=== PATIENT | male | born 1950 | race Caucasian/White ===

== ENCOUNTER 2016-08-11 08:50 | Inpatient (IN) | payer MEDICARE, MEDICAID ==
[~2016-08-11] VITALS: Ht 182.9 cm; Wt 109.1 kg
--- NOTE | ~2016-08-11 | HEMODYNAMI ---
PATIENT:VAHE NARVAEZ MEDICAL RECORD: [id number] : 54 [address] [id number] ADMISSION DATE: 08/11/16 Generatedon:08/13/20169:09 Patient name: VAHE NARVAEZ Patient #: [id number] SSN: : 1950 Date of study: 08/13/2016 Page: Of Hemodynamic Procedure Report Patient Data Patient Demographics Procedure consent was obtained First Name: VAHE Gender: Male Last Name: SOLANGE : 1950 Patient #: [id number] Age: 65 year(s) Race: Additional ID: [id number] Contact details Address: [address] [place] [address] State: [place] City: [facility] [place] [place] Zip code: [address] Admission Admission Data Admission Date: 08/11/2016 Admission Time: 11:35 Room #: 2122 Height (in.): 72 BSA: 2.3 (m2) Height (cm.): 182.88 BMI: 32.59 (kg/m2) Weight (lbs.): 240.31 Weight (kg.): 109 Lab Results Lab Result Date: 08/13/2016 Lab Result Time: 0:00 Biochemistry Name Units Result Min Max CK-MB ng/ml 0.4 --(*---)-- 0 3.6 Creatinine mg/dl 1 --(--*-)-- 0.6 1.3 Creatinine l 45 --(*---)-- 21 215 Kinase Troponin l ng/ml 0.017 --(-*--)-- 0 0.06 CBC Name Units Result Min Max Hemoglobin g/dl 10.4 *-(----)-- 13.5 17.5 Procedure Procedure Types Cath Procedure Diagnostic Procedure [facility] w/Coronaries FFR/IVUS Intra-Coronary IVUS Initial Intra-Coronary IVUS Additional PCI Procedure Coronary Stent Initial x2 Procedure Description Procedure Date Procedure Date: 08/13/2016 Procedure Start Time: 8:11 Procedure End Time: 9:09 Procedure Staff Name Function Casimiro Neal MD Performing Physician Jojo Echevarria RT Scrub Chaim Singleton RN Nurse Jarrell Barajas RT Monitor Procedure Data Cath Procedure Fluoroscopy Diagnostic fluoroscopy Total fluoroscopy Time: time: 11.2 min 11.2 min Diagnostic fluoroscopy Total fluoroscopy dose: dose: 1565 mGy 1565 mGy Contrast Material Contrast Material Type Amount (ml) Isovue 300 186 Entry Location Entry Primary Successful Side Size Upsize Upsize Entry Closure Eubanks ccessful Closure Location (Fr) 1 (Fr) 2 (Fr) Remarks Device Remarks Radial Right 6 Fr Mechanical artery Short Compression Estimated blood loss: 10 ml Diagnostic catheters Device Type Used For End Catheter Placement Diagnostic Terumo 5Fr Procedure [place] 110cm catheter Diagnostic Infinity 5Fr Procedure AR 2 MOD catheter Procedure Complications No complications Procedure Medications Medication Administration Route Dosage Oxygen NC 2 l/min Heparin Flush Bag added to field 2 bags (1000units/500ml NS) 0.9% NaCl 100 ml/hr Refer to Anesthesia Notes for Sedation Medications Heparin Bolus I.V. 4000 units Plavix P.O. 75 mg Hemodynamics Rest BSA: 2.3 (m2) HGB: 10.4 (g/dl) O2 Consumption: Estimated: 261.07 (ml/min) O2 Con sumption indexed: Estimated:113.51 (ml/min/m) Heart Rate: 61 (bpm) Snapshots Pre Cath Intra NCS Post Cath Vital Signs Time Heart Resp SPO2 etCO2 [id number] NIBP (mmHg) Rhythm Pain Sedation Rate (ipm) (%) (mmHg) (mmHg) Status Level (bpm) 7:54:17 59 16 99 0 0 207/102(137) NSR 0 (11) 10(A) , No pain 7:58:53 59 17 99 0 0 198/106(144) NSR 0 (11) 10(A) , No pain 8:03:24 60 17 98 0 0 200/100(146) NSR 0 (11) 10(A) , No pain 8:09:01 59 20 93 0 0 166/90(131) NSR 0 (11) 5(A) , No pain 8:13:26 60 18 89 0 0 142/76(97) NSR 0 (11) 5(A) , No pain 8:17:46 59 18 94 0 0 154/73(109) NSR 0 (11) 5(A) , No pain 8:22:10 60 17 92 0 0 142/64(86) NSR 0 (11) 5(A) , No pain 8:26:28 59 18 93 0 0 131/66(85) NSR 0 (11) 5(A) , No pain 8:31:37 61 17 93 0 0 129/58(85) NSR 0 (11) 5(A) , No pain 8:35:58 62 18 90 0 0 126/63(87) NSR 0 (11) 5(A) , No pain 8:40:08 63 18 90 0 0 126/65(95) NSR 0 (11) 5(A) , No pain 8:44:25 65 16 93 0 0 144/67(84) NSR 0 (11) 5(A) , No pain 8:48:50 66 17 95 0 0 130/67(88) NSR 0 (11) 5(A) , No pain 8:53:08 67 17 96 0 0 136/63(86) NSR 0 (11) 5(A) , No pain 8:57:30 68 17 99 0 0 154/68(91) NSR 0 (11) 8(A) , No pain 9:01:56 70 16 100 0 0 156/74(98) NSR 0 (11) 8(A) , No pain 9:06:18 69 18 91 0 0 164/83(108) NSR 0 (11) 8(A) , No pain Medications Time Medication Route Dose Verified Delivered Reason Notes Effectiveness by by 8:03:28 Oxygen NC 2 Chaim Rucker Per physician l/min Mani Singleton RN RN 8:03:38 Heparin Flush added 2 Chaim Rucker used for Bag to bags Mani Singleton RN procedure (1000units/500ml field RN NS) 8:03:49 0.9% NaCl 100 Chaim Rucker Per physician ml/hr Mani Singleton RN RN 8:04:04 Refer to Chaim Rucker Per physician Anesthesia Notes Mani Singleton RN for Sedation RN Medications 8:25:00 Heparin Bolus I.V. 4000 Chaim Rucker for units Mani Singleton RN anticoagulation RN 8:40:59 Plavix P.O. 75 mg Chaim Rucker for Singleton Singleton RN antiplatelet RN therapy Procedure Log Time Note 7:31:20 Lab Result : Creatinine 1 mg/dl 7:31:20 Lab Result : Troponin l 0.017 ng/ml 7:31:20 Lab Result : Hemoglobin 10.4 g/dl 7:31:20 Lab Result : CK-MB 0.4 ng/ml 7:31:20 Lab Result : Creatinine Kinase 45 l 7:31:45 Jarrell Barajas RT(R) sent for patient. Start room use. 7::45 Time tracking: Regular hours 7:31:49 Plan of Care:Hemodynamics will remain stable., Cardiac rhythm will remain stable., Comfort level will be maintained., Respiratory function will remain adequate., Patient/ family verbilizes understanding of procedure., Procedure tolerated without complication., Recovers from procedure without complications.. 7:45:27 Patient received from PCU to CCL 1 Alert and oriented. Tansferred to table in Supine position. 7:45:28 Warm blankets applied, and mustapha hugger turned on for patient comfort. 7:45:29 Correct patient and procedure confirmed by team. 7:45:30 Signed procedure consent form obtained from patient. 7:45:31 ECG and BP/O2 sat monitors applied to patient. 7:45:32 Full Disclosure recording started 7:52:06 Vital chart was started 8:00:51 Baseline sample Acquired. 8:00:58 Rhythm: paced 8:01:11 H&P Date Dictated: 08/09/2016 Within 30 days and on chart., ER History on chart.. 8:01:12 Pre-procedure instructions explained to patient. 8:01:13 Pre-op teaching completed and patient verbalized understanding. 8:01:14 Family unavailable. 8:01:31 Reji Rubio present and monitoring patient for TIVA. 8:01:37 Patient NPO since Midnight. 8:01:44 Is the patient allergic to Iodine/contrast media? No. 8:01:47 Is patient on blood thinner?Yes 8:03:20 Last dose of Plavix was 08/11/16. 8:03:23 Last dose of Coumadin was 08/09/16. 8:03:27 Patient diabetic? No. 8:03:28 Oxygen 2 l/min NC was administered by Chaim Singleton RN; Per physician; 8:03:30 Previous problem with sedation/anesthesia? No ? 8:03:32 Snore? No 8:03:33 Sleep apnea? No 8:03:34 Deviated septum? No 8:03:34 Opens mouth fully? Yes 8:03:35 Sticks out tongue? Yes 8:03:37 Airway obstruction? No ? 8:03:38 Heparin Flush Bag (1000units/500ml NS) 2 bags added to field was administered by Chaim Singleton RN; used for procedure; 8:03:41 Dentures? Yes OUT 8:03:44 Pre procedure: right dorsailis pedis pulse 1+ Palpable, but thready & weak; easily obliterated 8:03:46 Modified Micky's test Ulnar < 7 seconds 8:03:48 Patient pain scale 0/10 ?. 8:03:49 0.9% NaCl 100 ml/hr was administered by Chaim Singleton RN; Per physician; 8:03:58 IV patent on arrival in left antecubital with 0.9% NaCl at O. 8:04:04 Refer to Anesthesia Notes for Sedation Medications was administered by Chaim Singleton RN; Per physician; 8:04:21 Due to IV placement, BP cuff was placed on left leg. 8:04:26 Lab results completed and on chart. 8:04:29 Right Radial & Right Groin area was prepped with chlora-prep and draped in sterile fashion 8:04:30 Alarms reviewed by R. N. 8:04:31 Sharps counted by scrub and verified by R.N. 8:05:36 --------ALL STOP TIME OUT------ 8:05:37 Final Timeout: patient, procedure, and site verified with staff and physician. All members of the team are in agreement. 8:05:41 Right Radial & Right Groin site verified by team. 8:05:44 Physical assessment completed. ASA score P 2 - A patient with mild systemic disease as per Casimiro Nela MD. 8:05:46 Sedation plan: TIVA Propofol 8:06:05 Use device set Radial Dx 8:06:08 Tegaderm 4 x 4 opened to sterile field. 8:06:09 Acist Manifold opened to sterile field. 8:06:10 Acist Hand Control opened to sterile field. 8:06:12 Acist Syringe opened to sterile field. 8:06:12 Medline Cath Pack opened to sterile field. 8:06:13 Bag Decanter opened to sterile field. 8:06:13 Terumo 6Fr Slender Glidesheath opened to sterile field. 8:06:13 St Oscar 260cm J .035 wire opened to sterile field. 8:06:14 MBrace Wrist Support opened to sterile field. 8:06:25 IV Extension Set opened to sterile field. 8:09:11 Zero performed for pressure channel P1 8:11:45 Procedure started. 8:11:49 Local anesthetic to right radial artery with Lidocaine 2% by Casimiro Neal MD.INITIAL ACCESS ONLY 8:12:01 Patient Height : 72 cm 8:12:06 Patient Weight : 240.31 kg 8:12:52 A 6 Fr Short sheath was inserted into the Right Radial artery 8:13:49 A Diagnostic Terumo 5Fr [place] 110cm catheter was advanced over the wire and used for Procedure. 8:13:53 LV angiography performed. 8:13:54 LV gram done using STARKEY 8:14:00 EF : 55 % 8:14:04 Injector settings: Ml/sec: 7, Volume: 15, 8:15:36 LCA angiography performed. 8:17:10 Leveler BasixCompak Inflation Kit opened to sterile field. 8:17:10 Virk Whisper J 300cm 0.014 guide wire opened to sterile field. 8:17:15 Catheter exchanged over wire. 8:17:20 A Diagnostic Infinity 5Fr AR 2 MOD catheter was advanced over the wire and used for Procedure. 8:18:19 Catheter removed. unable to cannulate vessel. 8:18:28 Medtronic Launcher 6Fr HS II guide catheter opened to sterile field. 8:19:32 6 Fr HS 2 guide catheter was inserted over the wire 8:19:54 RCA angiography performed. 8:20:50 Catheter exchanged over wire. 8:21:16 [place] Eagleye IVUS Catheter opened to sterile field. 8:21:28 Cordis 6FR XBLAD 4.0 guide catheter opened to sterile field. 8:21:46 6 Fr XBLAD 4 guide catheter was inserted over the wire 8:22:31 Guide Catheter removed. unable to cannulate vessel. 8:22:40 Cordis 6FR XBLAD 3.5 guide catheter opened to sterile field. 8:22:52 6 Fr XBLAD 3.5 guide catheter was inserted over the wire 8:23:51 Whisper wire advanced. 8:24:38 Wire advanced down the LAD. 8:24:55 IVUS catheter advanced over wire. 8:25:00 Heparin Bolus 4000 units I.V. was administered by Chaim Singleton RN; for anticoagulation; 8:26:19 IVUS pass to LAD lesion performed. 8:26:28 IVUS catheter removed over wire. 8:28:59 Wire removed. 8:29:09 ACC PCI Site: pLAD has 72% stenosis. 8:29:11 ACC Pre-intervention DINA Flow is 3. 8:30:09 Whisper wire readvanced. 8:30:20 Wire advanced across lesion. 8:30:27 Inflation Number: 1 A Biofreedom 3.5 x 14 stent (No Cost Implant) was prepped and advanced across the Prox LAD. The stent was deployed at 15 SANCHEZ for 0:10 (min:sec). 8:32:04 ACC Post-intervention DINA Flow is 3. 8:32:45 Stent catheter was removed intact over wire. 8:33:35 Wire redirected to CIRC. 8:33:41 IVUS catheter advanced over wire. 8:34:27 IVUS pass to Circ lesion performed. 8:35:06 IVUS catheter removed over wire. 8:35:11 Wire removed. 8:36:42 Whisper wire readvanced. 8:36:47 Wire advanced across lesion. 8:36:53 ACC PCI Site: pCirc has 70% stenosis. 8:36:56 ACC Pre-intervention DINA Flow is 3. 8:37:54 Inflation Number: 1 A Biofreedom 3.0 x 8 stent (No Cost Implant) was prepped and advanced across the Prox CX. The stent was deployed at 15 SANCHEZ for 0:10 (min:sec). 8:38:02 ACC Post-intervention DINA Flow is 3. 8:38:07 Stent catheter was removed intact over wire. 8:38:07 Wire removed. 8:38:08 Guide catheter removed. 8:38:12 Procedure ended.(Physican Out) 8:38:30 Terumo TR Band Large opened to sterile field. 8:38:39 Sheath removed intact; hemostasis achieved with Mechanical Compression to the Right Radial artery. 8:40:31 Fluoroscopy time 11.20 minutes. 8:40:37 Fluoroscopy dose: 1565 mGy 8:40:37 Flurop Dose total: 1565 8:40:41 Contrast amount:Isovue 300 186ml. 8:40:43 Sharps counted by scrub and verified by R.N. 8:40:45 TR band inflated with 11cc of air. 8:40:46 Insertion/operative site no bleeding no hematoma. 8:40:48 Post Procedure Pulses reassessed and unchanged 8:40:53 Post-procedure physical assessment completed. ASA score P 2 - A patient with mild systemic disease as per Casimiro Neal MD. 8:40:56 Post procedure rhythm: unchanged. 8:40:58 Estimated blood loss: 10 ml 8:40:59 Plavix 75 mg P.O. was administered by Chaim Singleton RN; for antiplatelet therapy; 8:41:00 Post procedure instruction explained to patient.Patient verbalizes understanding. 8:41:00 Patient needs reinforcement of post procedure teaching. 8:41:29 Procedure type changed to Cath procedure, Diagnostic procedure, LHC, LHC w/Coronaries, FFR/IVUS, Intra-Coronary IVUS Initial, Intra-Coronary IVUS Additional, PCI procedure, Coronary Stent Initial x2 8:41:38 Procedure Complication : No complications 8:44:27 Procedure and supply charges have been captured, reviewed, submitted and are correct. 9:09:02 Vital chart was stopped 9:09:03 See physician's report for complete and final results. 9:09:07 Report given to PCU. 9:09:11 Patient transfered to PCU with Bed. 9:09:13 Procedure ended. 9:09:13 Full Disclosure recording stopped 9:09:20 End room use (Document Last) Intervention Summary Intervention Notes Time ActionType Lesion and Equipment Action# Pressure Duration Attributes Used 8:30:27 Place stent Prox LAD Biofreedom 1 15 00:10 3.5 x 14 stent (No Cost Implant) 8:37:54 Place stent Prox CX Biofreedom 1 15 00:10 3.0 x 8 stent (No Cost Implant) Device Usage Item Name Manufacture Quantity Catalog Hospital Part Current Minimal Lot# / Number Charge Number Stock Stock Serial# Code Tegaderm 4 3M 1 1626W 298388 266528 686895 5 x 4 Acist Acist 1 69833 966678 065827 178632 5 Manifold Medical Systems Inc Acist Hand Acist 1 57495 865266 426248 751464 5 Control Medical Systems Inc Acist Acist 1 79310 282813 639935 101864 20 Syringe Medical Systems Inc Medline Cardinal 1 [id number] 345804 31704 295224 5 Cath Pack Health Bag Microtek 1 2002S 383133 39480 930362 5 Decanter Medical Inc. Terumo 6Fr Terumo 1 [id number] 342548 256274 614210 [address] St Oscar 1 231278 564056 253690 340508 30 260cm J .035 wire MBrace Advanced 1 140-0250-00 191063 68190 552931 5 Wrist Vascular Support Dynamics IV Hospira 1 32990-80 153833 84449 929011 5 Extension Set Diagnostic Terumo 1 40-6844 529153 523850 042017 5 Terumo 5Fr [place] 110cm catheter Diagnostic Cardinal 1 [id number] 560827 523473 861024 20 DestinationRX 5Fr AR 2 MOD catheter Merit Merit 1 OK3215 600784 236632 685036 15 BasixCompak Medical Inflation Kit Virk Virk 1 [id number] 038424 666453 720274 5 Whisper J Vascular 300cm 0.014 guide wire Medtronic Medtronic 1 [id number] 552895 29194 952507 1 Launcher 6Fr HS II guide catheter [place] 1 [id number] 020609 741315 275351 8 [place] Eagleye IVUS Catheter Cordis 6FR Cardinal 1 [id number] 487282 759515 283155 3 XBLAD 4.0 Health guide catheter Cordis 6FR Cardinal 1 [id number] 884733 516970 244385 10 XBLAD 3.5 Health guide catheter Biofreedom Biosensors 1 [facility]2-9813 019024 439627 5 [id number] 3.5 x 14 [place] SA stent (No Cost Implant) Biofreedom Biosensors 1 [facility]23006 559623 385149 5 [id number] 3.0 x 8 [place] SA stent (No Cost Implant) Terumo TR Terumo 1 [id number] 683546 324819 905421 40 Band Large Signature Audit [place] Stage Time Signature Unsigned Intra-Procedure 08/13/2016 Jarrell Barajas 9:09:32 AM RT(R) Signatures Monitor : Jarrell Barajas RT Signature : Date : Time : [place] [id number] [facility]901
--- NOTE | ~2016-08-11 | DS ---
PATIENT:VAHE NARVAEZ :54 MEDICAL RECORD: [id number] DISCHARGE SUMMARY ADMISSION DATE: 08/13/16 DISCHARGE DATE: 08/14/16 DISCHARGE DIAGNOSES: 1. PTCA stent left anterior descending and left circumflex this admission. 2. Unstable angina. 3. Coronary artery disease. 4. Hypertension. 5. Hyperlipidemia. HOSPITAL COURSE: This is a gentleman who presents with unstable anginal symptomatology, found to have 2-vessel coronary artery disease, underwent successful PTCA stent of the LAD and left circumflex. He had an uneventful postop course with no further anginal symptomatology, no complications. Was discharged home with the addition of Plavix to his medical regimen. His INR was high to begin with. He was on 4 mg a day of Coumadin. We decreased this to 2 mg a day. We will follow up with a PT/INR in 2 weeks at our office. TRANSINT:[id number] Voice Confirmation ID: [id number] DOCUMENT ID: [id number] MÓNICA GRAYSON MD CC: [id number] DICTATION DATE: 08/14/16930 CENTER LINE CUTTER OPERATOR: 08/15/16 0122 DIS IN 08/14/16 [facility] [address] [place] [address]
[~2016-08-11 08:50] MED LIST: ACETAMINOPHEN500 M1 PO; BAYER CHEWABLE81 MG PO; BETAPACE 120 M120 MG PO; CELEXA10 MG PO; COREG25 MG PO; COUMADIN5 MG PO; DURAGESIC1 PATCH .3 TD; HYDROCHLOROTHIA25 MG PO; KEPPRA500 MG PO; KLONOPIN1 MG PO; LANOXIN250 MCG PO; LIORESAL 10 MG10 MG PO; LISINOPRIL5 MG PO; LITE COAT ASPI325 MG PO; NORCO 10/325 TA1 TA1 PO; PHENERGAN25 M1 PO; RESTORIL15 MG PO; ROXICODONE5 MG PO; XANAX1 MG PO
[2016-08-11 09:32] LABS: BASOPHILS 0.1 % (0-2); EOSINOPHILS 0.8 % (0-7); HEMATOCRIT 34.6 % (42.0-54.0); HEMOGLOBIN 10.4 g/dL (13.5-17.5); IMMATURE GRANULOCYTES 0.2 % (0-5); LYMPHOCYTES 10.3 % (15-50); MCH 24.8 pg (26.0-34.0); MCHC 30.1 g/dL (31.0-37.0); MCV 82.6 fL (80.0-100.0); MEAN PLATELET VOLUME 8.8 fL (7.4-10.4); MONOCYTES 11.2 % (2-11); NEUTROPHILS 77.4 % (40-80); PLATELET COUNT 204 10x3/uL (130-400); RBC 4.19 10x6/uL (4.20-6.10); RDW 18.1 % (11.5-14.5); WBC 8.4 10x3/uL (4.8-10.8)
[2016-08-11 10:00] LABS: ALBUMIN 3.5 g/dL (3.4-5.0); ALKALINE PHOSPHATASE 120 U/L (46-116); ALT (SGPT) 24 U/L (10-68); BILIRUBIN - TOTAL 0.66 mg/dL (0.2-1.3); CALC OSMOLALITY 272 mosm/kg (275-300); CALCIUM 8.9 mg/dL (8.5-10.1); CARBON DIOXIDE 31.2 mmol/L (21.0-32.0); CHLORIDE - SERUM 98 mmol/L (98-107); GLUCOSE 128 mg/dL (74-106); POTASSIUM - SERUM 3.4 mmol/L (3.5-5.1); PROTEIN - SERUM 7.1 g/dL (6.4-8.2); SODIUM 136 mmol/L (136-145); UREA NITROGEN 10 mg/dL (7-18); eGFR NON AFRICAN AMERICAN 80 mL/min (90-120)
[2016-08-11 10:11] LABS: CHOL - HDL RATIO 4.4 ratio (2.3-4.9); CHOLESTEROL, TOTAL 157 mg/dL (0-200); CKMB 0.4 U/L (0.0-3.6); CREATINE KINASE 45 UL (21-232); HDL CHOLESTEROL 36 mg/dL (32-96); LDL CHOLESTEROL 108 mg/dL (0-100); TRIGLYCERIDE 68 mg/dL (30-200); TROPONIN-I < 0.017 ng/mL (0.000-0.060)
[2016-08-11 11:53] LABS: INR 9.52 (0.85-1.17); PROTIME 79.1 SECONDS (11.6-15.0)
--- NOTE | 2016-08-11 13:15 | NUR ---
RECEIVED PT TO ROOM 2121 VIA W/C RESP UNLABORED C/O CHEST PAIN 08/[address] CALL [address] TO DR RENUKA FIGUEROA RN
[2016-08-11] MEDS ORDERED: COUMADIN4 MG PO (13:22)
[2016-08-11] MEDS ORDERED: PROPAFENONE HC150 MG PO (13:23)
[2016-08-11] MEDS ORDERED: ENDOCET 10-3251 TAB PO (13:25)
[2016-08-11] MEDS ORDERED: TEMAZEPAM30 MG PO (13:26)
[2016-08-11] MEDS ORDERED: XANAX0.5 MG PO (13:30)
--- NOTE | 2016-08-11 13:30 | NUR ---
#1 UNIT FFP STARTED AT THIS TIME VSS NAD NOTED
--- NOTE | 2016-08-11 13:52 | NUR ---
IV SITE CHANGED PER IV NURSE FFP RESTARTED AT THIS TIME PT TOLERATING WELL
--- NOTE | 2016-08-11 13:52 | NUR ---
IV ACCESS-22 GAUGE INSERTED IN LEFT THUMB AREA FOR ACCESS. KARINA BARTLETT RN
--- NOTE | 2016-08-11 15:40 | NUR ---
#1 UNIT FFP COMPLETE #2 UNIT FFP STARTED AT THIS TIME VSS
--- NOTE | 2016-08-11 15:49 | HP ---
PATIENT: VAHE NARVAEZ MEDICAL RECORD: [id number] ACCOUNT: [id number] LOCATION:[address] : 54 ADMISSION DATE: 08/11/16 HISTORY AND PHYSICAL EXAMINATION DIAGNOSES: 1. Unstable angina. 2. Coronary artery disease. 3. Previous percutaneous transluminal coronary angioplasty stents in 2007 and 2008. 4. Sick sinus syndrome. 5. Status post pacemaker. 6. Atrial fibrillation, chronic. 7. Coumadin anticoagulation for atrial fibrillation. 8. Cerebrovascular accident, nonhemorrhagic, 2012 and 2013. 9. Hypertension. HOME MEDICATIONS: Coreg 25 mg b.i.d., digoxin 0.25 daily, warfarin 4 mg daily, hydrochlorothiazide 25 mg daily, Celexa 20 mg daily. ALLERGIES: No known drug allergies. INTOLERANCE TO FENTANYL AND TORADOL. HISTORY OF PRESENT ILLNESS: This gentleman presents with anginal symptomatology since Wednesday. He has had multiple episodes of chest pain for the past 3 days. His chest pain worsened and began having chest pain at rest today with nausea. This is just like that of his previous angina. Last cardiac stent was in 2008. He does not have a history of myocardial infarction or congestive heart failure. He does have history of stents. He has a history of atrial fibrillation, status post ablation, but remains in chronic atrial fibrillation. He does have a pacemaker. He has a history of nonhemorrhagic CVAs, but none since 2013. He does not have a history of peripheral vascular disease. He does not have a bleeding history. PHYSICAL EXAMINATION: GENERAL APPEARANCE: Well-nourished, well-developed, appears stated age. Level of distress, comfortable. PSYCHIATRIC: Mental status, alert, normal affect. Orientation, oriented to time, place and person. EYES: Lids and conjunctiva, noninjected. No discharge, no pallor. ENT: Lips, teeth, gums, normal dentition. Oropharynx, no cyanosis, no pallor. NECK: Carotid arteries, bilateral normal upstroke, no bruits, no thrills. JUGULAR VEINS: No jugular venous pressure or distention. CERVICAL LYMPH NODES: Nontender, nonenlarged. THYROID: Not enlarged. Nontender. No nodules. LUNGS: Respiratory effort, unlabored. CHEST: Normal curvature. No thoracic deformity. No chest wall tenderness. Percussion, resonant. Auscultation, clear. No wheezes, no rales, no rhonchi. CARDIOVASCULAR: Precordial exam, nondisplaced. No heaves or pericardial thrills. Rate and rhythm, regular. Heart sounds, normal S1, normal S2. No S3, no gallop, no rub. Systolic murmur, not heard. Diastolic murmur, not heard. EXTREMITIES: No cyanosis, no edema. Peripheral pulses, full and equal in all extremities, except as noted. No bruits appreciated. ABDOMEN: Soft, nondistended. Normal aorta. No bruit. Nontender. No masses. Liver, nontender, no hepatomegaly. Spleen, nontender, no splenomegaly. MUSCULOSKELETAL: No joint tenderness. No joint swelling. No erythema. HISTORY AND PHYSICAL [id number] VAHE NARVAEZ NEUROLOGICAL: Normal gait, normal strength, normal tone. SKIN: Warm and dry. REVIEW OF SYSTEMS: The patient reports easy bruising but reports no swollen glands. The patient reports no fever, no night sweats, no significant weight gain, no significant weight loss. No significant exercise tolerance. The patient reports no dry eyes, no irritation, no vision change. Patient reports no difficulty hearing and no ear pain. Patient reports no frequent nose bleeds or nose and sinus problems. Patient reports on arm pain on exertion. No shortness of breath while lying down. No history of heart murmur. Patient reports no cough, no wheezing or coughing up blood. Patient reports no abdominal pain, no vomiting. Normal appetite. No diarrhea and not vomiting blood. No nausea and no constipation. Patient reports no incontinence. No difficulty urinating. No hematuria. No increased frequency. Patient reports no muscle aches. No weakness, no arthralgias, no back pain. No swelling of the extremities. Patient reports no abnormal mole, no jaundice, no rashes. Reports no loss of consciousness. No weakness and no numbness. No seizures, dizziness, or headaches. The patient reports no depression, no sleep disturbance, feeling safe in a relationship and no alcohol abuse. Patient reports on fatigue. Reports no runny nose or sinus pressure. No itching, no hives, and no frequent sneezing. OVERALL IMPRESSION: Unstable angina. Most likely, he has recurrent hemodynamically significant coronary artery disease. We will get PT/INR. Give him FFP, replace that and then we will plan for cardiac catheterization when the INR is less than 1.5. TRANSINT:[id number] Voice Confirmation ID: [id number] DOCUMENT ID: [id number] MÓNICA GRAYSON MD at 1549 CC: [id number] DICTATION DATE: 08/11/16 112 BUILDER OPERATOR: 08/11/16 1141 ADM IN [facility] [address] [place] [address]
[2016-08-11 16:05] VITALS: BP 129/73
--- NOTE | 2016-08-11 16:50 | NUR ---
#2 UNIT FFP COMPLETE PT TOLERATED WELL
--- NOTE | 2016-08-11 17:30 | NUR ---
#3 UNIT FFP STARTED AT THIS TIME VSS WILL CONTINUE TO MONITOR
[2016-08-11 17:43] VITALS: BP 168/100; Ht 182.9 cm; Wt 109.1 kg
--- NOTE | 2016-08-11 18:45 | NUR ---
#3 UNIT FFP COMPLETE 34 UNIT FFP STARTED AT THIS TIME VSS PT TOLERATIG WELL
--- NOTE | 2016-08-11 19:00 | NUR ---
INITIAL ROUNDS MADE. PT SITTING UP IN BED WATCHING TV. LAST UNIT FFP FINISHING UP, FLUSHING IV. PT TOLERATING TRANSFUSION WELL WITH NO S/S REACTION. WILL CONT TO MONITOR.
[2016-08-11 20:12] VITALS: BP 113/67
[2016-08-11 21:38] LABS: INR 1.61 (0.85-1.17)
[2016-08-11 23:40] VITALS: BP 106/61
[2016-08-12 03:31] VITALS: BP 110/62
--- NOTE | 2016-08-12 03:59 | NUR ---
MOUNTED POLICE OFFICER AT BEDSIDE FOR VS. NEEDS ADDRESSED AT THIS TIME. CALL LIGHT IN REACH. WILL CONT TO MONITOR.
[2016-08-12 05:16] LABS: INR 1.52 (0.85-1.17); PROTIME 18.2 SECONDS (11.6-15.0)
[2016-08-12 08:00] VITALS: BP 127/82
--- NOTE | 2016-08-12 09:58 | NUR ---
ONE UNIT FFP STARTED. VS WNL. LINE IS PATENT.
--- NOTE | 2016-08-12 10:15 | NUR ---
FFP COMPLETED WITHOUT ADVERSE REATION.
[2016-08-12 12:03] VITALS: BP 125/80
[2016-08-12 16:00] VITALS: BP 113/65
--- NOTE | 2016-08-12 16:27 | NUR ---
HC CANCELED TILL AM. RESTS WITH EYES CLOSED. NO S/S DISCOMFORTS NOTED.
--- NOTE | 2016-08-12 19:17 | NUR ---
RESUMED CARE OF PT, LYING IN BED RESPIRATIONS EVEN AND UNLABORED ON 2LPM VIA NC. 69 PACED ON TELEMETRY. LEFT WRIST SALINE LOCKED. CALL LIGHT IN REACH. WILL CONTINUE TO MONITOR. SEE NURSE ASSESSMENT.
[2016-08-13] VITALS: BP 154/84
--- NOTE | 2016-08-13 01:02 | NUR ---
LYING IN BED WITH EYES CLOSED, CALL LIGHT IN REACH. WILL CONTINUE TO MONITOR.
--- NOTE | 2016-08-13 03:37 | NUR ---
PULP PLANT SUPERVISOR AT BEDSIDE TO OBTAIN VITALS, WILL CONTINUE WITH PLAN OF CARE.
[2016-08-13 04:00] VITALS: BP 131/90
--- NOTE | 2016-08-13 06:32 | NUR ---
NO CHANGES FROM PREVIOUS ASSESSMENT, CALL LIGHT IN REACH.
--- NOTE | 2016-08-13 07:39 | NUR ---
PRE-OPS GIVEN. LEAVING FOR HOG SCALDER BY BED.
[2016-08-13 08:00] VITALS: BP 160/93
--- NOTE | 2016-08-13 09:31 | NUR ---
BACK FROM ABSTRACTER. VS WNL. RIGHT WRIST STABLE WITH TR BAND INTACT. WILL MONITOR.
--- NOTE | 2016-08-13 13:04 | NUR ---
TR BAND DCD WITHOUT BLEEDING OR HEMATOMA NOTED.
[2016-08-13 16:22] VITALS: BP 140/86
--- NOTE | 2016-08-13 19:30 | NUR ---
PT RESTING IN BED, ASKING FOR PAIN MEDS. DRESSING TO RIGHT WRIST C/D/I. NO SWELLING/BRUISING. SEE SHIFT ASSESSMENT. CPOC.
--- NOTE | 2016-08-13 19:45 | NUR ---
WENT TO ROOM TO LET PATIENT KNOW IT IS TOO EARLY FOR PAIN MEDS AND HE IS ASLEEP. EYES CLOSED. RESPS EVEN/NONLABORED. WILL MONITOR.
[2016-08-13 20:00] VITALS: BP 148/91
--- NOTE | 2016-08-13 22:17 | NUR ---
PT WANTING PAIN PILL. INSTRUCTED HIS NEXT DOSE CAN BE GIVEN AT 2330. PT STATES HE DOESN'T EVEN RECALL RECIEVING ANY EARLIER. REVIEWED WITH PATIENT THAT DAY NURSE MEDICATED HIM AT 1730 AND HE CAN HAVE IT EVER 6 HOURS. MONITOR AND CPOC.
[2016-08-14] VITALS: BP 140/66
--- NOTE | 2016-08-14 02:21 | NUR ---
PT RESTING WITH EYES CLOSED. RESPS EVEN/NONLABORED. NO DISTRESS. CALL LIGHT IN REACH. CPOC.
--- NOTE | 2016-08-14 06:10 | NUR ---
PT AWAKE AND C/O LEFT LEG PAIN AND ANXIETY. SAYS HE HAS GOTTEN TO WHERE HE NEEDS XANAX ALL THE TIME. ASSESSED LEFT LEG. GOOD PEDAL PULSE, NOTED SMALL SCABS X 2 ON INNER ANKLE AREA. PT UNAWARE OF HOW HE GOT THESE SCABS. NO PROBLEMS NOTED TO LEFT LEG TO ACCOUNT FOR HIS DESCRIPTION OF PAIN FROM "THE TOP OF MY KNEE ALL THE WAY TO MY FOOT". MEDICATED WITH HIS REQUESTED XANAX AND NORCO. WILL MONITOR AND CPOC.
--- NOTE | 2016-08-14 07:25 | NUR ---
PT SITTING UP IN BED SLEEPING RR EVEN AND UNLABORED. NO S/S DISTRESS NOTED. WILL CONT TO MONITOR
--- NOTE | 2016-08-14 07:36 | OP ---
PATIENT NAME: VAHE NARVAEZ MEDICAL RECORD: [id number] :54 LOCATION:D.M2 D.2122 ADMISSION DATE:08/13/16 SURGEON: MÓNICA GRAYSON MD DATE OF OPERATION: 08/13/2016 PROCEDURES: 1. PTCA stent LAD. 2. PTCA stent left circumflex. 3. Intravascular ultrasound of the LAD. 4. Intravascular ultrasound of left circumflex. 5. Left heart catheterization. 6. Selective coronary angiography. 7. Left ventriculogram. INDICATION: Angina and coronary artery disease. PROCEDURE IN DETAIL: After informed consent was obtained and after detailed explanation of risks, benefits as well as alternative therapies, the patient elected to proceed with angiogram and angioplasty. The right radial area was prepped and draped in normal sterile fashion. Right radial artery was cannulated via modified Seldinger technique with placement of 6-Ugandan sheath. All catheters exchanged through this sheath. FINDINGS: The left ventriculogram was performed in the standard 30-degree STARKEY view reveals preserved cardiac wall motion, ejection fraction 55%. SELECTIVE CORONARY ANGIOGRAPHY: 1. Left main showed no significant angiographic disease. 2. Left anterior descending has a 72% stenosis proximally confirmed by intravascular ultrasound. 3. Left circumflex has greater than 70% at the ostium confirmed by intravascular ultrasound. 4. The right coronary has previously placed stents, these are widely patent with no significant restenosis. No disease elsewise throughout the RCA or its branches. PTCA STENT OF THE LAD AND CIRCUMFLEX. The LAD lesion was an 11-mm lesion in the 3.5 vessel with DINA 3 flow. This was addressed with a 3.5 x 14 mm BioFreedom stent. Result was 0% residual stenosis, DINA-3 flow. The left circumflex lesion was an 8 mm lesion with DINA 3 flow in a 3.0 vessel. This was addressed with a 3.0 x 8 mm BioFreedom stent. Result was 0% residual stenosis, DINA-3 flow. IMPRESSION: Successful percutaneous transluminal coronary angioplasty stent of the LAD and circumflex, both going from greater than 70% initial stenosis confirmed by intravascular ultrasound to 0% residual stenosis. TRANSINT:[id number] Voice Confirmation ID: [id number] DOCUMENT ID: [id number] OPERATIVE REPORT [id number] NARVAEZVAHE JEFFREY MD at 0736 CC: [id number] DICTATION DATE: 08/13/16 0842 POWER PLANT OPERATOR: 08/13/16 1635 ADM IN [facility] [address] [id number]
[2016-08-14 08:04] VITALS: BP 173/86
--- NOTE | 2016-08-14 09:04 | NUR ---
PT TROPONIN ELEVATED 0.581. SPOKE WITH CATERINA MCGEE APN, SAID ITS OK FROM HIS HEART CATH YESTERDAY.
--- NOTE | 2016-08-14 09:17 | NUR ---
ELISSA DERMATOLOGY SALES REPRESENTATIVE BROUGHT ME A PILL THAT HE FOUND IN PT ROOM. I IDENTIFIED MEDICATION HALF OF A XANAX. WENT TO THE THE [facility] TO [facility]ASTE WITH [facility] AND IT WILL NOT ALLOW ME TO WASTE THE 0.5 MG TABLET. CALLED PHARM AND SPOKE WITH CATHI, HE IS NOT SURE WHY IT WONT ALLOW ME TO DO SO, SAID TO JUST PUT A NOTE IN COMPUTER STATING THAT MEDICATION WAS WASTED AND PLACED IN SHARPS CONTAINER. DONE.
[2016-08-14] MEDS ORDERED: PLAVIX75 MG PO (09:45)
[2016-08-14] MEDS ORDERED: HYDROCODONE-APA1 TAB PO (09:49)
--- NOTE | 2016-08-14 10:20 | NUR ---
WENT OVER DC PAPERWORK WITH PT PT VERBALIZES UNDERSTANDING. GIVEN PT SCRIPTS FOR XANAX, NORCO, AND PLAVIX. DC PIV WITH CATH TIP INTACT. DC TELE AND RETURNED TO RIVER GUIDE. PT GETTING DRESSED AND VOLUNTEER WILL WHEEL HIM OUT VIA WHEELCHAIR.
--- NOTE | 2016-08-14 10:27 | NUR ---
PT VOLUNTEER WHEELED PT OUT
== END 2016-08-14 10:27 | disposition home or self-care (01) | DRG 247 ==
LOC: OBSVTIME → D.ER 08:50 → D.OPS 08:50 → D.ER 11:27 → D.M2 11:35 → D.ER 11:35 → D.M2 11:35 → EDSTATUS 08-12 09:30 → OBSVTIME 08-13 08:00 → D.M2 08-13 11:22
PROVIDERS: Emergency Medicine; ADMIT Internal Medicine Interventional Cardiology
PROC: 027135Z Dilation of Coronary Artery, Two Arteries with Two Drug-eluting Intraluminal Devices, Percutaneous Approach (ICD-10-PCS; principal; 2016-08-13 08:00)
PROC: B2151ZZ Fluoroscopy of Left Heart using Low Osmolar Contrast (ICD-10-PCS; 2016-08-13 08:00)
DX: I25.110 Atherosclerotic heart disease of native coronary artery with unstable angina pectoris (principal); I49.5 Sick sinus syndrome; I48.2 Chronic atrial fibrillation; Z79.01 Long term (current) use of anticoagulants; I10 Essential (primary) hypertension; Z00.6 Encounter for examination for normal comparison and control in clinical research program

== ENCOUNTER 2016-08-17 11:53 | Emergency (ER) | payer MEDICARE, MEDICAID ==
[2016-08-11 17:43] VITALS: BMI 33.3
[~2016-08-17 11:53] MED LIST changes: +COUMADIN4 MG PO; +ENDOCET 10-3251 TAB PO; +HYDROCODONE-APA1 TAB PO; +PLAVIX75 MG PO; +PROPAFENONE HC150 MG PO; +TEMAZEPAM30 MG PO; +XANAX0.5 MG PO
[2016-08-17 12:48] LABS: BASOPHILS 0.2 % (0-2); EOSINOPHILS 4.2 % (0-7); HEMATOCRIT 34.7 % (42.0-54.0); HEMOGLOBIN 10.3 g/dL (13.5-17.5); IMMATURE GRANULOCYTES 0.2 % (0-5); LYMPHOCYTES 15.2 % (15-50); MCH 24.3 pg (26.0-34.0); MCHC 29.7 g/dL (31.0-37.0); MEAN PLATELET VOLUME 9.3 fL (7.4-10.4); MONOCYTES 10.5 % (2-11); NEUTROPHILS 69.7 % (40-80); PLATELET COUNT 188 10x3/uL (130-400); RBC 4.23 10x6/uL (4.20-6.10); RDW 17.6 % (11.5-14.5); WBC 5.5 10x3/uL (4.8-10.8)
[2016-08-17 13:05] LABS: ALBUMIN 3.6 g/dL (3.4-5.0); ALKALINE PHOSPHATASE 106 U/L (46-116); ALT (SGPT) 22 U/L (10-68); BILIRUBIN - TOTAL 0.71 mg/dL (0.2-1.3); CALC OSMOLALITY 273 mosm/kg (275-300); CALCIUM 8.7 mg/dL (8.5-10.1); CARBON DIOXIDE 29.9 mmol/L (21.0-32.0); CHLORIDE - SERUM 101 mmol/L (98-107); CREATININE - SERUM 0.8 mg/dL (0.6-1.3); GLUCOSE 88 mg/dL (74-106); POTASSIUM - SERUM 3.5 mmol/L (3.5-5.1); PROTEIN - SERUM 7.1 g/dL (6.4-8.2); SODIUM 138 mmol/L (136-145); UREA NITROGEN 9 mg/dL (7-18); eGFR NON AFRICAN AMERICAN > 90 mL/min (90-120)
[2016-08-17 13:20] LABS: CHOL - HDL RATIO 3.9 ratio (2.3-4.9); CHOLESTEROL, TOTAL 137 mg/dL (0-200); CKMB 0.6 U/L (0.0-3.6); CREATINE KINASE 32 UL (21-232); HDL CHOLESTEROL 35 mg/dL (32-96); LDL CHOLESTEROL 89 mg/dL (0-100); LDL-HDL RATIO 2.5 ratio (1.5-3.5); MAGNESIUM - SERUM 1.7 mg/dL (1.8-2.4); TRIGLYCERIDE 68 mg/dL (30-200)
[2016-08-17 13:31] LABS: TROPONIN-I 0.189 ng/mL (0.000-0.060)
[2016-08-17 16:57] LABS: APTT 39.5 SECONDS (22.8-39.4); INR 1.21 (0.85-1.17); PROTIME 15.2 SECONDS (11.6-15.0)
== END 2016-08-17 17:20 | disposition home or self-care (01) ==
LOC: D.ER 11:53
PROVIDERS: Emergency Medicine
DX: R07.9 Chest pain, unspecified (principal); I25.10 Atherosclerotic heart disease of native coronary artery without angina pectoris; E83.42 Hypomagnesemia; D64.9 Anemia, unspecified; I50.9 Heart failure, unspecified

== ENCOUNTER 2016-08-21 20:13 | Observation (INO) | payer MEDICARE, MEDICAID ==
[~2016-08-21] VITALS: Ht 182.9 cm; Wt 107.0 kg
--- NOTE | ~2016-08-21 | HEMODYNAMI ---
PATIENT:VAHE NARVAEZ MEDICAL RECORD: [id number] : 54 LOCATION:[facility] D.2118 ADMISSION DATE: 08/21/16 Generatedon:08/22/201612:08 Patient name: VAHE NARVAEZ Patient #: [id number] : 1950 Date of study: 08/22/2016 Page: Of Hemodynamic Procedure Report Patient Data Patient Demographics Procedure consent was obtained First Name: VAHE Gender: Male Last Name: SOLANGE : 1950 Patient #: [id number] Age: 65 year(s) Race: SSN: [id number] Additional ID: [id number] Contact details Address: [address] [place] [address] State: [place] City: [facility] [place] [place] Zip code: [address] Admission Admission Data Admission Date: 08/21/2016 Admission Time: 22:11 Arrival Date: 08/21/2016 Arrival Time: 22:11 Admit Source: Other Insurance Payor: Medicare Room #: D.2118 Height (in.): 72 BSA: 2.28 (m2) Height (cm.): 182.88 BMI: 31.87 (kg/m2) Weight (lbs.): 235 Weight (kg.): 106.59 Lab Results Lab Result Date: 08/22/2016 Lab Result Time: 0:00 Biochemistry Name Units Result Min Max BUN mg/dl 16 --(---*)-- 7 18 Creatinine mg/dl 1.1 --(--*-)-- 0.6 1.3 CBC Name Units Result Min Max Hemoglobin g/dl 10.9 *-(----)-- 13.5 17.5 Procedure Procedure Types Cath Procedure Diagnostic Procedure [facility] w/Coronaries Miscellaneous Procedures Moderate Sedation up to 15 minutes Procedure Description Procedure Date Procedure Date: 08/22/2016 Procedure Start Time: 11:54 Procedure End Time: 12:03 Procedure Staff Name Function Charanjit Muir MD Performing Physician Savannah Goldberg RT Scrub Kinsey England RN Nurse Barbara Garcia RT Monitor Indication Angina Procedure Data Cath Procedure Fluoroscopy Diagnostic fluoroscopy Total fluoroscopy Time: 1.2 time: 1.2 min min Diagnostic fluoroscopy Total fluoroscopy dose: 411 dose: 411 mGy mGy Contrast Material Contrast Material Type Amount (ml) Isovue 300 41 Entry Location Entry Primary Successful Side Size Upsize Upsize Entry Closure Succes sful Closure Location (Fr) 1 (Fr) 2 (Fr) Remarks Device Remarks Femoral Right 5 Fr Exoseal artery Estimated blood loss: 5 ml Diagnostic catheters Device Type Used For End Catheter Placement Cordis 5Fr JL 4.0 Left Coronary Catheter (MP) Angiography Cordis 5Fr 3DRC Catheter Right Coronary (MP) Angiography Cordis 5Fr Pigtail LV Angiography Catheter (MP) Procedure Complications No complications Procedure Medications Medication Administration Route Dosage Plavix P.O. 75 mg Oxygen NC 2 l/min Heparin Flush Bag added to field 2 bags (1000units/500ml NS) Lidocaine 2% added to field 20 Refer to Anesthesia Notes for Sedation Medications Hemodynamics Rest BSA: 2.28 (m2) HGB: 10.9 (g/dl) O2 Consumption: Estimated: 266.7 (ml/min) O2 Con sumption indexed: Estimated:116.97 (ml/min/m) Heart Rate: 71 (bpm) Pressure Samples Time Site Value (mmHg) Purpose Heart Use Rate(bpm) 12:00 LV 121/13,19 Snapshot 70 Gradients Valve Time Site Site Mean SEP/DFP Peak To Heart Use 1 2 (mmHg) (sec/min) Peak Rate (mmHg) (bpm) Aortic 12:01 LV AO 70 Snapshots Pre Cath Intra NCS Post Cath Vital Signs Time Heart Resp SPO2 etCO2 [id number] Respiration NIBP (mmHg) Rhythm Pain Sedation Rate (ipm) (%) (mmHg) (mmHg) (CO2) (ipm) Status Level (bpm) 11:42:12 69 14 93 0 0 144/82(103) Paced 0 (1 1) 10(A) , No pain 11:46:30 70 16 97 62.2 5.2 125/82(97) Paced 0 (1 1) 10(A) , No pain 11:50:42 69 14 96 35.2 1.5 106/68(87) Paced 0 (1 1) 5(A) , No pain 11:54:50 69 16 95 69.7 69.7 120/79(88) Paced 0 (1 1) 5(A) , No pain 11:59:04 69 15 96 68.9 8.2 5 123/80(97) Paced 0 (1 1) 5(A) , No pain 12:03:16 69 16 98 32.2 3.7 6 137/86(103) Paced 0 (1 1) 9(A) , No pain 12:07:22 69 15 97 21 0 146/93(120) Paced 0 (1 1) 9(A) , No pain Medications Time Medication Route Dose Verified Delivered Reason Notes Effectiveness by by 11:34:40 Plavix P.O. 75 mg Charanjit Kinsey for [facility] Sang England RN antiplatelet therapy 11:42:14 Oxygen NC 2 Charanjit Kinsey Per l/min [facility] [place] RN physician 11:42:23 Heparin Flush added 2 Charanjit Booneory used for Bag to bags [facility] procedure (1000units/500ml field MD [place] NS) 11:42:31 Lidocaine 2% added 20ml Charanjit Donohue used for to vial [facility] procedure field MD [place] 11:47:14 Refer to Charanjit Charanjit Per vahe Anesthesia Notes [facility] physician leodan for Sedation MD C[place] at Medications bedside for TIVA sedation Procedure Log Time Note 11:26:28 Informed consent obtained and on chart 11:27:22 Admit Source: Other 11:27:25 Arrival Date: 08/21/2016 10:11:00 PM 11:28:06 Insurance Payor : Medicare 11:28:58 Lab Result : Creatinine 1.1 mg/dl 11::58 Lab Result : BUN 16 mg/dl 11:28:58 Lab Result : Hemoglobin 10.9 g/dl 11:29:14 Diagnostic Cath Status : Elective 11:30:11 Indication : Angina 11:30:16 Kinsey England RN sent for patient. Start room use. 11:30:17 Time tracking: Regular hours 11:30:22 Plan of Care:Hemodynamics will remain stable., Cardiac rhythm will remain stable., Comfort level will be maintained., Respiratory function will remain adequate., Patient/ family verbilizes understanding of procedure., Procedure tolerated without complication., Recovers from procedure without complications.. 11:34:34 Patient received from Med II to CCL 1 Alert and oriented. Tansferred to table in Supine position. 11:34:37 Warm blankets applied, and mustapha hugger turned on for patient comfort. 11:34:37 Correct patient and procedure confirmed by team. 11:34:38 ECG and BP/O2 sat monitors applied to patient. 11:34:40 Plavix 75 mg P.O. was administered by Kinsey England RN; for antiplatelet therapy; 11:41:05 Vital chart was started 11:41:07 Baseline sample Acquired. 11:41:16 Rhythm: paced 11:41:18 Full Disclosure recording started 11:42:14 Oxygen 2 l/min NC was administered by Kinsey England RN; Per physician; 11:42:23 Heparin Flush Bag (1000units/500ml NS) 2 bags added to field was administered by Charanjit Muir MD; used for procedure; 11:42:31 Lidocaine 2% 20ml vial added to field was administered by Charanjit Muir MD; used for procedure; 11:42:32 Snore? No 11:42:39 Previous problem with sedation/anesthesia? No TIVA 11:46:47 Sleep apnea? No 11:46:48 Deviated septum? No 11:46:48 Opens mouth fully? Yes 11:46:50 Sticks out tongue? Yes 11:46:55 Airway obstruction? No ? 11:46:58 Dentures? Yes out 11:47:02 Pre procedure: right dorsailis pedis pulse 1+ Palpable, but thready & weak; easily obliterated 11:47:04 Patient pain scale 0/10 ?. 11:47:13 IV patent on arrival in left forearm with 0.9% NaCl at [facility]. 11:47:14 Refer to Anesthesia Notes for Sedation Medications was administered by Charanjit Muir MD; Per physician; vahe alcocer at bedside for TIVA sedation 11:47:16 Lab results completed and on chart. 11:47:20 Right groin area was prepped with chlora-prep and draped in sterile fashion 11:47:21 Alarms reviewed by R. N. 11:47:21 Sharps counted by scrub and verified by R.N. 11:47:23 Physician arrived 11:47:24 --------ALL STOP TIME OUT------ 11:47:24 Final Timeout: patient, procedure, and site verified with staff and physician. All members of the team are in agreement. 11:47:26 Right groin site verified by team. 11:47:29 Physical assessment completed. ASA score P 2 - A patient with mild systemic disease as per Charanjit Muir MD. 11:47:33 Sedation plan: TIVA Propofol 11:47:37 Use device set Femoral Dx 11:47:38 Acist Syringe opened to sterile field. 11:47:39 Bag Decanter opened to sterile field. 11:47:39 Medline Cath Pack opened to sterile field. 11:47:39 Terumo 5Fr [place] Sheath opened to sterile field. 11:47:40 St Oscar 260cm J .035 wire opened to sterile field. 11:47:41 Acist Hand Control opened to sterile field. 11:47:41 Acist Manifold opened to sterile field. 11:47:41 Diagnostic Infinity 5Fr Multipack catheter opened to sterile field. 11:47:42 Tegaderm 4 x 4 opened to sterile field. 11:48:17 Patient Height : 72 cm 11:48:21 Patient Weight : 235 kg 11:54:15 Procedure started. 11:54:19 Local anesthetic to right femoral artery with Lidocaine 2% by Charanjit Muir MD.INITIAL ACCESS ONLY 11:54:31 A 5 Fr sheath was inserted into the Right Femoral artery 11:54:59 A Cordis 5Fr JL 4.0 Catheter (MP) was advanced over the wire and used for Left Coronary Angiography. 11:57:55 LCA angiography performed. 11:57:58 Injector settings: Ml/sec: 3, Volume: 6, 11:58:06 Catheter removed. 11:58:11 A Cordis 5Fr 3DRC Catheter (MP) was advanced over the wire and used for Right Coronary Angiography. 11:59:18 RCA angiography performed. 11:59:20 Injector settings: Ml/sec: 3, Volume: 6, 11:59:54 Catheter removed. 12:00:01 A Cordis 5Fr Pigtail Catheter (MP) was advanced over the wire and used for LV Angiography. 12:00:48 LV hemodynamics recorded. 12:00:49 LV gram done using STARKEY 12:00:52 Injector settings: Ml/sec: 5, Volume: 15, 12:01:05 EF : 55 % 12:01:14 Catheter removed. 12:01:55 Cordis 5Fr Exoseal opened to sterile field. 12:02:05 Sheath removed intact; hemostasis achieved with Exoseal to the Right Femoral artery. 12:02:07 Procedure ended.(Physican Out) 12:02:19 Fluoroscopy time 01.20 minutes. 12:02:24 Flurop Dose total: 411 12:02:24 Fluoroscopy dose: 411 mGy 12:02:28 Contrast amount:Isovue 300 41ml. 12:02:30 Sharps counted by scrub and verified by R.N. 12:02:31 Insertion/operative site no bleeding no hematoma. 12:02:33 Post-op/insertion site Right Femoral artery dressed using a 4 x 4 and Tegaderm. 12:02:36 Post right femoral artery:stable 12:02:38 Post Procedure Pulses reassessed and unchanged 12:02:41 Post procedure rhythm: unchanged. 12:02:44 Estimated blood loss: 5 ml 12:02:46 Post procedure instruction explained to patient.Patient verbalizes understanding. 12:02:46 Patient needs reinforcement of post procedure teaching. 12:02:55 Procedure type changed to Cath procedure, Diagnostic procedure, LHC, LHC w/Coronaries, Miscellaneous Procedures, Moderate Sedation up to 15 minutes 12:02:56 Procedure and supply charges have been captured, reviewed, submitted and are correct. 12:03:01 Procedure Complication : No complications 12:03:24 Vital chart was stopped 12:03:24 See physician's report for complete and final results. 12:03:27 Report given to [facility] II. 12:03:30 Patient transfered to Med II with Stretcher. 12:03:31 Procedure ended. 12:03:31 Full Disclosure recording stopped 12:03:38 ACC-PCI Only Patient was given prescriptions, or instructed by Charanjit Muir MD to start/continue the following medications upon discharge: Plavix 12:03:40 End room use (Document Last) Device Usage Item Name Manufacture Quantity Catalog Hospital Part Current Minimal Lo t# / Number Charge Number Stock Stock Serial# Code Acist Acist 1 16774 [id number] 623989 433908 20 Neozone Inc Bag Microtek 1 272756 58135 281506 5 [employer]. Medline Cardinal 1 [id number] 061081 59820 234665 5 Cath Pack Health Terumo 5Fr Terumo 1 [id number] 785867 104035 038018 [address] [place] [address] Oscar St Oscar 1 728406 634545 865702 121183 30 260cm J .035 wire Acist Hand Acist 1 67289 844440 130787 947477 5 Control Medical Systems Inc Acist Acist 1 52336 009575 897345 845700 5 Manifold Medical Systems Inc Diagnostic Cardinal 1 [id number] 898505 61506 822692 30 Infinity Health 5Fr Multipack catheter Tegaderm 4 3M 1 1626W 858978 624604 674674 5 x 4 Cordis 5Fr Cardinal 1 342453 5 JL 4.0 Health Catheter (MP) Cordis 5Fr Cardinal 1 895334 5 3DRC Health Catheter (MP) Cordis 5Fr Cardinal 1 984255 5 Pigtail Health Catheter (MP) Cordis 5Fr Cardinal 1 EX500 830186 961900 754894 10 [employer] Signature Audit [place] Stage Time Signature Unsigned Intra-Procedure 08/22/2016 Barbara Garcia 12:08:16 PM RT(R) Signatures Monitor : Barbara Garcia RT Signature : Date : Time : [address] [place] [address]
--- NOTE | ~2016-08-21 | DS ---
PATIENT:VAHE NARVAEZ :54 MEDICAL RECORD: [id number] DISCHARGE SUMMARY ADMISSION DATE: 08/21/16 DISCHARGE DATE: 08/23/16 PROBLEM LIST: 1. Chest pain, noncardiac. 2. Known history coronary artery disease. 4. History of hypertension. 3. Chronic pain syndrome. Admitted with recurrent chest pain post-stenting, underwent angiography, found to have widely patent stent. Discharged home in good condition. MEDICATIONS: Same preadmit. DIET: AHA diet. ACTIVITY: As tolerated. TRANSINT:[id number] Voice Confirmation ID: [id number] DOCUMENT ID: [id number] MARCEL NEFF MD CC: [id number] DICTATION DATE: 08/23/16839 TRAFFIC MONITOR SPECIALIST: 08/23/16939 DIS IN 08/23/[id number] [place] [address]
--- NOTE | ~2016-08-21 | HP ---
PATIENT: VAHE NARVAEZ MEDICAL RECORD: [id number] ACCOUNT: [id number] LOCATION:[facility].2118 : 54 ADMISSION DATE: 08/21/16 HISTORY AND PHYSICAL EXAMINATION HISTORY OF PRESENT ILLNESS: A 65-year-old gentleman with known history of coronary artery disease, status post intervention. He has been having pain off and on since then. He had intervention of the circumflex and LAD. Actually, he has been in the ER since then as well, continued pain. Cameron like diagnostic angiography to ensure adequate patency of the stents. PAST MEDICAL HISTORY: 1. History of coronary artery disease. 2. Sick sinus syndrome, status post pacemaker placement. 3. Atrial fibrillation. ALLERGIES: None known. MEDICATIONS: Include Temazepam 30 mg p.o. q.h.s., hydrocodone 10/325 q. day, Celexa 10 q. day, aspirin 81 q. day, propafenone 150 t.i.d., carvedilol 25 b.i.d., Plavix 75 q. day. SOCIAL HISTORY: He is a nonsmoker, lives by himself. I am somewhat concerned about his ADLs and will consult services. REVIEW OF SYSTEMS: The patient reports easy bruising but reports no swollen glands. The patient reports no fever, no night sweats, no significant weight gain, no significant weight loss. No significant exercise tolerance. The patient reports no dry eyes, no irritation, no vision change. Patient reports no difficulty hearing and no ear pain. Patient reports no frequent nose bleeds or nose and sinus problems. Patient reports on arm pain on exertion. No shortness of breath while lying down. No history of heart murmur. Patient reports no cough, no wheezing or coughing up blood. Patient reports no abdominal pain, no vomiting. Normal appetite. No diarrhea and not vomiting blood. No nausea and no constipation. Patient reports no incontinence. No difficulty urinating. No hematuria. No increased frequency. Patient reports no muscle aches. No weakness, no arthralgias, no back pain. No swelling of the extremities. Patient reports no abnormal mole, no jaundice, no rashes. Reports no loss of consciousness. No weakness and no numbness. No seizures, dizziness, or headaches. The patient reports no depression, no sleep disturbance, feeling safe in a relationship and no alcohol abuse. Patient reports on fatigue. Reports no runny nose or sinus pressure. No itching, no hives, and no frequent sneezing. PHYSICAL EXAMINATION: GENERAL: This is a middle-aged gentleman in no acute distress. Obviously mentally slow. VITAL SIGNS: 131/72, pulse 60 and regular. HEENT: Normocephalic, atraumatic. NECK: No JVD or bruit. HEART: Regular. LUNGS: Garces clear. ABDOMEN: Soft, nontender. EXTREMITIES: Pulses 2+. There is no edema. HISTORY AND PHYSICAL [id number] VAHE NARVAEZ DIAGNOSTIC DATA: ECG shows ventricular paced rhythm. PLAN: At this point in time we will plan for diagnostic angiography with intervention based on above. TRANSINT:[id number] Voice Confirmation ID: [id number] DOCUMENT ID: [id number] MARCEL NEFF MD CC: [id number] DICTATION DATE: 08/22/16904 TELEVISION NEWS PHOTOGRAPHER: 08/22/16 1106 ADM IN [facility] [address] [id number]
[2016-08-21 20:50] LABS: BASOPHILS 0.1 % (0-2); EOSINOPHILS 1.9 % (0-7); HEMATOCRIT 38.6 % (42.0-54.0); HEMOGLOBIN 11.5 g/dL (13.5-17.5); IMMATURE GRANULOCYTES 0.3 % (0-5); LYMPHOCYTES 21.1 % (15-50); MCH 24.2 pg (26.0-34.0); MCHC 29.8 g/dL (31.0-37.0); MCV 81.3 fL (80.0-100.0); MEAN PLATELET VOLUME 9.9 fL (7.4-10.4); MONOCYTES 9.4 % (2-11); NEUTROPHILS 67.2 % (40-80); PLATELET COUNT 288 10x3/uL (130-400); RBC 4.75 10x6/uL (4.20-6.10); RDW 17.2 % (11.5-14.5); WBC 7.4 10x3/uL (4.8-10.8)
[2016-08-21 21:07] LABS: ALBUMIN 3.6 g/dL (3.4-5.0); ALKALINE PHOSPHATASE 118 U/L (46-116); ALT (SGPT) 24 U/L (10-68); BILIRUBIN - TOTAL 0.44 mg/dL (0.2-1.3); CALC OSMOLALITY 273 mosm/kg (275-300); CALCIUM 8.7 mg/dL (8.5-10.1); CARBON DIOXIDE 29.5 mmol/L (21.0-32.0); CHLORIDE - SERUM 99 mmol/L (98-107); CREATININE - SERUM 1.1 mg/dL (0.6-1.3); GLUCOSE 87 mg/dL (74-106); POTASSIUM - SERUM 3.2 mmol/L (3.5-5.1); PROTEIN - SERUM 7.3 g/dL (6.4-8.2); SODIUM 137 mmol/L (136-145); UREA NITROGEN 16 mg/dL (7-18); eGFR NON AFRICAN AMERICAN 72 mL/min (90-120)
[2016-08-21 21:10] LABS: APTT 40.1 SECONDS (22.8-39.4); INR 1.81 (0.85-1.17)
[2016-08-21 21:19] LABS: CHOL - HDL RATIO 4.1 ratio (2.3-4.9); CHOLESTEROL, TOTAL 155 mg/dL (0-200); CREATINE KINASE 41 UL (21-232); HDL CHOLESTEROL 38 mg/dL (32-96); LDL CHOLESTEROL 101 mg/dL (0-100); LDL-HDL RATIO 2.7 ratio (1.5-3.5); MAGNESIUM - SERUM 1.9 mg/dL (1.8-2.4); PRO BNP 187 pg/mL (0-125); TRIGLYCERIDE 83 mg/dL (30-200); TROPONIN-I 0.036 ng/mL (0.000-0.060)
--- NOTE | 2016-08-21 22:52 | NUR ---
PT ARRIVED VIA STRETCHER FROM ER WITH DX CP. NO DISTRESS NOTED. WILL CONTINUE TO MONITOR.
[2016-08-21 23:19] VITALS: BP 130/76; Ht 182.9 cm; Wt 107.0 kg
[2016-08-22] VITALS: BP 130/76
--- NOTE | 2016-08-22 | NUR ---
PT ARRIVED VIA STRETHER FROM ER AT 2252 HRS. PT REQUESTING PAIN MEDS. INFORMED PT HE RECEIVED 4MG MORPHINE IV AT 2245 HRS AND WILL NOT BE ABLE TO HAVE MORE UNTIL 0245 HRS. PT STATED OK AND THAT HE DID NOT WANT THAT PAIN BACK AGAIN. VSS. PACED RHTYMN PER CM HR 61. IV TO LAC SL. NUMEROUS BRUISES NOTED TO BILAT ARMS. BRUISE NOTED TO L ABD. ADMISSION ASSESSMENT, HISTORY AND HOME MED LIST COMPLETED BY 2330 HRS. EKG DONE. PT CURRENTLY RESTING WITH EYES CLOSED. RESP EVENA ND REGULAR. O2 2LNC. SR UP X2, CALL LIGHT WITHIN REACH.
--- NOTE | 2016-08-22 01:49 | NUR ---
MORPHNE 5MG SIVP GIVEN FOR C/O CP 10/22. WILL CONTINUE TO MONITOR.
--- NOTE | 2016-08-22 02:20 | NUR ---
PT STATES CP NOW 7.5/10 AFTER MORPHINE ADMINISTRATION. AWAITING LAB RESULTS. WILL CONTINUE TO MONITOR.
[2016-08-22 02:41] LABS: CKMB 0.3 U/L (0.0-3.6); CREATINE KINASE 34 UL (21-232); TROPONIN-I 0.043 ng/mL (0.000-0.060)
--- NOTE | 2016-08-22 03:02 | NUR ---
CE NEG SO FAR . WILL CONTINUE TO MONITOR.
[2016-08-22 04:00] VITALS: BP 124/64
--- NOTE | 2016-08-22 04:23 | NUR ---
PT AWAKE REQUESTING PAIN MEDS. INFORMED MEDS NOT DUE YET. WILL CONTINUE TO MONITOR.
[2016-08-22 06:17] LABS: CREATINE KINASE 34 UL (21-232)
--- NOTE | 2016-08-22 06:39 | NUR ---
VSS THORUGHOUT NIGHT. PACED RHTTHYM PER CM. CONTINUES TO HAVE C/O CP. NEEDS MET; WILL CONTINUE TO MONITOR.
[2016-08-22 07:04] LABS: BASOPHILS 0.3 % (0-2); EOSINOPHILS 2.5 % (0-7); HEMATOCRIT 37.1 % (42.0-54.0); HEMOGLOBIN 10.9 g/dL (13.5-17.5); IMMATURE GRANULOCYTES 0.1 % (0-5); MCH 24.2 pg (26.0-34.0); MCHC 29.4 g/dL (31.0-37.0); MCV 82.3 fL (80.0-100.0); MEAN PLATELET VOLUME 9.9 fL (7.4-10.4); MONOCYTES 12.1 % (2-11); PLATELET COUNT 293 10x3/uL (130-400); RBC 4.51 10x6/uL (4.20-6.10); RDW 17.2 % (11.5-14.5); WBC 6.7 10x3/uL (4.8-10.8)
[2016-08-22 07:06] LABS: CALC OSMOLALITY 278 mosm/kg (275-300); CALCIUM 8.5 mg/dL (8.5-10.1); CARBON DIOXIDE 32.9 mmol/L (21.0-32.0); CHLORIDE - SERUM 101 mmol/L (98-107); GLUCOSE 84 mg/dL (74-106); SODIUM 140 mmol/L (136-145); UREA NITROGEN 14 mg/dL (7-18); eGFR NON AFRICAN AMERICAN 80 mL/min (90-120)
[2016-08-22 07:08] LABS: POTASSIUM - SERUM 3.7 mmol/L (3.5-5.1)
--- NOTE | 2016-08-22 07:57 | NUR ---
ASSESSMENT DONE. DENIES NEEDS.
[2016-08-22 08:37] VITALS: BP 131/72
--- NOTE | 2016-08-22 09:18 | NUR ---
RESTS IN BED WITHOUT NEEDS VOICED. CALL LIGHT IN REACH. WILL CONT. PLAN OF CARE.
--- NOTE | 2016-08-22 11:40 | NUR ---
TO SUBSTATION OPERATOR APPRENTICE PER BED
--- NOTE | 2016-08-22 12:10 | NUR ---
RETURN FROM TORCH CUTTER PER BED. RT DEJAH DRSG C/D, PULSE PALP
--- NOTE | 2016-08-22 14:15 | NUR ---
RT GROIN DRSG REMAINS C/D, PULSE PALP.
[2016-08-22 16:03] VITALS: BP 128/64
--- NOTE | 2016-08-22 16:36 | NUR ---
1600 -CM met with the patient post cath. He returned from his cardiac cath at 1215. Patient lives at [facility] [address], an independent living facility. He has no family in [place]. Sang Adkins, his emergency contact, is an adopted brother. MR Adkins lives in [place]. He has another brother, I believe he said by name of Simon Farr. MR Adkins's contact phone number is [phone]. PCP- [facility] [place] [facility] [facility] in [place] [facility]- [place] and commode No h/h services at the present. States he has had home health previously w/ " [employer]". TC to [facility]. It was [facility]. Left voice mail message to verify if patient was a recent client. No CB at this time. Consultants- DR Neal- cardiology and a MD for his prostate. He is not certain of name. Patient is arousable and oriented but falls back to sleep quickly. Patient is driving himself home at discharge. Discussed with primary nurse, he should not drive himself home tonight. Needs to be more alert. Patient is willing to accept home health at this time.
--- NOTE | 2016-08-22 16:55 | NUR ---
is concerned about his understanding of meds and compliance.
--- NOTE | 2016-08-22 17:52 | NUR ---
WITHOUT CHANGES OR DISTRESS NOTED AT THIS TIME.
--- NOTE | 2016-08-22 19:46 | NUR ---
INITIAL ROUNDS COMPLETED. PT RESTING WITH EYES CLOSED. RESP EVEN AND REGULAR. SR UP X2, CALL LIGHT WITHIN REACH.
[2016-08-22 20:00] VITALS: BP 106/49
--- NOTE | 2016-08-22 22:49 | NUR ---
NO CHANGES TO R MONEIN NOTED. IV TO LAC SL. PT REQUESTING SOMETHING TO HELP HIM SLEEP. INFORMED PT THAT XANAX IS ORDERED BUT AWAITING NAIL MAKER TO PULL IT. WILL CONTINUE TO MONITOR.
--- NOTE | 2016-08-22 23:49 | NUR ---
XANAX 0.5MG PO GIVEN FOR C/O PTSD. PT MOANING LOUDLY IN ROOM. WILL CONITNUE TO MONITOR.
[2016-08-23] VITALS: BP 124/74
--- NOTE | 2016-08-23 00:24 | NUR ---
PT INSISITING 0.5MG OF XANAX WILL NOT HELP HIS PTSD. STATES HE NEEDS A TOTAL OF 1MG XANAX AND 30MG OF RESTORIL DR. NEFF NOTIFIED AND SITUAION EXPLAINED. NEW ORDERS RECEIVED AND NOTED.
--- NOTE | 2016-08-23 00:43 | NUR ---
ADDITIONAL 0.5MG XANAX, 30 MG RESTORIL PO GIVEN. WILL CONTINUE TO MONITOR.
--- NOTE | 2016-08-23 01:13 | NUR ---
PT RESTING WITH EYES CLOSED. RESP EVEN AND REGULAR. SR UP X2,CALL LIGHT WITHIN REACH.
--- NOTE | 2016-08-23 02:27 | NUR ---
PT RESTING WITH EYES CLOSED. RESP DEEP, EVEN AND REGULAR. SR UP X2, CALL LIGHT WITHIN REACH.
--- NOTE | 2016-08-23 03:41 | NUR ---
PT AWAKE; STATES FEELS BETTER. NO CHANGE TO R GROIN NOTED. PALPABLE PEDAL PULSES. WILL CONTINUE TO MONITOR. SR UP X2,CALL LIGHT WITHIN REACH.
[2016-08-23 04:00] VITALS: BP 119/74
--- NOTE | 2016-08-23 06:23 | NUR ---
VSS THROUGHOUT NIGHT. PT STATED XANAX AND RESTORIL CONTROLLED HIS PTSD. NEEDS MET; WILL CONTINUE TO MONITOR.
[2016-08-23 08:00] VITALS: BP 113/56
--- NOTE | 2016-08-23 08:02 | NUR ---
ASSESSMENT DONE. DENIES NEEDS
--- NOTE | 2016-08-23 08:35 | OP ---
PATIENT NAME: VAHE NARVAEZ MEDICAL RECORD: [id number] :54 LOCATION:D.M2 D.2118 ADMISSION DATE:08/21/16 SURGEON: MARCEL NEFF MD DATE OF OPERATION: 08/22/2016 PROCEDURE: Left heart catheterization, selective coronary angiography, right femoral artery approach. CATHETERS: A 5-Hebrew sheath, 5/4 left and right Kelsey, 5/4 pig. The procedure was well tolerated and the patient returned to the braswell, sheath removed. ExoSeal device placed. FINDINGS: Left ventriculography in the 30-degree STARKEY view: Normal wall motion and normal systolic function. CORONARY ANATOMY: Left main: Left main is free of disease. LAD: Entirely patent. The stent is widely patent. CIRCUMFLEX: Circumflex is free of disease, stent widely patent. No evidence of stent thrombosis, no other disease. RIGHT CORONARY ARTERY: Widely patent stent. No evidence of other disease. No evidence of stent thrombosis, noncardiac chest pain that has been present since intervention. LV function remains normal. TRANSINT:[id number] Voice Confirmation ID: [id number] DOCUMENT ID: [id number] MARCEL NEFF MD at 0835 CC: [id number] DICTATION DATE: 08/22/16 1211 GRAIN BUYER: 08/22/162033 ADM IN [place] [place] [address]
--- NOTE | 2016-08-23 09:26 | NUR ---
AP ADLIB IN ROOM. GAIT STEADY. WILL MONITOR NEEDS.
--- NOTE | 2016-08-23 11:37 | NUR ---
DC GIVEN TO PT
--- NOTE | 2016-08-23 11:39 | NUR ---
DC HOME PER PERSONAL CAR
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
== END 2016-08-23 11:40 | disposition home or self-care (01) ==
LOC: D.ER 20:13 → D.M2 22:11 → OBSVTIME 22:11 → D.M2 08-23 11:40
PROVIDERS: Emergency Medicine; ADMIT Internal Medicine Interventional Cardiology
DX: R07.89 Other chest pain (principal); I25.10 Atherosclerotic heart disease of native coronary artery without angina pectoris; Z95.0 Presence of cardiac pacemaker; I48.91 Unspecified atrial fibrillation; G89.4 Chronic pain syndrome

== ENCOUNTER 2016-09-07 05:35 | Emergency (ER) | payer MEDICARE, MEDICAID ==
[2016-08-21 23:19] VITALS: BMI 32.0
[2016-09-07 05:53] LABS: BASOPHILS 0.3 % (0-2); EOSINOPHILS 1.9 % (0-7); HEMATOCRIT 43.9 % (42.0-54.0); HEMOGLOBIN 13.2 g/dL (13.5-17.5); IMMATURE GRANULOCYTES 0.3 % (0-5); LYMPHOCYTES 22.4 % (15-50); MCH 24.3 pg (26.0-34.0); MCHC 30.1 g/dL (31.0-37.0); MCV 80.7 fL (80.0-100.0); MEAN PLATELET VOLUME 9.5 fL (7.4-10.4); MONOCYTES 9.9 % (2-11); NEUTROPHILS 65.2 % (40-80); PLATELET COUNT 268 10x3/uL (130-400); RBC 5.44 10x6/uL (4.20-6.10); RDW 17.2 % (11.5-14.5); WBC 11.8 10x3/uL (4.8-10.8)
[2016-09-07 06:14] LABS: INR 2.41 (0.85-1.17); PROTIME 26.4 SECONDS (11.6-15.0)
[2016-09-07 06:24] LABS: ALBUMIN 4.1 g/dL (3.4-5.0); ALKALINE PHOSPHATASE 101 U/L (46-116); ALT (SGPT) 20 U/L (10-68); CALC OSMOLALITY 276 mosm/kg (275-300); CALCIUM 8.9 mg/dL (8.5-10.1); CARBON DIOXIDE 23.3 mmol/L (21.0-32.0); CHLORIDE - SERUM 99 mmol/L (98-107); CHOL - HDL RATIO 4.2 ratio (2.3-4.9); CHOLESTEROL, TOTAL 202 mg/dL (0-200); CKMB 0.8 U/L (0.0-3.6); CREATINE KINASE 87 UL (21-232); CREATININE - SERUM 1.2 mg/dL (0.6-1.3); DIGOXIN 0.06 ng/mL (0.90-2.00); GLUCOSE 121 mg/dL (74-106); HDL CHOLESTEROL 48 mg/dL (32-96); LDL CHOLESTEROL 138 mg/dL (0-100); LDL-HDL RATIO 2.9 ratio (1.5-3.5); SODIUM 139 mmol/L (136-145); TRIGLYCERIDE 82 mg/dL (30-200); TROPONIN-I < 0.017 ng/mL (0.000-0.060); UREA NITROGEN 7 mg/dL (7-18); eGFR NON AFRICAN AMERICAN 65 mL/min (90-120)
[2016-09-07 06:33] LABS: POTASSIUM - SERUM 2.6 mmol/L (3.5-5.1)
[2016-09-08] MEDS ORDERED: CARDIZEM SR60 MG PO (23:05)
== END 2016-09-07 09:46 | disposition home or self-care (01) ==
LOC: D.ER 05:35
PROVIDERS: Emergency Medicine
DX: R07.9 Chest pain, unspecified (principal); E87.6 Hypokalemia; I25.10 Atherosclerotic heart disease of native coronary artery without angina pectoris; I48.2 Chronic atrial fibrillation; I10 Essential (primary) hypertension; I50.9 Heart failure, unspecified; Z86.73 Personal history of transient ischemic attack (TIA), and cerebral infarction without residual deficits; F43.10 Post-traumatic stress disorder, unspecified; Z95.0 Presence of cardiac pacemaker

== ENCOUNTER 2016-09-08 16:46 | Inpatient (IN) | payer MEDICARE, MEDICAID ==
[~2016-09-08] VITALS: Ht 182.9 cm; Wt 114.3 kg
--- NOTE | ~2016-09-08 | HEMODYNAMI ---
PATIENT:VAHE NARVAEZ MEDICAL RECORD: [id number] : 54 LOCATION:[facility] D.2109 ADMISSION DATE: 09/08/16 Generatedon:09/10/201612:31 Patient name: VAHE NARVAEZ Patient #: [id number] SSN: [id number] : 1950 Date of study: 09/10/2016 Page: Of Hemodynamic Procedure Report Patient Data Patient Demographics Procedure consent was obtained First Name: VAHE Gender: Male Last Name: SOLANGE : 1950 Patient #: [id number] Age: 66 year(s) Race: SSN: [id number] Additional ID: [id number] Contact details [address]: [address] [place] [address] State: [place]: [facility] [place] Zip code: [address] Past Medical History Allergies Allergen Reaction Date Comments Reported Other allergy 09/10/2016 fentanyl Admission Admission Data Admission Date: 09/08/2016 Admission Time: 21:22 Room #: D.2109 Lab Results Lab Result Date: 09/10/2016 Lab Result Time: 0:00 Biochemistry Name Units Result Min Max BUN mg/dl 16 --(---*)-- 7 18 Creatinine mg/dl 0.9 --(-*--)-- 0.6 1.3 CBC Name Units Result Min Max Hemoglobin g/dl 10.8 *-(----)-- 13.5 17.5 Coagulation Name Units Result Min Max INR units 2.21 --(----)-* 0.85 1.17 PT sec 24.6 --(----)-* 11.6 15 Procedure Procedure Types Cath Procedure Diagnostic Procedure Cardioversion Procedure Description Procedure Date Procedure Date: 09/10/2016 Procedure Start Time: 12:17 Procedure End Time: 12:22 Procedure Staff Name Function Casimiro Neal MD Performing Physician Kinsey England RN Nurse Andrew Thakkar RT Monitor Jarrell Barajas RT Medicare Nurse Procedure Data Cath Procedure Fluoroscopy Diagnostic fluoroscopy Total fluoroscopy Time: 0 time: 0 min min Diagnostic fluoroscopy Total fluoroscopy dose: 0 dose: 0 mGy mGy Procedure Complications No complications Procedure Medications Medication Administration Route Dosage Refer to Anesthesia Notes for Sedation Medications Oxygen NC 6 l/min Zofran I.V. 4 mg Hemodynamics Rest HGB: 10.8 (g/dl) Heart Rate: 75 (bpm) Snapshots Pre Cath Intra NCS Post Cath Vital Signs Time Heart Resp SPO2 NIBP (mmHg) Rhythm Pain Sedation Rate (ipm) (%) Status Level (bpm) 12:15:31 73 16 94 151/94(125) NSR 0 (11) 10(A) , No pain 12:19:51 72 11 95 123/79(103) NSR 0 (11) 9(A) , No pain Medications Time Medication Route Dose Verified Delivered Reason Notes Effectiven ess by by 12:12:25 Oxygen NC 6 used for l/min procedure 12:17:45 Refer to for Anesthesia sedation Notes for Sedation Medications 12:27:44 Zofran I.V. 4 mg Casimiro Euceda Per pt Ángel England RN physician states nausea Procedure Log Time Note 11:44:08 Diagnostic Cath status Elective 11:44:32 Jarrell Barajas RT(R) sent for patient. Start room use. 11:44:33 Time tracking: Regular hours 11:44:38 Plan of Care:Hemodynamics will remain stable., Cardiac rhythm will remain stable., Comfort level will be maintained., Respiratory function will remain adequate., Patient/ family verbilizes understanding of procedure., Procedure tolerated without complication., Recovers from procedure without complications.. 11:45:45 Lab Result : BUN 16 mg/dl 11:45:45 Lab Result : Creatinine 0.9 mg/dl 11:45:45 Lab Result : PT 24.6 sec 11:45:45 Lab Result : Hemoglobin 10.8 g/dl 11:45:45 Lab Result : INR 2.21 units 11:46:13 Lab results completed and on chart. 12:12:25 Oxygen 6 l/min NC was administered by ; used for procedure; 12:14:14 Vital chart was started 12:15:00 Patient received from PCU to CCL 3 Alert and oriented. Tansferred to table in Supine position. 12:15:08 Warm blankets applied, and mustapha hugger turned on for patient comfort. 12:15:08 Correct patient and procedure confirmed by team. 12:15:09 Signed procedure consent form obtained from patient. 12:15:10 ECG and BP/O2 sat monitors applied to patient. 12:15:11 Baseline sample Acquired. 12:15:19 Rhythm: atrial fibrillation 12:15:35 Full Disclosure recording started 12:15:46 H&P Date Dictated: 09/08/2016 Within 30 days and on chart.. 12:15:47 Pre-procedure instructions explained to patient. 12:15:47 Pre-op teaching completed and patient verbalized understanding. 12:15:49 Family unavailable. 12:15:50 Patient NPO since Midnight. 12:16:04 Patient allergic to Other allergyfentanyl 12:16:05 Is the patient allergic to Iodine/contrast media? No. 12:16:09 Is patient on blood thinner?Yes 12:16:14 ACC The patient was administered the following blood thiners within the last 24 hours: ACCPlavix, Coumadin 12:16:16 Patient diabetic? No. 12:16:16 ----Pre-sedation anethsthesia assessment.---- 12:16:18 Previous problem with sedation/anesthesia? No ? 12:16:20 Snore? Yes 12:16:21 Sleep apnea? No 12:16:22 Deviated septum? No 12:16:23 Opens mouth fully? Yes 12:16:24 Sticks out tongue? Yes 12:16:29 Airway obstruction? Yes pnumonia 12:16:33 Dentures? Yes in tight 12:16:38 Patient pain scale 0/10 ]. 12:16:44 IV patent on arrival in left antecubital with 0.9% NaCl at 10ml/hr. 12:16:50 Alarms reviewed by R. N. 12:16:50 Sharps counted by scrub and verified by R.N. 12:16:51 --------ALL STOP TIME OUT------ 12:16:52 Final Timeout: patient, procedure, and site verified with staff and physician. All members of the team are in agreement. 12:16:56 Mid Chest site verified by team. 12:17:01 Physical assessment completed. ASA score P 2 - A patient with mild systemic disease as per Casimiro Neal MD. 12:17:05 Sedation plan: IV Moderate Sedation Versed, Fentanyl 12:17: Quick Combo opened to sterile field. 12:17:29 Procedure started. 12:: DR SALEEM present and monitoring patient for TIVA. 12:: ------Cardioversion------ 12::45 Refer to Anesthesia Notes for Sedation Medications was administered by ; for sedation; 12:: Quick combo pads placed on patients chest and back. 12:20:13 Defibrillator synced and charged to 200 Joules. 12:20:31 Shock delivered. 12:21:02 Unsuccessful cardioversion. 12:21:04 Defibrillator synced and charged to 300 Joules. 12:21:10 Shock delivered. 12:21:35 Patient cardioverted to sinus rhythm . 12:21:38 Procedure ended.(Physican Out) 12::53 Fluoroscopy time 00.00 minutes. 12::53 Fluoroscopy dose: 0 mGy 12::53 Flurop Dose total: 0 12::55 Sharps counted by scrub and verified by R.N. 12:21:57 Insertion/operative site no bleeding no hematoma. 12:22:04 Post Thoracic area:stable 12:22:05 Post Procedure Pulses reassessed and unchanged 12:22:07 Post procedure rhythm: sinus rhythm 12:22:08 Post procedure instruction explained to patient.Patient verbalizes understanding. 12:22:19 Procedure and supply charges have been captured, reviewed, submitted and are correct. 12:22:31 Procedure Complication : No complications 12:22:33 Vital chart was stopped 12:22:34 See physician's report for complete and final results. 12:22:37 Report given to PCU. 12:22:49 Patient transfered to PCU with Bed. 12:22:51 Procedure ended. 12:22:51 Full Disclosure recording stopped 12:27:44 Zofran 4 mg I.V. was administered by Kinsey England RN; Per physician; pt states nausea 12:30:36 End room use (Document Last) Device Usage Item Manufacture Quantity Catalog Hospital Part Current Minimal Lot# / Name Number Charge Number Stock Stock Seri al# Code Logicworks 1 [id number] Combo Signature Audit Stuart Stage Time Signature Unsigned Intra-Procedure 09/10/2016 Andrew Thakkar 12:31:47 PM RT(R) Signatures Monitor : Andrew Thakkar RT Signature : Date : Time : [place] [id number] [place] [address]
--- NOTE | ~2016-09-08 | DS ---
PATIENT:VAHE NARVAEZ :54 MEDICAL RECORD: [id number] DISCHARGE SUMMARY ADMISSION DATE: 09/08/16 DISCHARGE DATE: 09/11/16 DISCHARGE SUMMARY PROBLEM LIST: 1. Atrial fibrillation. 2. Direct current cardioversion this admission. 3. Sick sinus syndrome. 4. Status post pacemaker. 5. Coronary artery disease. 6. Pneumonia. 7. Hypertension. HOSPITAL COURSE: This is a gentleman who presents with chest pain. He recently underwent cardiac catheterization. At this time his chest pain was secondary to pneumonia as well as new atrial fibrillation. He has a past history of atrial fibrillation, past history of direct current cardioversion, and a pacemaker. He was on propafenone. We continued the propafenone as well as Cardizem and Coreg and performed direct current cardioversion. This restored sinus rhythm. He was treated with intravenous antibiotics changing to oral antibiotics for the pneumonia. PLAN: Discharged to home. Follow up with [facility] in one month. MÓNICA GRAYSON MD CC: [id number] DICTATION DATE: 09/11/16 1233 HOT AIR FURNACE INSTALLER REPAIRER: REESE 09/12/16 1232 DIS IN 09/11/16 [facility] [address] [place] [address]
--- NOTE | ~2016-09-08 | PRO ---
PATIENT:VAHE NARVAEZ MEDICAL RECORD: [id number] : 54 LOCATION:D.M2 D.2109 ADMISSION DATE: 09/08/16 PROCEDURE PERFORMED BY: MÓNICA GRAYSON MD DATE OF PROCEDURE: 09/10/2016 PROCEDURE: Direct Current Cardioversion INDICATION: Atrial fibrillation. DESCRIPTION: Intravenous conscious sedation was performed for anesthesia. Continuous heart rate, oxygen saturation, and blood pressure monitoring were all undertaken all of which remained stable. He received two shocks at 200 and 300 joules restoring sinus rhythm. OVERALL IMPRESSION: Successful direct current cardioversion from atrial fibrillation to sinus rhythm. MÓNICA GRAYSON MD CC: [id number] DICTATION DATE: 09/10/16 1304 COOPER HELPER: TC 09/11/16 1303 DIS IN 09/11/16 [facility] [address] [place] [address]
[2016-09-08 17:21] LABS: BASOPHILS 0 % (0-2); EOSINOPHILS 0.6 % (0-7); HEMOGLOBIN 11.2 g/dL (13.5-17.5); IMMATURE GRANULOCYTES 0.2 % (0-5); LYMPHOCYTES 14.9 % (15-50); MCH 24.4 pg (26.0-34.0); MCHC 30.3 g/dL (31.0-37.0); MCV 80.6 fL (80.0-100.0); MEAN PLATELET VOLUME 9.7 fL (7.4-10.4); MONOCYTES 9.6 % (2-11); NEUTROPHILS 74.7 % (40-80); PLATELET COUNT 244 10x3/uL (130-400); RBC 4.59 10x6/uL (4.20-6.10); RDW 17.5 % (11.5-14.5); WBC 10.6 10x3/uL (4.8-10.8)
[2016-09-08 18:10] LABS: INR 2.21 (0.85-1.17); PROTIME 24.6 SECONDS (11.6-15.0)
[2016-09-08 18:50] LABS: CALC OSMOLALITY 277 mosm/kg (275-300); CHLORIDE - SERUM 99 mmol/L (98-107); GLUCOSE 101 mg/dL (74-106); SODIUM 137 mmol/L (136-145); UREA NITROGEN 24 mg/dL (7-18); eGFR NON AFRICAN AMERICAN 80 mL/min (90-120)
[2016-09-08 18:51] LABS: ALBUMIN 3.8 g/dL (3.4-5.0); ALKALINE PHOSPHATASE 83 U/L (46-116); ALT (SGPT) 14 U/L (10-68); BILIRUBIN - TOTAL 0.61 mg/dL (0.2-1.3); CALCIUM 8.8 mg/dL (8.5-10.1); PROTEIN - SERUM 7.2 g/dL (6.4-8.2)
[2016-09-08 18:52] LABS: CKMB 0.2 U/L (0.0-3.6); CREATINE KINASE 77 UL (21-232)
[2016-09-08 18:53] LABS: POTASSIUM - SERUM 2.6 mmol/L (3.5-5.1)
[2016-09-08 18:54] LABS: CHOL - HDL RATIO 3.8 ratio (2.3-4.9); CHOLESTEROL, TOTAL 175 mg/dL (0-200); HDL CHOLESTEROL 46 mg/dL (32-96); LDL CHOLESTEROL 110 mg/dL (0-100); LDL-HDL RATIO 2.4 ratio (1.5-3.5); TRIGLYCERIDE 97 mg/dL (30-200)
[2016-09-08] MEDS ORDERED: CARDIZEM SR60 MG PO (23:05)
--- NOTE | 2016-09-08 23:08 | NUR ---
PT TRANSFERED FROM ER. C/O NAUSEA. ZITHROMAX INFUSING TO LEFT FOREARM IV. DRESSING AND IV PATENT CLEAN AND DRY. MEDICATIONS AND HISTORY REVIEWED. PT WANTS TO KEEP WALLET WITH ID WITH HIM. HE ALSO HAS GLASSES, TOP DENTURES, CLOTHES AND SHOES. PT SHOWS NO S/S OF DISTRESS. DENIES ANY NEEDS WILL CONTINUE TO MONITOR
[2016-09-09] VITALS (7 sets, daily range): BP systolic 110–150; BP diastolic 66–87; Ht 182.9 cm; Wt 114.3 kg
--- NOTE | 2016-09-09 00:35 | NUR ---
PT AWAKE, ALERT, ORIENTED, STATES HIS HEADACHE IS IMPROVED BUT STILL PRESENT. PT HAD A BOUT IF DIARRHEA WITH INCONTINENCE. DISPOSPABLE BRIEF GIVEN, GOWN CHANGED. PT DENIES ANY OTHER NEEDS. CONTINUE TO MONITOR CLOSELY.
--- NOTE | 2016-09-09 00:45 | NUR ---
PT AWAKE IN ROOM. C/O NAUSEA. NO S/S OF DISTRESS WILL CONTIUE TO MONITOR
--- NOTE | 2016-09-09 02:09 | NUR ---
PT CALLED REQUESTING HIS SLEEP MEDS. PT STATES THE DR IN THE ER PROMISED THAT HE WOULD WRITE HIM AN ORDER FOR IT. PT STATES HE TAKES XANAX 1 MG AND TEMAZEPAM 30MG Q HS, AND STATES HE CANNOT SLEEP WITHOUT IT. PT STATES HE IS HAVING CHEST PAIN RATED AT 7/10 ON NUMERICAL SCALE, PRN MORPHINE GIVEN. PT STATES THE MORPHINE DOES NOT HELP HIM RELAX, AND IF ANYTHING, IT CAUSES HIM TO BE MORE "HYPED" UP. I CALLED RECRUITMENT ASSISTANT, OMAIRA CHOPRA, WHO STATED I COULD CALL DR. ADAMS IN 30 MINUTES IF PT IS STILL UNABLE TO SLEEP. WILL MONITOR CLOSELY. PT DEMONSTRATES SEVERE ANXIETY, UNABLE TO LAY STILL, LEGS AND ARMS CONSTANTLY MOVING.
--- NOTE | 2016-09-09 02:54 | NUR ---
PT STILL HAVING DIFFICULTY SLEEPING, INSISTING HE NEEDS TEMAZEPAM. DR. MODI IN THE ER WAS NOTIFIED AND DID VERBALLY VIA TELEPHONE AUTHORIZE A ONE TIME DOSE FOR PT THIS SHIFT PER JUAN CHOPRA.
--- NOTE | 2016-09-09 05:02 | NUR ---
PT IN BED RESTING. PT CONSTANT MOVING. PT RESTLESS O2 ON 2.5L VIA NC PULSE OX 98. NO S/S ON DISTRESS. DENIES ANY NEEDS. WILL CONTINUE TO MONITOR
[2016-09-09 05:11] LABS: BASOPHILS 0.1 % (0-2); HEMATOCRIT 36.5 % (42.0-54.0); HEMOGLOBIN 10.8 g/dL (13.5-17.5); IMMATURE GRANULOCYTES 0.1 % (0-5); LYMPHOCYTES 18.1 % (15-50); MCH 24.5 pg (26.0-34.0); MCHC 29.6 g/dL (31.0-37.0); MCV 82.8 fL (80.0-100.0); MEAN PLATELET VOLUME 9.7 fL (7.4-10.4); NEUTROPHILS 70.7 % (40-80); PLATELET COUNT 234 10x3/uL (130-400); RBC 4.41 10x6/uL (4.20-6.10); RDW 17.5 % (11.5-14.5); WBC 8.8 10x3/uL (4.8-10.8)
[2016-09-09 05:26] LABS: CARBON DIOXIDE 28.6 mmol/L (21.0-32.0); CHLORIDE - SERUM 100 mmol/L (98-107); CREATININE - SERUM 0.9 mg/dL (0.6-1.3); GLUCOSE 112 mg/dL (74-106); SODIUM 140 mmol/L (136-145); eGFR NON AFRICAN AMERICAN 90 mL/min (90-120)
[2016-09-09 05:45] LABS: CALC OSMOLALITY 280 mosm/kg (275-300); UREA NITROGEN 16 mg/dL (7-18)
[2016-09-09 06:09] LABS: CALCIUM 8.3 mg/dL (8.5-10.1)
--- NOTE | 2016-09-09 08:16 | NUR ---
AM ROUNDS - PT IS AWAKE IN BED. YELLOW BAND ON. DRESSING TO LEFT ELBOW. NON SKID SOCKS ON. IV TO LEFT FA, NS AT 75CC/HR. O2 AT 2.5L VIA NC. MONITOR SHOWING PACE, HR 93. BED AT LOWEST POSITION, SENIOR NET WEB DEVELOPER AILS UP X2, CALL RAZO IN USE/REACH. WILL CONTINUE TO MONITOR
--- NOTE | 2016-09-09 17:01 | NUR ---
Patient Name: VAHE NARVAEZ Admission Status: ER Accout number: [id number] Admission Date: 09-08-2016 : 1950 Admission Diagnosis: Attending: ESTEPHANIA Current LOS: 1 Anticipated DC Date: 09-12-2016 Planned Disposition: Home Primary Insurance: [employer] CHOICE PPO MCR ADVANT Discharge Planning Comments: * Is the patient Alert and Oriented? Yes 0 * How many steps to enter\exit or inside your home? NONE 0 * PCP DR. BUSTILLOS IN [place] 0 * Pharmacy [facility] [address] 0 * Preadmission Environment Home Alone 0 * ADLs Independent 0 * Equipment Bedside Commode Cane 0 * Other Equipment [facility] MEDICAL EQUIPMENT PROVIDER PREFERENCE 0 * List name and contact numbers for known caregivers / representatives who currently or will assist patient after discharge: BROTHER EUBANKS, 0 * Community resources currently utilized None 0 * Please name any agencies selected above. NONE 0 * Additional services required to return to the preadmission environment? No 0 * Can the patient safely return to the preadmission environment? Yes 0 * Has this patient been hospitalized within the prior 30 days at any hospital? Yes 0 CM MET WITH PT IN ROOM TO DISCUSS DISCHARGE PLANNING AND NEEDS. PT REPORTS LIVING AT HOME INDEPENDENTLY AND ALONE. PT HAS CANE AND BEDSIDE COMMODE FROM [facility]. PT HAS NO OUTSIDE SERVICES ASSISTING IN THE HOME. CM DISCUSSED AVAILABILITY OF HOME HEALTH, REHAB SERVICES AND MEDICAL EQUIPMENT. PT DENIES DISCHARGE NEEDS, REPORTS HE DROVE HIMSELF HERE AND WILL BE DRIVING HIMSELF HOME AT DISCHARGE. PT PLANS TO APPLY FOR PERSONAL CARE WITH MEDICAID TO ASSIST WITH HOUSEKEEPING IN HIS APARTMENT AT [facility]. PT PLANS TO DISCHARGE HOME INDEPENDENTLY AND ALONE, WILL BE DRIVING SELF HOME AT DISCHARGE, DENIES DISCHARGE NEEDS AT THIS TIME. CM TO FOLLOW AND ASSIST NEEDED. Casing Tester: Francisco Hardy
--- NOTE | 2016-09-09 18:18 | NUR ---
PT IN BED. DINNER COMPLETE. NO NEEDS AT THIS TIME. WILL CONTINUE TO MONITOR
--- NOTE | 2016-09-09 19:15 | NUR ---
REC REPORT, ASSUMED CARE OF PATIENT. ALERT/AWAKE WATCHING TV. RATES PAIN LEVEL AT 7 ON NUMBER SCALE. C/O CHEST PAIN "MY LUNGS" DESCRIBED BURNING. IV IN L FA WITH NS INFUSING AT 75 ML/HR. SHOWS 99 PACED ON TELEMETRY. 02 AT 2L/NC, 02 SAT AT 94%. ORIENTED TO CALL LIGHT FOR ANY NEEDS.
--- NOTE | 2016-09-09 22:50 | NUR ---
ADMIN MORPHINE 10 MG IV PER REQUEST FOR C/O BURNING CHEST PAIN LEVEL 8 ON NUMBER SCALE. REQUESTED LIGHTS OFF AND DOOR CLOSED TO SLEEP.
[2016-09-10] VITALS: BP 114/73
[2016-09-10 04:00] VITALS: BP 129/74
--- NOTE | 2016-09-10 07:43 | NUR ---
AM ROUNDS - PT AWAKE IN BED. MONITOR SHOWING PACE, HR 65. PT C/O 10/22 PAIN. O2 AT 2.5L VIA NC. IV TO LEFT FA, NS AT 50CC/HR. SCDS. BED AT LOWEST POSITION, SIDE RAILS UP X2, CALL RAZO IN USE/REACH. PT RECIEVING A BREATHING TREATMENT AT THIS TIME. NO FURTHER NEEDS. WILL CONTINUE TO MONITOR
[2016-09-10 07:54] VITALS: BP 144/85
--- NOTE | 2016-09-10 08:32 | NUR ---
PT IS NPO. SPOKE WITH DR. GRAYSON ABOUT GIVING MORNING MEDS. DR. GRAYSON SAID PT CAN HAVE MORNING MEDS WITH SIP OF WATER. MORNING MEDS GIVEN. WILL CONTINUE TO MONITOR
--- NOTE | 2016-09-10 13:39 | NUR ---
PT WENT FOR A CARDIO CONVERSION. PT IS NOT BACK IN ROOM. C/O PAIN TO CHEST. V/S ARE WNL. PAIN EDICATION GIVEN. WILL CONTINUE TO MONITOR
[2016-09-10 15:50] VITALS: BP 143/67
--- NOTE | 2016-09-10 19:30 | NUR ---
ALERT/AWAKE ORIENTED X 4. C/O CHEST PAIN LEVEL 8 ON NUMBER SCALE, DESCRIBED BURNING SENSATION "IN MY LUNGS". ADMIN MORPHINE 4MG IV TO LEFT FA IV. SKIN TEAR ON UPPER LEFT ARM NOTED WITH DRSG C/D/I. 0N 02 AT 2.5L/NC. RR 20 EVEN U/L. REFUSED SCD'S ON.
[2016-09-10 20:40] VITALS: BP 111/75
--- NOTE | 2016-09-10 21:40 | NUR ---
ADMIN RESTORIL PER REQUEST FOR SLEEP. NO OTHER NEEDS VOICED.
--- NOTE | 2016-09-10 23:27 | NUR ---
C/O "BACK ITCHING" HAD BEED SCRATCHING. RUBBED COMBINATION OF LOTION AND CARL'S PASTE TO ALLEVIATE HIS ITCHING. STATED HE FELT MUCH BETTER.
[2016-09-11 00:03] VITALS: BP 127/77
--- NOTE | 2016-09-11 04:07 | NUR ---
L FA IV LEAKING. REMOVED AND RESITED IN R FA WITH 22G. REQUESTED A SODA/ICE.
[2016-09-11 04:17] VITALS: BP 126/82
[2016-09-11 05:46] LABS: INR 2.07 (0.85-1.17); PROTIME 23.3 SECONDS (11.6-15.0)
--- NOTE | 2016-09-11 07:48 | NUR ---
AM ROUNDS - PT IN BED AWAKE. C/O "LUNG PAIN", OFF GOING NURSE GIVEING PAIN MEDS. YELLOW BAND ON. IV TO RIGHT FA, NS AT 75CC/HR. BED IN LOWEST POSITION. CALL RAZO IN USE/REACH. SIDE RAILS UP X2. O2 AT 2.5L VIA NC. PT REFUSES SCD. WILL CONTINUE TO MONITOR.
[2016-09-11 08:20] VITALS: BP 155/94
--- NOTE | 2016-09-11 09:53 | NUR ---
MONRING MEDICATION GIVEN. PT TOLERATED WELL. NO FUTHER NEEDS AT THIS TIME. WILL CONTINUE TO MONITOR
[2016-09-11 12:31] VITALS: BP 131/82
--- NOTE | 2016-09-11 12:51 | NUR ---
Patient Name: VAHE NARVAEZ Encounter No: [id number] : 1950 Primary Insurance: [employer] CHOICE PPO MCR ADVANT Anticipated DC Date: 09-11-2016 Planned Disposition: Home DCP follow-up note: CM MET WITH PT IN ROOM TO DISCUSS DISCHARGE NEEDS AND PLANNING. CM DISCUSSED AVAILABILITY OF HOME HEALTH, REHAB SERVICES AND MEDICAL EQUIPMENT. PT DENIES DISCHARGE NEEDS. PT DRIVING HIMSELF HOME AT DISCHARGE TODAY. IMPORTANT MESSAGE FROM MEDICARE PROVIDED AND EXPLAINED. Francisco Hardy, CASE MANAGEMENT
[2016-09-11] MEDS ORDERED: HYDROCODONE-APA1 TAB PO (12:53)
[2016-09-11] MEDS ORDERED: LEVAQUIN500 MG PO (12:53)
== END 2016-09-11 14:42 | disposition home or self-care (01) | DRG 308 ==
LOC: D.ER 16:46 → D.M2 21:22
PROVIDERS: Emergency Medicine; Emergency Medicine Emergency Medical Services; ADMIT Internal Medicine Interventional Cardiology
DX: I48.0 Paroxysmal atrial fibrillation (principal); J18.9 Pneumonia, unspecified organism; J98.11 Atelectasis; I25.119 Atherosclerotic heart disease of native coronary artery with unspecified angina pectoris; I11.0 Hypertensive heart disease with heart failure; I50.9 Heart failure, unspecified; F32.9 Major depressive disorder, single episode, unspecified; F41.9 Anxiety disorder, unspecified; Z95.0 Presence of cardiac pacemaker; Z95.5 Presence of coronary angioplasty implant and graft; Z86.73 Personal history of transient ischemic attack (TIA), and cerebral infarction without residual deficits

== ENCOUNTER 2016-09-16 00:54 | Emergency (ER) | payer MEDICARE, MEDICAID ==
[2016-09-09 12:22] VITALS: BMI 32.0
[~2016-09-16 00:54] MED LIST changes: +CARDIZEM SR60 MG PO; +LEVAQUIN500 MG PO
[2016-09-16 01:31] LABS: BASOPHILS 0.1 % (0-2); EOSINOPHILS 1.7 % (0-7); HEMATOCRIT 40.9 % (42.0-54.0); HEMOGLOBIN 12.6 g/dL (13.5-17.5); IMMATURE GRANULOCYTES 0.2 % (0-5); MCH 24.7 pg (26.0-34.0); MCHC 30.8 g/dL (31.0-37.0); MCV 80.2 fL (80.0-100.0); MEAN PLATELET VOLUME 10.3 fL (7.4-10.4); MONOCYTES 13.7 % (2-11); NEUTROPHILS 62.3 % (40-80); PLATELET COUNT 288 10x3/uL (130-400); RDW 17.9 % (11.5-14.5); WBC 10.5 10x3/uL (4.8-10.8)
[2016-09-16 01:53] LABS: ALBUMIN 3.4 g/dL (3.4-5.0); ALKALINE PHOSPHATASE 92 U/L (46-116); ALT (SGPT) 12 U/L (10-68); BILIRUBIN - TOTAL 0.34 mg/dL (0.2-1.3); CALC OSMOLALITY 283 mosm/kg (275-300); CALCIUM 8.9 mg/dL (8.5-10.1); CARBON DIOXIDE 25.9 mmol/L (21.0-32.0); CHLORIDE - SERUM 102 mmol/L (98-107); CREATININE - SERUM 1.3 mg/dL (0.6-1.3); GLUCOSE 143 mg/dL (74-106); PROTEIN - SERUM 7.2 g/dL (6.4-8.2); SODIUM 141 mmol/L (136-145); UREA NITROGEN 16 mg/dL (7-18); eGFR NON AFRICAN AMERICAN 59 mL/min (90-120)
[2016-09-16 01:58] LABS: CHOL - HDL RATIO 4.4 ratio (2.3-4.9); CHOLESTEROL, TOTAL 168 mg/dL (0-200); CKMB 0.3 U/L (0.0-3.6); CREATINE KINASE 35 UL (21-232); HDL CHOLESTEROL 38 mg/dL (32-96); LDL CHOLESTEROL 111 mg/dL (0-100); LDL-HDL RATIO 2.9 ratio (1.5-3.5); TRIGLYCERIDE 98 mg/dL (30-200)
== END 2016-09-16 02:45 | disposition home or self-care (01) ==
LOC: D.ER 00:54
PROVIDERS: Emergency Medicine
DX: R06.1 Stridor (principal); I25.10 Atherosclerotic heart disease of native coronary artery without angina pectoris; E87.6 Hypokalemia; I10 Essential (primary) hypertension; E83.42 Hypomagnesemia; Z86.73 Personal history of transient ischemic attack (TIA), and cerebral infarction without residual deficits; F43.10 Post-traumatic stress disorder, unspecified; Z95.0 Presence of cardiac pacemaker

== ENCOUNTER 2016-10-06 01:35 | Emergency (ER) | payer MEDICARE, MEDICAID ==
[2016-09-09 12:22] VITALS: BMI 32.0
[2016-10-06 03:05] LABS: BASOPHILS 0.2 % (0-2); EOSINOPHILS 2.3 % (0-7); HEMATOCRIT 34.4 % (42.0-54.0); HEMOGLOBIN 10.6 g/dL (13.5-17.5); IMMATURE GRANULOCYTES 0.2 % (0-5); LYMPHOCYTES 22.2 % (15-50); MCH 25.9 pg (26.0-34.0); MCHC 30.8 g/dL (31.0-37.0); MCV 84.1 fL (80.0-100.0); MEAN PLATELET VOLUME 11.2 fL (7.4-10.4); MONOCYTES 10.8 % (2-11); NEUTROPHILS 64.3 % (40-80); RBC 4.09 10x6/uL (4.20-6.10); RDW 18.3 % (11.5-14.5); WBC 5.5 10x3/uL (4.8-10.8)
[2016-10-06 03:06] LABS: PLATELET COUNT 170 10x3/uL (130-400)
[2016-10-06 03:13] LABS: APTT 24.8 SECONDS (22.8-39.4); INR 1.69 (0.85-1.17); PROTIME 19.8 SECONDS (11.6-15.0)
[2016-10-06 03:17] LABS: ALBUMIN 2.9 g/dL (3.4-5.0); ALKALINE PHOSPHATASE 79 U/L (46-116); ALT (SGPT) 19 U/L (10-68); BILIRUBIN - TOTAL 0.18 mg/dL (0.2-1.3); CALC OSMOLALITY 283 mosm/kg (275-300); CALCIUM 8.2 mg/dL (8.5-10.1); CARBON DIOXIDE 30.5 mmol/L (21.0-32.0); CHLORIDE - SERUM 107 mmol/L (98-107); CREATININE - SERUM 0.6 mg/dL (0.6-1.3); POTASSIUM - SERUM 4.4 mmol/L (3.5-5.1); PROTEIN - SERUM 5.9 g/dL (6.4-8.2); SODIUM 142 mmol/L (136-145); UREA NITROGEN 16 mg/dL (7-18); eGFR NON AFRICAN AMERICAN > 90 mL/min (90-120)
[2016-10-06 03:22] LABS: GLUCOSE 91 mg/dL (74-106)
== END 2016-10-06 04:20 | disposition home or self-care (01) ==
LOC: D.ER 01:35
PROVIDERS: Emergency Medicine
DX: R51 Headache (principal); Z91.81 History of falling

== ENCOUNTER 2016-10-08 04:51 | Inpatient (IN) | payer MEDICARE, MEDICAID ==
[~2016-10-08] VITALS: Ht 190.5 cm; Wt 114.3 kg
[2016-10-08 05:25] LABS: BASOPHILS 0.2 % (0-2); EOSINOPHILS 1.4 % (0-7); HEMATOCRIT 36.4 % (42.0-54.0); HEMOGLOBIN 11.2 g/dL (13.5-17.5); IMMATURE GRANULOCYTES 0.2 % (0-5); LYMPHOCYTES 15.9 % (15-50); MCH 25.5 pg (26.0-34.0); MCHC 30.8 g/dL (31.0-37.0); MCV 82.7 fL (80.0-100.0); MEAN PLATELET VOLUME 10.6 fL (7.4-10.4); MONOCYTES 12.3 % (2-11); PLATELET COUNT 191 10x3/uL (130-400); RDW 18.2 % (11.5-14.5); WBC 5.6 10x3/uL (4.8-10.8)
[2016-10-08 06:43] LABS: CALC OSMOLALITY 276 mosm/kg (275-300); CALCIUM 8.2 mg/dL (8.5-10.1); CARBON DIOXIDE 29.2 mmol/L (21.0-32.0); CHLORIDE - SERUM 102 mmol/L (98-107); CREATININE - SERUM 0.6 mg/dL (0.6-1.3); GLUCOSE 94 mg/dL (74-106); SODIUM 139 mmol/L (136-145); UREA NITROGEN 10 mg/dL (7-18); eGFR NON AFRICAN AMERICAN > 90 mL/min (90-120)
--- NOTE | 2016-10-08 08:30 | NUR ---
PT REC'D TO ROOM FROM ER VIA STRETCHER. ABLE TO TRANSFER TO BED WITH MINIMAL ASSISTANCE. AAOX4. RATING CURRENT PAIN IN HEAD, BACK, AND HIPS 5/10. WILL ADMINISTER PAIN MEDS AND REASSESS. 3MM PUPILS BILAT THAT ARE ROUND, REACTIVE (SLUGGISH), AND ACCOMIDATING TO LIGHT. C-COLAR ON. REGULAR HEART RATE AND RHYTHM. L CHEST PM NOTED. LUNG SOUNDS CLEAR AND EQUAL BILAT. ABD ROUND, BOWEL SOUNDS ACTIVE X4 QUADS, NO PAIN UPON PALPATION AND SOFT. BUMP/BRUISE NOTED ABOVE L EYE, ABRASIONS TO FINGERS AND HANDS BILAT. PIV TO L FA FREE OF REDNESS AND SWELLING. FLUSHES EASILY. VSS. BED LOW, CALL LIGHT IN REACH, DENIES NEEDS. CPOC.
[2016-10-08 10:22] VITALS: BP 141/92; BMI 35.6
[2016-10-08 12:17] VITALS: BP 112/64
[2016-10-08 12:49] VITALS: Ht 190.5 cm; Wt 114.3 kg
[2016-10-08 15:49] VITALS: BP 98/68
--- NOTE | 2016-10-08 16:24 | NUR ---
Rehab Prescreening Consult recieved and the chart has been reviewed. This patient is [employer] MCR and will require a preauthorization for IRF. The [facility] has been made aware. Gabriella Bunch RN Clinical Liaison, Rehab
[2016-10-08 20:00] VITALS: BP 112/58
[2016-10-08 23:52] VITALS: BP 114/64
--- NOTE | 2016-10-09 02:14 | NUR ---
PT RESTING QUIETLY IN BED. RIGHT HIP SWELLING AND BRUISED. CONTUSIONS ABOVE LEFT EYE. C-COLLAR ON. PT MUMBLES AT TIMES. GAVE DILAUDID 1 MG IVP TWICE FOR PAIN. BED ALARM ON. WILL CONTINUE TO MONITOR.
[2016-10-09 03:51] VITALS: BP 116/69
[2016-10-09 06:11] LABS: INR 2.33 (0.85-1.17); PROTIME 25.7 SECONDS (11.6-15.0)
[2016-10-09 06:17] LABS: BASOPHILS 0.5 % (0-2); EOSINOPHILS 3.1 % (0-7); HEMATOCRIT 33.6 % (42.0-54.0); HEMOGLOBIN 10.1 g/dL (13.5-17.5); IMMATURE GRANULOCYTES 0.2 % (0-5); LYMPHOCYTES 26.4 % (15-50); MCH 25.3 pg (26.0-34.0); MCHC 30.1 g/dL (31.0-37.0); MEAN PLATELET VOLUME 10.2 fL (7.4-10.4); MONOCYTES 10.8 % (2-11); PLATELET COUNT 173 10x3/uL (130-400); RDW 18.5 % (11.5-14.5); WBC 4.2 10x3/uL (4.8-10.8)
[2016-10-09 06:31] LABS: ALBUMIN 2.8 g/dL (3.4-5.0); ALKALINE PHOSPHATASE 66 U/L (46-116); ALT (SGPT) 16 U/L (10-68); CALC OSMOLALITY 279 mosm/kg (275-300); CALCIUM 7.9 mg/dL (8.5-10.1); CARBON DIOXIDE 27.6 mmol/L (21.0-32.0); CHLORIDE - SERUM 105 mmol/L (98-107); CREATININE - SERUM 0.7 mg/dL (0.6-1.3); GLUCOSE 82 mg/dL (74-106); POTASSIUM - SERUM 3.8 mmol/L (3.5-5.1); PROTEIN - SERUM 5.9 g/dL (6.4-8.2); SODIUM 141 mmol/L (136-145); UREA NITROGEN 12 mg/dL (7-18); eGFR NON AFRICAN AMERICAN > 90 mL/min (90-120)
--- NOTE | 2016-10-09 07:00 | NUR ---
PT REC'D FROM [employer]. RESTING IN BED WITH BREAKFAST TRAY AT BEDSIDE. AAOX4. C-COLLAR ON. RATING CURRENT PAIN ALL OVER BODY 8/10. WILL ADMINISTER PAIN MEDS AND REASSESS. REGULAR HEART RATE AND RHYTHM. TELEMETRY LEADS IN PLACE. LUNG SOUNDS CLEAR AND EQUAL BILAT. BOWEL SOUNDS ACTIVE X4 QUADS, ABD FLAT AND SOFT TO PALPATION. +2 PEDAL PULSES BILAT. BRUISE/BUMP ABOVE L EYE, ABRASIONS TO R FINGERS AND HAND. R HIP SWOLLEN AND BRUISED. BED LOW, CALL LIGHT IN REACH, DENIES NEEDS. CPOC.
[2016-10-09 08:25] VITALS: BP 121/69
--- NOTE | 2016-10-09 09:10 | NUR ---
IN BED AT THIS TIME. RESPIRATIONS WITH EASE. PAULINA MAT ALARM ON AND IN WORKING ORDER. DENIES NEEDS AT THIS TIME. JOYGLORIAA IN ROOM. CALL LIGHT IN REACH, DOOR OPEN. WILL CONTINUE WITH PLAN OF CARE.
--- NOTE | 2016-10-09 10:13 | NUR ---
PT CONT TO REPORT SEVERE PAIN "ALL OVER". HOWEVER, HE IS VERY MOTIVATED AND PARTICIPATES MUCH HE CAN. HE PRESENTS WITH DECREASED FUNCTIONAL ENDURANCE AND DECREASED STANDING BALANCE. PT FEELS THE DECREASED BALANCE IS RELATED TO PAST CVA's. PERFORMED BED MOB INCLUDING SUPINE TO SIT WITH MIN/MOD ASSIST; SIT TO STAND WITH MIN ASSIST; AMB WITH TECHNOLOGY INTERNSHIP X2 X APPROX 10-12 FT. ABLE TO JOSE AND ADJUST GOWN WITH MIN ASSIST; MOD/MAX WITH SOCKS. REQUIRES MOD ASSIST WITH POSITIONING IN BED
--- NOTE | 2016-10-09 10:47 | NUR ---
All information has been submitted to [facility] for authorization for IRF Ref# [id number] Gabriella Bunch RN CL
--- NOTE | 2016-10-09 11:26 | NUR ---
C-COLLAR REMOVED. PT STATES HE IS NOT WANTING TO GO TO REHAB HERE AND WANTS TO GO HOME WITH HOME HEALTH. WILL DISCUSS WITH CM.
[2016-10-09 12:21] VITALS: BP 103/69
[2016-10-09 16:08] VITALS: BP 101/60
--- NOTE | 2016-10-09 17:48 | NUR ---
OT NOTE: PT COMPLETED GROOMING AND HYGIENE WITH MIN A. PT COMPLETED BUE AROM EXERCISES FOR INCREASED STRENGTH. PT COMPLETED BED MOB WITH SBA. PT EXHIBITS DECREASED SAFETY AWARENESS AND REQUIRES VERBAL CUES. THANK YOU, SHARRI MORALES/Joshua
[2016-10-09 20:00] VITALS: BP 103/64
[2016-10-10] VITALS: BP 114/59
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
[2016-10-10 04:00] VITALS: BP 120/62
--- NOTE | 2016-10-10 04:46 | NUR ---
ANGRY HAD IV PAIN MED AT 0330.REQUESTING PAIN MED NOW STATES I KNOW ITS TIME
[2016-10-10 05:27] LABS: INR 2.19 (0.85-1.17); PROTIME 24.4 SECONDS (11.6-15.0)
[2016-10-10 05:28] LABS: BASOPHILS 0.2 % (0-2); EOSINOPHILS 2.5 % (0-7); HEMATOCRIT 32.2 % (42.0-54.0); HEMOGLOBIN 9.6 g/dL (13.5-17.5); IMMATURE GRANULOCYTES 0.2 % (0-5); LYMPHOCYTES 20.1 % (15-50); MCH 25.4 pg (26.0-34.0); MCHC 29.8 g/dL (31.0-37.0); MCV 85.2 fL (80.0-100.0); MEAN PLATELET VOLUME 10.8 fL (7.4-10.4); MONOCYTES 12.1 % (2-11); NEUTROPHILS 64.9 % (40-80); PLATELET COUNT 168 10x3/uL (130-400); RBC 3.78 10x6/uL (4.20-6.10); RDW 18.5 % (11.5-14.5); WBC 5.2 10x3/uL (4.8-10.8)
[2016-10-10 05:43] LABS: ALBUMIN 2.6 g/dL (3.4-5.0); ALKALINE PHOSPHATASE 71 U/L (46-116); ALT (SGPT) 16 U/L (10-68); BILIRUBIN - TOTAL 0.29 mg/dL (0.2-1.3); CALC OSMOLALITY 273 mosm/kg (275-300); CALCIUM 7.7 mg/dL (8.5-10.1); CARBON DIOXIDE 31.3 mmol/L (21.0-32.0); CHLORIDE - SERUM 102 mmol/L (98-107); CREATININE - SERUM 0.6 mg/dL (0.6-1.3); GLUCOSE 99 mg/dL (74-106); POTASSIUM - SERUM 4.1 mmol/L (3.5-5.1); PROTEIN - SERUM 5.5 g/dL (6.4-8.2); SODIUM 137 mmol/L (136-145); UREA NITROGEN 13 mg/dL (7-18); eGFR NON AFRICAN AMERICAN > 90 mL/min (90-120)
--- NOTE | 2016-10-10 07:55 | NUR ---
PT AOX4 RESP EVEN AND NONLABORED PT DENIES NEEDS AT THIS TIME IV TO RIGHT FOREARM PATENT AND INTACT AT THIS TIME SRX2 BED AT LOWEST SETTING CALL LIGHT WITHIN REACH WILL CONTINUE TO MONITOR
[2016-10-10 08:02] VITALS: BP 125/67
[2016-10-10 12:00] VITALS: BP 115/65
[2016-10-10 16:22] VITALS: BP 125/80
[2016-10-10 20:00] VITALS: BP 135/83
[2016-10-11] VITALS: BP 133/77
[2016-10-11 04:00] VITALS: BP 134/80
--- NOTE | 2016-10-11 04:26 | NUR ---
ASSESSED, PT IS AWAKE AND IS WAITING FOR HIS NURSE TO BRING HIM SOMETHING FOR A SEVERE HEADACHE. HE RECEIVED PAIN MEDS ORDERED. HE IS ANXIOUS. THE LAB ALSO CAME TO THE ROOM TO DRAW BLOOD.
[2016-10-11 05:01] LABS: BASOPHILS 0.4 % (0-2); HEMATOCRIT 33.9 % (42.0-54.0); HEMOGLOBIN 10.1 g/dL (13.5-17.5); IMMATURE GRANULOCYTES 0.2 % (0-5); LYMPHOCYTES 21.1 % (15-50); MCH 25.6 pg (26.0-34.0); MCHC 29.8 g/dL (31.0-37.0); MCV 85.8 fL (80.0-100.0); MEAN PLATELET VOLUME 10.7 fL (7.4-10.4); MONOCYTES 9.9 % (2-11); NEUTROPHILS 64.4 % (40-80); PLATELET COUNT 168 10x3/uL (130-400); RBC 3.95 10x6/uL (4.20-6.10); RDW 18.3 % (11.5-14.5); WBC 4.7 10x3/uL (4.8-10.8)
[2016-10-11 05:21] LABS: INR 1.7 (0.85-1.17)
[2016-10-11 05:22] LABS: ALBUMIN 2.9 g/dL (3.4-5.0); ALKALINE PHOSPHATASE 79 U/L (46-116); ALT (SGPT) 16 U/L (10-68); BILIRUBIN - TOTAL 0.42 mg/dL (0.2-1.3); CALC OSMOLALITY 272 mosm/kg (275-300); CALCIUM 7.7 mg/dL (8.5-10.1); CARBON DIOXIDE 28.9 mmol/L (21.0-32.0); CHLORIDE - SERUM 102 mmol/L (98-107); CREATININE - SERUM 0.6 mg/dL (0.6-1.3); GLUCOSE 102 mg/dL (74-106); POTASSIUM - SERUM 3.9 mmol/L (3.5-5.1); PROTEIN - SERUM 5.9 g/dL (6.4-8.2); SODIUM 137 mmol/L (136-145); UREA NITROGEN 11 mg/dL (7-18); eGFR NON AFRICAN AMERICAN > 90 mL/min (90-120)
[2016-10-11 07:50] VITALS: BP 132/71
--- NOTE | 2016-10-11 13:58 | NUR ---
PT AOX3 CONFUSED AT TIMES RESP EVEN AND NONLABORED PT DENIES NEEDS AT THIS TIME IV TO RIGHT FOREARM PATENT AND INTACT AT THIS TIME. SRX2 BED AT LOWEST SETTING CALL LIGHT WITHIN REACH WILL CONTINUE TO MONITOR
[2016-10-11 14:08] VITALS: BP 115/82
[2016-10-11 15:55] VITALS: BP 127/79
[2016-10-11 20:00] VITALS: BP 129/71
--- NOTE | 2016-10-12 03:46 | NUR ---
EYES CLOSED RESPIRATIONS WITH EASE AND UNLABORED.
[2016-10-12 04:00] VITALS: BP 130/77
[2016-10-12 06:13] LABS: BASOPHILS 0.2 % (0-2); EOSINOPHILS 4.8 % (0-7); HEMATOCRIT 32.4 % (42.0-54.0); HEMOGLOBIN 9.7 g/dL (13.5-17.5); IMMATURE GRANULOCYTES 0.2 % (0-5); LYMPHOCYTES 18.3 % (15-50); MCH 25.9 pg (26.0-34.0); MCHC 29.9 g/dL (31.0-37.0); MCV 86.4 fL (80.0-100.0); MEAN PLATELET VOLUME 10.4 fL (7.4-10.4); MONOCYTES 10.5 % (2-11); PLATELET COUNT 172 10x3/uL (130-400); RBC 3.75 10x6/uL (4.20-6.10); RDW 18.3 % (11.5-14.5)
[2016-10-12 06:15] LABS: INR 1.57 (0.85-1.17); PROTIME 18.7 SECONDS (11.6-15.0)
[2016-10-12 06:51] LABS: ALBUMIN 2.8 g/dL (3.4-5.0); ALKALINE PHOSPHATASE 76 U/L (46-116); ALT (SGPT) 15 U/L (10-68); BILIRUBIN - TOTAL 0.38 mg/dL (0.2-1.3); CALC OSMOLALITY 273 mosm/kg (275-300); CALCIUM 7.8 mg/dL (8.5-10.1); CARBON DIOXIDE 28.9 mmol/L (21.0-32.0); CHLORIDE - SERUM 101 mmol/L (98-107); CREATININE - SERUM 0.7 mg/dL (0.6-1.3); GLUCOSE 89 mg/dL (74-106); PROTEIN - SERUM 5.7 g/dL (6.4-8.2); SODIUM 138 mmol/L (136-145); UREA NITROGEN 10 mg/dL (7-18); eGFR NON AFRICAN AMERICAN > 90 mL/min (90-120)
--- NOTE | 2016-10-12 07:45 | NUR ---
ASSESSMENT COMPLETE. IV TO R WRIST PATENT. NS INFUSING AT 75 CC/HR VIA PUMP. BRUISING NOTED TO L FOREHEAD. PAULINA MAT IN USE. COMPLAINING OF GENERALIZED ITCHING.
[2016-10-12 08:12] VITALS: BP 132/73
--- NOTE | 2016-10-12 10:24 | NUR ---
COMPLAINING OF ITCHING TO BACK, LEGS, AND BUTTOCKS. REDNESS NOTED TO AREAS WHERE PATIENT HAS BEEN SCRATCHING. BENADRYL GIVEN.
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
[2016-10-12 12:06] VITALS: BP 111/69
--- NOTE | 2016-10-12 12:23 | NUR ---
COMPLAINING OF HEADACHE. PERCOCET GIVEN.
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
--- NOTE | 2016-10-12 12:37 | NUR ---
NUTRITION MONITORING & EVAL CHART REVIEWED. PT TOLERATING AHA DIET WITH 75% INTAKE RECENT MEALS. WILL CONTINUE TO PROVIDE DIET, MONITOR PO INTAKE. RD FOLLOWING
--- NOTE | 2016-10-12 13:06 | NUR ---
OT NOTE: PT PERFORMED BED MOB WITH MIN ASSIST; REPORTED CONT PAIN IN R HIP AND HEAD; REPORTED THAT HE HAD BEEN UP WALKING AND DID NOT WANT TO GET UP AGAIN JUST YET; INFORMED PT THAT I WOULD CHECK BACK ON HIM THIS AFTERNOON
--- NOTE | 2016-10-12 15:00 | NUR ---
BRUISING NOTED TO R HIP. COMPLAINING OF HIP PAIN AFTER BONE SCAN COMPLETED FROM LAYING ON TABLE.
--- NOTE | 2016-10-12 15:30 | NUR ---
IV PULLED OUT. CATHETER TIP INTACT.
--- NOTE | 2016-10-12 15:45 | NUR ---
22 GAUGE IV SITE TO RIGHT FOREARM X1 ATTEMPT. FLUSHES EASY WITH BRISK BLOOD RETURN PRESENT. SECURED WITH TAPE AND TEGADERM. WELL TOLERATED.
--- NOTE | 2016-10-12 16:05 | NUR ---
Recieved a call from Jyoti Verdugo at [facility]. This patient is authorized for acute inpatient rehab 7 days with U/D due to Jyoti on 10/19/16 . Auth # [id number]. Called and informed the CM Emma Centeno RN. Emma states the patient was not discharging to rehab today and he has a neurosurgery consult with Dr Scales pending. Call Jyoti at [facility] and left a V/M with this information. Gabriella Bunch RN Clinical Liaison, Rehab
[2016-10-12 16:43] VITALS: BP 135/70
--- NOTE | 2016-10-12 17:00 | NUR ---
COMPLAINING OF HEAD AND BACK PAIN. DILAUDID GIVEN SLOW IVP. DENIES ANY FURTHER NEEDS AT THIS TIME.
--- NOTE | 2016-10-12 17:53 | NUR ---
OT NOTE: PT COMPLETED BED MOB WITH SIDE RAILS WITH MIN A, PT COMPLETED BUE AROM EXS FOR INCREASED I WITH ADLS. PT COMPLETED ADL GROOMING WITH SET UP. ANUJA SZYMANSKI COTA/Joshua
--- NOTE | 2016-10-12 19:36 | NUR ---
PT IS LYING IN BED ON BACK, VERBALIZED THAT IV SITE WAS BURNING, IV IS INTACT, CLEAN CLEAR AND DRY NO SIGN OF INFILTRATION, NOT RED OR SWOLLEN, ADVISED WILL CONTINUE TO MONITOR. BED IS IN LOW POSITION, CALL LIGHT WITHIN REACH
[2016-10-12 20:00] VITALS: BP 107/74
--- NOTE | 2016-10-13 00:35 | NUR ---
PATIENT IS RESTING QUIETLY WITH EYES CLOSED. NO SIGNS OF DISTRESS NOTED. BED IN LOWEST POSITION, CALL LIGHT IN REACH. BED RAILS UP X'S 2. HOB 30 DEGREES.
[2016-10-13 03:38] VITALS: BP 107/63
[2016-10-13 04:38] LABS: ALBUMIN 2.7 g/dL (3.4-5.0); ALKALINE PHOSPHATASE 73 U/L (46-116); ALT (SGPT) 15 U/L (10-68); BILIRUBIN - TOTAL 0.65 mg/dL (0.2-1.3); CALC OSMOLALITY 275 mosm/kg (275-300); CARBON DIOXIDE 31.3 mmol/L (21.0-32.0); CHLORIDE - SERUM 103 mmol/L (98-107); CREATININE - SERUM 0.6 mg/dL (0.6-1.3); GLUCOSE 95 mg/dL (74-106); POTASSIUM - SERUM 4.1 mmol/L (3.5-5.1); PROTEIN - SERUM 6.1 g/dL (6.4-8.2); SODIUM 139 mmol/L (136-145); UREA NITROGEN 8 mg/dL (7-18); eGFR NON AFRICAN AMERICAN > 90 mL/min (90-120)
[2016-10-13 05:01] LABS: BASOPHILS 0.4 % (0-2); EOSINOPHILS 3.6 % (0-7); HEMATOCRIT 31.5 % (42.0-54.0); HEMOGLOBIN 9.8 g/dL (13.5-17.5); IMMATURE GRANULOCYTES 0.2 % (0-5); LYMPHOCYTES 16.9 % (15-50); MCH 26.7 pg (26.0-34.0); MCHC 31.1 g/dL (31.0-37.0); MCV 85.8 fL (80.0-100.0); MEAN PLATELET VOLUME 10.4 fL (7.4-10.4); MONOCYTES 11.6 % (2-11); NEUTROPHILS 67.3 % (40-80); PLATELET COUNT 169 10x3/uL (130-400); RBC 3.67 10x6/uL (4.20-6.10); RDW 18.3 % (11.5-14.5); WBC 4.7 10x3/uL (4.8-10.8)
[2016-10-13 05:13] LABS: INR 1.42 (0.85-1.17); PROTIME 17.2 SECONDS (11.6-15.0)
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
[2016-10-13 08:22] VITALS: BP 134/88
[2016-10-13 12:02] VITALS: BP 134/77
[2016-10-13] MEDS ORDERED: NYSTATIN15 GM TOPICAL (13:26)
[2016-10-13] MEDS ORDERED: PROTONIX40 MG PO (13:27)
[2016-10-13] MEDS ORDERED: DIFLUCAN100 MG PO (13:27)
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
--- NOTE | 2016-10-13 13:47 | NUR ---
CALL TO REBECCA FOR SHELDONINS FROM [employer].
--- NOTE | 2016-10-13 13:48 | NUR ---
CALL TO LOUIE FOR READING GLASSES
[2016-10-13 16:26] VITALS: BP 123/78
--- NOTE | 2016-10-13 16:37 | NUR ---
REPORT TO REHAB,SPOKE WITH SHAYNA
--- NOTE | 2016-10-13 17:19 | NUR ---
OT NOTE: PT COMPLETED BED MOB WITH MIN A. PT COMPLETED EOB SITTING WITH SPV. PT COMPLETED FEEDING TASK AT EOB WITH SPV. THANK YOU, SHARRI MORALES/Joshua
--- NOTE | 2016-10-13 18:14 | NUR ---
PT TO REHAB AFTER EATING DINNER.WENT TO ROOM 118 VIA WHEELCHAIR
== END 2016-10-13 18:15 | DRG 552 ==
LOC: D.ER 04:51 → D.MS 06:46 → OBSVTIME 06:46 → D.MS 06:46
PROVIDERS: Emergency Medicine; ADMIT Family Medicine
DX: S22.089A Unspecified fracture of T11-T12 vertebra, initial encounter for closed fracture (principal); I25.110 Atherosclerotic heart disease of native coronary artery with unstable angina pectoris; S00.83XA Contusion of other part of head, initial encounter; S70.01XA Contusion of right hip, initial encounter; V89.2XXA Person injured in unspecified motor-vehicle accident, traffic, initial encounter; R00.1 Bradycardia, unspecified; R55 Syncope and collapse; S39.012A Strain of muscle, fascia and tendon of lower back, initial encounter; Z95.810 Presence of automatic (implantable) cardiac defibrillator; I50.9 Heart failure, unspecified; F43.10 Post-traumatic stress disorder, unspecified; I25.10 Atherosclerotic heart disease of native coronary artery without angina pectoris; K21.9 Gastro-esophageal reflux disease without esophagitis; R51 Headache

== ENCOUNTER 2016-10-13 17:14 | Inpatient (IN) | payer MEDICARE, MEDICAID ==
[~2016-10-13] VITALS: Ht 182.9 cm; Wt 111.1 kg
--- NOTE | ~2016-10-13 | RHP ---
PATIENT: VAHE NARVAEZ MEDICAL RECORD: [id number] ACCOUNT: [id number] LOCATION:[facility]1118 : [birth year] ADMISSION DATE: 10/13/16 REHABILITATION HISTORY AND PHYSICAL EXAMINATION POST ADMISSION PHYSICIAN EXAMINATION Addendum DATE OF ADMISSION: 10/13/2016 POST-ADMISSION PHYSICIAN EVALUATION: This patient's history and physical was performed. The patient examined at 1:00 on 10/14/2016. TRANSINT:[id number] Voice Confirmation ID: [id number] DOCUMENT ID: [id number] BARRETT notes whether there has been none or any medical/functional change since admission: - No change since prescreen. BARRETT attests patient continues to be appropriate for IRF: - Continues to be appropriate. PEPE WELLINGTON M.D. CC: [id number] DICTATION DATE: 10/15/16 1428 BOAT CANVAS MAKER INSTALLER: 10/15/16 1504 ADM IN [facility] [address] [place] [address]
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
[~2016-10-13 17:14] MED LIST changes: +DIFLUCAN100 MG PO; +NYSTATIN15 GM TOPICAL; +PROTONIX40 MG PO
--- NOTE | 2016-10-13 18:48 | NUR ---
RESTING QUIETLY IN BED. DENIES NEEDS OR C/O. CALL LIGHT IN REACH
--- NOTE | 2016-10-13 19:30 | NUR ---
PT C/O PAIN AND IS CONCERNED ABOUT PAIN MANAGEMENT. PT VERY TALKATIVE, RESPIRATIONS REGULAR. RIGHT HIP/THIGH LARGE SWOLLEN REGION WITH BRUISE. ORIENTED AND ALERT. PLACED CALL TO PHYSICIAN REGARDING PAIN MEDICATION.
--- NOTE | 2016-10-13 20:00 | NUR ---
PT EXPRESSED CONCERN WITH PAIN MEDICATION ORDERED. ENCOURAGED PT TO TRY THE PO VERSUS IV IF NO RELIEF WILL CONTACT PHYSICIAN.
--- NOTE | 2016-10-13 21:00 | NUR ---
PT STATES NO RELIEF FROM PO PAIN MEDICATION, PHYSICIAN CONTACTED WITH CHANGE IN ORDER. COMMUNICATED WITH PATIENT.
--- NOTE | 2016-10-13 22:00 | NUR ---
ADMISSION DOCUMENTS REVIEWED WITH PT AND SIGNED BY PT. ASSESSMENT AND HISTORY OBTAINED. WILL PASS ON TO DAY SHIFT TO OBTAIN CELL PHONE FROM HOSPITAL [facility]LES PER PT REQUEST.
[2016-10-13 22:30] VITALS: BP 127/80; BMI 33.3
--- NOTE | 2016-10-14 03:00 | NUR ---
PT STATES HE DOESN'T KNOW ANYTHING ABOUT A BRACE FOR HIS BACK, PT EXPRESSES CONCERN R/T WAKING UP AND NOT KNOWING WHERE HE IS. PT DENIES THAT IT COULD HAVE ANYTHING TO DO WITH THE MEDICATIONS
[2016-10-14 05:36] LABS: BASOPHILS 0.2 % (0-2); EOSINOPHILS 4.8 % (0-7); HEMATOCRIT 31.3 % (42.0-54.0); HEMOGLOBIN 9.5 g/dL (13.5-17.5); IMMATURE GRANULOCYTES 0.2 % (0-5); LYMPHOCYTES 19.7 % (15-50); MCHC 30.4 g/dL (31.0-37.0); MCV 85.5 fL (80.0-100.0); MEAN PLATELET VOLUME 10.1 fL (7.4-10.4); MONOCYTES 11.5 % (2-11); NEUTROPHILS 63.6 % (40-80); PLATELET COUNT 193 10x3/uL (130-400); RBC 3.66 10x6/uL (4.20-6.10); RDW 18.6 % (11.5-14.5); WBC 4.6 10x3/uL (4.8-10.8)
[2016-10-14 05:46] LABS: CALC OSMOLALITY 276 mosm/kg (275-300); CARBON DIOXIDE 32.4 mmol/L (21.0-32.0); CHLORIDE - SERUM 104 mmol/L (98-107); CREATININE - SERUM 0.7 mg/dL (0.6-1.3); GLUCOSE 87 mg/dL (74-106); POTASSIUM - SERUM 3.6 mmol/L (3.5-5.1); SODIUM 140 mmol/L (136-145); eGFR NON AFRICAN AMERICAN > 90 mL/min (90-120)
[2016-10-14 05:49] LABS: INR 1.48 (0.85-1.17); PROTIME 17.9 SECONDS (11.6-15.0); UREA NITROGEN 11 mg/dL (7-18)
--- NOTE | 2016-10-14 07:20 | NUR ---
REPORT RECEIVED FROM BEATER BOSS NURSE. CALL LIGHT IN REACH.
--- NOTE | 2016-10-14 08:15 | NUR ---
ASSESSMENT COMPLETED. C/O PAIN OF 10 TO RIGHT HIP AND BACK. REQUESTING IV DILAUDID SO 1 MG ADMINISTERED SIVP TO RIGHT FA IV. AM MEDS ADMINISTERED. CALL LIGHT IN REACH. WILL CONTINUE WITH PLAN OF CARE.
[2016-10-14 08:36] VITALS: BP 134/69
[2016-10-14 10:32] VITALS: Ht 182.9 cm; Wt 111.1 kg
--- NOTE | 2016-10-14 10:59 | NUR ---
NORCO PO PER C/O PAIN OF 10 AFTER THERAPY.
--- NOTE | 2016-10-14 11:04 | NUR ---
NORCO PO PER C/O PAIN OF 10 AFTER THERAPY.
--- NOTE | 2016-10-14 11:27 | NUR ---
PT RESTING IN BED, WATCHING TV, DENIES NEEDS. WCTM.
--- NOTE | 2016-10-14 12:14 | NUR ---
STILL IN PAIN. STATES IT IS A 10. DILAUDID 1 MG SIVP. CALL LIGHT IN REACH.
--- NOTE | 2016-10-14 14:16 | NUR ---
IN THERAPY AT THIS TIME. CALL LIGHT IN REACH.
--- NOTE | 2016-10-14 16:00 | NUR ---
COREG PO AND DILAUDID SIVP. CALL LIGHT IN REACH.
--- NOTE | 2016-10-14 16:41 | NUR ---
PATIENT NEW TO UNIT AND WILL BE RA AT NEXT MEETING. PATIENT LIVES AT [facility] AND DR. BUSTILLOS IS HIS PCP.DME AT HOME IS A ROLLING WALKER. [facility] FOR HIS MEDICATION NEEDS. WILL CONTINUE TO FOLLOW WITH PATIENT.
--- NOTE | 2016-10-14 18:06 | NUR ---
REQUESTING NORCO AGAIN SO ADMINISTERED PER ORDER. NO CHANGES IN INITIAL ASSESSMENT. CALL LIGHT IN REACH. WILL CONTINUE WITH PLAN OF CARE.
--- NOTE | 2016-10-14 19:45 | NUR ---
PT. IN BED WITH HOB UP FOR COMFORT AND IS WATCHING TV. PT. WANTS HIS PAIN MEDS EVERY 2 HOURS ALTERNATING IV. DILAUDID AND 2 NORCO TABS. ASSESSMENT COMPLETED. CALL LIGHT WITHIN REACH.
[2016-10-14 20:15] VITALS: BP 119/74
--- NOTE | 2016-10-14 23:18 | NUR ---
PT. IN BED WITH HOB UP FOR COMFORT WITH EYES CLOSED AND RESP. EVEN. CALL LIGHT WITHIN REACH.
--- NOTE | 2016-10-15 03:10 | NUR ---
PT. IN BED WITH HOB UP FOR COMFORT WITH EYES CLOSED AND RESP. DEEP AND EVEN. CALL LIGHT WITHIN REACH.
[2016-10-15 05:33] LABS: INR 1.48 (0.85-1.17); PROTIME 17.8 SECONDS (11.6-15.0)
--- NOTE | 2016-10-15 08:00 | NUR ---
SITTING UP ON SIDE OF BED.BRACE TO BACK ON.BREAKFAST GIVEN.CL IN REACH.
[2016-10-15 09:45] VITALS: BP 127/77
--- NOTE | 2016-10-15 12:00 | NUR ---
EATING LUNCH.CL IN REACH.
--- NOTE | 2016-10-15 16:00 | NUR ---
HAD SHOWER.RESTING QUIETLY.STATED HAD A FEELING OF NAUSEA AND WEAKNESS WHILE TAKING A SHOWER BUT ALL HAS SUBSIDED.
--- NOTE | 2016-10-15 19:46 | NUR ---
UP IN BED WITH TV ON. NO S/S OF DISTRESS OBSERVED. CALL LIGHT AND OVERBED TABLE IN REACH.
--- NOTE | 2016-10-15 22:39 | NUR ---
C/O PAIN EARLIER THIS SHIFT AND REQUESTED PAIN PILL. JERRYRONNI TAKEN TO PT. AND HE STATED " I WANT TWO OF THEM". RETURNED WITH ANOTHER PAIN PILL AND TAKEN WITH OUT DIFFICULTY. RESTING IN BED WITH EYES CLOSED AT THIS TIME. NO S/S OF DISTRESS OBSERVED. CALL LIGHT AND OVERBED TABLE IN REACH.
[2016-10-16 01:58] VITALS: BP 116/48
--- NOTE | 2016-10-16 02:58 | NUR ---
RESTING IN BED WITH EYES CLOSED. NO S/S OF DISTRESS OBSERVED AT THIS TIME. CONTINENT OF B/B. CALL LIGHT AND OVERBED TABLE IN REACH.
--- NOTE | 2016-10-16 04:35 | NUR ---
RESTING IN BED WITH EYES CLOSED. NO S/S OF DISTRESS OBSERVED. LYING ON BACK. CALL LIGHT AND OVERBED TABLE IN REACH.
[2016-10-16 06:43] LABS: INR 1.4 (0.85-1.17); PROTIME 17.1 SECONDS (11.6-15.0)
--- NOTE | 2016-10-16 07:39 | NUR ---
RESTING QUIETLY IN BED. NO S/S DISTRESS. CALL LIGHT IN REACH
[2016-10-16 09:24] LABS: BASOPHILS 0.4 % (0-2); EOSINOPHILS 3.1 % (0-7); HEMATOCRIT 31.3 % (42.0-54.0); HEMOGLOBIN 9.3 g/dL (13.5-17.5); IMMATURE GRANULOCYTES 0.2 % (0-5); LYMPHOCYTES 16.7 % (15-50); MCH 25.7 pg (26.0-34.0); MCHC 29.7 g/dL (31.0-37.0); MCV 86.5 fL (80.0-100.0); MEAN PLATELET VOLUME 10.5 fL (7.4-10.4); NEUTROPHILS 69.6 % (40-80); PLATELET COUNT 209 10x3/uL (130-400); RBC 3.62 10x6/uL (4.20-6.10); RDW 18.4 % (11.5-14.5); WBC 4.8 10x3/uL (4.8-10.8)
--- NOTE | 2016-10-16 10:31 | NUR ---
STILL SICK TO STOMACH AND THROWING UP. AM MEDS HELD. ZOFRAN GIVEN THIS MORNING AT PT REQUEST. THREW THAT UP. PT REPORTED SEVERE PAIN. DILAUDID IV GIVEN PER ORDER, PT STARTED THROWING UP WORSE. DR. PINEDA NOTIFIED.
--- NOTE | 2016-10-16 16:25 | NUR ---
MEDS STILL HELD FROM THIS MORNING DUE TO PT STILL HAVING NAUSEA. THE SMELL OF FOOD OR OTHER ODORS MAKES HIM GAG. HE IS STILL NOT ABLE TO HOLD ANYTHING DOWN AND DENIES FEELING LIKE HE CAN HOLD DOWN HIS MEDS JUST YET.
[2016-10-16 18:33] VITALS: BP 141/81
--- NOTE | 2016-10-16 19:12 | NUR ---
LYING IN BED WATCHING TV AT THIS TIME. STATES HE HAS HAD A BAD DAY. C/O HIP HURTING MORE THAN NORMAL TODAY AND THROWING UP ALL DAY. STATES PAIN MUCH BETTER AND STOMACH FEELS BETTER NOW.
--- NOTE | 2016-10-16 21:06 | NUR ---
C/O P[AIN TO RIGHT HIP AND REQUEST A PAIN PILL. MED GIVEN PER ORDER. LYING IN BED WATCHING TV. SIDERAILS UP X2 . CALL LIGHT AND OVERBED TABLE IN REACH.
[2016-10-16 22:29] VITALS: BP 124/76
--- NOTE | 2016-10-16 23:54 | NUR ---
LYING IN BED WITH EYES OPEN AND TV ON. DENIES ANY PAIN AT THIS TIME. HEAD OF BED ELEVATED. SALINE LOCK TO RIGHT WRIST PATENT. NO REDNESS OR SWELLING TO SITE. NO C/O N/V THI SHIFT.
[2016-10-17 08:10] LABS: INR 1.29 (0.85-1.17)
--- NOTE | 2016-10-17 08:11 | NUR ---
DECLINED BREAKFAST. C/O NAUSEA.
[2016-10-17 17:39] VITALS: BP 148/82
--- NOTE | 2016-10-17 17:44 | NUR ---
RESTING QUIETLY IN BED. HAS HAD POOR APPETITE ALL DAY C/O NAUSEA. HAS NOT HAD EMESIS TODAY BUT ZOFRAN TODAY AND PAIN MEDS ORDERD AND REQUESTED.
--- NOTE | 2016-10-17 19:43 | NUR ---
LYING IN BED WITH EYES OPEN AND TV ON. STATES HE HAS HAD NAUSEA TODAY. BUT ITS MUCH BETTER NOW. RATES PAIN AT 5 ON SCALE OF 1-10. STATES PAIN IS BETTER AND TOLERABLE. ALSO, STATES HE HAD THE BEST NIGHT SLEEP LAST NIGHT. NO OTHER C/O VOICED. CALL LIGHT AND OVERBED TABLE IN REACH.
--- NOTE | 2016-10-17 22:33 | NUR ---
C/O HIP AND BACK PAIN. ALSO,REQUEST RESTORIL FOR INSOMNIA. MEDS GIVEN PER ORDERS. LYING IN BED WATCHING TV AT THIS TIME.CALL LIGHT AND OVERBED TABLE IN REACH.
--- NOTE | 2016-10-17 23:51 | NUR ---
RESTING IN BED WITH EYES CLOSED. NO S/S OF DISTRESS OBSERVED. CALL LIGHT AND OVERBED TABLE IN REACH.
[2016-10-18 00:47] VITALS: BP 129/85
--- NOTE | 2016-10-18 06:58 | NUR ---
RESTING QUIETLY IN BED. NO S/S DISTRESS. CALL LIGHT IN REACH
--- NOTE | 2016-10-18 08:15 | NUR ---
C/O OF NAUSEA AND REQUEST MEDS TO SETTLE THE NAUSEA. ADMINISTER ZOFRAN 4MG PER PT REQUEST.
[2016-10-18 09:01] LABS: INR 1.27 (0.85-1.17); PROTIME 15.8 SECONDS (11.6-15.0)
--- NOTE | 2016-10-18 15:31 | NUR ---
RESTING QUIETLY IN BED. PAIN AND NAUSEA MEDS GIVEN REQUESTED AND ORDERED.
[2016-10-18 15:47] VITALS: BP 130/79
--- NOTE | 2016-10-18 18:21 | NUR ---
DENIES NEEDS. WATCHING TV WHILE LAYING IN BED. CALL LIGHT IN REACH
--- NOTE | 2016-10-18 20:20 | NUR ---
DENIES PAIN AT THIS TIME. DELIVERED HIS MENU TO COMPLETE.
--- NOTE | 2016-10-18 22:23 | NUR ---
LYING IN BED WITH EYES OPEN AND TV ON. SMALL BRUISES TO HIP AREA. APPERAR TO BE FADDING. SALINE LOCK TO RIGHT WRIST PATENT. CALL LIGHT AND OVERBED TABLE IN REACH. REQUESTED 2 DIET LEMON LINE SODAS. RETRIEVE SODAS AND PLACE ON BED SIDE TABLE.
--- NOTE | 2016-10-18 23:26 | NUR ---
C/O OF HIP PAIN AND REQUESTING MEDICATION. MEDS GIVEN PER ORDERS. WILL REASSESS PAIN.
[2016-10-19 00:42] VITALS: BP 141/96
--- NOTE | 2016-10-19 01:05 | NUR ---
RESTING IN BED WITH EYES CLOSED. LAYING ON HIS BACK. NO S/S OF DISTRESS OBSERVED. CALL LIGHT AND OVERBED TABLE IN REACH.
--- NOTE | 2016-10-19 02:22 | NUR ---
RESTING IN BED WITH EYES CLOSED. NO S/S OF DISTRESS OBSERVED. LAYING ON LEFT SIDE. CALL LIGHT AND OVERBED TABLE IN REACH.
--- NOTE | 2016-10-19 04:21 | NUR ---
LAYING IN BED WITH EYES CLOSED. EASILY AROUSES WITH DOOR OPENING. STATES PAIN TOLERABLE AT THIS TRIME. CALL LIGHT AND OVERBED TABLE IN REACH.
--- NOTE | 2016-10-19 05:06 | NUR ---
C/O RIGHT LEG PAIN AT 9 AND REQUESTED PAIN MEDICATION. MEDICATION GIVEN PER ORDERS. WILL REASSESS.
[2016-10-19 05:50] LABS: BASOPHILS 0.7 % (0-2); EOSINOPHILS 4.3 % (0-7); HEMATOCRIT 34.7 % (42.0-54.0); HEMOGLOBIN 10.4 g/dL (13.5-17.5); IMMATURE GRANULOCYTES 0.2 % (0-5); LYMPHOCYTES 27.7 % (15-50); MCH 25.7 pg (26.0-34.0); MCV 85.9 fL (80.0-100.0); MEAN PLATELET VOLUME 9.9 fL (7.4-10.4); NEUTROPHILS 56.1 % (40-80); PLATELET COUNT 228 10x3/uL (130-400); RBC 4.04 10x6/uL (4.20-6.10); WBC 4.4 10x3/uL (4.8-10.8)
[2016-10-19 06:02] LABS: CALC OSMOLALITY 277 mosm/kg (275-300); CALCIUM 8.2 mg/dL (8.5-10.1); CARBON DIOXIDE 33.1 mmol/L (21.0-32.0); CHLORIDE - SERUM 102 mmol/L (98-107); CREATININE - SERUM 0.8 mg/dL (0.6-1.3); GLUCOSE 95 mg/dL (74-106); POTASSIUM - SERUM 3.3 mmol/L (3.5-5.1); SODIUM 140 mmol/L (136-145); UREA NITROGEN 11 mg/dL (7-18); eGFR NON AFRICAN AMERICAN > 90 mL/min (90-120)
[2016-10-19 06:03] LABS: INR 1.22 (0.85-1.17); PROTIME 15.3 SECONDS (11.6-15.0)
--- NOTE | 2016-10-19 07:17 | NUR ---
RESTING QUIETLY IN BED. NO S/S DISTRESS. CALL LIGHT IN REACH
[2016-10-19 10:19] VITALS: BP 146/84
[2016-10-19 19:24] VITALS: BP 142/89
--- NOTE | 2016-10-19 19:46 | NUR ---
PT IS RESTING IN BED WATCHING TV. ALERT AND ORIENTED X 4. NO NEEDS VOICED AT THIS TIME. PT STATES: "I WILL BE ASKING FOR MY PAIN MEDICATIONS AGAIN ABOUT 9:30, AND ILL WANT ALL MY OTHER MEDS AT THE SAME TIME. PT STATES HIS RIGHT HIP HEMATOMA BOTHERS HIM THE MOST. TELEMETRY UNIT IS ON AND INTACT. SR'S ARE UP X 2 IN BED. CALL LIGHT AND BEDSIDE TABLE ARE WITHIN EASY REACH.
--- NOTE | 2016-10-19 21:19 | NUR ---
PT IS RESTING IN BED WITH EYES OPEN. DENIES NEEDS. PT DECLINED TO TAKE A SHOWER. HE STATED IT WAS TO LATE, AND HE DIDNT LIKE TO TAKE ONE AT NIGHT.
--- NOTE | 2016-10-19 23:43 | NUR ---
PT RESTING QUIETLY IN BED WITH EYES CLOSED. NO ACUTE DISTRESS NOTED.
--- NOTE | 2016-10-20 00:40 | NUR ---
DUE TO A STICKING DOOR, PATIENT AWAKENED WHEN I ENTERED ROOM ON ROUNDS. DENIES CURRENT DISCOMFORT OR OTHER NEEDS.
--- NOTE | 2016-10-20 04:22 | NUR ---
RESTING IN BED WITH EYES CLOSED.
--- NOTE | 2016-10-20 06:27 | NUR ---
PT SHOWERED INDEPENDENTLY.
[2016-10-20 06:37] LABS: INR 1.15 (0.85-1.17); PROTIME 14.5 SECONDS (11.6-15.0)
[2016-10-20 08:00] VITALS: BP 161/87
--- NOTE | 2016-10-20 08:00 | NUR ---
SHIFT ASSMT COMPLETED.CL IN REACH.
--- NOTE | 2016-10-20 11:10 | NUR ---
CLINICALS FAXED TO TERRENCE ARTIS AT , AUTH # [id number], 1950, ID # [id number] WITH CONFORMATION RECIEVED
--- NOTE | 2016-10-20 15:52 | NUR ---
NUTRITION MONITORING & EVAL CHART REVIEWED, PT VISIT. TOLERATING DIET BUT REPORTS NO APPETITE. CONTINUES ~ 50 % INTAKE MEALS. STATES HE MAY BE "STARTING TO BECOME CONSTIPATED". ENCOURAGED PT TO SPEAK TO HIS NURSE IF NO BM. RD FOLLOWING
[2016-10-20 19:30] VITALS: BP 145/93
--- NOTE | 2016-10-20 19:35 | NUR ---
PT IS RESTING IN BED WATCHING TV. ALERT AND ORIENTED X 4. PT STATES HE FEELS OK AT THIS TIME, BUT HAS BEEN NAUSEATED AT THIS TIME. TELEMETRY UNIT IS ON AND INTACT. PT HAS A BED ALARM WAIVER. SR'S ARE UP X 2 IN BED. CALL LIGHT AND BEDSIDE TABLE ARE WITHIN EASY REACH.
--- NOTE | 2016-10-20 21:31 | NUR ---
PT IS RESTING IN BED WATCHING TV. VOICED COMPLAINT OF BACK PAIN LEVEL OF 8. MEDICATED PER MAR.
--- NOTE | 2016-10-21 00:01 | NUR ---
RESTING IN BED WITH EYES CLOSED.
--- NOTE | 2016-10-21 01:40 | NUR ---
IN BED, EYES CLOSED. RESPIRING QUIETLY.
--- NOTE | 2016-10-21 03:47 | NUR ---
RESTING IN BED WITH EYES CLOSED. NO DISTRESS NOTED.
[2016-10-21 05:57] LABS: BASOPHILS 0.5 % (0-2); EOSINOPHILS 6.6 % (0-7); HEMATOCRIT 34.6 % (42.0-54.0); HEMOGLOBIN 10.3 g/dL (13.5-17.5); LYMPHOCYTES 25.7 % (15-50); MCH 25.6 pg (26.0-34.0); MCHC 29.8 g/dL (31.0-37.0); MCV 85.9 fL (80.0-100.0); MEAN PLATELET VOLUME 10.6 fL (7.4-10.4); NEUTROPHILS 55.2 % (40-80); PLATELET COUNT 264 10x3/uL (130-400); RBC 4.03 10x6/uL (4.20-6.10); RDW 17.8 % (11.5-14.5); WBC 4.2 10x3/uL (4.8-10.8)
[2016-10-21 06:10] LABS: INR 1.35 (0.85-1.17); PROTIME 16.5 SECONDS (11.6-15.0)
--- NOTE | 2016-10-21 06:21 | NUR ---
PT IS RESTING IN BED WITH EYES CLOSED.
[2016-10-21 06:24] LABS: CALC OSMOLALITY 280 mosm/kg (275-300); CALCIUM 8.3 mg/dL (8.5-10.1); CARBON DIOXIDE 34.1 mmol/L (21.0-32.0); CHLORIDE - SERUM 102 mmol/L (98-107); CREATININE - SERUM 0.8 mg/dL (0.6-1.3); GLUCOSE 82 mg/dL (74-106); POTASSIUM - SERUM 3.2 mmol/L (3.5-5.1); SODIUM 142 mmol/L (136-145); UREA NITROGEN 9 mg/dL (7-18); eGFR NON AFRICAN AMERICAN > 90 mL/min (90-120)
--- NOTE | 2016-10-21 08:00 | NUR ---
STATES VERY ANXIOUS TODAY;SLEPT BETTER LAST NIGHT.REPORTS WAS TAKING XANAX AT HOME FOR PSTD AND ANXIETY AND THINKS THATS WHY HE IS SO NAUSEOUS HERE.WILL TALK WITH ABOUT HIS NAUSEA AND ANXIETY.BREAKFAST GIVEN.
[2016-10-21 08:15] VITALS: BP 116/61
[2016-10-21 19:19] VITALS: BP 122/84
--- NOTE | 2016-10-21 19:19 | NUR ---
PT RECEIVED LYING IN BED AAOX3 WATCHING TV AT THIS TIME. ASSESSMENT COMPLETED PER FLOW SHEET. PT REQUESTS XANAX AND DIET SPRITE AT THIS TIME. DENIES OTHER NEEDS. BED LOW. PHONE AND CALL LIGHT IN REACH. SRX2.
--- NOTE | 2016-10-21 20:45 | NUR ---
PM MEDS GIVEN AT THIS TIME. PT REQUESTS MEDICATION FOR PAIN / AND NAUSEA WELL. ADMINISTERED OXY-IR AND ZOFRAN PO PER ORDERS. PT REQUESTS ICE CREAM AND SALTINES. DENIES OTHER NEEDS. BED LOW. PHONE AND CALL LIGHT IN REACH. SRX2.
--- NOTE | 2016-10-21 21:51 | NUR ---
PT RESTING QUIETLY. REQUESTS RESTORIL FOR SLEEP. ADMINISTERED 30 MG PO PER ORDERS AT THIS TIME. REASSESSED PTS PAIN WELL. RATES PAIN 08/22
--- NOTE | 2016-10-21 23:22 | NUR ---
PT RESTING QUIETLY AT THIS TIME WITH EYES CLOSED. AROUSED EASILY. DENIES NEEDS AT THIS TIME. BED LOW. PHONE AND CALL LIGHT IN REACH. SRX2.
--- NOTE | 2016-10-22 00:45 | NUR ---
PT RESTING QUIETLY AT THIS TIME WITH EYES CLOSED. RESPIRATIONS EVEN, NON-LABORED. NO ACUTE DISTRESS NOTED AT THIS TIME. BED LOW. PHONE AND CALL LIGHT IN REACH. SRX2.
[2016-10-22 05:28] LABS: INR 1.81 (0.85-1.17); PROTIME 20.9 SECONDS (11.6-15.0)
--- NOTE | 2016-10-22 05:34 | NUR ---
PT RESTING QUIETLY AT THIS TIME WITH EYES CLOSED. AROUSED EASILY. ADMINISTERED PROTONIX PO PER ORDERS AT THIS TIME WELL XANAX PO AND OXY-IR PO PER ORDERS FOR ANXIETY AND PAIN PT RATES 10/22. PT DENIES OTHER NEEDS. BED LOW. PHOEN AND CALL LIGHT IN REACH. SRX2.
--- NOTE | 2016-10-22 07:36 | NUR ---
RESTING QUIETLY IN BED. NO S/S DISTRESS OR NEEDS. CALL LIGHT IN REACH
[2016-10-22 08:18] VITALS: BP 107/59
--- NOTE | 2016-10-22 16:30 | NUR ---
SITTING UP IN W/C TALKING TO THERAPIST.
[2016-10-22 20:05] VITALS: BP 125/84
--- NOTE | 2016-10-22 20:05 | NUR ---
PT RECEIVED SITTING UP IN BED WATCHING TV AT THIS TIME. ASSESSMENT COMPLETED PER FLOW SHEET AT THIS TIME. VITAL SIGNS TAKEN. PT REQUESTS XANAX, DIET LEMON YAVAP[place] SODA, AND SALTINES. DENIES OTHER NEEDS. BED LOW. PHONE AND CALL LIGHT IN REACH. SRX2.
--- NOTE | 2016-10-22 20:55 | NUR ---
PM MEDS GIVEN. PT DENIES NEEDS. BED LOW. PHONE AND CALL LIGHT IN REACH. SRX2.
--- NOTE | 2016-10-22 22:12 | NUR ---
PT REQUESTS MEDICATION FOR SLEEP AND PAIN MEDICINE FOR PAIN PT RATES 10/22. ADMINISTERED RESTORIL PO PER ORDERS AT THIS TIME AND OXY-IR PER ORDERS. PT DENIES OTHER NEEDS. BED LOW. PHONE AND CALL LIGHT IN REACH. SRX2.
--- NOTE | 2016-10-23 05:02 | NUR ---
PROTONIX PO ADMINISTERED AT THIS TIME WELL OXY-IR FOR PAIN PT RATES 7/10 AND XANAX PER ORDERS FOR ANXIETY. PT DENIES OTHER NEEDS. BED LOW. PHONE AND CALL LIGHT IN REACH. SRX2.
--- NOTE | 2016-10-23 07:14 | NUR ---
RESTING QUIETLY IN BED. EYES CLOSED. NO S/S DISTRESS OR NEEDS. CALL LIGHT IN REACH.
[2016-10-23 08:03] LABS: BASOPHILS 0.5 % (0-2); EOSINOPHILS 6.6 % (0-7); HEMATOCRIT 32.3 % (42.0-54.0); HEMOGLOBIN 9.6 g/dL (13.5-17.5); LYMPHOCYTES 22.3 % (15-50); MCH 25.6 pg (26.0-34.0); MCHC 29.7 g/dL (31.0-37.0); MCV 86.1 fL (80.0-100.0); MEAN PLATELET VOLUME 10.2 fL (7.4-10.4); NEUTROPHILS 60.6 % (40-80); PLATELET COUNT 233 10x3/uL (130-400); RBC 3.75 10x6/uL (4.20-6.10); RDW 17.8 % (11.5-14.5); WBC 4.4 10x3/uL (4.8-10.8)
[2016-10-23 08:04] VITALS: BP 127/79
[2016-10-23 08:28] LABS: INR 2.3 (0.85-1.17); PROTIME 25.4 SECONDS (11.6-15.0)
[2016-10-23 08:33] LABS: CALC OSMOLALITY 277 mosm/kg (275-300); CARBON DIOXIDE 35.6 mmol/L (21.0-32.0); CHLORIDE - SERUM 102 mmol/L (98-107); CREATININE - SERUM 0.8 mg/dL (0.6-1.3); GLUCOSE 85 mg/dL (74-106); POTASSIUM - SERUM 3.6 mmol/L (3.5-5.1); SODIUM 140 mmol/L (136-145); UREA NITROGEN 12 mg/dL (7-18); eGFR NON AFRICAN AMERICAN > 90 mL/min (90-120)
--- NOTE | 2016-10-23 12:19 | NUR ---
RESTING QUIETLY IN BED. WATCHING TV. ASKING FOR PAIN MEDS AND XANAX. EXPLAINED TIME FRAME FOR MEDS TO HIM. HE STATES UNDERSTANDING. DENIES INCREASED PAIN. BRUISING IMPROVING TO RT HIP. STILL HAS LARGE KNOT UNDER SKIN AT HIP AREA.
--- NOTE | 2016-10-23 18:26 | NUR ---
STANDING UP IN ROOM LOOKING OUT WINDOW. ASKED FOR XANAX.
[2016-10-23 19:30] VITALS: BP 103/64
--- NOTE | 2016-10-23 20:00 | NUR ---
PT IN BED WITH HOB UP FOR COMFORT. WATCHING TV. BED/CHAIR WAIVER. BACK BRACE. NO O2. NO IV. TELEMETRY. PACEMAKER. BLIND IN LEFT EYE. BED IN LOWEST POSITION AND CALL LIGHT WITHIN REACH.
--- NOTE | 2016-10-23 23:21 | NUR ---
PT. IN BED WITH HOB UP FOR COMFORT WITH EYES CLOSED AND RESP. EVEN. CALL LIGHT WITHIN REACH.
--- NOTE | 2016-10-24 03:00 | NUR ---
PT IN BED WITH HOB UP FOR COMFORT. EYES CLOSED. CHEST RISING AND FALLING. BED IN LOWEST POSITION AND CALL LIGHT WITHIN REACH.
--- NOTE | 2016-10-24 04:58 | NUR ---
PT LYING IN BED. EYES CLOSED. CHEST RISING AND FALLING. BED IN LOWEST POSITION AND CALL LIGHT WITHIN REACH.
[2016-10-24 08:00] VITALS: BP 98/57
--- NOTE | 2016-10-24 08:00 | NUR ---
SHIFT ASSMT COMPLETED.REVIEWED USE OF BACK BRACE AND ACTIVITY.CL IN REACH.
--- NOTE | 2016-10-24 12:00 | NUR ---
SITTING UP IN BED EATING LUNCH.DENIES NEEDS.
[2016-10-24 15:00] VITALS: BP 111/68
[2016-10-24 17:00] LABS: INR 2.97 (0.85-1.17); PROTIME 31.1 SECONDS (11.6-15.0)
--- NOTE | 2016-10-24 19:22 | NUR ---
PT. IN BED WITH HOB UP FOR COMFORT WATCHING TV. NO VOICED NEEDS AT THIS TIME AND HIS CALL LIGHT IS WITHIN REACH.
[2016-10-24 19:30] VITALS: BP 118/68
--- NOTE | 2016-10-24 19:30 | NUR ---
PT IN BED WITH HOB UP FOR COMFORT. WATCHING TV. BED/CHAIR WAIVER. T12 COMPRESSION FRACTURE. HX OF PTSD. NO O2. NO IV. BACK BRACE WHEN UP. PACEMAKER. TELEMETRY. BLIND IN LEFT EYE. RIGHT HIP BRUISE. LAST BM 10/24/16. BED IN LOWEST POSITION AND CALL LIGHT WITHIN REACH.
--- NOTE | 2016-10-24 23:30 | NUR ---
PT IN BED WITH HOB UP FOR COMFORT. EYES CLOSED. RESP. EVEN. CALL LIGHT WITHIN REACH.
--- NOTE | 2016-10-25 03:30 | NUR ---
PT IN BED WITH HOB UP FOR COMFORT. EYES CLOSED. RESP. EVEN. BED IN LOWEST POSITION AND CALL LIGHT WITHIN REACH.
[2016-10-25 07:10] LABS: INR 2.09 (0.85-1.17); PROTIME 23.5 SECONDS (11.6-15.0)
[2016-10-25 08:00] VITALS: BP 125/63
--- NOTE | 2016-10-25 16:00 | NUR ---
RESTING QUIETLY.CL IN REACH.
[2016-10-25 16:15] VITALS: BP 120/74
--- NOTE | 2016-10-25 19:17 | NUR ---
PT. IN BED WITH HOB UP FOR COMFORT AND IS WATCHING TV. CALL LIGHT WITHIN REACH.
[2016-10-25 19:30] VITALS: BP 142/86
--- NOTE | 2016-10-25 19:30 | NUR ---
PT IN BED WITH HOB UP FOR COMFORT. WATCHING TV. BED/CHAIR WAIVER. T12 COMPRESSION FRACTURE. HX OF PTSD. NO O2. NO IV. BACK BRACE WHEN UP. PACEMAKER. TELEMETRY. BLIND IN LEFT EYE. RIGHT HIP BRUISE. LAST BM. BED IN LOWEST POSITION AND CALL LIGHT WITHIN REACH.
--- NOTE | 2016-10-25 23:30 | NUR ---
PT IN BED WITH HOB UP FOR COMFORT. EYES CLOSED. RESP. EVEN. CALL LIGHT WITHIN REACH.
--- NOTE | 2016-10-26 03:15 | NUR ---
CELERY WRAPPER CALLED AND STATED PT IS OFF MONITOR. APPLIED MONITOR BACK ON PT.
--- NOTE | 2016-10-26 04:09 | NUR ---
PT IN BED WITH HOB UP FOR COMFORT. RESTING QUIETLY. RESP. EVEN. BED IN LOWEST POSITION AND CALL LIGHT WITHIN REACH.
[2016-10-26 05:42] LABS: BASOPHILS 0.9 % (0-2); EOSINOPHILS 10.9 % (0-7); HEMOGLOBIN 9.4 g/dL (13.5-17.5); LYMPHOCYTES 23.7 % (15-50); MCH 25.1 pg (26.0-34.0); MCHC 29.4 g/dL (31.0-37.0); MCV 85.3 fL (80.0-100.0); MEAN PLATELET VOLUME 10.6 fL (7.4-10.4); MONOCYTES 11.8 % (2-11); NEUTROPHILS 52.7 % (40-80); PLATELET COUNT 232 10x3/uL (130-400); RBC 3.75 10x6/uL (4.20-6.10); RDW 17.7 % (11.5-14.5); WBC 4.3 10x3/uL (4.8-10.8)
[2016-10-26 05:51] LABS: INR 2.2 (0.85-1.17); PROTIME 24.5 SECONDS (11.6-15.0)
[2016-10-26 06:03] LABS: CALC OSMOLALITY 277 mosm/kg (275-300); CALCIUM 7.9 mg/dL (8.5-10.1); CARBON DIOXIDE 35.7 mmol/L (21.0-32.0); CHLORIDE - SERUM 101 mmol/L (98-107); CREATININE - SERUM 0.9 mg/dL (0.6-1.3); GLUCOSE 100 mg/dL (74-106); POTASSIUM - SERUM 3.8 mmol/L (3.5-5.1); SODIUM 139 mmol/L (136-145); UREA NITROGEN 13 mg/dL (7-18); eGFR NON AFRICAN AMERICAN 90 mL/min (90-120)
--- NOTE | 2016-10-26 08:29 | NUR ---
SITTING ON SIDE OF BED EATING LUNCH. HAS BACK BRACE IN PLACE FOR SUPPORT. C/O PAIN TO LOW BACK AND HIP NOTED. XRAY ORDERED FOR LOW BACK DUE TO C/O INCREASED PAIN.
[2016-10-26] MEDS ORDERED: OXYCODONE HCL5 MG PO (08:53)
[2016-10-26 09:32] VITALS: BP 111/59
--- NOTE | 2016-10-26 11:02 | NUR ---
PATIENT DISCHRGING HOME TODAY. [facility] WILL RESUME CARE OF PATIENT. DME AT HOME, CANE AND ROLLING WALKER. DR. BUSTILLOS 11/03/16 @ 8:45, DR. MONROY 10/29/16 @ 9:30. PATIENT CHOICE FORM FOR HOME HEALTH AND [facility] FORM SIGNED, EXPLAINED AND FILED IN CHART. DISCHARGE INSTRUCTIONS FAXED TO TERRENCE ARTIS , , AUTH.# [id number], . 1950 , ID # [id number], WITH CONFORMATION RECIEVED
--- NOTE | 2016-10-26 13:35 | NUR ---
RESTING QUIETLY IN BED. SCHEDULED TO D/C 10/27/16 AND GO HOME. IS ANXIOUS ABOUT HIS PAIN MEDS AND XANAX. DR DUVALL WROTE SCRIPT FOR PAIN MEDS.
--- NOTE | 2016-10-26 16:54 | NUR ---
RESTING QUIETLY IN BED. WAS MOVED TO DIFFERENT ROOM WITH ROOM MATE AND HE PULLED PRIVACY CURTAINS AROUND HIM. STATES HE IS DOING OK WITH TRANSFER AND DENIES NEEDS.
--- NOTE | 2016-10-26 17:56 | NUR ---
EATING SUPPER IN ROOM. DENIES NEEDS OR C/O. CALL LIGHT IN REACH
--- NOTE | 2016-10-26 19:22 | NUR ---
RESTING IN BED WITH EYES OPEN AND TV ON. NO C/O VOICED. LAYING ON HIS LEFT SIDE.
--- NOTE | 2016-10-26 20:14 | NUR ---
RESTING IN BED WITH EYES CLOSED. NO S/S OF DISTRESS OBSERVED. CALL LIGHT AND OVERBED TABLE IN REACH.
--- NOTE | 2016-10-27 00:08 | NUR ---
SITTING UP ON SIDE OF THE BED AND CALLED THIS NURSE TO ASK WHAT TIME IT IS. STATED"OH OKAY I CAN'T HAVE A PAIN PILL RIGHT NOW". CALL LIGHT AND OVERBED TABLE IN REACH.
[2016-10-27 02:30] VITALS: BP 131/80
[2016-10-27 06:28] LABS: INR 2.93 (0.85-1.17); PROTIME 30.8 SECONDS (11.6-15.0)
--- NOTE | 2016-10-27 11:12 | NUR ---
PATIENT DISCHARGED TODAY , CLINICALS FAXED TO TERRENCE ARTIS @ AUTH # [id number], 1950, ID # [id number] WITH CONFORMATION RECIEVED
[2016-10-27 15:36] VITALS: BP 122/67
--- NOTE | 2016-10-28 10:39 | NUR ---
LATE ENTRY: [facility] CALLED THIS AM AND IS UNABLE TO SEE PATIENT DUE TO STAFFING ISSUES. REFERRAL FAXED TO [facility].
== END 2016-10-27 11:50 | disposition home health service (06) | DRG 561 ==
LOC: D.REHAB 17:14
PROVIDERS: Family Medicine; ADMIT Emergency Medicine
DX: S22.089D Unspecified fracture of T11-T12 vertebra, subsequent encounter for fracture with routine healing (principal); V89.2XXD Person injured in unspecified motor-vehicle accident, traffic, subsequent encounter; I25.10 Atherosclerotic heart disease of native coronary artery without angina pectoris; Z95.0 Presence of cardiac pacemaker; K21.9 Gastro-esophageal reflux disease without esophagitis; R53.1 Weakness; Z86.73 Personal history of transient ischemic attack (TIA), and cerebral infarction without residual deficits; I11.0 Hypertensive heart disease with heart failure; I50.9 Heart failure, unspecified; F43.10 Post-traumatic stress disorder, unspecified

== ENCOUNTER 2016-11-02 10:30 | Emergency (ER) | payer MEDICARE, MEDICAID ==
[2016-10-14 10:32] VITALS: BMI 33.2
[~2016-11-02 10:30] MED LIST changes: +OXYCODONE HCL5 MG PO
== END 2016-11-02 13:35 | disposition home or self-care (01) ==
LOC: D.ER 10:30
DX: M54.6 Pain in thoracic spine (principal)

== ENCOUNTER 2016-11-18 12:41 | Inpatient (IN) | payer MEDICARE, MEDICAID ==
[2016-11-18 14:27] LABS: BASOPHILS 0.2 % (0-2); EOSINOPHILS 3.5 % (0-7); HEMOGLOBIN 10.3 g/dL (13.5-17.5); IMMATURE GRANULOCYTES 0.3 % (0-5); MCH 25.3 pg (26.0-34.0); MCHC 30.3 g/dL (31.0-37.0); MCV 83.5 fL (80.0-100.0); MEAN PLATELET VOLUME 10.5 fL (7.4-10.4); MONOCYTES 12.2 % (2-11); NEUTROPHILS 64.8 % (40-80); PLATELET COUNT 247 10x3/uL (130-400); RBC 4.07 10x6/uL (4.20-6.10); WBC 5.7 10x3/uL (4.8-10.8)
[2016-11-18 14:41] LABS: ALBUMIN 3.1 g/dL (3.4-5.0); ALKALINE PHOSPHATASE 71 U/L (46-116); ALT (SGPT) 14 U/L (10-68); APTT 40.2 SECONDS (22.8-39.4); BILIRUBIN - TOTAL 0.39 mg/dL (0.2-1.3); CALC OSMOLALITY 278 mosm/kg (275-300); CARBON DIOXIDE 32.1 mmol/L (21.0-32.0); CHLORIDE - SERUM 103 mmol/L (98-107); CREATININE - SERUM 0.9 mg/dL (0.6-1.3); GLUCOSE 80 mg/dL (74-106); INR 1.54 (0.85-1.17); POTASSIUM - SERUM 3.5 mmol/L (3.5-5.1); PROTEIN - SERUM 6.6 g/dL (6.4-8.2); PROTIME 18.5 SECONDS (11.6-15.0); SODIUM 141 mmol/L (136-145); UREA NITROGEN 9 mg/dL (7-18); eGFR NON AFRICAN AMERICAN 90 mL/min (90-120)
[2016-11-18 14:53] LABS: CREATINE KINASE 29 UL (21-232); MAGNESIUM - SERUM 1.7 mg/dL (1.8-2.4); PRO BNP 562 pg/mL (0-125); TROPONIN-I < 0.017 ng/mL (0.000-0.060)
[2016-11-18 19:00] VITALS: BP 128/83
--- NOTE | 2016-11-18 19:30 | NUR ---
PT RESTING IN BED. STATES HE HAS REALLY BED PTSD. SAYS HE SEES A PSYCHIATRIST FROM [facility] FOR IT. PT STATES HE HAS A 10/10 PAIN IN HIS BACK. PT HAS A BACK BRACE AND CANE IN ROOM. WILL HANG NS AT ORDERED DOSE. PT DENIES ANY OTHER NEEDS BESIDES PAIN MEDS. WILL CPOC
[2016-11-18] MEDS ORDERED: XANAX2 MG PO (20:15)
[2016-11-18] MEDS ORDERED: K-DUR20 MEQ PO (20:16)
--- NOTE | 2016-11-18 22:11 | NUR ---
PT C/O PAIN IN BACK AND A HEADACHE 10/10 TYLENOL AND MORPHINE GIVEN ORDERED. NS INFUSING TO RIGHT AC ORDERED. PT DENIES ANY OTHER NEEDS. EXCEPT FOOD. WILL FIND PT A SNACK. NO S/S OF DISTRESS. CALL LIGHT IN REACH WILL CPOC
--- NOTE | 2016-11-19 01:01 | NUR ---
PT C/O PAIN. SAYS THE MORPHINE ONLY LAST AN HOUR AND 45 MINS. TOLD HIM LETS WORK ON PAIN MANAGEMENT BY DOING THE MORPHINE EVERY 2 HOURS ORDERED PRN. PT IS GETTING A DOSE NOW ANOTHER IS AVALIBLE AFTER 0300. PT VERBALIZES UNDERSTANDING. DENIES ANY OTHER NEEDS. WILL CPOC
[2016-11-19 01:15] VITALS: BP 115/73
[2016-11-19] MEDS ORDERED: STADOL NASAL S2.5 ML NASAL (02:47)
[2016-11-19 03:50] VITALS: BP 128/83; BMI 32.1
[2016-11-19 06:40] LABS: APPEARANCE CLOUDY (CLEAR); BILIRUBIN NEGATIVE (NEGATIVE); COLOR DK YELLOW (YELLOW); GLUCOSE NEGATIVE (NEGATIVE); KETONE NEGATIVE (NEGATIVE); NITRITE NEGATIVE (NEGATIVE); PROTEIN NEGATIVE (NEGATIVE)
[2016-11-19 06:41] LABS: BACTERIA FEW /hpf (NONE SEEN); EPITHELIAL CELLS RARE /hpf (0-5); MUCUS >1+ /lpf (NONE SEEN); RED CELLS - URINE >50 /hpf (0-5); WHITE CELLS - URINE 0-5 /hpf (0-5)
[2016-11-19 06:52] LABS: CALC OSMOLALITY 283 mosm/kg (275-300); CALCIUM 7.9 mg/dL (8.5-10.1); CARBON DIOXIDE 30.9 mmol/L (21.0-32.0); CHLORIDE - SERUM 106 mmol/L (98-107); CREATININE - SERUM 0.7 mg/dL (0.6-1.3); GLUCOSE 78 mg/dL (74-106); MAGNESIUM - SERUM 1.8 mg/dL (1.8-2.4); POTASSIUM - SERUM 3.7 mmol/L (3.5-5.1); SODIUM 143 mmol/L (136-145); eGFR NON AFRICAN AMERICAN > 90 mL/min (90-120)
--- NOTE | 2016-11-19 06:54 | NUR ---
PT STILL C/O PAIN. PT SLEPT ONLY ABOUT 1 -2 HOURS TONIGHT. DOES NOT THINK THE TRAZODONE WORKS FOR HIM. PAIN MED GIVEN ORDERED. DENIES ANY NEEDS NO S/S OF DISTRESS. WILL CPOC
[2016-11-19 06:58] LABS: UREA NITROGEN 12 mg/dL (7-18)
--- NOTE | 2016-11-19 07:30 | NUR ---
REPORT RECIEVED. RR EVEN AND UNLABORED, PT DENIES NEEDS AT THIS TIME. DR. ROSALES AT BEDSIDE, DISCUSSING PLAN. BED IN LOWEST POSTION, CALL RAZO IN REACH, WILL CTM.
[2016-11-19 08:00] VITALS: BP 136/86
[2016-11-19 10:20] VITALS: BMI 32.0
[2016-11-19 12:00] VITALS: BP 125/81
--- NOTE | 2016-11-19 14:40 | NUR ---
OT NOTE: PT WITH SEVERE PAIN IN T SPINE. PT AWAITING NEURO CONSULT. WILL HOLD UNTIL NEURO COMPLETE...THANK YOU, JESSEE PONCE, OTR/L
--- NOTE | 2016-11-19 15:58 | NUR ---
SCDs placed to bilateral lower extremitys, teaching done and patient verbalized understanding
[2016-11-19 16:00] VITALS: BP 112/74
--- NOTE | 2016-11-19 16:38 | NUR ---
PATIENT HAS INCOMPATABLE PACEMAKER UNABLE TO DO MRI. NOTIFIED [facility] WHO NOTIFY DR. MONROY.
--- NOTE | 2016-11-19 18:03 | NUR ---
PT RESTING QUIELTY, RR EVEN AND UNLABORED. PT DENIES NEEDS AT THIS TIME. WILL GIVE REPORT ON PT CONDITION FOR THE DAY.
[2016-11-19 19:00] VITALS: BP 108/75
--- NOTE | 2016-11-19 19:39 | NUR ---
ALERT/AWAKE WATCHING TV. RATES PAIN LEVEL AT 4 ON NUMBER SCALE. IV IN R AC WITH NS INFUSING AT 50ML/HR. REQUESTED MORE ICE. HAS CL IN REACH. REQUESTED DOOR CLOSED.
--- NOTE | 2016-11-19 21:10 | NUR ---
ADMIN SCHED MEDS AND DILAUDID 1MG IV PER REQUEST FOR C/O NECK, BACK AND HIP PAIN LEVEL 10 ON NUMBER SCALE, DESCRIBED SHARP ACHING PAIN. NO OTHER NEEDS VOICED.
--- NOTE | 2016-11-19 23:10 | NUR ---
ADMIN DILAUDID 1MG IV PER REQUEST FOR C/O PAIN LEVEL 10. REQUESTED XANAX, BUT ADVISED TO WAIT ANOTHER HOUR TO ASSESS HIS SEDATION LEVEL.
[2016-11-20] VITALS: BP 99/69
[2016-11-20 04:00] VITALS: BP 111/71
--- NOTE | 2016-11-20 05:01 | NUR ---
CHHA PRESENT IN ROOM. DENIES ANY NEEDS.
--- NOTE | 2016-11-20 05:15 | NUR ---
RETURNING TO BED FROM BR. ADMIN XANAX 2MG PO PER REQUEST. NO OTHER NEEDS OR DISCOMFORTS VOICED.
[2016-11-20 05:54] LABS: PROTIME 14.9 SECONDS (11.6-15.0)
[2016-11-20 05:57] LABS: INR 1.18 (0.85-1.17)
--- NOTE | 2016-11-20 06:39 | NUR ---
ADMIN DILAUDID 1MG IV PER REQUEST FOR C/O BACK PAIN LEVEL 9.
--- NOTE | 2016-11-20 07:30 | NUR ---
REPORT RECIEVED. PT RESTING QUIETLY, RR EVEN AND UNLABORED. PT REPORTS HAVING "SLEPT GOOD LAST NIGHT." PT IS DISORIENTED TO TIME THIS MORNING, PT BELIEVES IT IS EVENING TIME. ORIENTED PT TO TIME. VERBALIZED UNDERSTANDING OF TIME. WILL CTM PT CONDITION.
[2016-11-20 08:00] VITALS: BP 116/68
[2016-11-20 12:00] VITALS: BP 109/67
[2016-11-20 16:00] VITALS: BP 114/63
--- NOTE | 2016-11-20 18:27 | NUR ---
PT RESTING QUIELTY, RR EVEN AND UNLABORED. PT DENIES OTHER NEEDS AT THIS TIME, WILL GIVE REPORT ON PT CONDITION FOR THE DAY.
--- NOTE | 2016-11-20 18:48 | NUR ---
PT RECIVED TO ROOM FROM PROCEDURE. PT ALERT AND ORIENTED X3. VSS, RR EVEN AND UNLABORED. WILL GIVE REPORT ON PT CONDITION FOR THE DAY. PT ON FREQUENT VS.
--- NOTE | 2016-11-20 19:38 | NUR ---
AWAKE,ALERT.C/O PAIN TO LUMBAR AREA 11/22. DILAUDID GIVEN PER ORDERS. SL TO RIGHT AC INTACT WITH GOOD BLOOD RETURN. JAIMES. NO DISTRESS NOTED. CL IN REACH.
--- NOTE | 2016-11-21 00:13 | NUR ---
ASSESSMENT UNCHANGED. VSS, AFEBRILE. RESP EVEN UNLABORED. NO NEEDS VOICED. WILL CONT TO MONITOR.
--- NOTE | 2016-11-21 01:55 | NUR ---
RESTING QUIETLY. NO DISTRESS NOTED. CL IN REACH.
[2016-11-21 04:36] VITALS: BP 152/76
--- NOTE | 2016-11-21 04:37 | NUR ---
WATCHING TV QUIETLY. NO DISTRESS NOTED. REMAINS NPO FOR OR. CL IN REACH
--- NOTE | 2016-11-21 07:30 | NUR ---
AM ROUNDING- RECEIVED REPORT FROM CYBER ANALYST NURSE MELANIE. PT IS CURRENTLY SITTING UP ON SIDE OF BED HAVING HIBICLENS BATH DONE. PT IS NPO FOR PROCEDURE TODAY. CONSENTS ARE SIGNED AND IN CHART. EKG IS DONE AND IN CHART. ON ROOM AIR. ON MONITOR SHOWING PACED, HR 59. IV SEEN TO RIGHT AC THAT IS CURRENTLY SALINE LOCKED. ON EP, WILL CHECK AM LABS AND TX PER EP. PT IS CURRENTLY REQUESTING SOMETHING FOR PAIN. WILL CHECK TO SEE WHAT PT HAS ORDERED AND TX PER ORDER. WILL CONTINUE TO MONITOR AND CONTINUE WITH PLAN OF CARE.
--- NOTE | 2016-11-21 10:55 | NUR ---
PT GIVEN PRE-OP MEDS DIRECTED WITH SIP OF WATER. FULL BAG OF IV FLUIDS ON BED WITH TUBING.
--- NOTE | 2016-11-21 11:48 | NUR ---
PT TO PROCEDURE VIA BED.
--- NOTE | 2016-11-21 13:08 | NUR ---
1220 PATIENT NOTED TO HAVING LARGE PURPLISH BLUISH BRUISE ON LEFT SIDE AND FLANK AREA, BRANDON.
--- NOTE | 2016-11-21 13:36 | NUR ---
RECIEVED PT VIA BED. PT IS AWAKE AND ALERT. FREQUENT VITALS STARTED PER POLICY.
[2016-11-21 13:37] VITALS: BP 104/68
[2016-11-21 16:00] VITALS: BP 127/67
--- NOTE | 2016-11-21 16:10 | NUR ---
PT GIVEN PRN PAIN MEDICATION ORDERED FOR PAIN. PT REQUESTED FOR ME TO NURSING HOME ASSISTANT LIGHT AND STATES "IM SHUTTING HER DOWN". WILL CONTINUE TO MONITOR.
--- NOTE | 2016-11-21 17:51 | NUR ---
PT IS CURRENTLY LAYING IN BED ON BACK WITH EYES OPEN RESTING. PT IS ASKING WHEN HE IS DUE FOR NEXT PAIN SHOT. I INFORMED PT I WOULD LOOK AND SEE. NO FURTHER NEED AT THIS TIME. WILL CONTINUE TO MONITOR AND CONTINUE WITH PLAN OF CARE.
[2016-11-21 19:00] VITALS: BP 119/77
--- NOTE | 2016-11-21 19:18 | NUR ---
PATIENT IS RESTING IN THE BED AND WATCHING T.V. PATIENT STATES HE JUST RECEIVED HIS PRN DILAUDID "SHOT" FROM THE DAY NURSE, DIONNA. PATIENT STATES HE IS GOING TO "TRY TO WAIT LONGER FOR HIS NEXT PAIN MEDICATION DOSE". EDUCATED PATIENT THAT HE DOESN'T NEED TO LET HIS PAIN LEVEL GET TOO HIGH WHERE IT CAN BE UNBEARABLE. PATIENT VERBALIZED UNDERSTANDING OF HIS PAIN MEDICATION AND HIS PAIN SCALE. PATIENT DENIES ANY FURTHER NEEDS AT PRESENT TIME. CALL LIGHT IN PATIENT'S REACH. WILL MONITOR PATIENT.
[2016-11-22] VITALS: BP 116/65
--- NOTE | 2016-11-22 01:31 | NUR ---
PATIENT REQUESTING A "PAIN SHOT". PATIENT RATES HIS PAIN LEVEL A "9" ON A 0-10 SCALE. PATIENT REPORTS PAIN IN HIS BACK AREA. PRN DILAUDID 1 MG IV GIVEN TO PATIENT. CALL LIGHT IN PATIENT'S REACH. WILL MONITOR PATIENT.
[2016-11-22 04:00] VITALS: BP 116/69
[2016-11-22 06:55] LABS: BASOPHILS 0.2 % (0-2); EOSINOPHILS 5.3 % (0-7); IMMATURE GRANULOCYTES 0.2 % (0-5); LYMPHOCYTES 22.8 % (15-50); MCH 24.9 pg (26.0-34.0); MCV 82.9 fL (80.0-100.0); MONOCYTES 8.7 % (2-11); NEUTROPHILS 62.8 % (40-80); PLATELET COUNT 228 10x3/uL (130-400); RBC 3.62 10x6/uL (4.20-6.10); RDW 18.1 % (11.5-14.5); WBC 4.9 10x3/uL (4.8-10.8)
[2016-11-22 07:04] LABS: INR 1.35 (0.85-1.17); PROTIME 16.5 SECONDS (11.6-15.0)
--- NOTE | 2016-11-22 07:49 | NUR ---
ROUNDING DONE WITH PATIENT LAYING IN BED WITH SCRUBS ON WATCHING TV. ON HEART MONITOR SHOWING PACED, HR 69. PACEMAKER SITE IS ON THE LEFT . RIGHT AC SEEN WITH SALINE LOCK. ON ROOM AIR. ROLLED TO SIDE, SMALL LOW BACK INCISION SEEN WITH SLIGHT BRUISING. DENIES ANY NV DEFICITS. WILL MONITOR.
[2016-11-22 08:26] VITALS: BP 111/74
--- NOTE | 2016-11-22 11:06 | NUR ---
INSTRUCTED PATIENT NOT TO BE UP WITHOUT HIS BRACE ON HIM, TO USE HIS CALL LIGHT SO THAT WE MAY PLACE IT ON HIM.
[2016-11-22 11:58] VITALS: BP 125/75
--- NOTE | 2016-11-22 14:36 | NUR ---
CALLED TO ROOM WITH PATIENT WANTING TO KNOW ABOUT HIS PAIN MEDICATION AND "HOW MUCH LONGER". I LOOKED IN THE EMAR AND TOLD HIM HE COULD HAVE ANOTHER PILL. I ASKED HIM ABOUT URINE SPECIMEN AND HE SAID IT WAS IN THE RESTROOM. I ASKED HIM IF HE GOT UP WITHOUT CALLING FOR US TO PUT HIS BRACE ON AND HE REPLIED YES. I AGAIN TOLD HIM THAT HE HAS TO HAVE THE BRACE ON AND THAT I WAS GOING TO DOCUMENT IT THAT HE WAS NOT PUTTING IT ON, HE REPLIED "WHATEVER".
[2016-11-22 15:11] LABS: APPEARANCE CLEAR (CLEAR); BILIRUBIN NEGATIVE (NEGATIVE); COLOR YELLOW (YELLOW); GLUCOSE NEGATIVE (NEGATIVE); KETONE NEGATIVE (NEGATIVE); NITRITE NEGATIVE (NEGATIVE); PH 7.5 (5.0-6.0); PROTEIN NEGATIVE (NEGATIVE); SPECIFIC GRAVITY 1.005 (1.005-1.020); UROBILINOGEN NORMAL (NORMAL)
[2016-11-22 15:56] VITALS: BP 112/63
--- NOTE | 2016-11-22 17:42 | NUR ---
RESTING QUIETLY WITH EVEN AND NON LABORED RESP. WILL MONITOR.
--- NOTE | 2016-11-22 19:37 | NUR ---
RESTING WITH EYES CLOSED. AROUSES EASILY TO VERBAL STIMULI. DENIES ANY NEEDS. DOES NOT HAVE BACK BRACE ON. STATED HE DID NOT WANT IT ON. TRIED TO ENCOURAGE HIM TO PUT HIS BRACE ON, STATED "NO, NOT NOW". REQUESTED DOOR CLOSED AND LIGHTS OFF.
[2016-11-22 20:00] VITALS: BP 143/81
--- NOTE | 2016-11-22 21:21 | NUR ---
ADMIN SCHED MEDS AND PERCOCET PO PER REQUEST FOR C/O BACK PAIN LEVEL 9 ON NUMBER SCALE, DESCRIBED "ACHING". DID NOT EAT HIS DINNER, STATING "I AM NOT HUNGRY". REQUESTED A DIET SODA.
[2016-11-23 04:00] VITALS: BP 128/79
[2016-11-23 04:51] LABS: BASOPHILS 0.3 % (0-2); EOSINOPHILS 5.2 % (0-7); HEMATOCRIT 30.7 % (42.0-54.0); HEMOGLOBIN 9.3 g/dL (13.5-17.5); IMMATURE GRANULOCYTES 0.3 % (0-5); LYMPHOCYTES 21.8 % (15-50); MCH 25.3 pg (26.0-34.0); MCHC 30.3 g/dL (31.0-37.0); MCV 83.4 fL (80.0-100.0); MONOCYTES 7.8 % (2-11); NEUTROPHILS 64.6 % (40-80); PLATELET COUNT 232 10x3/uL (130-400); RBC 3.68 10x6/uL (4.20-6.10); WBC 3.9 10x3/uL (4.8-10.8)
[2016-11-23 05:05] LABS: PROTIME 19.4 SECONDS (11.6-15.0)
[2016-11-23 05:10] LABS: INR 1.65 (0.85-1.17)
--- NOTE | 2016-11-23 06:15 | NUR ---
ADMIN PERCOCET PO PER REQUEST FOR C/O BACK PAIN. STATED HE HAD BEEN PUTTING ON THE BACK BRACE WHEN GETTING OUT OF BED, BUT CANNOT TOLERATE WEARING IT IN BED. ADVICED TO WEAR AT ALL TIMES PER MD'S ORDERS FOR BACK TO HEAL PROPERLY.
--- NOTE | 2016-11-23 07:50 | NUR ---
AM ROUNDING- RECIEVED REPORT FROM CAR REPAIRER HELPER NURSE TETO. PT IS CURRENTLY LAYING IN BED ON BACK WITH EYES OPEN RESTING. PT IS C/O NAUSEA AT THIS TIME. PT STATES IT IS FROM HIS PAIN MEDICATION HE BELIEVES. ON ROOM AIR. ON MONITOR SHOWING PACED, HR 60. WILL SEE WHAT PT HAS FOR NAUSEA AND TX ORDERED. WILL CONTINUE TO MONITOR AND CONTINUE WITH PLAN OF CARE.
[2016-11-23 08:00] VITALS: BP 116/67
--- NOTE | 2016-11-23 10:41 | NUR ---
Patient Name: VAHE NARVAEZ Admission Status: ER Accout number: [id number] Admission Date: 11-20-2016 : 1950 Admission Diagnosis: Attending: SHIMON CHEEK Current LOS: 3 Anticipated DC Date: 11-24-2016 Planned Disposition: Inpatient Rehab Primary Insurance: [employer] CHOICE PPO MCR ADVANT PLANNED EXTERNAL PROVIDER: [facility] Discharge Planning Comments: * Is the patient Alert and Oriented? Yes 0 * How many steps to enter\exit or inside your home? ELEVATOR 0 * PCP DR. BUSTILLOS 0 * Pharmacy [facility] 0 * Preadmission Environment Home Alone 0 * ADLs Independent 0 * Equipment Cane 0 * Other Equipment NO MEDICAL EQUIPMENT PROVIDER PREFERENCE 0 * List name and contact numbers for known caregivers / representatives who currently or will assist patient after discharge: BROTHER EUBANKS, BROTHER GALVAN, 0 * Community resources currently utilized None 0 * Please name any agencies selected above. NONE 0 * Additional services required to return to the preadmission environment? Yes * Can the patient safely return to the preadmission environment? Yes 0 * Has this patient been hospitalized within the prior 30 days at any hospital? Yes 0 CM MET WITH PT IN ROOM TO DISCUSS DISCHARGE PLANNING AND NEEDS. PT REPORTS LIVING AT HOME INDEPENDENTLY AND ALONE AT [facility]. PT HAS A CANE ONLY AND NO MEDICAL EQUIPMENT PROVIDER PERFERENCE LONG IT IS COVERED BY HIS INSURANCE. PT HAS NO OUTSIDE SERVICES ASSISTING IN THE HOME. PT REPORTS THE HOME HEALTH DID NOT HAVE TIME TO COME OUT BEFORE HE FELL AND HURT HIS NECK AT HOME. CM DISCUSSED AVAILABILITY OF HOME HEALTH, REHAB SERVICES AND MEDICAL EQUIPMENT. PT HAS BEEN TO INPATIENT REHAB AT [place] AND WANTS TO GO BACK FOR REHAB REPORTING HIS LEG IS WEAK AND HIS NECK IS HEALING. PT REPORTS A FRIEND WILL PICK HIM UP FOR DISCHARGE HOME. IMPORTANT MESSAGE FROM MEDICARE PROVIDED AND EXPLAINED. CM SPOKE TO ELÍAS OF [place] [facility] WHO REPORTS THAT [employer] IS COMPILING PT'S INFORMATION TO SUBMIT FOR INSURANCE AUTHORIZATION REQUEST. CM WAITING INSURANCE AUTHORIZATION OR DENIAL FOR REHAB SERVICES FROM PT'S INSURANCE COMPANY. Cheesemaking Laborer: Francisco Hardy
[2016-11-23 12:00] VITALS: BP 105/63
[2016-11-23 16:00] VITALS: BP 104/65
--- NOTE | 2016-11-23 18:27 | NUR ---
PT IS CURRENTLY LAYING IN BED ON BACK WITH EYES OPEN RESTING. PT IS WANTING PAIN MEDICATION FOR 9/10 PAIN FROM BACK. PT GIVEN DILAUDID PRN ORDERED FOR PAIN. PT IS NOW REQUESTING HIS XANX. WILL CONTINUE TO MONITOR.
[2016-11-23 19:00] VITALS: BP 119/73
--- NOTE | 2016-11-23 23:34 | NUR ---
NURSE ROUNDS 20:00 - PT AWAKE, ALERT, ORIENTED, AGITATED, STATING HE HAS BEEN WAITING FOR AT LEAST 2 1/2 HOURS FOR HIS XANAX. I APOLOGIZED FOR THE DELAY, AND ASSURED HIM I WOULD GET HIS MEDS TO HIM VIVEK. PT DENIES ANY OTHER NEEDS. CONTINUE TO MONITOR CLOSELY. BED LOW, CALL LIGHT IN REACH, SIDE RAILS X 2, HOB 30 DEGREES.
[2016-11-24] VITALS: BP 111/70
--- NOTE | 2016-11-24 02:19 | NUR ---
PT AWAKE, ALERT, ORIENTED, IN PAIN, STATES THE PRN DILAUDID Q 8 HOURS DOES NOT LAST LONG ENOUGH TO CONTROL HIS PAIN. PT ALSO STATES THE XANAX Q 8 HOURS PRN IS TOO FAR APART FOR ANY GOOD CONTROL OVER HIS ANXIETY. PRN ZOFRAN GIVEN PT STATES HE IS ALMOST ALWAYS NAUSEATED, AND STATES THE ZOFRAN DOES NOT CONTROL HIS NAUSEA WELL. PT STATES HE TAKES PHENERGAN AT HOME AND IT DOES BETTER. PT DENIES ANY OTHER NEEDS. CONTINUE TO MONITOR CLOSELY. BED LOW, CALL LIGHT IN REACH, SIDE RAILS X 2, HOB 20 DEGREES.
[2016-11-24 04:00] VITALS: BP 124/77
[2016-11-24 08:00] VITALS: BP 128/78
[2016-11-24 12:00] VITALS: BP 134/79
--- NOTE | 2016-11-24 12:44 | NUR ---
Rehab Note- Fax from [facility] with a denial for an acute rehab stay. Spoke with AROLDO Welsh and provided copy of denial letter with the appeals process. Thank you for this referral! Sophie Luna RN Clinical Liaison, [facility] Rehab
--- NOTE | 2016-11-24 13:18 | NUR ---
Nutrition Follow Up: Pt stated that his appetite is poor due to nausea. He said that he has been trying to increase his po intake but continues with nausea. Pt refused Ensure at this time. Pt requested cottage cheese and peaches in am. Will honor. Pt is eating 57% meal avg on a regular diet. +BM 11/23/16. Wt gain since admit noted. Labs and meds reviewed. Rec continue current diet. RD following.
--- NOTE | 2016-11-24 14:13 | NUR ---
OT NOTE: OBSERVED PT RETURNING TO BED FROM BATHROOM. PT WAS NOT USING AD AND WAS UNSTEADY WHEN GETTING TO BED; EDUCATION FOR SAFETY AWARENESS PROVIDED. BED MOB WITH CGA/MIN ASSIST; PT CONTINUED TO DISCUSS THE FACT THAT NONE OF THE MEDS THAT HE WAS ON FOR PAIN WERE WORKING; HE ALSO STATED THAT HE HAS NOT SLEPT IN DAYS AND FEELS THAT IF HE COULD GET SOME REST, HE WOULD FEEL BETTER. PT IS NOT SAFE TO RETURN HOME INDEPENDENTLY, AND WOULD BENEFIT FROM CONTINUED THERAPY FOLLOWING ACUTE STAY.
[2016-11-24 16:00] VITALS: BP 138/75
--- NOTE | 2016-11-24 16:18 | NUR ---
Patient Name: VAHE NARVAEZ Encounter No: [id number] : 1950 Primary Insurance: [employer] CHOICE PPO MCR ADVANT Anticipated DC Date: 11-24-2016 Planned Disposition: Home with Home Health External Planned Provider: TO BE DETERMINED DCP follow-up note: AROLDO SPOKE TO ELÍAS OF INPATIENT REHAB WHO ADVISED THAT [employer], PT'S INSURANCE, HAS DENIED INPATIENT REHAB; ELÍAS PROVIDED DENIAL. RN AROLDO HOUSE NOTIFIED ALEXANDER AT DR CHEEK OFFICE; DR CHEEK IS NOT GOING TO DO PEER TO PEER. CM MET WITH PT, PROVIDED DENIAL AT 1455, OBTAINED SIGNATURE TO VERIFY DELIVERY, PLACED ON PT'S CHART. CM ADVISED THE DOCTOR IS NOT GOING TO APPEAL. PT REPORTS HE WILL APPEAL HIMSELF TODAY BY PHONE. CM DISCUSSED [facility] AND [facility] OUTPATIENT REHAB SERVICES. CM PROVIDED PT WITH LISTING OF LOCAL [facility] FACILITIES. PT IS NOT WILLING TO CONSIDER OTHER OPTIONS AT THIS TIME AND ONLY WANTS TO WAIT UNTIL HIS APPEAL HAS BEEN HEARD BY INSURANCE. CM EXPLAINED THAT THE APPEAL COULD TAKE SOME TIME, HE MAY ENTER INPATIENT LATER IF OVERTURNED BY INSURANCE, AND THAT CM NEEDED TO BE WORKING ON A SECONDARY PLAN OF PT'S CHOICE. PT WILL THINK ABOUT HIS OPTIONS AND APPEAL HIS INPATIENT DENIAL WITH INSURANCE. IMPORTANT MESSAGE FROM MEDICARE PROVIDED AND EXPLAINED. CM WAITING PT TO APPEAL TO HIS INSURANCE COMPANY FOR RECONSIDERATION OF INPATIENT REHAB SERVICES. PT REFUSING TO CONSIDER OTHER OPTIONS AT THIS TIME. Francisco Hardy, CASE MANAGEMENT
--- NOTE | 2016-11-24 16:34 | NUR ---
WITHOUT CHANGES OR DISTRESS NOTED AT THIS TIME. DENIES NEEDS.
--- NOTE | 2016-11-24 16:45 | NUR ---
OT NOTE: PT COMPLETED GROOMING AND HYGIENE TASKS WITH MOD A. PT COMPLETED BUE GROSS MOTOR AND FM AXS FOR INCREASED I WITH ADLS. PT REQUIRED MOD VERBAL CUES FOR INCREASED PARTICIPATION AND SEQUENCING TASKS FOR SAFETY. THANK YOU, SHARRI MORALES/Joshua
[2016-11-24 19:00] VITALS: BP 131/80
--- NOTE | 2016-11-24 20:12 | NUR ---
PT LYING IN BED, EYES CLOSED, RESPIRATIONS EVEN AND UNLABORED. PT HAD ASKED AT SHIFT CHANGE FOR HIS PRN PAIN MEDICATION, BUT IS NOT AWAKE, AT THIS TIME, SO I WILL HOLD UNTIL PT ROUSES. CONTINUE TO MONITOR CLOSELY. BED LOW, CALL LIGHT IN REACH, SIDE RAILS X 2, HOB FLAT.
--- NOTE | 2016-11-24 20:44 | NUR ---
PT NOW AWAKE, ALERT, SITTING ON SIDE OF BED EATING HIS DINNER TRAY. PT HAS RECEIVED HIS PRN DILAUDID AND XANAX PER REQUEST, DENIES ANY OTHER NEEDS. CONTINUE TO MONITOR PT CLOSELY. BED LOW, CALL LIGHT IN REACH, SIDE RAILS X 2, HOB FLAT.
[2016-11-25 04:00] VITALS: BP 130/83
--- NOTE | 2016-11-25 05:23 | NUR ---
DURING THE LAST SET OF V/S FOR THE SHIFT, PT ASKED FOR HIS PRN XANAX AND DILAUDID. I EXPLAINED TO PT THAT IT WAS TOO EARLY FOR HIS PAIN MEDICATION, AND THAT HE RECEIVED IT AT 02:30. PT HAS SLEPT THIS ENTIRE SHIFT EXCEPT FOR WAKING UP TO USE THE BATHROOM OR WHEN WE WERE CHECKING HIS V/S. PT STATES HE DOES NOT REMEMBER TAKING HIS PAIN MEDICATION @ 02:30. I REMINDED HIM THAT HE RECEIVED THAT ALONG WITH HIS PHENERGAN. PT HAS DEMONSTRATED MILD CONFUSION AT TIMES DURING CONVERSATIONS, AND HAS SLEPT HEAVILY THIS SHIFT, STILL BEING ABLE TO BE ROUSED WITH VERBAL STIMULI, BUT HAS DEMONSTRATED SLURRED SPEECH AT TIMES. CONTINUE TO MONITOR CLOSELY. BED LOW, CALL LIGHT IN REACH, SIDE RAILS X 2, HOB 30 DEGREES.
--- NOTE | 2016-11-25 07:35 | NUR ---
AM ROUNDING- RECIEVED REPORT FROM CASE MANAGEMENT [employer] WORKER NURSE HAYDER. PT IS CURRENTLY SITTING UP IN BED WITH EYES CLOSED RESTING. ON ROOM AIR. ON MONITOR SHOWING PACED, HR 59. IV SEEN TO RIGHT AC THAT IS CURRENTLY SALINE LOCKED. NO NEED AT THIS CURRENT TIME. BED IS IN LOW POSITION, SIDE RAILS ARE UP X2, AND CALL LIGHT IS IN REACH. WILL CONTINUE TO MONITOR AND CONTINUE WITH PLAN OF CARE.
[2016-11-25] MEDS ORDERED: PHENERGAN25 M1 PO (07:46)
[2016-11-25] MEDS ORDERED: DILAUDID2 MG PO (07:49)
--- NOTE | 2016-11-25 10:08 | NUR ---
CALLED INTO ROOM. PT STATES HE NEEDS TO SPEAK WITH DR. CHEEK AND TO HAVE DR. CHEEK DO SOMETHING FOR HIM. JESSE, RN NEUROLOGY CALLING DR. CHEEK OFFICE NOW.
[2016-11-25 12:00] VITALS: BP 116/70
--- NOTE | 2016-11-25 12:37 | NUR ---
OT NOTE: PT UP ON EDGE OF BED EATING LUNCH. ATTEMPTED TO EXPLAIN THAT HE HAD CALLED [employer] REGARDING REHAB PLACEMENT. DURING HIS CONVERSATION, HE WAS LETHARGIC, TALKING WITH HIS EYES CLOSED AT TIMES. HE IS ABLE TO GET UP FROM BED AND AMB TO BATHROOM..NO LOSS OF BALANCE NOTED, BUT STILL SLIGHTLY UNSTEADY. PT SCHEDULED TO RETURN HOME TODAY, HOWEVER, UNSURE THAT PT WILL BE ABLE TO MANAGE MEDS OR MEAL PREP. PT IS RESISTANT TO SNF, BUT HE REALLY WOULD BENEFIT FROM MORE THAN JUST HOME HEALTH, HE LIVES ALONE.
--- NOTE | 2016-11-25 14:39 | NUR ---
Patient Name: VAHE NARVAEZ Encounter No: [id number] : 1950 Primary Insurance: [employer] CHOICE PPO MCR [employer]VANT Anticipated DC Date: 11-25-2016 Planned Disposition: Home with Home Health External Planned Provider: [facility] DCP follow-up note: CM SPOKE TO PHYSICAL THERAPIST WHO RECOMMENDED A WALKER FOR PT TO GO HOME WITH FOR STABILITY PT IS A FALL RISK. CM MET WITH PT IN ROOM, DISCUSSED NEED FOR WALKER, PT HAS NO PREFERENCE ON PROVIDER. CM CALLED [facility], , SPOKE TO CRISSY WHO REPORTS BEING IN NETWORK FOR WALKER AND PT'S INSURANCE. CM FAXED REFERRAL [facility] AT [phone]. PT NOTIFIED, REPORTS HE WILL BE CALLING A FRIEND FOR TRANSPORTATION HOME IF HE DOES NOT HEAR FROM INSURANCE SOON. BEDSIDE NURSE NOTIFIED. Francisco Hardy, CASE MANAGEMENT
--- NOTE | 2016-11-25 14:39 | NUR ---
Patient Name: VAHE NARVAEZ Encounter No: [id number] : 1950 Primary Insurance: [employer] CHOICE PPO MCR ADVANT Anticipated DC Date: 11-24-2016 Planned Disposition: Home with Home Health External [facility] follow-up note: CM RECEIVED DISCHARGE AND HOME HEALTH ORDERS. CM MET WITH PT IN ROOM TO DISCUSS DISCHARGE PLANNING AND NEEDS. CM DISCUSSED HOME HEALTH ORDER S ENTERED BY THE DOCTOR WELL DISCHARGE ORDER. PT REPORTS HE WANTS TO STAY IN THE HOSPITAL UNTIL HIS APPEAL IS HEARD. CM EXPLAINED AGAIN THE IMPORTANT MESSAGE FROM MEDICARE PREVIOUSLY PROVIDED. PT HAD HIS COPY WITH THE DENIAL INFORMATION. CHOICE LETTER PROVIDED, PT CHOSE [facility]. PT REPORTS CALLING HIS INSURANCE COMPANY AND THEY NEED A LETTER FROM THE DOCTOR FOR THE APPEAL. AROLDO EXPLAINED THAT DR. CHEEK IS NOT GOING TO DO A PEER TO PEER AND IS NOT INVOLVED IN THE APPEAL. CM EXPLAINED THAT CM CAN PROVIDE INFORMATION TO INSURANCE COMPANY IF THEY NEED IT FROM THE MEDICAL RECORD TO FACILITATE APPEAL FOR INPATIENT REHAB. CM EXPLAINED TO PT THAT IF HIS INSURANCE COMPANY REVERSES THE DENIAL, PT MAY ENTER INPATIENT REHAB FROM HOME. CM OFFERED AGAIN TO ASSIST PT WITH CORRECTION REHAB REFERRALS, PT DECLINED AND DOES NOT WANT CM TO TELL THE INSURANCE COMPANY THAT THIS HAS BEEN DISCUSSED. CM EXPLAINED THAT IT IS PART OF THE MEDICAL RECORD ALREADY. PT DENIED FURTHER NEEDS AT THIS TIME. CM CALLED [facility], , SPOKE TO ANUJA AND PROVIDED REFERRAL INFORMATION. ANUJA ADVISED THEY WILL ACCEPT PT FOR HOME HEALTH AND THEY HAVE SEEN HIM IN THE PAST. CM FAXED REFERRAL AND DISCHARGE INFORMATION TO [facility] AT [phone]. CM RECEIVED CALL FROM NAV LARES OF DR. CHEEK OFFICE WHO REPORTS PT HAS BEEN CALLING THE DOCTOR TODAY. CM EXPLAINED WHAT IS GOING ON WITH THE APPEAL AND THAT CM WILL DIRECT PT TO SPEAK TO AND INSURANCE COMPANY. CM MET WITH PT IN ROOM, AGAIN ADVISED THAT THE DOCTOR IS NOT GOING TO WRITE A LETTER AND THAT CM WILL FAX ANY NEEDED INFORMATION AT PT'S REQUEST. PT HAD HIS REGIONAL SALES CONSULTANT ON THE PHONE, NIRANJAN. NIRANJAN PROVIDED APPEAL CASE NUMBER, [id number], FAX NUMBER OF FOR ENTIRE MEDICAL RECORD. AROLDO EXPLAINED THAT THE DOCTOR IS NOT PARTICIPATING IN PT'S APPEAL AND THE DOCTOR HAS DISCHARGED PT HOME WITH HOME HEALTH. NIRANJAN REPORTS IT COULD TAKE UP TO 72 HOURS FOR THE DECISION FROM INSURANCE AND ASKED THAT CM CALL THE EXPEDITED APPEAL NUMBER TO INFORM THEM AT . PT ASKED CM TO FAX REQUESTED RECORD AND CALL THE EXPEDITED APPEAL LINE. CM CALLED , EXPLAINED THAT THE DOCTOR IS NOT PARTICIPATING IN PT'S APPEAL AND THE DOCTOR HAS DISCHARGED PT HOME WITH HOME HEALTH. AROLDO ADVISED BY BOUBACAR THAT SHE WILL ESCULATE PT'S APPEAL. CM FAXED MEDICAL RECORDER TO [facility] AT . Francisco Hardy, CASE MANAGEMENT
[2016-11-25 16:00] VITALS: BP 123/76
--- NOTE | 2016-11-25 16:35 | NUR ---
@2132 WAS CALLED INTO THE PATIENTS ROOM. HE HANDED ME THE PHONE AND INITIALLY ALEXANDER HERNANDEZ, PROGRESSIVE ASSEMBLER AND FITTER WITH [employer]. SHE EXPLAINED THAT THE PATIENT CALLED AND IS STATING HE IS DISCHARGED. SHE CONTINUED TO SAY THAT THE PATIENT HAS FILED AN EXPIDATED APPEAL AND HAS THE HR ASSISTANT WITH THE EXPIDATED APPEALS LINE (MINESH) AND SHE WANTED TO TALK WITH ME. MINESH GOT ON THE PHONE AND EXPLAINED THAT SHE UNDERSTOOD THAT THE PATIENT HAD DISCHARGE ORDERS AND WE WERE STILL PLANNING TO DISCHARGE THE PATIENT HOME WITH HOME HEALTH. I STATED YES. SHE STATED THAT SINCE HE HAS FILED THE APPEAL, WE COULD NOT DISCHARGE THE PATIENT UNTIL THE APPEALS PROCESS HAS COMPLETED AND THAT THE EXPIDATED APPEAL COULD TAKE 3-5 DAYS. I CLARIFIED THAT SHE WAS STATING WE ARE NOT ABLE TO DISCHARGE THE PATIENT HOME EVEN THOUGH HE IS NOT APPEALING THE DENIAL FOR HIS INPATIENT STAY, HE IS APPEALING HIS DENIAL FOR ADMISSION INTO INPATIENT REHAB. SHE STATED THAT WAS CORRECT. I THEN ASKED IF WE WOULD RECEIVE PAYMENT FOR HIM BEING HERE IN AN INPATIENT BED THROUGH THE DENIAL PROCESS, EXPECIALLLY SINCE THE INSURANCE COMPANY HAS DENIED HIS INPATIENT STAY SAYING HE DOES NOT NEED TO BE IN THE HOSPITAL. SHE THEN STATED SHE COULD NOT APPROVE THIS, THAT WE NEEDED TO CALL AND FILE A GRIEVANCE TO GET PAID. I EXPLAINED THAT I WOULD PASS THIS ON TO MY METAL FORGER'S ASSISTANT. SHE REFUSED TO GIVE ME HER CONTACT NUMBER IN CASE WE NEEDED TO GET IN CONTACT WITH HER. WE HAVE TO GO THROUGH HIS ASSISTANT GUEST SERVICES MANAGER. AFTER GETTING OFF THE PHONE WITH HER, DISCUSSED WITH THE PATIENT THAT SINCE HE BEEN DISCHARGED FROM THE HOSPITAL AND IS NOT APPEALING HIS DISCHARGE FROM THE HOSPITAL ONLY HIS DENIAL TO BE ADMITTED TO REHAB, THAT THERE IS A CHANCE HE MAY HAVE TO PAY A BILL. HE STATED THAT MEDICAID WILL PAY WHAT THE INSURANCE DOESN'T PAY. EXPLAINED THAT THAT IS SO IF THERE IS MEDICAL NEED FOR YOU TO BE HERE, AND HE IS DISCHARGED AN ACUTE PATIENT, THE INSURANCE COMPANY IS NOT PAYING HIS STAY FOR INPATIENT AT THIS TIME, AND I WAS CURRENTLY FIGHTING THIS TRYING TO GET IT OVERTURNED, AND THEY WOULD NOT CONTINUE TO PAY FOR HIM TO SIT HERE THROUGHT THE APPEAL PROCESS. THAT IT WAS HIS CHOICE TO NOT TO LEAVE. THAT HE HAS REFUSED ALL SERVICES THAT HAVE BEEN OFFERED TO HIM, THAT WE HAVE MADE A SAFE PLAN TO GET HIM HOME. HE STATED, "MEDICAID SAID THEY WOULD PAY THE [employer] BILL". AT THIS TIME IT WAS REQUESTED THAT THE PATINET NOT CUSS. THAT I WAS HERE PER HIS REQUEST AND I WAS BEING HONEST WITH HIM. THAT I WAS NOT CURSING HIM AND HE WILL NOT CURSE ME. EXPLAINED THAT I NEEDED TO GO AND EXPLAIN TO MY METAL FORGER'S ASSISTANT WHAT WAS GOING ON AND LET THE DOCTOR KNOW THAT HIS INSURANCE COMPANY HAS SAID THAT HE COULD NOT BE DISCHARGED. I LEFT THE ROOM. @1600 I SPOKE WITH NAV MUNOZ AT DR CHEEK'S OFFICE. SHE WILL LET HIM KNOW THE INSURANCE COMPANIES RULING AND THAT HE NEEDS TO ROUND ON HIM TOMORROW. SHE CLARIFIED THAT HE WAS NOT APPEALING THE DISCHARGE FROM ACUTE BUT THE ACCEPTANCE TO INPATIENT REHAB, AND THIS WAS VERIFIED. I HAVE SPOKEN WITH MY METAL FORGER'S ASSISTANT, NAV JEFF, IN REGARDS TO THIS SITUTATION . THE FLOOR NURSE AND THE EMPLOYEE COMMUNICATIONS INTERN HAS BEEN NOTIFIED. @1632 SPOKE WITH NAV ASHFORD IN REHAB. EXPLAINED THE APPEAL WITH HER AND ASKED IF THEY WOULD BE WILLING TO TAKE HIM IF THE DENIAL WAS OVERTURNED. SHE STATED THAT YES, HE MEETS THEIR CRITERIA, BUT THE PROBLEM IS BED AVAILABILITY. IF THE APPEAL PROCESS TAKES UNTIL NEXT WEEK TO RESOLVE, THERE SHOULD BE NO PROBLEM TAKING HIM. EXPLAINED THAT WE WOULD KEEP HER UP TO DATE.
--- NOTE | 2016-11-25 17:12 | NUR ---
EARLIER ON SHIFT, THIS NURSE OBSERVED PT WALKING AROUND BED IN ROOM WITH NO WALKER FOR ASSISTANCE AND BACK BRACE THAT PT IS AWARE HE IS TO WEAR WHEN AMBULATING WAS NOT ON.
--- NOTE | 2016-11-25 18:01 | NUR ---
PT IS CURRENTLY SITTING UP IN BED WITH EYES OPEN RESTING. PT DENIES ANY NEED AT THIS CURRENT TIME. CALL LIGHT IS IN REACH. WILL CONTINUE TO MONITOR.
[2016-11-25 21:17] VITALS: BP 136/72
--- NOTE | 2016-11-25 21:21 | NUR ---
PT AWAKE, ALERT, ORIENTED, LYING IN BED, REQUESTING HIS PRN DILAUDID AND XANAX. DENIES ANY OTHER NEEDS. PT STATES HE REFUSED THE WALKER BROUGHT TO HIM TODAY R/T COST. PT STATES HE IS UNHAPPY WITH HIS CURRENT INSURANCE CARRIER AND WANTS TO CHANGE. DENIES ANY NEEDS. PT STATES HE DOES NOT ALWAYS WEAR HIS BACK BRACE R/T URINARY URGENCY AND THE NEED TO AMBULATE RAPIDLY, AND STATES THE BACK BRACE TAKES A LOT OF WORK TO PUT ON. PT TO CALL WITH ANY NEEDS. CONTINUE TO MONITOR CLOSELY. BED LOW, CALL LIGHT IN REACH, SIDE RAILS X 2, HOB 20 DEGREES.
--- NOTE | 2016-11-25 22:28 | NUR ---
PT CALLED REQUESTING XANAX. I EXPLAINED TO PT THAT HE RECEIVED THOSE WITH HIS 21:00 MEDICATIONS TONIGHT. PT STATED THAT HE FORGOT, BUT HE REMEMBERS AFTER REMINDING HIM. PTS SPEECH IS SLOW AND SLIGHTLY SLURRED AT THIS TIME. PT DENIES ANY OTHER NEEDS. CONTINUE TO MONITOR PT CLOSELY. PT REMINDED AND ENCOURAGED TO CALL WITH ANY NEEDS, ESPECIALLY AMBULATING. BED LOW, CALL LIGHT IN REACH, SIDE RAILS X 2, HOB 30 DEGREES.
--- NOTE | 2016-11-25 23:24 | NUR ---
PT CALLED ASKING WHEN BREAKFAST WOULD BE SERVED. I EXPLAINED TO HIM THAT IT WAS 23:20 AT NIGHT, AND THAT BREAKFAST WOULD BE SERVED BETWEEN 0700 AND 0800. PT THEN ASKED IF HE COULD HAVE HIS PAIN MEDICATION. I REMINDED PT AGAIN THAT HE HAS RECENTLY HAD IT AND THAT HE IS CONFUSED AND DOES NOT NEED ANYTHING ELSE AT THIS TIME, ESPECIALLY HIS DILAUDID. PT VERBALLY STATED THAT HE IS CONFUSED BUT NOT BECAUSE OF THE MEDS. I ASKED PT IF HE WANTED A SNACK, SO I DID GIVE HIM TWO VANILLA ICE CREAM CUPS PER HIS REQUEST. PT DENIES ANY OTHER NEEDS. BED ALARM IS ON, LIGHT OVER THE SINK IS ON, PT REQUIRES CLOSE AND FREQUENT MONITORING AT THIS POINT.
[2016-11-26] VITALS: BP 130/77
--- NOTE | 2016-11-26 02:48 | NUR ---
DURING THE ADMINISTRATION OF PTS LOVENOX @ 0130, PT AGAIN ASKED FOR HIS PAIN MEDICATION. I EXPLAINED TO PT AGAIN THAT IT WAS TOO EARLY. PT DENIED ANY OTHER NEEDS. CONTINUE TO MONITOR CLOSELY.
[2016-11-26 04:00] VITALS: BP 136/82
[2016-11-26 06:39] LABS: INR 2.21 (0.85-1.17); PROTIME 24.6 SECONDS (11.6-15.0)
--- NOTE | 2016-11-26 07:41 | NUR ---
0715- AM ROUNDING- RECIEVED REPORT FROM MANAGER ENDOSCOPY NURSE HAYDER. PT IS CURRENT LAYING IN BED ON BACK WITH EYES CLOSED RESTING. ON ROOM AIR. ON MONITOR SHOWING PACED, HR 59. IV SEEN TO RIGHT AC THAT IS CURRENTLY SALINE LOCKED. BED IS IN LOW POSITION, SIDE RAILS ARE UP X2, AND CALL LIGHT IS IN REACH. 0730- HÉCTOR, CNA CAME TO INFORM ME THAT PT IS WANTING PAIN MEDICATION AND XANAX. THIS NURSE WENT TO CHECK ON PT, PT IS LAYING ON RIGHT SIDE WITH EYES CLOSED RESTING.
[2016-11-26 08:00] VITALS: BP 141/86
--- NOTE | 2016-11-26 08:45 | NUR ---
PT GIVEN PAIN MEDICATION (DILAUDID 1MG PO) ORDERED. PT SEEMS TO GET CONFUSED WHEN HE CAN HAVE PAIN MEDICATION AND ASK FOR IT FREQUENTLY. THIS NURSE WROTE ON PTS WHITE BOARD IN ROOM WHEN PAIN MEDICATION WILL BE "AVAILABLE" NEXT WHICH IS [id number]. PT UNDERSTANDS AT THIS TIME.
[2016-11-26 11:57] VITALS: BP 140/92
--- NOTE | 2016-11-26 13:56 | NUR ---
PT IS UP WALKING WITH PHYSICAL THERAPY WITH WALKER.
[2016-11-26 16:00] VITALS: BP 123/77
--- NOTE | 2016-11-26 18:17 | NUR ---
PT IS CURRENTLY LAYING IN BED ON BACK WITH EYES OPEN RESTING. PT DENIES ANY NEED AT THIS CURRENT TIME. WILL CONTINUE TO MONITOR.
--- NOTE | 2016-11-26 19:00 | NUR ---
RECEIVED REPORT AND ASSUMED PT CARE FROM DAY SHIFT NURSE @ THIS TIME.
--- NOTE | 2016-11-26 19:02 | NUR ---
OT NOTE: PT COMPLETED BED MOB WITH MIN A. PT COMPLETED BUE AROM EXS FOR INCREASED I WITH ADLS. PT REQUIRED MIN A FOR HYGIENE TASK. THANK YOU, SHEA MORALES
[2016-11-26 20:00] VITALS: BP 100/66
[2016-11-27 04:00] VITALS: BP 111/83
--- NOTE | 2016-11-27 07:47 | NUR ---
AM ROUNDS COMPLETED. INTRODUCED MYSELF TO PT PRIMARY RN FOR TODAYS SHIFT. PT A&O SITTING UP IN BED RESTING QUIETLY. RR NONLABORED. PT DENIES ANY CURRENT PAIN OR NEEDS AT THIS TIME. WILL PULL MORNING MEDICATIONS AND CONTINUE WITH PLAN OF CARE. CL IN REACH, BED IN LOWEST, SIDE RAILS X2. WILL CPOC.
[2016-11-27 08:00] VITALS: BP 141/5
--- NOTE | 2016-11-27 10:24 | NUR ---
Patient Name: VAHE NARVAEZ Encounter No: [id number] : 1950 Primary Insurance: [employer] CHOICE PPO MCR [employer]VANT Anticipated DC Date: 11-27-2016 Planned Disposition: INPATIENT REHAB External Planned Provider: [facility] IN[facility] DCP follow-up note: CM SPOKE TO [facility] OF INPATIENT REHAB, PT'S INSURANCE COMPANY HAS CALLED AND LEFT MESSAGE THAT INPATIENT REHAB DENIAL HAS BEEN REVERSED, [facility] IN[facility] TO ACCEPT PT TODAY FOR REHAB. PT NOTIFIED, IN AGREEMENT WITH DISCHARGE TO INPATIENT REHAB. SAND MIXER MACHINE NURSE NOTIFIED. RN AROLDO HOUSE NOTIFIED DR. CHEEK'S OFFICE. CM REQEUSTED FROM [facility] A COPY OF INPATIENT REHAB DENIAL REVERSAL / AUTHORIZATION ONCE THE FAX WAS RECEIVED. [facility] INPATIENT REHAB TO CONTACT MED 2 NURSE WITH ROOM NUMBER WHEN READY TO ACCEPT PT AND NURSE REPORT. Francisco Hardy, CASE MANAGEMENT
--- NOTE | 2016-11-27 10:31 | NUR ---
Recieved a call from Jyoti Spain at [facility]. The Grievances and Appeals Dept has overturned the deniel for acute inpatient rehab for this patient. He is approved for 7 days with U/D due on 12/04/16 to Jyoti Spain ext [phone] or . Authorization # [id number]. Informed Blaise Hardy CM who will inform the patient of his acceptance and planned admission to the IRF today. Gabriella Bunch RN Clinical Liaison, Rehab
--- NOTE | 2016-11-27 10:37 | NUR ---
PT HAS BEEN ACCEPTED INTO IP REHAB AND IS EXCITED ABOUT IT HE WAS NOT FEELING STRONG ENOUGH TO GO HOME. DISCHARGE IN PROCESS AND WILL CPOC.
--- NOTE | 2016-11-27 11:59 | NUR ---
THE APPEAL PROCESS TO THE PATIENTS INPATIENT STAY HAS BEEN OVERTURNED. THE PATIENT WILL DISCHARGE TO INPATIENT REHAB TODAY. CALL WAS PLACED TO DR KUMAR OFFICE TO NOTIFY HIM OF THIS AND THE NEED FOR A NEW DISCHARGE ORDER. HE IS OUT TODAY. SPOKE WITH NAV MUNOZ AND SHE STATED SHE WOULD TALK WITH THE DOCTOR COVERING FOR DR CHEEK FOR THE ORDER. SHE DID CALL BACK AND ORDER FOR DISCHARGE RECEIVED FROM DR WILHELM AND WILL BE ENTERED IN THE COMPUTER.
[2016-11-27 12:00] VITALS: BP 123/83
--- NOTE | 2016-11-27 14:57 | NUR ---
PT IS ACCEPTED TO IP REHAB. REPORT CALLED TO NAV GUERRERO. PT IS GOING TO ROOM 1112-B WHEN IT IS CLEANED. DISCHARGE TEACHING PROVIDED AND PAPERS SIGNED. PT VERBALIZED UNDERSTANDING AND DENIES ANY QUESTIONS OR CONCERNS. BELONGINGS COLLECTED. AWAITING TRANSFER DOWN.
--- NOTE | 2016-12-17 09:17 | OP ---
PATIENT NAME: VAHE NARVAEZ MEDICAL RECORD: [id number] :54 LOCATION:[facility]. [facility][id number] ADMISSION DATE:11/20/16 SURGEON: THAIS MONROY MD DATE OF OPERATION: 11/21/2016 PREOPERATIVE DIAGNOSIS: T11 compression fracture. POSTOPERATIVE DIAGNOSIS: T11 compression fracture. PROCEDURE: T12 kyphoplasty with bone biopsy. DESCRIPTION OF TECHNIQUE: After induction of general endotracheal anesthesia, the patient was rolled prone on chest and hip rolls. The thoracic spine was prepped and draped in usual sterile fashion. Fluoroscopic x-ray and VirnetXshidi needles used to cannulate the pedicles at T11. A kyphoplasty balloons were advanced through the pedicles under fluoroscopic control and inflated. The balloons are deflated and the voids created were back filled with methyl methacrylate bone cement. Following this, there was good position of the bone cement on x-ray. The cannula removed and the stab incisions were covered with Steri-Strips and benzoin. A sterile dressing was applied to the wound. The patient was awakened in good condition and taken to recovery. All counts were reported as correct. Estimated blood loss was minimal. TRANSINT:[id number] Voice Confirmation ID: [id number] DOCUMENT ID: [id number] THAIS MONROY MD at 0917 CC: [id number] DICTATION DATE: 12/15/16 161 CELL OPERATOR: [id number] DIS IN 11/27/16 [facility] [address] [id number]
== END 2016-11-27 15:16 | DRG 479 ==
LOC: D.ER 12:41 → D.M2 17:54
PROVIDERS: Emergency Medicine; Neurological Surgery; Nurse Practitioner Family; ADMIT Family Medicine
PROC: 0PS43ZZ Reposition Thoracic Vertebra, Percutaneous Approach (ICD-10-PCS; 2016-11-21)
PROC: 0PU43JZ Supplement Thoracic Vertebra with Synthetic Substitute, Percutaneous Approach (ICD-10-PCS; 2016-11-21)
PROC: 0PB43ZX Excision of Thoracic Vertebra, Percutaneous Approach, Diagnostic (ICD-10-PCS; principal; 2016-11-21 10:00)
DX: M48.54XA Collapsed vertebra, not elsewhere classified, thoracic region, initial encounter for fracture (principal); I48.2 Chronic atrial fibrillation; Z79.01 Long term (current) use of anticoagulants; S09.90XA Unspecified injury of head, initial encounter; W19.XXXA Unspecified fall, initial encounter; I11.0 Hypertensive heart disease with heart failure; I50.9 Heart failure, unspecified; I25.10 Atherosclerotic heart disease of native coronary artery without angina pectoris; Z95.0 Presence of cardiac pacemaker; Z95.5 Presence of coronary angioplasty implant and graft; Z86.73 Personal history of transient ischemic attack (TIA), and cerebral infarction without residual deficits; F43.12 Post-traumatic stress disorder, chronic

== ENCOUNTER 2016-11-27 15:04 | Inpatient (IN) | payer MEDICARE, MEDICAID ==
[~2016-11-27] VITALS: Ht 182.9 cm; Wt 102.1 kg
[~2016-11-27 15:04] MED LIST changes: +DILAUDID2 MG PO; +K-DUR20 MEQ PO; +STADOL NASAL S2.5 ML NASAL; +XANAX2 MG PO
[2016-11-27 15:30] VITALS: BP 141/73; BMI 30.6
--- NOTE | 2016-11-27 19:46 | NUR ---
PT IS RESTING IN BED WITH EYES OPEN. ALERT AND ORIENTED X 4. DENIES ACUTE DISCOMFORT AT THIS TIME, BUT STATES, IM HURTING WORSE AND WORSE ALL THE TIME. IM NOT SURE IF THIS PROCEDURE WILL WORK OR NOT. VSS. INC. TO LOWER BACK IS CDI. NO DRAINAGE NOTED. SR'S ARE UP X 2 IN BED. CALL LIGHT AND BEDSIDE TABLE ARE WITHIN EASY REACH.
[2016-11-27 20:00] VITALS: BP 128/74
--- NOTE | 2016-11-27 22:10 | NUR ---
IN BED, EYES CLOSED. APPEARS COMFORTABLE.
--- NOTE | 2016-11-27 22:22 | NUR ---
PT IS RESTING QUIETLY IN BED WITH EYES CLOSED. RESPS ARE EVEN AND UNLABORED. NO ACUTE DISTRESS NOTED.
--- NOTE | 2016-11-28 00:20 | NUR ---
RESTING IN BED WITH EYES CLOSED.
--- NOTE | 2016-11-28 03:48 | NUR ---
RESTING IN BED WITH EYES CLOSED.
[2016-11-28 06:42] LABS: BASOPHILS 0.8 % (0-2); EOSINOPHILS 6.1 % (0-7); HEMATOCRIT 32.5 % (42.0-54.0); HEMOGLOBIN 9.7 g/dL (13.5-17.5); IMMATURE GRANULOCYTES 0.2 % (0-5); MCH 24.6 pg (26.0-34.0); MCHC 29.8 g/dL (31.0-37.0); MCV 82.3 fL (80.0-100.0); MEAN PLATELET VOLUME 10.3 fL (7.4-10.4); MONOCYTES 11.4 % (2-11); NEUTROPHILS 60.5 % (40-80); PLATELET COUNT 235 10x3/uL (130-400); RBC 3.95 10x6/uL (4.20-6.10); RDW 17.2 % (11.5-14.5); WBC 5.3 10x3/uL (4.8-10.8)
[2016-11-28 06:48] LABS: INR 1.98 (0.85-1.17); PROTIME 22.5 SECONDS (11.6-15.0)
[2016-11-28 06:52] LABS: CALC OSMOLALITY 276 mosm/kg (275-300); CALCIUM 8.2 mg/dL (8.5-10.1); CARBON DIOXIDE 29.3 mmol/L (21.0-32.0); CHLORIDE - SERUM 107 mmol/L (98-107); CREATININE - SERUM 0.7 mg/dL (0.6-1.3); GLUCOSE 85 mg/dL (74-106); POTASSIUM - SERUM 3.5 mmol/L (3.5-5.1); SODIUM 139 mmol/L (136-145); UREA NITROGEN 13 mg/dL (7-18); eGFR NON AFRICAN AMERICAN > 90 mL/min (90-120)
--- NOTE | 2016-11-28 07:27 | NUR ---
SITTING UP IN BED WATCHING MORNING NEWS. ALERT AND ORIENTED. OFFERS NO COMPLAINTS. PAIN CONTROLLED AT THIS TIME PER PT. CALL LIGHT WITHIN REACH. WILL CONTINUE TO MONITOR
[2016-11-28 08:00] VITALS: BP 112/65
--- NOTE | 2016-11-28 10:49 | NUR ---
LYING IN BED RESTING COMFORTABLY. OFFERS NO COMPLAINTS. CALL LIGHT WITHIN REACH. WILL CONTINUE TO MONITOR
--- NOTE | 2016-11-28 14:03 | NUR ---
LYING IN BED RESTING QUIELTY. OFFERS NO COMPLAINTS. CALL LIGHT WITHIN REACH. WILL CONTINUE TO MONITOR
[2016-11-28 14:09] VITALS: Ht 182.9 cm; Wt 102.1 kg
--- NOTE | 2016-11-28 17:10 | NUR ---
SITTING UP IN WHEELCHAIR AT SINK SHAVING FACE. OCCUPATIONAL THERAPY IN ROOM. WILL CONTINUE TO MONITOR
--- NOTE | 2016-11-28 17:31 | NUR ---
EATING SUPPER IN ROOM. DENIES NEEDS. CALL LIGHT IN REACH
[2016-11-28 19:00] VITALS: BP 121/81
--- NOTE | 2016-11-28 19:20 | NUR ---
PT IN BED WITH HOB UP FOR COMFORT. WATCHING TV. ALERT & ORIENTED. NO O2. RIGHT AC SLAINE LOC. PACEMAKER. BACK BRACE WHEN UP. BED IN LOWEST POSITION AND CALL LIGHT WITHIN REACH.
--- NOTE | 2016-11-28 23:20 | NUR ---
PT IN BED WITH HOB UP FOR COMFORT. EYES CLOSED. CHEST RISING AND FALLING. BED IN LOWEST POSITION AND CALL LIGHT WITHIN REACH.
--- NOTE | 2016-11-29 01:10 | NUR ---
RESTING IN BED, EYES CLOSED. NO DISTRESS NOTED.
--- NOTE | 2016-11-29 05:10 | NUR ---
PT LYING IN BED. EYES CLOSED. RESPIRATIONS EVEN AND UNLABORED. BED IN LOWEST POSTION AND CALL LIGHT WITHIN REACH.
[2016-11-29 06:47] LABS: INR 1.85 (0.85-1.17); PROTIME 21.3 SECONDS (11.6-15.0)
--- NOTE | 2016-11-29 07:38 | NUR ---
LYING IN BED RESTING COMFORTABLY. OFFERS NO COMPLAINTS. CALL LIGHT WITHIN REACH. WILL CONTINUE TO MONITOR
[2016-11-29 08:00] VITALS: BP 128/76
--- NOTE | 2016-11-29 09:39 | NUR ---
LYING IN BED EYES CLOSED RESTING. APPROPRIATE RISE AND FALL OF CHEST. CALL LIGHT WITHIN REACH. WILL CONTINUE TO MONITOR
--- NOTE | 2016-11-29 14:30 | NUR ---
LYING IN BED RESTING QUIELTY. EASILY AROUSED WITH STIMULI. CALL LIGHT WITHIN REACH. WILL CONTINUE TO MONITOR
--- NOTE | 2016-11-29 18:21 | NUR ---
RESTING QUIETLY IN BED. DENIES NEEDS. CALL LIGHT IN REACH
[2016-11-29 19:00] VITALS: BP 116/71
--- NOTE | 2016-11-29 19:40 | NUR ---
PATIENT IN BED, AWAKE. DENIES CURRENT NEEDS.
--- NOTE | 2016-11-29 20:30 | NUR ---
RIGHT AC SALINE LOC FLUSHES EASILY.
--- NOTE | 2016-11-30 00:30 | NUR ---
PT LYING IN BED. EYES CLOSED. CHEST RISING AND FALLING. BED IN LOWEST POSITION AND CALL LIGHT WITHIN REACH.
--- NOTE | 2016-11-30 04:30 | NUR ---
PT LYING IN BED. EYES CLOSED. CHEST RISING AND FALLING. BED IN LOWEST POSITION AND CALL LIGHT WITHIN REACH.
[2016-11-30 05:47] LABS: INR 1.68 (0.85-1.17); PROTIME 19.8 SECONDS (11.6-15.0)
--- NOTE | 2016-11-30 08:00 | NUR ---
PATIENT ALERT/ORIENT X4. CALL LIGHT WITHIN REACH. VOICES NO NEEDS AT THIS TIME.
[2016-11-30 08:25] VITALS: BP 127/72
--- NOTE | 2016-11-30 09:43 | NUR ---
PRN PAIN MEDICATION GIVEN FOR ALL OVER GENERAL JOINT PAIN/DISC
--- NOTE | 2016-11-30 13:34 | NUR ---
PRN PAIN MEDICATION GIVEN FOR SHOULDER AND NECK PAIN. PATIENT HAS SIGNED A BED/CHAIR ALARM WAVIOR
--- NOTE | 2016-11-30 17:38 | NUR ---
PRN PAIN MEDICATION GIVEN FOR ALL OVER GENERAL DISCOMFORT/PAIN.
--- NOTE | 2016-11-30 20:00 | NUR ---
PT IN BED WITH HOB UP FOR COMFORT. WATCHING TV. ALERT & ORIENTED. NO O2. RIGHT AC SALINE LOC. PACEMAKER. BACK BRACE WHEN UP. WALKER. W/C. BED IN LOWEST POSITION AND CALL LIGHT WITHIN REACH. BED/CHAIR WAIVER.
[2016-11-30 20:41] VITALS: BP 106/64
--- NOTE | 2016-11-30 21:30 | NUR ---
IN BED, AWAKE. NO C/O AT THIS TIME.
--- NOTE | 2016-12-01 01:30 | NUR ---
PT IN BED WITH HOB UP FOR COMFORT. EYES CLOSED. CHEST RISING AND FALLING. BED IN LOWEST POSITION AND CALL LIGHT WITHIN REACH.
--- NOTE | 2016-12-01 05:03 | NUR ---
PT IN BED WITH HOB UP FOR COMFORT. EYES CLOSED. RESP. EVEN. BED IN LOWEST POSITION AND CALL LIGHT WITHIN REACH.
[2016-12-01 07:55] LABS: INR 1.45 (0.85-1.17); PROTIME 17.5 SECONDS (11.6-15.0)
[2016-12-01 08:05] VITALS: BP 115/73
--- NOTE | 2016-12-01 08:35 | NUR ---
PT AM MEDS ADMINISTERED. PT CHAR NEEDS AT THIS TIME. WCTM.
--- NOTE | 2016-12-01 09:50 | NUR ---
PT REQ AND REC'D PRN PAIN MEDICATION. WCTM.
--- NOTE | 2016-12-01 11:18 | NUR ---
Nutrition Follow Up: Pt is eating 92% meal avg on a regular diet. +BM 11/30/16. Meds and labs reviewed. Rec continue current diet. RD following.
--- NOTE | 2016-12-01 13:50 | NUR ---
PT REQ AND REC'D PRN PAIN MED. WCTM.
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
[2016-12-01 19:22] VITALS: BP 113/68
--- NOTE | 2016-12-01 19:22 | NUR ---
RECIEVED UP IN BED WITH EYES OPEN AND TV ON . PLEASANT AND COOPERATIVE.NO C/O VOICED AT THIS TIME.
--- NOTE | 2016-12-01 21:50 | OP ---
PATIENT NAME: VAHE NARVAEZ MEDICAL RECORD: [id number] :54 [facility] AD[facility]ION DATE:11/27/16 SURGEON: THAIS MONROY MD DATE OF OPERATION: 12/01/2016 PREOPERATIVE DIAGNOSIS: T12 compression fracture. POSTOPERATIVE DIAGNOSIS: T12 compression fracture. PROCEDURE: T12 kyphoplasty with bone biopsy. DESCRIPTION OF TECHNIQUE: After induction of general endotracheal anesthesia, the patient was rolled prone on chest and hip rolls. The thoracic spine was prepped and draped in usual sterile fashion. Fluoroscopic x-ray and FMP Productsshidi needles were used to cannulate the pedicles at T12 on both sides. A kyphoplasty balloon was advanced through the pedicles and inflated under fluoroscopic control. The balloon was deflated. The void created was filled with methyl methacrylate bone cement. Good position of the cement was confirmed on fluoroscopic x-ray. The cannulae were removed. A single staple was used to close both the stab wounds. The patient was awakened in good condition and taken to recovery. All counts were reported as correct. Estimated blood loss was minimal. TRANSINT:[id number] Voice Confirmation ID: [id number] DOCUMENT ID: [id number] THAIS MONROY MD at 2150 CC: [id number] DICTATION DATE: 12/01/16 1348 SURGICAL TECHNOLOGIST: 12/01/16 1439 ADM IN [address] [id number] [place] [address]
--- NOTE | 2016-12-02 00:14 | NUR ---
RESTING IN BED WITH EYES CLOSED. NO S/S OF DISTRESS OBSERVED. CALL LIGHT AND OVERBED TABLE IN REACH.
[2016-12-02 05:51] LABS: BASOPHILS 0.6 % (0-2); EOSINOPHILS 8.3 % (0-7); HEMATOCRIT 32.7 % (42.0-54.0); HEMOGLOBIN 9.7 g/dL (13.5-17.5); IMMATURE GRANULOCYTES 0.2 % (0-5); LYMPHOCYTES 26.3 % (15-50); MCH 24.6 pg (26.0-34.0); MCHC 29.7 g/dL (31.0-37.0); MEAN PLATELET VOLUME 10.6 fL (7.4-10.4); MONOCYTES 11.9 % (2-11); NEUTROPHILS 52.7 % (40-80); PLATELET COUNT 213 10x3/uL (130-400); RBC 3.94 10x6/uL (4.20-6.10); RDW 17.1 % (11.5-14.5); WBC 4.8 10x3/uL (4.8-10.8)
[2016-12-02 06:13] LABS: CALC OSMOLALITY 280 mosm/kg (275-300); CALCIUM 8.1 mg/dL (8.5-10.1); CARBON DIOXIDE 30.5 mmol/L (21.0-32.0); CHLORIDE - SERUM 104 mmol/L (98-107); CREATININE - SERUM 0.8 mg/dL (0.6-1.3); GLUCOSE 82 mg/dL (74-106); POTASSIUM - SERUM 4.1 mmol/L (3.5-5.1); SODIUM 141 mmol/L (136-145); UREA NITROGEN 14 mg/dL (7-18); eGFR NON AFRICAN AMERICAN > 90 mL/min (90-120)
[2016-12-02 06:15] LABS: INR 1.42 (0.85-1.17); PROTIME 17.3 SECONDS (11.6-15.0)
--- NOTE | 2016-12-02 08:15 | NUR ---
PT AM MEDS ADMINISTERED. PT DENIES NEEDS. WCTM.
[2016-12-02 08:33] VITALS: BP 121/69
--- NOTE | 2016-12-02 12:30 | NUR ---
PT SITTNG UP AT BEDSIDE EATING LUNCH, DENIES NEEDS. WCTM.
--- NOTE | 2016-12-02 16:05 | NUR ---
PT REQ AND REC'D PRN PAIN MEDICATION. WCTM.
[2016-12-02 19:15] VITALS: BP 114/71
--- NOTE | 2016-12-02 19:15 | NUR ---
RESTING IN BED WITH EYES CLOSED. NO S/S OF DISTRESS OBSERVED. EASILY AROUSES WITH VERBAL STIMULI. NO C/O PAIN AT THIS TIME.
--- NOTE | 2016-12-02 21:04 | NUR ---
C/O GENERAL PAIN AND REQUESTED PAIN MEDICATION. MEDS GIVEN PER ORDERS WILL REASSESS.
--- NOTE | 2016-12-03 02:17 | NUR ---
RESTING IN BED WITH EYES CLOSED. NO S/S OF DISTRESS OBSERVED. CALL LIGHT AND OVERBED TABLE IN REACH.
--- NOTE | 2016-12-03 06:07 | NUR ---
RESTING IN BED WITH EYES CLOSED. NO S/S OF DISTRESS OBSERVED. CALL LIGHT AND OVERBED TABLE IN REACH.
[2016-12-03 06:08] LABS: INR 1.44 (0.85-1.17); PROTIME 17.4 SECONDS (11.6-15.0)
--- NOTE | 2016-12-03 07:35 | NUR ---
PT REQ AND REC'D PRN ANXIETY AND PAIN MEDICATIONS. AM MEDICATIONS ALSO GIVEN AT THIS TIME. PT DENIES FURTHER NEEDS. WCTM.
[2016-12-03 08:27] VITALS: BP 115/67
--- NOTE | 2016-12-03 16:08 | NUR ---
PT RESTING IN BED, EYES CLOSED. AROUSES EASILY TO VOICE. MEDICATION GIVEN. PT BACK TO SLEEP. WCTM.
--- NOTE | 2016-12-03 18:41 | NUR ---
PT RESTING IN ROOM, JUST FINISHED DINNER. PT DENIES NEEDS. WCTM.
--- NOTE | 2016-12-03 19:20 | NUR ---
RECIEVED UP IN BED WITH EYES OPEN AND TV ON. NO S/S OF DISTRESS OBSERVED. PLEASANT AND COOPERATIVE.
[2016-12-03 20:20] VITALS: BP 105/58
--- NOTE | 2016-12-03 21:32 | NUR ---
LAYING IN BED WITH EYES OPEN. C/O GENERAL PAIN AT 9. REQUESTING PAIN MEDICATION. MEDS GIVEN PER ORDERS. CALL [facility] IN REACH. WILL REASSESS PAIN.
--- NOTE | 2016-12-04 02:01 | NUR ---
RESTING IN BED WITH EYES CLOSED. NO S/S OF DISTRESS OBSERVED. TV ON. CALL LIGHT IN REACH AND OVERBED TABLE IN REACH.
[2016-12-04 07:31] LABS: INR 1.26 (0.85-1.17); PROTIME 15.7 SECONDS (11.6-15.0)
[2016-12-04 08:08] VITALS: BP 130/84
--- NOTE | 2016-12-04 15:32 | NUR ---
PT RESTING IN BED, CHAR NEEDS. WCTM.
--- NOTE | 2016-12-04 16:15 | NUR ---
CLINICALS UPDATE FAXED TO TERRENCE ARTIS AT [phone], AUTH # [id number] WITH TENATIVE DISCHARGE DATE BEING 12/08/16. CONFORMATION RECIEVED
--- NOTE | 2016-12-04 20:00 | NUR ---
PT IS RESTING IN BED WITH EYES OPEN. ALERT AND ORIENTED X 3. DENIES ACUTE PAIN OR DISCOMFORT AT THIS TIME. VSS. NO NEEDS VOICED. SR'S ARE UP X 3 IN BED. CALL LIGHT AND BEDSIDE TABLE ARE WITHIN EASY REACH.
--- NOTE | 2016-12-04 20:06 | NUR ---
PT. IN BED WITH HOB UP FOR COMFORT. EYES CLOSED AND RESP. EVEN. CALL LIGHT WITHIN REACH.
[2016-12-04 21:36] VITALS: BP 121/71
--- NOTE | 2016-12-04 23:33 | NUR ---
PT IS RESTING QUIETLY IN BED WITH EYES CLOSED.
--- NOTE | 2016-12-05 03:47 | NUR ---
RESTING QUIETLY IN BED WITH EYES CLOSED. RESPS ARE EVEN AND UNLABORED. NO ACUTE DISTRESS NOTED.
--- NOTE | 2016-12-05 06:09 | NUR ---
PT RESTING IN BED WITH EYES CLOSED. NO DISTRESS NOTED.
[2016-12-05 06:58] LABS: INR 1.48 (0.85-1.17); PROTIME 17.9 SECONDS (11.6-15.0)
--- NOTE | 2016-12-05 08:05 | NUR ---
sleeping easing.cl in reach.
[2016-12-05 08:10] VITALS: BP 105/71
--- NOTE | 2016-12-05 08:48 | NUR ---
PT RESTING IN BED WITH EYES OPEN CALL LIGHT IN REACH BREAKFAST TRAY SET UP WILL MONITER
--- NOTE | 2016-12-05 12:00 | NUR ---
PT RESTING IN BED WITH EYES OPEN CALL LIGHT IN REACH NO PROBLEMS WILL MONITER
--- NOTE | 2016-12-05 17:57 | NUR ---
PT RESTING IN BED WITH EYES OPEN CALL LIGHT IN REACH NO PROBLEMS WILL MONITER
--- NOTE | 2016-12-05 19:31 | NUR ---
PT IS RESTING IN BED WATCHING TV. ALERT AND ORIENTED X 3. STATES: "IM FINE OTHER THAN NEEDING CONTANT PAIN CONTROL, AND FEELING ANXIOUS ALL THE TIME." INCISION TO LOW BACK IS HEALED. VSS. PT UAL TO BATHROOM AT THIS TIME. SR'S ARE UP X 2 WHILE IN BED. CALL LIGHT AND BEDSIDE TABLE ARE WITHIN EASY REACH.
--- NOTE | 2016-12-05 20:04 | NUR ---
PT IN BED WATCHING TV. CALL LIGHT WITHIN REACH.
[2016-12-05 20:59] VITALS: BP 113/71
--- NOTE | 2016-12-05 21:06 | NUR ---
PT RESTING IN BED WATCHING TV. NO NEEDS VOICED.
--- NOTE | 2016-12-06 00:20 | NUR ---
RESTING IN BED WITH EYES CLOSED.
--- NOTE | 2016-12-06 03:59 | NUR ---
PT IS RESTING QUIETLY IN BED WITH EYES CLOSED.
[2016-12-06 05:54] LABS: INR 1.41 (0.85-1.17); PROTIME 17.2 SECONDS (11.6-15.0)
--- NOTE | 2016-12-06 07:20 | NUR ---
PRN XANAX GIVEN FOR ANXIEITY PER PATIENT REQUEST
[2016-12-06 08:00] VITALS: BP 126/77
--- NOTE | 2016-12-06 09:30 | NUR ---
PRN PAIN MEDICTION GIVEN FOR ALL OVER JOINT PAIN/DISC PER PATIENT REQUEST
--- NOTE | 2016-12-06 09:56 | NUR ---
PATIENT IS ALERT/ORIENT X4. PATIENT HAS SINGED A BED/CHAIR ALARM WAVIOR. VOICES NO NEEDS AT THIS TIME. RESTING IN BED WATCHING T.V.
--- NOTE | 2016-12-06 12:36 | NUR ---
PRN XANAX GIVEN PER PATIENT REQUEST. THIS NURSE EXPLAINED TO PATIENT THAT XANAX COULD BE GIVEN NEED THREE TIMES ADAY. THIS NURSE EXPLAINED THAT THIS IS THE SECOND DOSE FOR TODAY. PATIENT STATED HE UNDERSTOOD
--- NOTE | 2016-12-06 15:31 | NUR ---
PRN PAIN MEDICATION GIVEN FOR BACK PAIN/DISC
--- NOTE | 2016-12-06 16:00 | NUR ---
NAPPING;RESP EASY AND REGULAR.
--- NOTE | 2016-12-06 20:05 | NUR ---
REST IN BED AND WATCH TV.
--- NOTE | 2016-12-06 20:15 | NUR ---
PT. IN BED WITH HOB UP FOR COMFORT AND IS WATCHING TV. NO VOICED NEEDS AND HIS CALL LIGHT IS WITHIN REACH.
[2016-12-06 21:39] VITALS: BP 108/72
--- NOTE | 2016-12-07 02:45 | NUR ---
REST IN BED, EYE CLOSE, CALL LIGHT IN REACH.
--- NOTE | 2016-12-07 05:00 | NUR ---
ASSISTED PT TAKE A SHOWER.
[2016-12-07 05:33] LABS: BASOPHILS 0.6 % (0-2); EOSINOPHILS 6.4 % (0-7); IMMATURE GRANULOCYTES 0.2 % (0-5); LYMPHOCYTES 28.3 % (15-50); MCH 24.6 pg (26.0-34.0); MCHC 29.4 g/dL (31.0-37.0); MCV 83.7 fL (80.0-100.0); MEAN PLATELET VOLUME 10.2 fL (7.4-10.4); MONOCYTES 11.3 % (2-11); NEUTROPHILS 53.2 % (40-80); PLATELET COUNT 215 10x3/uL (130-400); RBC 4.06 10x6/uL (4.20-6.10); WBC 4.7 10x3/uL (4.8-10.8)
[2016-12-07 05:54] LABS: CALC OSMOLALITY 280 mosm/kg (275-300); CALCIUM 8.5 mg/dL (8.5-10.1); CARBON DIOXIDE 28.5 mmol/L (21.0-32.0); CHLORIDE - SERUM 104 mmol/L (98-107); CREATININE - SERUM 0.7 mg/dL (0.6-1.3); GLUCOSE 91 mg/dL (74-106); POTASSIUM - SERUM 3.7 mmol/L (3.5-5.1); SODIUM 140 mmol/L (136-145); UREA NITROGEN 18 mg/dL (7-18); eGFR NON AFRICAN AMERICAN > 90 mL/min (90-120)
[2016-12-07 06:10] LABS: INR 1.43 (0.85-1.17); PROTIME 17.3 SECONDS (11.6-15.0)
[2016-12-07 08:00] VITALS: BP 127/79
[2016-12-07] MEDS ORDERED: OXYCODONE HCL5 MG PO (08:21)
--- NOTE | 2016-12-07 08:35 | NUR ---
PATIENT ALERT/ORIENT X4. HAS SIGNED BED/CHAIR ALARM WAVIOR. USING WALKER IN ROOM TO WALK AROUND ROOM. STEADY GAIT WITH WHEELED WALKER. PRN XANAX, PRN PAIN MEDICATION GIVEN PER PATIENT REQUEST
--- NOTE | 2016-12-07 09:49 | NUR ---
PATIENT RESTING IN BED BEFORE THERAPY THIS AFTERNOON. STATES RELIEF FROM PRN XANAX AND PRN PAIN MEDICATION
--- NOTE | 2016-12-07 10:34 | NUR ---
PATIENT ADMITTED TO REHAB FROM ACUTE FLOOR. DR. BUSTILLOS IS PATIENT PCP. HE HAS A CANE AND WALKER AT HOME. HE RESIDES [facility]. HE HAS USED [employer] FOR HIS THERAPY NEEDS AT HOME. WILL CONTINUE TO FOLLO WITH PATIENT.
--- NOTE | 2016-12-07 13:00 | NUR ---
PRN PAIN MEDICATION AND PRN XANAX GIVEN PER PATIENT REQUEST. PATIENT GETTING READY TO GO DOWN TO THERAPY ROOM FOR PHYSICAL THERAPY
--- NOTE | 2016-12-07 17:20 | NUR ---
PRN PAIN MEDICATION GIVEN PER PATIENT REQUEST.
--- NOTE | 2016-12-07 19:20 | NUR ---
IN BED, AWAKE. DENIES NEEDS.
[2016-12-07 20:30] VITALS: BP 109/69
--- NOTE | 2016-12-07 20:30 | NUR ---
ASSESSMENT AND SCHEDULED HS MEDS GIVEN TO PATIENT WILL CALL LATER FOR SLEEP AND PAIN MEDS.
--- NOTE | 2016-12-07 21:30 | NUR ---
C/O PAIN LEVEL OF 8 IN BACK AND SHOULDERS. REQUESTED HIS TEMAZEPAM. GAVE HIM OXY IR 15MG FOR PAIN AND TEMAZEPAM 30MG PO FOR SLEEP.
--- NOTE | 2016-12-07 22:15 | NUR ---
RESTING QUIETLY, EYES CLOSED.
--- NOTE | 2016-12-07 23:55 | NUR ---
RESTING QUIETLY IN BED, EYES CLOSED. HOB UP 20 DEGREES.
--- NOTE | 2016-12-08 01:20 | NUR ---
RESTING IN BED, EYES CLOSED.
--- NOTE | 2016-12-08 03:20 | NUR ---
RESTING IN BED, EYES CLOSED. RESPIRATIONS ARE UNLABORED.
--- NOTE | 2016-12-08 05:40 | NUR ---
IN BED, EYES CLOSED. APPEARS COMFORTABLE.
[2016-12-08 07:55] VITALS: BP 133/82
--- NOTE | 2016-12-08 08:02 | NUR ---
PT RESTING IN BED WITH EYES OPEN CALL LIGHT IN REACH WILL MONITER
--- NOTE | 2016-12-08 08:16 | NUR ---
EATING BREAKFAST. CALL LIGHT IN REACH
--- NOTE | 2016-12-08 11:03 | NUR ---
PATIENT DISCHARGING HOME TODAY AND [facility] WILL RESUME CARE OF PATIENT AT HOME. NO NEW DME NEEDED AT THIS TIME. DR. BUSTILLOS 12/15/16 @ 3:00, DR. MONROY 12/24/16 @ 9:30.PATIENT CHOICE FORM FOR HOME HEALTH AND [facility] FORM SIGNED, EXPLAINED AND FILED IN CHART.
--- NOTE | 2016-12-08 12:32 | NUR ---
REVIEWED DISCHARGE INSTRUCTIONS AND MEDICATIONS WITH PATIENT. PT SIGNED CHART COPY AND A COPY WAS GIVEN TO PT. PT STATES RIDE WILL NOT BE HERE UNTIL 1600. WAITING FOR DR. DUVALL TO COME AND SIGN PT SCRIPT FOR PAIN MEDICATION. NO ADDITIONAL CONCERNS VOICED. CALL LIGHT WITHIN REACH.
--- NOTE | 2016-12-08 12:37 | NUR ---
CALLED IN MEDICATIONS TO [facility] LEFT ON VOICEMAIL.
--- NOTE | 2016-12-08 16:54 | NUR ---
DISCHARGED TO HOME VIA WHEELCHAIR WITH FRIEND [employer]
== END 2016-12-08 16:55 | disposition home health service (06) | DRG 560 ==
LOC: D.REHAB 15:04
PROVIDERS: ADMIT Emergency Medicine
DX: S22.089D Unspecified fracture of T11-T12 vertebra, subsequent encounter for fracture with routine healing (principal); I69.354 Hemiplegia and hemiparesis following cerebral infarction affecting left non-dominant side; W19.XXXD Unspecified fall, subsequent encounter; R53.83 Other fatigue; S09.8XXD Other specified injuries of head, subsequent encounter; I11.0 Hypertensive heart disease with heart failure; I50.9 Heart failure, unspecified; I48.91 Unspecified atrial fibrillation; F43.10 Post-traumatic stress disorder, unspecified; G43.909 Migraine, unspecified, not intractable, without status migrainosus; Z95.0 Presence of cardiac pacemaker; R42 Dizziness and giddiness; N40.0 Benign prostatic hyperplasia without lower urinary tract symptoms; E78.5 Hyperlipidemia, unspecified; K21.9 Gastro-esophageal reflux disease without esophagitis; F41.8 Other specified anxiety disorders

== ENCOUNTER 2016-12-23 18:04 | Inpatient (IN) | payer MEDICARE, MEDICAID ==
[2016-12-23 19:21] LABS: BASOPHILS 0.2 % (0-2); EOSINOPHILS 0.7 % (0-7); HEMATOCRIT 35.9 % (42.0-54.0); IMMATURE GRANULOCYTES 0.2 % (0-5); LYMPHOCYTES 8.7 % (15-50); MCH 24.4 pg (26.0-34.0); MCHC 30.6 g/dL (31.0-37.0); MCV 79.8 fL (80.0-100.0); MEAN PLATELET VOLUME 9.8 fL (7.4-10.4); MONOCYTES 8.6 % (2-11); NEUTROPHILS 81.6 % (40-80); PLATELET COUNT 204 10x3/uL (130-400); RDW 16.9 % (11.5-14.5); WBC 9.8 10x3/uL (4.8-10.8)
[2016-12-23 19:30] LABS: INR 1.6 (0.85-1.17)
[2016-12-23 19:37] LABS: ALBUMIN 3.5 g/dL (3.4-5.0); ALKALINE PHOSPHATASE 84 U/L (46-116); ALT (SGPT) 18 U/L (10-68); BILIRUBIN - TOTAL 0.65 mg/dL (0.2-1.3); CALC OSMOLALITY 275 mosm/kg (275-300); CALCIUM 8.9 mg/dL (8.5-10.1); CHLORIDE - SERUM 104 mmol/L (98-107); CREATININE - SERUM 0.8 mg/dL (0.6-1.3); GLUCOSE 89 mg/dL (74-106); POTASSIUM - SERUM 3.3 mmol/L (3.5-5.1); PROTEIN - SERUM 7.3 g/dL (6.4-8.2); SODIUM 140 mmol/L (136-145); UREA NITROGEN 6 mg/dL (7-18); eGFR NON AFRICAN AMERICAN > 90 mL/min (90-120)
[2016-12-23 20:53] LABS: APPEARANCE HAZY (CLEAR); BILIRUBIN NEGATIVE (NEGATIVE); COLOR YELLOW (YELLOW); GLUCOSE NEGATIVE (NEGATIVE); KETONE MODERATE mg/dL (NEGATIVE); NITRITE NEGATIVE (NEGATIVE); PROTEIN TRACE mg/dL (NEGATIVE); UROBILINOGEN NORMAL (NORMAL)
[2016-12-23 20:54] LABS: BACTERIA FEW /hpf (NONE SEEN); RED CELLS - URINE >50 /hpf (0-5); WHITE CELLS - URINE 0-5 /hpf (0-5)
[2016-12-24] MEDS ORDERED: FUROSEMIDE20 MG PO (01:21)
--- NOTE | 2016-12-24 01:30 | NUR ---
REC FROM ER VIA WC. AMBULATED WITH STEADY GAIT. ALERT/ORIENTED X4. RATES PAIN LEVEL OF ABD AT 7 ON NUMBER SCALE, DESCRIBED BURNING PAIN. ALSO C/O BACK PAIN. REQUESTED ICE WATER. ORIENTED TO ROOM AND CALL LIGHT.
[2016-12-24 02:42] VITALS: BP 146/73; BMI 32.6
[2016-12-24 05:21] VITALS: BP 148/79
--- NOTE | 2016-12-24 05:39 | NUR ---
ADMIN DILAUDID 1MG IV PER REQUEST FOR C/O ABD AND BACK PAIN LEVEL 10 ON NUMBER SCALE. NO OTHER NEEDS VOICED.
[2016-12-24 07:45] VITALS: BP 140/83
--- NOTE | 2016-12-24 07:45 | NUR ---
R.AC PIV INFILTRATED. D/C WITH CATH TIP FULLY INTACT. 20 GUAGE PIV INSERTED X2 STICKS TO L.FA WITH DRSG CDI AND FLUIDS RESTARTED @100ML/HR. PT INQUIRING ABOUT HOME MEDICATIONS RESTARTING. PAGED PRIMARY AND WILL WAIT ON ORDERS.
[2016-12-24 07:57] LABS: BASOPHILS 0.1 % (0-2); EOSINOPHILS 1.9 % (0-7); HEMATOCRIT 30.6 % (42.0-54.0); HEMOGLOBIN 9.4 g/dL (13.5-17.5); IMMATURE GRANULOCYTES 0.3 % (0-5); LYMPHOCYTES 12.2 % (15-50); MCH 24.5 pg (26.0-34.0); MCHC 30.7 g/dL (31.0-37.0); MCV 79.7 fL (80.0-100.0); MEAN PLATELET VOLUME 10.3 fL (7.4-10.4); MONOCYTES 12.7 % (2-11); NEUTROPHILS 72.8 % (40-80); PLATELET COUNT 166 10x3/uL (130-400); RBC 3.84 10x6/uL (4.20-6.10); WBC 7.9 10x3/uL (4.8-10.8)
--- NOTE | 2016-12-24 08:00 | NUR ---
AM ROUNDS COMPLETED. INTRODUCED MYSELF TO PT PRIMARY RN FOR TODAYS SHIFT. PT CAME IN R/T ABDOMINAL PAIN AND DIARRHEA FOR A WEEK, PT SINCE ADMISSION HAS NOT HAD A BM BUT VERBALIZED UNDERSTANDING THAT WE NEED A SPECIMEN COLLECTED. ABDOMEN SLIGHTLY DISTENDED BUT SOFT AND BOWEL SOUNDS NOTED X4 QUADRANTS. TELEMETRY IN PLACE AND PT HAS A PACEMAKER RUNNING 67 SR PER [employer] PT DENIES ANY CURRENT PAIN OR NEEDS. CL IN REACH, BED IN LOWEST, SIDE RAILS X2, WILL CPOC.
[2016-12-24 08:13] LABS: CALC OSMOLALITY 275 mosm/kg (275-300); CALCIUM 8.1 mg/dL (8.5-10.1); CARBON DIOXIDE 27.4 mmol/L (21.0-32.0); CHLORIDE - SERUM 106 mmol/L (98-107); CREATININE - SERUM 0.7 mg/dL (0.6-1.3); GLUCOSE 85 mg/dL (74-106); POTASSIUM - SERUM 3.2 mmol/L (3.5-5.1); SODIUM 140 mmol/L (136-145); eGFR NON AFRICAN AMERICAN > 90 mL/min (90-120)
[2016-12-24 08:14] LABS: UREA NITROGEN 8 mg/dL (7-18)
--- NOTE | 2016-12-24 10:40 | NUR ---
AM MEDICATIONS PROVIDED TO PT ALONG WITH PRN ANXIETY MED AND PRN PAIN MEDICATION FOR ABDOMINAL PAIN. PT DENIES ANY FURTHER NEEDS AT THIS TIME AND STATES HE WOULD LIKE TO REST. CL IN REACH, BED IN LOWEST, SIDE RAILS X2. WILL CPOC.
[2016-12-24 10:48] VITALS: BMI 32.5
--- NOTE | 2016-12-24 11:43 | NUR ---
PT IS NOT A DIABETIC AND DENIED EVER BEING ONE. REFUSES ALL FS, ORDER D/C.
[2016-12-24 11:50] VITALS: BP 149/110
--- NOTE | 2016-12-24 15:35 | NUR ---
PT CALLED C/O SEVERE ABDOMINAL PAIN AND REQUESTED PRN PAIN MED. PT WAS PROVIDED WITH PRN DILAUDID ALONG WITH SCHEDULED RYTHMOL. PT LYING BACK IN BED RESTING QUIETLY AND DENIES ANY FURTHER NEEDS AT THIS TIME. CL IN REACH, BED IN LOWEST, SIDE RAILS X2 WILL CPOC.
[2016-12-24 15:40] VITALS: BP 151/91
--- NOTE | 2016-12-24 16:02 | NUR ---
OFFERED PT SCDS AND EXPLAINED REASONING, PT REFUSED AND STATED HE WILL AMBULATE AND DO EXERCISES TO PROMOTE CIRCULATION.
[2016-12-24 16:29] LABS: HEMATOCRIT 29.6 % (42.0-54.0); HEMOGLOBIN 9.1 g/dL (13.5-17.5)
--- NOTE | 2016-12-24 18:02 | NUR ---
REASON NO STOOL COLLECTED ON MY SHIFT-PT DID NOT HAVE BOWEL MOVEMENT. PT IS AWARE OF COLLECTOIN NEEDED AND VERBALIZED UNDERSTANDING. WILL PASS OFF IN REPORT.
--- NOTE | 2016-12-24 19:30 | NUR ---
ALERT/AWAKE ORIENTED X4. RATES PAIN LEVEL AT 8 ON NUMBER SCALE. IV IN L FA WITH NS INFUSING AND PROTONIX INFUSING AT 10 ML/HR. TELEMETRY LEADS IN PLACE. DID NOT WANT THE SCD'S ON. DENIES ANY NEEDS. BED IS LOW WITH SR UP X2. HAS CALL LIGHT IN REACH.
[2016-12-24 20:00] VITALS: BP 144/78
[2016-12-24 20:49] LABS: HEMATOCRIT 31.7 % (42.0-54.0); HEMOGLOBIN 9.6 g/dL (13.5-17.5)
[2016-12-25] VITALS: BP 154/86
--- NOTE | 2016-12-25 01:15 | NUR ---
ADMIN DILAUDID 1MG IV PER REQUEST FOR C/O ABD PAIN LEVEL 8 ON NUMBER SCALE. SIGNED CONSENT FORMS FOR EGD WITH TIVA.
[2016-12-25 03:48] LABS: BASOPHILS 0.2 % (0-2); EOSINOPHILS 10.2 % (0-7); HEMATOCRIT 30.3 % (42.0-54.0); HEMOGLOBIN 9.2 g/dL (13.5-17.5); IMMATURE GRANULOCYTES 0.2 % (0-5); LYMPHOCYTES 21.5 % (15-50); MCH 24.8 pg (26.0-34.0); MCHC 30.4 g/dL (31.0-37.0); MONOCYTES 12.6 % (2-11); NEUTROPHILS 55.3 % (40-80); PLATELET COUNT 151 10x3/uL (130-400); RBC 3.71 10x6/uL (4.20-6.10)
[2016-12-25 04:00] VITALS: BP 165/89
[2016-12-25 04:01] LABS: % SATURATION 6 % (15-55); IRON 19 ug/dl (35-150); TOTAL IRON BIND CAPACITY 278 ug/dl (260-445); UNSAT IRON BIND CAPACITY 259 ug/dl (150-375)
[2016-12-25 04:03] LABS: MCV 81.7 fL (80.0-100.0); PROTIME 31.4 SECONDS (11.6-15.0); WBC 5.3 10x3/uL (4.8-10.8)
[2016-12-25 04:16] LABS: CALC OSMOLALITY 278 mosm/kg (275-300); CALCIUM 7.7 mg/dL (8.5-10.1); CARBON DIOXIDE 26.7 mmol/L (21.0-32.0); CHLORIDE - SERUM 107 mmol/L (98-107); CREATININE - SERUM 0.7 mg/dL (0.6-1.3); FERRITIN 25 ng/mL (3-244); GLUCOSE 75 mg/dL (74-106); POTASSIUM - SERUM 3.6 mmol/L (3.5-5.1); SODIUM 141 mmol/L (136-145); THYROID STIMULATING HORMONE 0.88 uIU/mL (0.36-3.74); UREA NITROGEN 9 mg/dL (7-18); eGFR NON AFRICAN AMERICAN > 90 mL/min (90-120)
--- NOTE | 2016-12-25 06:16 | NUR ---
C/O IV HURTING. REMOVED AND WAS RESITED IN LEFT FA. RESTARTED FLUIDS.
--- NOTE | 2016-12-25 07:46 | NUR ---
CALLED LAB TO REDRAW PTT AND INR R/T SIGNIFICANT INCREASE WHILE COUMADIN IS BEING HELD. WILL CALL RESULTS TO IN CASE PT MIGHT NEED FFP PRIOR TO EGD.
[2016-12-25 08:02] VITALS: BP 138/71
[2016-12-25 08:15] LABS: INR 2.91 (0.85-1.17); PROTIME 30.6 SECONDS (11.6-15.0)
--- NOTE | 2016-12-25 09:47 | NUR ---
PT CALLED C/O SEVERE ABDOMINAL PAIN AND WAS PROVIDED WITH PRN DILAUDID. PT STILL HAS NOT HAD A BOWEL MOVEMENT FOR SPECIMEN COLLECTED. NO CHANGES FROM YESTERDAYS ASSESSMENT NOTED EITHER. PT NEEDING 4 UNITS OF FFP. FIRST UNIT INITIATED VIA NURSING STUDENTS AND INSTRUCTOR AT BEDSIDE. VSS AND BEING MONITERED. WILL CPOC.
--- NOTE | 2016-12-25 10:36 | NUR ---
FIRST 2 UNITS OF FFP INFUSED WITHOUT ANY REACTION OR ISSUES NOTED. VSS AND STILL BEING MONITERED. WILL NOW GET OTHER 2 UNITS AND TRASFUSE.
[2016-12-25 12:00] VITALS: BP 147/90
--- NOTE | 2016-12-25 12:04 | NUR ---
ALL FFP NOW DONE TRANSFUSING. VSS THROUGHOUT ALL TRANSFUSIONS NO REACTIONS NOTED. PT LYING BACK IN BED RESTING QUIETLY AND AWAITING FOR EGD LATER TODAY. WILL CPOC.
--- NOTE | 2016-12-25 13:15 | NUR ---
ASSUMED CARE OF PT. RR EVEN AND UNLABORED. CINDER DUMP CRANE OPERATOR AT BEDSIDE OBTAINING EKG. WILL CTM.
[2016-12-25 13:16] LABS: HEMATOCRIT 30.6 % (42.0-54.0); HEMOGLOBIN 9.2 g/dL (13.5-17.5)
[2016-12-25 13:22] LABS: INR 1.87 (0.85-1.17); PROTIME 21.5 SECONDS (11.6-15.0)
--- NOTE | 2016-12-25 13:55 | NUR ---
PT TRANSPORTED TO PROCEDURE. WILL CTM UPON RETURN.
--- NOTE | 2016-12-25 15:30 | NUR ---
PT RECIVED TO ROOM FROM PROCEDURE. RR EVEN AND UNLABORED. PT COMPLAINING OF 10/10 PAIN IN ABD. WILL GIVE PRN PAIN MEDS. VSS, PT PLACED ON FREQUENT VS. WILL CTM.
[2016-12-25 16:00] VITALS: BP 151/97
--- NOTE | 2016-12-25 18:30 | NUR ---
PT RESTING QUIELTY, COMPLAINING OF PAIN IN ABD AND BACK. WILL GIVE PRN PAIN MED WHEN TIME. RR EVEN AND UNLABORED, VSS SINCE RETURN FROM PROCEDURE. WILL GIVE REPORT ON PT CONDITION FOR THE DAY.
[2016-12-25 19:00] VITALS: BP 141/79
--- NOTE | 2016-12-25 20:09 | NUR ---
AMBULATING BACK TO BED FROM BATHROOM. HAD BM CONSISTING OF LG AMT SEMI-SOLID STOOL. OBTAINED SAMPLE FOR LAB ORDERED. ADMIN SCHED MEDS. REQUESTED SOME ADULT DIAPERS.
--- NOTE | 2016-12-25 20:10 | NUR ---
ADMIN SCHED PO AND DILAUDID 1MG IV PER REQUEST FOR C/O ABD PAIN.
[2016-12-25 20:11] LABS: HEMATOCRIT 31.4 % (42.0-54.0); HEMOGLOBIN 9.4 g/dL (13.5-17.5)
[2016-12-26] VITALS: BP 157/97
[2016-12-26 04:00] VITALS: BP 178/107
--- NOTE | 2016-12-26 05:07 | NUR ---
AWAKE WATCHING TV. RATED PAIN LEVEL OF ABD AT 5 ON NUMBER SCALE.
[2016-12-26 05:16] LABS: BASOPHILS 0.3 % (0-2); EOSINOPHILS 10.5 % (0-7); HEMATOCRIT 31.5 % (42.0-54.0); HEMOGLOBIN 9.4 g/dL (13.5-17.5); IMMATURE GRANULOCYTES 0.2 % (0-5); LYMPHOCYTES 15.5 % (15-50); MCH 24.2 pg (26.0-34.0); MCHC 29.8 g/dL (31.0-37.0); MCV 81.2 fL (80.0-100.0); MEAN PLATELET VOLUME 10.9 fL (7.4-10.4); MONOCYTES 9.9 % (2-11); NEUTROPHILS 63.6 % (40-80); PLATELET COUNT 155 10x3/uL (130-400); RBC 3.88 10x6/uL (4.20-6.10); RDW 16.7 % (11.5-14.5); WBC 6.1 10x3/uL (4.8-10.8)
[2016-12-26 05:26] LABS: INR 1.85 (0.85-1.17); PROTIME 21.3 SECONDS (11.6-15.0)
[2016-12-26 08:00] VITALS: BP 172/88
--- NOTE | 2016-12-26 08:15 | NUR ---
AM ROUNDS COMPLETED. SHIFT ASSESSMENT DONE. MORNING MEDICATIONS PASSED ALONG WITH PRN ANXIETY MED AND PAIN MED FOR SEVERE ABDOMINAL PAIN. PT STATES ITS CONSTANT AND CURRENT PAIN REGIMEN NOT ENOUGH, WILL DISCUSS WITH PRIMARY ABOUT INCREASING OR BREAKTHROUGH PAIN MEDICATION. PT STATES HE FINALLY HAD LARGE BM IT WAS SEMI FORMED BUT VERY DARK STILL. L.FA PIV DRSG SOILED AND CHANGED, NEW DRSG CDI AND SWAB CAPS IN USE. NS INFUSING @100ML/HR ORDERED. PT DENIES ANY FURTHER NEEDS AT THIS TIME AND VOICED THANKS. CL IN REACH, BED IN LOWEST, SIDE RAILS X2. WILL CPOC.
[2016-12-26 12:00] VITALS: BP 175/104
[2016-12-26 16:00] VITALS: BP 171/103
--- NOTE | 2016-12-26 16:00 | NUR ---
PT C/O PAIN STILL NOT BEING CONTROLLED WITH CURRENT PAIN MANAGEMENT. AT BEDSIDE AND ASKED IF WE CAN TALK TO PRIMARY ABOUT INCREASING IT TO HELP WITH HIS HTN AND ANXIETY. PAGED WILL CPOC.
--- NOTE | 2016-12-26 16:34 | NUR ---
DILAUDID INCREASED AND WILL CONTINUE TO TRY AND KEEP PT COMFORTABLE.
[2016-12-26 19:00] VITALS: BP 167/100
--- NOTE | 2016-12-26 19:43 | NUR ---
RECEIVED REPORT, WILL ASSUME CARE OF PT, PT ASKING FOR PAIN MEDS, GAVE 2MG DIDULID ORDER, BED IS LOW, SRX2, CALL LIGHT IN REACH, WILL CONTINUE PLAN OF CARE
[2016-12-27] VITALS: BP 148/78
--- NOTE | 2016-12-27 00:20 | NUR ---
ASSESSMENT COMPLETE, SEE FLOW SHEET, PT SLEEPING, BED IS LOW, SRX2, CALL LIGHT IN REACH, WILL CONTINUE PLAN OF CARE
--- NOTE | 2016-12-27 00:37 | NUR ---
PT COMPLAINS OF ABDOMEN PAIN, GAVE 2MG DIDULID ORDER
[2016-12-27 04:03] VITALS: BP 151/91
--- NOTE | 2016-12-27 05:55 | NUR ---
COMPLAINS OF ABDOMEN PAIN, GAVE 2MG OD DIDULID ORDER
[2016-12-27 06:11] LABS: BASOPHILS 0.3 % (0-2); EOSINOPHILS 11.3 % (0-7); HEMATOCRIT 31.6 % (42.0-54.0); HEMOGLOBIN 9.6 g/dL (13.5-17.5); IMMATURE GRANULOCYTES 0.3 % (0-5); LYMPHOCYTES 11.1 % (15-50); MCH 24.6 pg (26.0-34.0); MCHC 30.4 g/dL (31.0-37.0); MEAN PLATELET VOLUME 10.3 fL (7.4-10.4); MONOCYTES 9.9 % (2-11); NEUTROPHILS 67.1 % (40-80); PLATELET COUNT 168 10x3/uL (130-400); RDW 16.6 % (11.5-14.5); WBC 6.6 10x3/uL (4.8-10.8)
[2016-12-27 06:23] LABS: PROTIME 22.7 SECONDS (11.6-15.0)
[2016-12-27 06:28] LABS: AMYLASE - SERUM 14 U/L (25-115); CALC OSMOLALITY 276 mosm/kg (275-300); CALCIUM 8.2 mg/dL (8.5-10.1); CARBON DIOXIDE 27.8 mmol/L (21.0-32.0); CHLORIDE - SERUM 105 mmol/L (98-107); CREATININE - SERUM 0.8 mg/dL (0.6-1.3); GLUCOSE 83 mg/dL (74-106); LIPASE 57 U/L (73-393); POTASSIUM - SERUM 3.5 mmol/L (3.5-5.1); SODIUM 140 mmol/L (136-145); UREA NITROGEN 10 mg/dL (7-18); eGFR NON AFRICAN AMERICAN > 90 mL/min (90-120)
--- NOTE | 2016-12-27 07:45 | NUR ---
AM ROUNDS COMPLETED. PT FAMILIAR WITH ME HIS RN I HAVE BEEN FOR A COUPLE DAYS. PT STATES HES STILL NOT SLEEPING AND IN SEVERE PAIN ALL NIGHT AND IS NEVER OUT OF PAIN HE STATES. SHIFT ASSESSMENT COMPLETED. RR NONLABORED ON RA. L.FA PIV HAS NS @100ML/HR INFUSING. WILL CHECK WHEN PT CAN HAVE PAIN MEDICATION AND CPOC. CL IN REACH, BED IN LOWEST, SIDE RAILS X2. WILL CPOC.
[2016-12-27 08:00] VITALS: BP 175/99
--- NOTE | 2016-12-27 10:15 | NUR ---
MORNING MEDICATIONS PASSED AND PROVIDED PT WITH HIS PRN DILAUDID FOR SEVERE ABDOMINAL PAINS. PT VOICED THANKS AND DENIES ANY FURTHER NEEDS AT THIS TIME. CL IN REACH. WILL CPOC.
--- NOTE | 2016-12-27 13:00 | NUR ---
PT JUST FINISHED A SHOWER AND IS BACK IN BED RESTING. PT KNOWS WE NEED A STOOL SPECIMEN AND HASNT BEEN ABLE TO PRODUCE ONE YET. PROVIDED PT WITH PRN PAIN MEDICATION REQUESTED FOR ABDOMINAL BURNING AND PAIN. NO FURTHER NEEDS AT THIS TIME. WILL CPOC.
--- NOTE | 2016-12-27 13:40 | NUR ---
PT RESTING QUIETLY IN BED WITH EYES CLOSED AND APPEARS TO BE COMFORTABLE. RR NONLABORED ON RA. WILL CPOC.
--- NOTE | 2016-12-27 15:57 | NUR ---
PROVIDED PT WITH PRN PAIN MEDICATION REQUESTED FOR SEVERE BURNING ABDOMINAL PAIN, ALSO PROVIDED PT WITH PRN LEVISIN TO TRY TO HELP WITH GASTRIC PAIN. PTS BERTRAND PIV HAS BLOODY SOILAGE ON DRSG, REMOVED TEGADERM AND CLEANED UP SITE AND PROVIDED NEW CLEAN DRSG WITH DATE ON IT, PIV FLUSHES AND HAS GOOD BLOOD RETURN NO NEW ACCESS NEEDED. CHANGED OUT PTS IV TUBING PER Q72H POLICY, NEW TUBING DATED AND INTIALED, NS INFUSING @100ML/HR WITHOUT ANY FURTHER LEAKAGE NOTED. PT STILL DENIES BEING ABLE TO HAVE A BM BUT KNOWS WE NEED IT COLLECTED. CL IN REACH, BED IN LOWEST, SIDE RAILS X2. WILL CPOC.
[2016-12-27 16:00] VITALS: BP 176/105
--- NOTE | 2016-12-27 17:06 | NUR ---
PT RESTING QUIETLY IN BED WATCHING TV. STATES SOME PAIN RELIEF BUT STILL OVERALL STATES IT DOESNT GET BETTER. PT DENIES ANY CURRENT NEEDS. WILL CPOC.
--- NOTE | 2016-12-27 19:20 | NUR ---
RECEIVED REPORT, WILL ASSUME CARE OF PT, PT COMPLAINS OF ABDOMEN PAIN, WILL GIVE PAIN MEDS ORDER, WHEN ITS TIME, BED IS LOW, SRX2, CALL LIGHT IN REACH, WILL CONTINUE PLAN OF CARE
[2016-12-27 20:26] VITALS: BP 155/106
[2016-12-28] VITALS (7 sets, daily range): BP systolic 120–198; BP diastolic 63–103
--- NOTE | 2016-12-28 03:54 | NUR ---
ASSESSMENT COMPLETE, SEE FLOWSHEET, CHECK IV- STILL DRAWS BLOOD, PT DOESNT WANT TO HAVE IV RESITED, BED IS LOW, SR2, CALL LIGHT IN REACH, WILL CONTINUE PLAN OF CARE
[2016-12-28 05:09] LABS: BASOPHILS 0.2 % (0-2); EOSINOPHILS 11.6 % (0-7); HEMATOCRIT 32.9 % (42.0-54.0); HEMOGLOBIN 9.9 g/dL (13.5-17.5); IMMATURE GRANULOCYTES 0.2 % (0-5); LYMPHOCYTES 15.5 % (15-50); MCH 24.4 pg (26.0-34.0); MCHC 30.1 g/dL (31.0-37.0); MCV 81.2 fL (80.0-100.0); MEAN PLATELET VOLUME 10.7 fL (7.4-10.4); MONOCYTES 8.7 % (2-11); NEUTROPHILS 63.8 % (40-80); PLATELET COUNT 171 10x3/uL (130-400); RBC 4.05 10x6/uL (4.20-6.10); RDW 16.6 % (11.5-14.5); WBC 5.4 10x3/uL (4.8-10.8)
[2016-12-28 05:18] LABS: CALC OSMOLALITY 276 mosm/kg (275-300); CALCIUM 8.2 mg/dL (8.5-10.1); CARBON DIOXIDE 26.3 mmol/L (21.0-32.0); CHLORIDE - SERUM 103 mmol/L (98-107); CREATININE - SERUM 0.7 mg/dL (0.6-1.3); GLUCOSE 97 mg/dL (74-106); POTASSIUM - SERUM 3.4 mmol/L (3.5-5.1); SODIUM 140 mmol/L (136-145); eGFR NON AFRICAN AMERICAN > 90 mL/min (90-120)
[2016-12-28 05:20] LABS: UREA NITROGEN 7 mg/dL (7-18)
--- NOTE | 2016-12-28 07:35 | NUR ---
AM ROUNDS - PT IN BED AND AWAKE AT THIS TIME. YELLOW BAND ON. NON SKID SOCKS ON. MONITOR SHOWING PACE, HR 60. IV TO LEFT FA, NS AT 100CC/HR. PT IS ON ROOM AIR. BED AT LOWEST POSITION. CALL RAZO IN USE/REACH. SIDE RAILS UP 2. NO NEEDS AT THIS TIME. WILL CONTINUE TO MONITOR
--- NOTE | 2016-12-28 11:43 | NUR ---
CONCENTS ARE SIGNED AND IN THE CHART FOR A COLONOSCOPT WITH TIVA. WILL CONTINUE TO MONITOR
--- NOTE | 2016-12-28 15:15 | NUR ---
PT IS IN BED AT THIS TIME AND APPEARS TO BE SLEEPING WITH EQUAL AND NON LABORED BREATHING. WILL CONTINUE TO MONITOR
--- NOTE | 2016-12-28 19:23 | NUR ---
RECEIVED REPORT, WILL ASSUME CARE OF PT, BED IS LOW, SR2, DENIES ANY NEEDS, CALL LIGHT IN REACH, WILL CONTINUE PLAN OF CARE
--- NOTE | 2016-12-29 02:23 | NUR ---
PT ASLEEP. RESPIRATIONS EVEN AND UNLABORED. NS INFUSING TO LEFT FOREARM @ 100. PT HAS NO S/S OF DISTRESS. BED LOW AND CALL LIGHT IN REACH. WILL CPOC
--- NOTE | 2016-12-29 03:15 | NUR ---
ASSESSMENT COMPLETE, SEE FLOWSHEET,BED IS LOW, SR2, CALL LIGHT IN REACH, WILL CONTINUE PLAN OF CARE, PT HAS BEEN NPO SINCE MIDNIGHT
[2016-12-29 05:07] VITALS: BP 121/68
[2016-12-29 05:08] LABS: BASOPHILS 0.2 % (0-2); EOSINOPHILS 9.8 % (0-7); HEMATOCRIT 31.6 % (42.0-54.0); HEMOGLOBIN 9.4 g/dL (13.5-17.5); LYMPHOCYTES 15.8 % (15-50); MCH 24.5 pg (26.0-34.0); MCHC 29.7 g/dL (31.0-37.0); MCV 82.5 fL (80.0-100.0); MEAN PLATELET VOLUME 10.6 fL (7.4-10.4); MONOCYTES 9.6 % (2-11); NEUTROPHILS 64.6 % (40-80); PLATELET COUNT 173 10x3/uL (130-400); RBC 3.83 10x6/uL (4.20-6.10); RDW 16.8 % (11.5-14.5); WBC 5.4 10x3/uL (4.8-10.8)
[2016-12-29 05:38] LABS: CALC OSMOLALITY 278 mosm/kg (275-300); CALCIUM 8.3 mg/dL (8.5-10.1); CARBON DIOXIDE 27.6 mmol/L (21.0-32.0); CHLORIDE - SERUM 104 mmol/L (98-107); CREATININE - SERUM 0.8 mg/dL (0.6-1.3); GLUCOSE 91 mg/dL (74-106); POTASSIUM - SERUM 3.6 mmol/L (3.5-5.1); SODIUM 141 mmol/L (136-145); UREA NITROGEN 7 mg/dL (7-18); eGFR NON AFRICAN AMERICAN > 90 mL/min (90-120)
--- NOTE | 2016-12-29 07:27 | NUR ---
AM ROUNDS - PT IS IN BED AND AWAKE AT THIS TIME. MONITOR SHOWING PACE, HR 60. IV TO LEFT FA, NS AT 100CC/HR. PT IS ON RA. BED AT LOWEST POSITION. CALL RAZO IN USE/REACH. SIDE RAILS UP X2. NO NEEDS AT THIS TIME. WILL CONTINUE TO MONITOR
[2016-12-29 08:13] VITALS: BP 143/78
[2016-12-29 12:14] VITALS: BP 135/76
--- NOTE | 2016-12-29 13:55 | NUR ---
PT IN BED AND APPEARS TO BE SLEEPING WITH EQUAL AND NON LABORED BREATHING AT THIS TIME. BED AT LOWWEST POSITION. CALL RAZO IN REACH. SIDE RAILS UP X2. WILL CONTINUE TO MONITOR
[2016-12-29 17:13] VITALS: BP 149/88
--- NOTE | 2016-12-29 19:15 | NUR ---
PT PULLED IV OUT AT THIS TIME. IV RESITED TO R FOREARM PT TOLERATED WELL
[2016-12-29 20:47] VITALS: BP 149/79
--- NOTE | 2016-12-29 23:10 | NUR ---
PT LYING IN BED, AWAKE, ALERT, DENIES ANY NEEDS. PT IS IN NO ACUTE DISTRESS. CONTINUE TO MONITOR CLOSELY. BED LOW, CALL LIGHT IN REACH, SIDE RAILS X 2, HOB 20 DEGREES.
[2016-12-30 00:52] VITALS: BP 136/70
[2016-12-30 04:37] VITALS: BP 146/83
[2016-12-30 05:48] LABS: BASOPHILS 0.6 % (0-2); HEMATOCRIT 33.4 % (42.0-54.0); HEMOGLOBIN 9.7 g/dL (13.5-17.5); LYMPHOCYTES 17.9 % (15-50); MCH 24.1 pg (26.0-34.0); MCV 83.1 fL (80.0-100.0); MEAN PLATELET VOLUME 10.5 fL (7.4-10.4); MONOCYTES 10.7 % (2-11); NEUTROPHILS 57.8 % (40-80); PLATELET COUNT 171 10x3/uL (130-400); RBC 4.02 10x6/uL (4.20-6.10); RDW 16.7 % (11.5-14.5); WBC 5.1 10x3/uL (4.8-10.8)
[2016-12-30 06:06] LABS: INR 2.18 (0.85-1.17); PROTIME 24.3 SECONDS (11.6-15.0)
--- NOTE | 2016-12-30 07:30 | NUR ---
INTRODUCED MYSELF TO PT PRIMARY RN FOR TODAYS SHIFT. PT A&O SITTING UP IN BED C/O R.AC PIV BURNING, UPON FLUSHING IT IT WAS INFILTRATED, D/C WITH CATH TIP FULLY INTACT. 20 GUAGE PIV INSERTED INTO R.UPPER ARM X1 STICK. FLUIDS RESTARTED ORDERED NS @100ML/HR. PT VOICED THANKS AND IS C/O SHARP PAIN IN HIS ABDOMEN, PAIN SHOT AVAILABLE AROUND 8 WILL BRING WITH MORNING MEDS. PT VOICED THANKS AND DENIES ANY FURTHER NEEDS AT THIS TIME. CL IN REACH, BED IN LOWEST, SIDE RAILS X2. WILL CPOC.
[2016-12-30 08:14] VITALS: BP 135/75
--- NOTE | 2016-12-30 11:05 | NUR ---
Nutrition Follow Up: Pt is eating 71% meal avg on a regular diet. Wt gain noted. +BM 12/29/16. Meds and labs reviewed. Rec continue current diet as tolerated. RD following.
--- NOTE | 2016-12-30 11:51 | NUR ---
PT CALLED REQUESTING PRN PAIN MEDICATION AND WAS PROVIDED WITH IT. PT VOICED THANKS AND IS LYING BACK IN BED RESTING QUIETLY. CL IN REACH, BED IN LOWEST, SIDE RAILS X2, WILL CPOC.
[2016-12-30 12:10] VITALS: BP 126/81
--- NOTE | 2016-12-30 12:21 | NUR ---
STOOL SPECIMEN NO LONGER NEEDED AND CANCELLED PER GI
--- NOTE | 2016-12-30 12:24 | NUR ---
CALLED TO FIND OUT ABOUT D/C PT. SHE IS OKAY WITH DISCHARGE, F/U EGD IN 3 MONTHS, CONTINUE PROTONIX UNTIL FURTHER NOTICE.
--- NOTE | 2016-12-30 12:29 | NUR ---
ORDERS OBTAINED FOR PTS DISCHARGE FROM GI STAND POINT.
[2016-12-30] MEDS ORDERED: CARAFATE1 G/10 ML PO (12:31)
[2016-12-30] MEDS ORDERED: ANUSOL-HC25 MG RC (12:31)
[2016-12-30] MEDS ORDERED: PROTONIX40 MG PO (12:31)
--- NOTE | 2016-12-30 14:18 | NUR ---
Patient Name: VAHE NARVAEZ Encounter No: [id number] : 1950 Primary Insurance: [employer] MCR [employer] Anticipated DC Date: 12-30-2016 Planned Disposition: Home with Home Health External Planned Provider: [facility] DISCHARGE PLANNING NOTE: * Is the patient Alert and Oriented? Yes 0 * PCP DR. BUSTILLOS 0 * Pharmacy [facility] 0 * Preadmission Environment Home Alone 0 * ADLs Independent 0 * Equipment Cane 0 * Other Equipment NO MEDICAL EQUIPMENT PROVIDER PREFERENCE 0 * List name and contact numbers for known caregivers / representatives who currently or will assist patient after discharge: BROTHER EUBANKS, BROTHER GALVAN, 0 * Community resources currently utilized Home Health 0 * Please name any agencies selected above. [facility] 0 * Additional services required to return to the preadmission environment? No 0 * Can the patient safely return to the preadmission environment? Yes 0 * Has this patient been hospitalized within the prior 30 days at any hospital? Yes 0 CM MET WITH PT IN ROOM TO DISCUSS DISCHARGE PLANNING AND NEEDS. PT REPORTS LIVING AT HOME INDEPENDENTLY AND ALONE. PT HAS A CANE WITH NO MEDICAL EQUIPMENT PROVIDER PREFERENCE. PT HAS [facility] FOR NURSING SINCE GETTING OUT OF INPATIENT REHAB. CM DISCUSSED AVAILABILITY OF HOME HEALTH, REHAB SERVICES AND MEDICAL EQUIPMENT. PT DENIES DISCHARGE NEEDS OTHER THAN TO RESUME [facility], REPORTS HE IS DRIVING HIMSELF HOME AT DISCHARGE TODAY. IMPORTANT MESSAGE FROM MED[employer] PROVIDED AND EXPLAINED. DISTANCE LEARNING PROGRAM COORDINATOR NURSE NOTIFIED. Francisco Hardy, CASE MANAGEMENT
--- NOTE | 2016-12-30 14:47 | NUR ---
PTS DISCHARGE PAPERS COMPLETED. 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 PT VERBALIZED UNDERSTANDING AND IS NOW WAITING. WILL REMOVE PIV AND TELEMETRY PRIOR TO D/C.
--- NOTE | 2016-12-30 16:18 | NUR ---
PTS DISCHARGE ON HOLD R/T NO RIDE. PT IS WANTING TO DRIVE HIMSELF HOWEVER HAD DILAUDID IVP AROUND 1130 AND PER RIVET FLUNKY NOT SAFE FOR DRIVING AND HOSPITAL POLICY STATES 24HOURS FREE OF NARCOTICS, UNLESS THEY HAVE OTHER TRANSPORTATION. TALKED WITH PT AND HE IS GOING TO TRY AND CALL SOME FRIENDS AND WILL LET US KNOW.
--- NOTE | 2016-12-30 18:00 | NUR ---
PT UNABLE TO FIND A RIDE HOME SO HE WILL HAVE TO STAY OVERNIGHT AND VERBALIZED UNDERSTANDING AND STATES HE WILL STAY AND LEAVE TOMORROW. PT DENIES ANY CURRENT PAIN OR NEEDS, WILL LEAVE PIV IN JUST IN CASE EMERGENCY UNTIL ACTUALLY DISCHARGED. RR NONLABORED ON RA. CL IN REACH, WILL CPOC.
--- NOTE | 2016-12-30 20:03 | NUR ---
RESUMED CARE OF PT, LYING IN BED RESPIRATIONS EVEN AND UNLABORED ON ROOM AIR. 70 PACED ON TELEMETRY. RIGHT UPPER ARM SALINE LOCKED. CALL LIGHT IN REACH. WILL CONTINUE TO MONITOR. SEE NURSE ASSESSMENT.
--- NOTE | 2016-12-30 23:14 | NUR ---
HYOSCYAMINE GIVEN FOR GASTRIC PAIN. WILL CONTINUE TO MONITOR.
--- NOTE | 2016-12-31 00:08 | NUR ---
PT WANTS TO GO HOME, IS HAVING ABDOMINAL DISCOMFORT. MEDICATION GIVEN EARLIER ISN'T HELPING. DISCUSSED THE COMPLICATION OF HIM DRIVING HIMSELF AFTER RECEIVING IV DILAUDID @ 1150 AM AND WHAT WAS TOLD TO HIM DURING THE DAYTIME WITH RETAIL LOAN ORIGINATOR ASSISTANT ANUJA JARAMILLO. WAS INSTRUCTED TO CALL ER AND LABOR AND DELIVERY TO INQUIRE ABOUT THEIR POLICIES OF PT'S DRIVING THEMSELVES HOME AFTER NARCOTICS HAVE BEEN ADMINISTERED, BOTH THAIS ARDON FROM ER AND BARBIE POLK FROM LABORE AND DELIVERY STATED THEY WON'T LET PT'S DRIVE UNTIL THE HALF LIFE OF THE MEDICATION IS OUT OF THEIR SYSTEM. OFTENTIMES AT NIGHT THEY GIVE A NARCOTIC AND ARE INSTRUCTED NOT TO DRIVE UNTIL THE MORNING. THIS PT HAS BEEN 12 HRS WITHOUT ADMINISTRATION OF DILAUDID, THIS NURSE AND ALL THE NURSES MENTIONED ABOVE ALL AGREE THAT IF HE WANTS TO GO HOME AND HE IS STABLE ON HIS FEET LET HIM GO. IV REMOVED FROM RIGHT AC WITH TIP INTACT, TELEMETRY REMOVED.
--- NOTE | 2016-12-31 00:35 | NUR ---
REFUSING TO SIGN DISCHARGE PAPERWORK. PT STATES HE VERY MUCH WANTS TO GO HOME AND IS GOING HOME, BUT HE WON'T SIGN ANYTHING THAT I HAVE. WHEELED OUT TO VEHICLE.
== END 2016-12-31 00:36 | disposition home health service (06) | DRG 378 ==
LOC: D.ER 18:04 → OBSVTIME 12-24 00:22 → D.M2 12-24 00:22
PROVIDERS: Family Medicine; Internal Medicine Gastroenterology; Nurse Practitioner Family; ADMIT Family Medicine
PROC: 0DB78ZX Excision of Stomach, Pylorus, Via Natural or Artificial Opening Endoscopic, Diagnostic (ICD-10-PCS; principal; 2016-12-25 14:00)
PROC: 0DBK8ZX Excision of Ascending Colon, Via Natural or Artificial Opening Endoscopic, Diagnostic (ICD-10-PCS; 2016-12-29)
DX: K25.0 Acute gastric ulcer with hemorrhage (principal); D62 Acute posthemorrhagic anemia; K44.9 Diaphragmatic hernia without obstruction or gangrene; K64.8 Other hemorrhoids; Z79.01 Long term (current) use of anticoagulants; I11.0 Hypertensive heart disease with heart failure; I50.9 Heart failure, unspecified; I48.2 Chronic atrial fibrillation; I25.10 Atherosclerotic heart disease of native coronary artery without angina pectoris; K21.9 Gastro-esophageal reflux disease without esophagitis; D64.9 Anemia, unspecified; F43.10 Post-traumatic stress disorder, unspecified; Z95.0 Presence of cardiac pacemaker; Z86.73 Personal history of transient ischemic attack (TIA), and cerebral infarction without residual deficits

== ENCOUNTER 2016-12-31 07:32 | Observation (INO) | payer MEDICARE, MEDICAID ==
[~2016-12-31 07:32] MED LIST changes: +ANUSOL-HC25 MG RC; +CARAFATE1 G/10 ML PO; +FUROSEMIDE20 MG PO
[2016-12-31 11:48] LABS: BASOPHILS 0.2 % (0-2); HEMATOCRIT 35.7 % (42.0-54.0); IMMATURE GRANULOCYTES 0.3 % (0-5); LYMPHOCYTES 5.7 % (15-50); MCH 24.6 pg (26.0-34.0); MCHC 30.8 g/dL (31.0-37.0); MEAN PLATELET VOLUME 10.2 fL (7.4-10.4); MONOCYTES 2.5 % (2-11); NEUTROPHILS 86.3 % (40-80); RBC 4.47 10x6/uL (4.20-6.10); RDW 16.7 % (11.5-14.5)
[2016-12-31 12:01] LABS: MCV 79.9 fL (80.0-100.0); PLATELET COUNT 222 10x3/uL (130-400); WBC 8.7 10x3/uL (4.8-10.8)
[2016-12-31 12:10] LABS: ALBUMIN 3.6 g/dL (3.4-5.0); ALKALINE PHOSPHATASE 78 U/L (46-116); ALT (SGPT) 20 U/L (10-68); BILIRUBIN - TOTAL 0.78 mg/dL (0.2-1.3); CALC OSMOLALITY 290 mosm/kg (275-300); CALCIUM 8.7 mg/dL (8.5-10.1); CARBON DIOXIDE 29.8 mmol/L (21.0-32.0); CHLORIDE - SERUM 104 mmol/L (98-107); CREATININE - SERUM 0.7 mg/dL (0.6-1.3); GLUCOSE 128 mg/dL (74-106); POTASSIUM - SERUM 3.4 mmol/L (3.5-5.1); PROTEIN - SERUM 7.2 g/dL (6.4-8.2); SODIUM 146 mmol/L (136-145); UREA NITROGEN 7 mg/dL (7-18); eGFR NON AFRICAN AMERICAN > 90 mL/min (90-120)
[2016-12-31 12:17] LABS: CREATINE KINASE 70 UL (21-232); PRO BNP 1988 pg/mL (0-125)
[2016-12-31 12:20] LABS: TROPONIN-I 0.016 ng/mL (0.000-0.060)
--- NOTE | 2016-12-31 14:13 | NUR ---
PT ARRIVED TO UNIT VERY LETHARGIC AND SEDATED. PT APPARENTLY WAS NARCANNED 3 TIMES PER ER NURSE BUT PT WONT STAY AWAKE OR ANSWER ANY QUESTIONS FOR ME. I WAS PTS PRIMARY RN YESTERDAY AND HE DID NOT HAVE ANY OF THE SYMPTOMS. 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 PTS LUNGS ARE CTA HOWEVER EXTREMELY LIMITED ASSESSMENT R/T PT NOT RESPONDING OR FOLLOWING COMMANDS TO DEEP BREATHE FOR ME. MAINLY DIMINISHED AND VERY SHALLOW. NC @2L IN PLACE AND PULSE OX 96% PTS PERIPHERAL PULSES PALPABLE AND STRONG EQUAL BILAT LE. VERY LIMITED ASSESSMENT DUE TO PTS LOC. BRUISING NOTED TO LLQ OF ABDOMEN THIS IS NEW COMPARED TO YESTERDAYS ASSESSMENT, PROBABLY DUE TO PTS FALL AT HOME. BOWEL SOUNDS ACTIVE X4 AND ABDOMEN SOFT NONDISTENDED. PACEMAKER IN PLACE AND TELEMETRY APPLIED AND PT RUNNING 74 SR PACED PER ZANK.mobi TECH JUANITA. PAULINA ALARM IN PLACE, WILL CONTINUE ADMISSION WORKUP.
--- NOTE | 2016-12-31 14:54 | NUR ---
PT LEAVING FOR CT SCAN.
[2016-12-31 14:55] LABS: APPEARANCE CLEAR (CLEAR); BILIRUBIN NEGATIVE (NEGATIVE); COLOR COLORLESS (YELLOW); GLUCOSE NEGATIVE (NEGATIVE); KETONE SMALL mg/dL (NEGATIVE); NITRITE NEGATIVE (NEGATIVE); PROTEIN NEGATIVE (NEGATIVE); SPECIFIC GRAVITY 1.005 (1.005-1.020); UROBILINOGEN NORMAL (NORMAL)
[2016-12-31 15:02] LABS: UDS - AMPHET NEGATIVE QUAL (NEGATIVE); UDS - BARB NEGATIVE QUAL (NEGATIVE); UDS - BENZO POSITIVE QUAL (NEGATIVE); UDS - COCAINE NEGATIVE QUAL (NEGATIVE); UDS - OPIATE NEGATIVE QUAL (NEGATIVE); UDS - PCP NEGATIVE QUAL (NEGATIVE); UDS - THC NEGATIVE QUAL (NEGATIVE)
--- NOTE | 2016-12-31 15:12 | NUR ---
PT BACK FROM CT, STILL VERY LETHARGIC AND UNABLE TO FOLLOW COMMANDS.
[2016-12-31 15:18] VITALS: BP 167/91
--- NOTE | 2016-12-31 15:20 | NUR ---
PT NOW AWAKE AND STATING HE IS HURTING AND WANTS SOMETHING FOR PAIN, PT STATES PAIN IN HIS CHEST AND HEAD, STAT EKG DONE. RADIO DIVISION OFFICER AT BEDSIDE PERFORMING ECHO. PT STILL IN/OUT LETHARGIC. EMPTIED AN ADDITIONAL 1000CC CLEAR DILUTED URINE FROM SCHMIDT CATH, NOTIFIED DOCTOR TO INQUIRE ABOUT CLAMPING OFF R/T LARGE AMOUNT IN SUCH SHORT TIME.
[2016-12-31 15:30] VITALS: BP 156/99; BMI 33.3
[2016-12-31 16:00] VITALS: BP 156/99
--- NOTE | 2016-12-31 16:22 | NUR ---
LAB UNABLE TO GET BLOOD DRAW 2 SEPERATE TECHS TRIED. I GOT BLOOD DRAW X1 STICK AND SENT SPECIMENS TO LAB. PT C/O BEING COLD AND I PROVIDED HIM WITH ANOTHER BLANKET. PT MORE ALERT AND HAS STAYED AWAKE FOR ALMOST AN HOUR NOW. C/O BEING THIRSTY PROVIDED ICE CHIPS UNTIL ABLE TO CHECK HIS SWALLOWING.
[2016-12-31 16:34] LABS: BASOPHILS 0 % (0-2); EOSINOPHILS 0.2 % (0-7); HEMATOCRIT 38.4 % (42.0-54.0); HEMOGLOBIN 11.7 g/dL (13.5-17.5); IMMATURE GRANULOCYTES 0.2 % (0-5); LYMPHOCYTES 7.9 % (15-50); MCH 24.3 pg (26.0-34.0); MCHC 30.5 g/dL (31.0-37.0); MCV 79.8 fL (80.0-100.0); MEAN PLATELET VOLUME 10.5 fL (7.4-10.4); MONOCYTES 0.9 % (2-11); NEUTROPHILS 90.8 % (40-80); PLATELET COUNT 216 10x3/uL (130-400); RBC 4.81 10x6/uL (4.20-6.10); RDW 16.7 % (11.5-14.5)
[2016-12-31 16:35] LABS: WBC 4.5 10x3/uL (4.8-10.8)
[2016-12-31 16:42] LABS: CALC OSMOLALITY 290 mosm/kg (275-300); CALCIUM 9.1 mg/dL (8.5-10.1); CARBON DIOXIDE 32.2 mmol/L (21.0-32.0); CHLORIDE - SERUM 102 mmol/L (98-107); CREATININE - SERUM 0.7 mg/dL (0.6-1.3); GLUCOSE 138 mg/dL (74-106); SODIUM 146 mmol/L (136-145); UREA NITROGEN 6 mg/dL (7-18); eGFR NON AFRICAN AMERICAN > 90 mL/min (90-120)
[2016-12-31 16:43] LABS: INR 1.59 (0.85-1.17); PROTIME 18.9 SECONDS (11.6-15.0)
--- NOTE | 2016-12-31 18:07 | NUR ---
PT HAS CALLED 5 TIMES IN THE LAST 15 MINS DEMANDING SOMETHING FOR PAIN. PT IS MORE ALERT AND WAKE NOW AND HAS TOLD ME HIS WHOLE STORY AND DOES APPEAR TO BE AT HIS BASELINE. HE STATES THAT THE ER GAVE HIM TORADOL AND HE HAS AN ALLERGY AND IT KNOCKS HIM OUT. I AM FAMILIAR WITH THIS PT AND HE STATES "YOU KNOW ME, IM FINE, THIS IS MY BASELINE" WILL PAGE AND REQUEST SOMETHING FOR PTS UNCONTROLLED PAIN.
--- NOTE | 2016-12-31 19:45 | NUR ---
PROVIDED PT WITH PRN MEDICATION TO SUB FOR PAIN MED. PT C/O PAIN ALL OVER BUT NO NARCOTICS ARE ALLOWED DUE TO LOC ISSUES PREVIOUSLY TODAY AND NARCANNED IN ER. PROVIDED PT WITH POTASSIUM FOR EP REPLACEMENT. WILL CHECK POTASS WITH AM LABS AND CPOC.
[2016-12-31 21:38] VITALS: BP 173/93
--- NOTE | 2016-12-31 21:59 | NUR ---
PT IS C/O CHEST PAIN AND MENTIONED LEFT ARM PAIN AFTER I ASKED HIM ABOUT THE LARGE LACERATION TO HIS OUT LEFT FOREARM. PT IS ROLLING BACK IN FORTH IN HIS BED, AND HAS CALLED SEVERAL TIMES SINCE I CAME ON SHIFT @ 21:00 ASKING FOR PAIN MEDICATION, EACH TIME STATING A DIFFERENT AREA OF PAIN, FROM HIS ABDOMEN TO HIS CHEST, AND NOW HIS LEFT ARM. PT IS CLEARLY AGITATED, AND DEMONSTRATES INCREASED ANXIETY WELL. I HAVE PAGED DR. PATEL SPECIAL EDUCATION SCIENCE TEACHER FOR DR. WYLIE FOR FURTHER ORDERS. I WILL GIVE PRN TYLENOL FOR NOW.
--- NOTE | 2016-12-31 22:09 | NUR ---
DR. PATEL HAS ORDERED COREG 6.25 PO BID, PT TAKES THIS AT HOME, ALONG WITH AN ORDER FOR SUBLINGUAL NITRO FOR PTS CHEST PAIN. WILL CONTINUE TO MONITOR CLOSELY.
--- NOTE | 2016-12-31 22:26 | NUR ---
PT REFUSED THE NITRO, STATING HE IS HAVING SUCH A BAD HEADACHE RIGHT NOW, HE FEARS IT WILL ONLY MAKE IT WORSE. PT DID TAKE THE PRN TYLENOL. I HAVE EXPLAINED TO PT THAT DUE TO HIS AMS CHANGES, FREQUENT FALLS AT HOME, GENERALIZED WEAKNESS, AND NOW HIS CURRENT SCHMIDT CATHETER, THAT HE IS NEVER TO ATTEMPT TO GET OUT OF BED WITHOUT CALLING FOR ASSISTANCE FIRST. PT VERBALLY AGREED TO DO SO. PAULINA MAT ALARM PLACED UNDER PT FOR INCREASED SAFETY.
--- NOTE | 2017-01-01 00:58 | NUR ---
PT IS CALLING C/O STILL HAVING A HEADACHE, RATING IT 10/10 ON NUMERIC PAIN SCALE. PT IS ASKING FOR SOMETHING TO HELP HIM SLEEP, IN WHICH I HAVE REMINDED PT THAT THERE IS NOTHING ORDERED AND DUE TO HIS CURRENT MENTAL STATE AND HEALTH STATUS, WE CANNOT GIVE HIM ANYTHING THAT COULD POTENTIALLY ALTER HIS MENTAL STATUS. PT DENIES ANY OTHER NEEDS. WILL CONTINUE TO MONITOR PT CLOSELY. BED LOW, CALL LIGHT IN REACH, SIDE RAILS X 2, HOB 30 DEGREES, PAULINA MAT ON AND UNDER PT.
[2017-01-01 01:53] VITALS: BP 172/90
--- NOTE | 2017-01-01 03:54 | NUR ---
PT HAS HAD AN INCONTINENT BOWEL EPISODE AT THIS TIME. HIS PAULINA MAT ALARM SOUNDED, AND WHEN ENTERING ROOM, PT WAS STANDING BESIDE HIS BED, NAKED, AND TRYING TO STRIP HIS BED. COLIN SHUKLA AND MYSELF WERE PRESENT AT THIS TIME. PT STATES HE HAS BEEN HAVING FREQUENT AND RECURRENT DIARRHEA FOR 2-3 WEEKS NOW. PT HAS BEEN CLEANED, LINEN CHANGED, GOWN CHANGED, AND PT RESTING COMFORTABLY BACK IN BED. CONTINUE TO MONITOR PT CLOSELY.
[2017-01-01 04:16] VITALS: BP 159/81
--- NOTE | 2017-01-01 04:48 | NUR ---
PT RESTING COMFORTABLY, ROUSABLE TO VERBAL STIMULI, BUT FALLS BACK TO SLEEP. PT IS SNORING AT THIS TIME. PT HAD ASKED EARLIER FOR MORE PRN TYLENOL R/T HIS HEADACHE, HOWEVER, WHEN I WENT IN TO GIVE PT HIS TYLENOL, HE WAS SLEEPING AND WOULD NOT WAKE LONG ENOUGH TO TAKE IT. I HAVE WASTED THE RX. WILL CONTINUE TO MONITOR PT CLOSELY. BED LOW, CALL LIGHT IN REACH, SIDE RAILS X 2, HOB 30 DEGREES, PAULINA MAT UNDER PT AND ON.
[2017-01-01 05:35] LABS: BASOPHILS 0 % (0-2); EOSINOPHILS 0.2 % (0-7); HEMATOCRIT 34.1 % (42.0-54.0); HEMOGLOBIN 10.6 g/dL (13.5-17.5); LYMPHOCYTES 7.3 % (15-50); MCH 24.2 pg (26.0-34.0); MCHC 31.1 g/dL (31.0-37.0); MCV 77.9 fL (80.0-100.0); MEAN PLATELET VOLUME 10.6 fL (7.4-10.4); MONOCYTES 7.3 % (2-11); NEUTROPHILS 85.2 % (40-80); PLATELET COUNT 250 10x3/uL (130-400); RBC 4.38 10x6/uL (4.20-6.10); RDW 16.9 % (11.5-14.5)
[2017-01-01 05:42] LABS: WBC 6.3 10x3/uL (4.8-10.8)
[2017-01-01 05:53] LABS: ALBUMIN 3.1 g/dL (3.4-5.0); ALKALINE PHOSPHATASE 61 U/L (46-116); ALT (SGPT) 19 U/L (10-68); CALCIUM 8.2 mg/dL (8.5-10.1); CARBON DIOXIDE 33.3 mmol/L (21.0-32.0); CHLORIDE - SERUM 99 mmol/L (98-107); GLUCOSE 127 mg/dL (74-106); PROTEIN - SERUM 6.4 g/dL (6.4-8.2); SODIUM 141 mmol/L (136-145)
[2017-01-01 05:55] LABS: CALC OSMOLALITY 281 mosm/kg (275-300); CREATININE - SERUM 0.9 mg/dL (0.6-1.3); POTASSIUM - SERUM 2.5 mmol/L (3.5-5.1); UREA NITROGEN 9 mg/dL (7-18); eGFR NON AFRICAN AMERICAN 90 mL/min (90-120)
--- NOTE | 2017-01-01 07:56 | NUR ---
AM ROUNDS - PT IN BED AND AWAKE AT THIS TIME. MONITOR SHOWING PACE, HR 60. PT IS ON RA. RIGHT HAND, SL. PAULINA MAT ON AND ALARM WORKING. BED AT LOWEST POSITION. CALL RAZO IN USE/REACH. SIDE RAILS UP X2. NO NEEDS AT THIS TIME. WILL CONTINUE TO MONITOR
[2017-01-01 08:46] VITALS: BP 168/81
[2017-01-01 10:27] VITALS: BMI 32.0
[2017-01-01 11:59] VITALS: BP 153/80
[2017-01-01 16:20] VITALS: BP 179/101
--- NOTE | 2017-01-01 16:45 | NUR ---
PT IN BED WITH NO NEEDS AT THIS TIME. BED AT LOWEST POSITION. CALL RAZO IN USE/REACH. SIDE RAILS UP X2. WILL CONTINUE TO MONITOR
[2017-01-01 19:00] VITALS: BP 197/110
--- NOTE | 2017-01-01 19:44 | NUR ---
ALERT/AWAKE DENIES ANY NEEDS. IV IN HAND INTACT SL. ASSESSMENTS COMPLETED. HAS CALL LIGHT AND BEDSIDE TABLE WITH PERSONAL ITEMS IN REACH.
--- NOTE | 2017-01-01 21:30 | NUR ---
CALLED DR MARQUEZ TO INFORM OF PATIENT'S B/P 197/110. RECEIVED ORDER TO GIVE CARDIZEM 90MG PO AND HYDRALAZINE 10 MG IV Q6H PRN FOR SBP >180.
[2017-01-02] VITALS: BP 196/112
--- NOTE | 2017-01-02 02:00 | NUR ---
BLASTING ENTRY SPECIALIST REPORTED B/P 196/112. ADMIN HYDRALAZINE 10MG IV.
[2017-01-02 03:27] VITALS: BP 154/66
--- NOTE | 2017-01-02 03:32 | NUR ---
RECHECKED B/P AT 154/66. STILL C/O HEADACHE AND CHEST HURTING FROM HIS FALL.
[2017-01-02 04:00] VITALS: BP 151/80
[2017-01-02 04:39] LABS: BASOPHILS 0.1 % (0-2); EOSINOPHILS 3.4 % (0-7); HEMATOCRIT 39.6 % (42.0-54.0); HEMOGLOBIN 12.3 g/dL (13.5-17.5); IMMATURE GRANULOCYTES 0.2 % (0-5); LYMPHOCYTES 8.2 % (15-50); MCH 24.2 pg (26.0-34.0); MCHC 31.1 g/dL (31.0-37.0); MCV 77.8 fL (80.0-100.0); MEAN PLATELET VOLUME 10.5 fL (7.4-10.4); MONOCYTES 11.9 % (2-11); NEUTROPHILS 76.2 % (40-80); PLATELET COUNT 286 10x3/uL (130-400); RBC 5.09 10x6/uL (4.20-6.10); RDW 17.2 % (11.5-14.5)
[2017-01-02 04:50] LABS: ALBUMIN 3.5 g/dL (3.4-5.0); ALKALINE PHOSPHATASE 70 U/L (46-116); ALT (SGPT) 19 U/L (10-68); BILIRUBIN - TOTAL 1.17 mg/dL (0.2-1.3); CALC OSMOLALITY 281 mosm/kg (275-300); CALCIUM 8.8 mg/dL (8.5-10.1); CARBON DIOXIDE 34.4 mmol/L (21.0-32.0); CHLORIDE - SERUM 101 mmol/L (98-107); CREATININE - SERUM 0.7 mg/dL (0.6-1.3); GLUCOSE 107 mg/dL (74-106); PROTEIN - SERUM 6.9 g/dL (6.4-8.2); SODIUM 142 mmol/L (136-145); UREA NITROGEN 11 mg/dL (7-18); eGFR NON AFRICAN AMERICAN > 90 mL/min (90-120)
[2017-01-02 04:55] LABS: POTASSIUM - SERUM 2.9 mmol/L (3.5-5.1)
--- NOTE | 2017-01-02 05:15 | NUR ---
ADMIN POTASSIUM 20MEQ FOR LAB VALUE 2.9.
[2017-01-02 08:00] VITALS: BP 154/79
--- NOTE | 2017-01-02 08:39 | NUR ---
AM ROUNDS - PT IN BED AND AWAKE AT THIS TIME. MONITOR SHOWING SR, HR 95. IV IN RIGHT HAND, SL. SCHMIDT. BED AT LOWEST POSITION. CALL RAZO IN USE/REACH. SIDE RAILS UP X2. WILL CONRTINUE TO MONITOR
--- NOTE | 2017-01-02 11:47 | NUR ---
ORDER OBTAINED TO DC PT SCHMIDT CATHETER. DC SCHMIDT CATH 16F WITH 10 CC NS FROM B[place]. PT TOLERATED WELL.
[2017-01-02 12:20] VITALS: BP 141/94
--- NOTE | 2017-01-02 14:00 | NUR ---
PT REFUSES A PAULINA ALARM ON HIS BED. EXPLAIN TO PT THAT WE HAVE HIM AT A FALL RISK AND HE IS AT A HIGHER RISK FOR FALLS. PT STATES HE UNDERSTANDS. BED ALARM RELEASE SIGNED AND PLACE IN CHART. PAULINA ALARM TURNED OFF. WILL CONTINUE TO MONITOR
--- NOTE | 2017-01-02 19:51 | NUR ---
RECEIVED REPORT,WILL ASSUME CARE OF PT, PT DENIES ANY NEEDS AT THIS TIME, BED IS LOW, SRX2, PT REFUSING BED ALARM, CONSENT SIGNED NOT TO HAVE BED ALARM, CALL LIGHT IN REACH, WILL CONTINUE PLAN OF CARE
[2017-01-02 23:09] VITALS: BP 166/91
--- NOTE | 2017-01-03 01:24 | NUR ---
LYING IN BED, WILL CONTINUE WITH PLAN OF CARE.
[2017-01-03 01:47] VITALS: BP 161/82
--- NOTE | 2017-01-03 01:57 | NUR ---
ASSESSMENT COMPLETE, SEE FLOWSHEET, PT SLEEPING,BED IS LOW, SRX2, CALL LIGHT IN REACH, PT IS REFUSING TO HAVE BED ALARM ON. WILL CONTINUE PLAN OF CARE
[2017-01-03 05:59] VITALS: BP 117/64
[2017-01-03 08:00] VITALS: BP 160/86
[2017-01-03 12:00] VITALS: BP 120/71
[2017-01-03 16:00] VITALS: BP 149/91
--- NOTE | 2017-01-03 18:00 | NUR ---
ALERT AND ORIENTED X4. WATCHING TV IN BED. COMPLAINS OF BODY ACHES. TYLENOL ADMINISTERED PER DOCTOR ORDER. NAUSEA TREATED WITH ZOFRAN PER DOCTOR ORDER. CONTINUE PLAN OF CARE. BED LOCKED AND LOW. CALL LIGHT IN REACH. TWO SIDERAILS UP. SINUS RHTHYM 63bpm ON TELEMETRY.
--- NOTE | 2017-01-03 19:31 | NUR ---
RECEIVED REPORT, WILL ASSUME CARE OF PT, PT DENIES ANY NEEDS AT THIS TIME, BED IS LOW, SRX2, CALL LIGHT IN REACH, WILL CONTINUE PLAN OF CARE
[2017-01-03 20:25] VITALS: BP 145/83
--- NOTE | 2017-01-03 20:47 | NUR ---
COMPLAINS OF N/V, GAVE ZOFRAN ORDER
--- NOTE | 2017-01-03 22:53 | NUR ---
ASKING FOR SKELAXIN, GAVE ORDER
--- NOTE | 2017-01-03 23:13 | NUR ---
PT RESTING WITH EYES CLOSED. RESP EVEN AND REGULAR. SR UP X2, CALL LIGHT WITHIN REACH.
[2017-01-04 00:51] VITALS: BP 121/81
--- NOTE | 2017-01-04 02:05 | NUR ---
ASKING FOR TYLENOL, GAVE ORDER
[2017-01-04 05:14] LABS: BASOPHILS 0.2 % (0-2); EOSINOPHILS 10.8 % (0-7); HEMATOCRIT 40.9 % (42.0-54.0); HEMOGLOBIN 12.4 g/dL (13.5-17.5); IMMATURE GRANULOCYTES 0.1 % (0-5); LYMPHOCYTES 18.9 % (15-50); MCHC 30.3 g/dL (31.0-37.0); MCV 79.1 fL (80.0-100.0); MONOCYTES 9.8 % (2-11); NEUTROPHILS 60.2 % (40-80); PLATELET COUNT 286 10x3/uL (130-400); RBC 5.17 10x6/uL (4.20-6.10); WBC 8.7 10x3/uL (4.8-10.8)
[2017-01-04 05:19] VITALS: BP 140/82
[2017-01-04 05:46] LABS: ALBUMIN 3.6 g/dL (3.4-5.0); ALKALINE PHOSPHATASE 72 U/L (46-116); ALT (SGPT) 26 U/L (10-68); CALC OSMOLALITY 278 mosm/kg (275-300); CALCIUM 8.6 mg/dL (8.5-10.1); CARBON DIOXIDE 31.2 mmol/L (21.0-32.0); CHLORIDE - SERUM 100 mmol/L (98-107); CREATININE - SERUM 0.9 mg/dL (0.6-1.3); GLUCOSE 89 mg/dL (74-106); MAGNESIUM - SERUM 1.4 mg/dL (1.8-2.4); PHOSPHOROUS 3.3 mg/dL (2.5-4.9); PROTEIN - SERUM 7.3 g/dL (6.4-8.2); SODIUM 139 mmol/L (136-145); UREA NITROGEN 18 mg/dL (7-18); eGFR NON AFRICAN AMERICAN 90 mL/min (90-120)
[2017-01-04 05:50] LABS: POTASSIUM - SERUM 2.8 mmol/L (3.5-5.1)
--- NOTE | 2017-01-04 05:54 | NUR ---
K+2.8, STARTED EP, GAVE 20MEQ
[2017-01-04 08:21] VITALS: BP 148/93
[2017-01-04 10:08] LABS: APPEARANCE CLEAR (CLEAR); BACTERIA FEW /hpf (NONE SEEN); BILIRUBIN NEGATIVE (NEGATIVE); COLOR YELLOW (YELLOW); EPITHELIAL CELLS OCC /hpf (0-5); GLUCOSE NEGATIVE (NEGATIVE); KETONE NEGATIVE (NEGATIVE); MUCUS <1+ /lpf (NONE SEEN); NITRITE NEGATIVE (NEGATIVE); PROTEIN NEGATIVE (NEGATIVE); RED CELLS - URINE RARE /hpf (0-5); UROBILINOGEN NORMAL (NORMAL); WHITE CELLS - URINE 0-5 /hpf (0-5)
[2017-01-04 10:10] LABS: HYALINE CAST OCC /lpf (NONE SEEN)
[2017-01-04 12:26] VITALS: BP 111/61
--- NOTE | 2017-01-04 14:17 | NUR ---
Nutrition Follow Up: Per chart pt continues with nausea, abdominal pain and diarrhea. Pt is eating <5% meal avg on an AHA diet. Wt loss noted - likely r/t fluid. Labs reviewed. Meds noted including Lasix, Questran. Rec continue current diet. Will continue to provide selective menus and honor food preferences. RD following.
[2017-01-04 15:58] VITALS: BP 149/85
--- NOTE | 2017-01-04 16:03 | NUR ---
PT REFUSED BREATHING TX DUE TO NAUSEA
--- NOTE | 2017-01-04 17:44 | NUR ---
Is the patient Alert and Oriented? Yes 0 * How many steps to enter\exit or inside your home? none 0 * PCP DR Lexie Espinoza. [place] 0 * Pharmacy [facility] 0 * Preadmission Environment Other 0 * Other Environment [facility] [address] 0 * [facility] * ADLs Independent 0 * Other Equipment cane 0 * List name and contact numbers for known caregivers / representatives who currently or will assist patient after discharge: Has 2 brothers that live in [facility] 0 * Community resources currently utilized Home Health 0 * Please name any agencies selected above. [facility] 0 * Additional services required to return to the preadmission environment? Yes 0 * Can the patient safely return to the preadmission environment? Yes 0 * Has this patient been hospitalized within the prior 30 days at any hospital? Yes 0
--- NOTE | 2017-01-04 17:45 | NUR ---
CM met with the patient at the bedside. Room darken & he would only allow light over the sink to be on. It is dinner time but he has declined his tray due to nausea. Thinks he maybe discharged tonight. He was discharged less than 24 hrs ago. He refused to sign any discharge paperwork per nursing notes. He plans to return to home at [facility] with [employer] [facility]. Has 2 brothers Sang Adkins [phone] amd Simon Farr [phone]. They both live out of state. PCP- Dr Daniels in [place] DME- cane only - no preferred provider Pharmacy- [facility] on [facility] states he plans to take a taxi home at discharge. Denies any additional needs.
[2017-01-04 19:32] VITALS: BP 136/89
--- NOTE | 2017-01-04 19:39 | NUR ---
PT IN BED RESTING QUIETLY. DENIES ANY NEEDS AT THIS TIME. BED IN LOW POSITION, CALL LIGHT WITHIN REACH.
[2017-01-05] VITALS: BP 125/59
--- NOTE | 2017-01-05 02:52 | NUR ---
PT IN BED RESTING QUIETLY. DENIES ANY NEEDS AT THIS TIME. BREATHING EVEN AND UNLABORED. WILL CTM. BED IN LOW POSITION, CALL LIGHT WITHIN REACH.
[2017-01-05 04:04] VITALS: BP 165/93
--- NOTE | 2017-01-05 07:29 | NUR ---
PT REFUSED AM TX DUE TO NAUSEA
--- NOTE | 2017-01-05 07:31 | NUR ---
AM ROUNDING- RECEIVED REPORT FROM SOLAR ENERGY CONSULTANT AND DESIGNER NURSE. PT IS CURRENTLY SITTING UP IN BED WITH EYES OPEN RESTING. PT IS C/O 8/10 PAIN. PT IS REQUESTING TYLENOL. I INFORMED PT THAT I WILL CHECK TO SEE WHEN HE CAN HAVE IT AND TX ORDERED. ON ROOM AIR. ON MONITOR SHOWING PACED, HR 62. IV SEEN TO RIGHT HAND THAT IS CURRENTLY SALINE LOCKED. PER REPORT FROM SOLAR ENERGY CONSULTANT AND DESIGNER NURSE, PT REFUSES TO HAVE BED ALARM ON. NO FURTHER NEED AT THIS TIME. WILL CONTINUE TO MONITOR AND CONTINUE WITH PLAN OF CARE.
[2017-01-05] MEDS ORDERED: SKELAXIN800 MG PO (07:48)
[2017-01-05 08:11] VITALS: BP 154/92
--- NOTE | 2017-01-05 10:37 | NUR ---
PT REFUSED TX STATES" i'm LEAVING SOON
--- NOTE | 2017-01-05 10:56 | NUR ---
D/C INSTRUCTIONS EXPLAINED TO PT. D/C PAPERWORK SIGNED BY PT AND PLACED IN CHART. IV TO RIGHT HAND REMOVED WITH CATH TIP INTACT. ELISSA, LABORATORY SAMPLER CALLED A CAB FOR PT REQUESTED. PT IS AWAITING ON CAB NOW.
--- NOTE | 2017-01-05 11:18 | NUR ---
PT D/C VIA WHEELCHAIR. I IS AWAITING FOR PT OUTSIDE.
--- NOTE | 2017-01-05 11:29 | NUR ---
Patient Name: VAHE NARVAEZ Encounter No: [id number] : 1950 Primary Insurance: [employer] CHOICE PPO MCR [employer]VANT Anticipated DC Date: 01-05-2017 Planned Disposition: Home with Home Health External Planned Provider: [facility] LATE ENTRY: DCP follow-up note: CM RECEIVED DISCHARGE ORDER, MET WITH PT IN ROOM TO DISCUSS DISCHARGE NEEDS AND PLANNING. CM DISCUSSED AVAILABILITY OF HOME HEALTH, REHAB SERVICES AND MEDICAL EQUIPMENT. PT DENIES DISCHARGE NEEDS, REPORTS HE ALREADY HAS HOME HEALTH WITH [facility] AND HIS INSURANCE COMPANY OPERATIONS MANAGER STATION CALLS HIM EVERY WEEK ALREADY. PT REPORTS HE WILL BE CALLING A TAXI TO GET HOME TODAY. IMPORTANT MESSAGE FROM MEDICARE PROVIDED AND EXPLAINED. CM SPOKE TO RN AROLDO PASTOR WHO INFORMED CM THAT THE DOCTORS SUGGESTION OF INSURANCE COMMUNITY CASE MANAGEMENT FAXED WITH CLINICALS TO [employer]. PT'S NURSE REPORTED TO CM THAT PT WANTED SOMEONE TO CALL THE TAXI FOR HIM. CM MET WITH PT IN ROOM. PT REPORTS HE WILL PAY FOR THE TAXI, BUT WANTS SOMEONE TO CALL FOR HIM. CM CALLED [employer], , PROVIDED [facility] [place] OUT FRONT AND DROP OFF AT [address], QUOTE OF $8. PT NOTIFIED AND IN AGREEMENT WITH DISCHARGE TRANSPORTATION, REQUESTED WHEELCHAIR TO GET OUT FRONT. NURSE NOTIFIED. CM CALLED [facility], , SPOKE TO ANUJA, NOTIFIED HER OF PT'S DISCHARGE FOR RESUMPTION OF HOME HEALTH, NOTIFIED OF DR. BARNES FOR COMMUNITY CASE MANAGEMENT FROM [employer] AND ALSO THAT PT MAY REQUIRE MORE ASSISTANCE WITH MEDICATION MANAGEMENT. CM ALSO DISCUSSED PT'S REPORT OF DR. BUSTILLOS PCP, BUT DR. LAND OFFICE NOT PROVIDING FOLLOW UP APPOINTMENT DUE TO PT'S INSURANCE NOT HAVING DR. BUSTILLOS ASSIGNED; CM NOTIFIED ANUJA THAT DR. MICHELLE'S OFFICE ACCEPTED PT FOR FOLLOW UP APPOINTMENT PRIMARY CARE. CM FAXED DISCHARGE AND HOSPITAL STAY INFORMATION TO [facility] AT [phone]. Francisco Hardy, CASE MANGEMENT
--- NOTE | 2017-01-08 16:56 | EC ---
PATIENT:VAHE NARVAEZ DATE OF SERVICE: 12/31/16 SEX: M MEDICAL RECORD: [id number] DATE OF : [birth year] LOCATION:D.M2 D.213 AGE OF PATIENT: 66 ADMISSION DATE: 12/31/16 REFERRING PHYSICIAN: INTERPRETING PHYSICIAN: MÓNICA GRAYSON MD ECHOCARDIOGRAM REPORT ECHO CHARGES 4 ECHO COMPLETE CLINICAL DIAGNOSIS: CHF HX OF PACER POST CATH ECHOCARDIOGRAPHIC MEASUREMENTS (adult normal given) AC root (d.<3.7cm) 3.6 cm LV Septum d (<1.2 cm> 1.3 cm Valve Excursion 1.8 cm LV Septum (systole) 2.2 cm Left Atria (s.<4.0cm> 4.4 cm LVPW d(<1.2cm) 1.2 cm RV (d.<2.3cm) 4.6 cm LVPW (sytole) 2.0 cm LV diastole(<5.6CM) 5.9 cm MV E-F(>70mm/sec) cm LV systole 3.3 cm LVOT Diameter 2.1 cm MV exc.(>10mm) 1.2 cm Est.ejection fraction (50-75%) % Pericardial Effusion N DOPPLER: LVIT cm/sec A 41.0 cm/sec E 100 cm/sec LA cm/sec RVSP 46 mmHg LVOT 104 cm/sec AOP1/2T m/s Asc. Ao 162 cm/sec RVOT 91 cm/sec RA cm/sec PA 135 cm/sec AV Gradient Peak 10.50mmHg AV Mean 7.45 mmHg AV Area 1.7 cm MV Gradient Peak 5.44 mmHg MV Mean 1.50 mmHg MV Area cm COMMENTS: Onboarding Specialist: Jason COLLADO Manager State: 3 Dr. Muir TAPE# PACS DATE OF SERVICE: 12/31/2016 FINDINGS: 1. Left ventricular chamber size is within normal limits. Left ventricular systolic function is normal. Overall ejection fraction estimated at 55%. 2. Left atrium is enlarged at 4.4 cm. Right atrium and right ventricular chamber sizes are avtptfre-qr-inugdyxa dilated. 3. Valvular structures have normal structure and motion. 4. Doppler interrogation reveals mild mitral regurgitation, [id number] tricuspid regurgitation, no other valvular insufficiency or stenosis. Pulmonary ECHOCARDIOGRAM REPORT [id number] VAHE NARVAEZ systolic pressure is elevated, estimated at 46 mmHg. 5. No evidence of pericardial effusion or left ventricular thrombus. TRANSINT:[id number] Voice Confirmation ID: [id number] DOCUMENT ID: [id number] MÓNICA GRAYSON MD at 1656 CC: [id number] DICTATION DATE: 12/31/16 1551 ROUTE SERVICE MANAGER: 12/31/[id number] DIS IN 01/05/17 [place] [id number] [place] [id number]
== END 2017-01-05 11:18 | disposition home or self-care (01) ==
LOC: D.ER 07:32 → D.M2 12:02 → OBSVTIME 12:02 → D.M2 12:02
PROVIDERS: Emergency Medicine; ADMIT Family Medicine
DX: I11.0 Hypertensive heart disease with heart failure (principal); I50.31 Acute diastolic (congestive) heart failure; K52.9 Noninfective gastroenteritis and colitis, unspecified; G89.29 Other chronic pain; R41.82 Altered mental status, unspecified; I48.91 Unspecified atrial fibrillation; F43.10 Post-traumatic stress disorder, unspecified; I25.10 Atherosclerotic heart disease of native coronary artery without angina pectoris; E87.6 Hypokalemia; T40.601A Poisoning by unspecified narcotics, accidental (unintentional), initial encounter; W19.XXXA Unspecified fall, initial encounter; S20.212A Contusion of left front wall of thorax, initial encounter; Z86.73 Personal history of transient ischemic attack (TIA), and cerebral infarction without residual deficits; Z95.0 Presence of cardiac pacemaker; Z87.891 Personal history of nicotine dependence

== ENCOUNTER → 2017-01-12 10:19 | Outpatient (CLI) | payer MEDICARE, MEDICAID ==
[2017-01-01 10:27] VITALS: BMI 32.0
[~2017-01-12 10:19] MED LIST changes: +DOXYCYCLINE HY100 M2 PO; +Demerol PO; +ELIQUIS5 MG PO; +HYDROXYZINE HCL10 MG PO; +MS CONTIN30 MG PO; +SKELAXIN800 MG PO; +XANAX1 MG
== END | disposition home or self-care (01) ==
LOC: D.CT 10:19
DX: R63.4 Abnormal weight loss (principal); J90 Pleural effusion, not elsewhere classified

== ENCOUNTER 2017-01-26 06:02 | Emergency (ER) | payer MEDICARE, MEDICAID ==
[~2017-01-26 06:02] MED LIST changes: -DOXYCYCLINE HY100 M2 PO; -Demerol PO; -ELIQUIS5 MG PO; -HYDROXYZINE HCL10 MG PO; -MS CONTIN30 MG PO; -XANAX1 MG
[2017-01-26 06:55] LABS: ALBUMIN 3.3 g/dL (3.4-5.0); ALKALINE PHOSPHATASE 64 U/L (46-116); ALT (SGPT) 22 U/L (10-68); AMYLASE - SERUM 26 U/L (25-115); BILIRUBIN - TOTAL 0.57 mg/dL (0.2-1.3); CALC OSMOLALITY 284 mosm/kg (275-300); CALCIUM 8.1 mg/dL (8.5-10.1); CARBON DIOXIDE 29.9 mmol/L (21.0-32.0); CHLORIDE - SERUM 104 mmol/L (98-107); CREATININE - SERUM 0.7 mg/dL (0.6-1.3); GLUCOSE 94 mg/dL (74-106); LIPASE 63 U/L (73-393); PROTEIN - SERUM 6.7 g/dL (6.4-8.2); SODIUM 144 mmol/L (136-145); UREA NITROGEN 8 mg/dL (7-18); eGFR NON AFRICAN AMERICAN > 90 mL/min (90-120)
[2017-01-26 06:59] LABS: BASOPHILS 0.2 % (0-2); EOSINOPHILS 3.4 % (0-7); HEMATOCRIT 31.1 % (42.0-54.0); HEMOGLOBIN 9.5 g/dL (13.5-17.5); IMMATURE GRANULOCYTES 0.4 % (0-5); LYMPHOCYTES 17.4 % (15-50); MCH 24.7 pg (26.0-34.0); MCHC 30.5 g/dL (31.0-37.0); MCV 80.8 fL (80.0-100.0); MEAN PLATELET VOLUME 11.2 fL (7.4-10.4); MONOCYTES 13.6 % (2-11); POTASSIUM - SERUM 2.6 mmol/L (3.5-5.1); RBC 3.85 10x6/uL (4.20-6.10); WBC 5.1 10x3/uL (4.8-10.8)
[2017-01-26 07:12] LABS: APTT 35.4 SECONDS (22.8-39.4); INR 1.35 (0.85-1.17); PLATELET COUNT 202 10x3/uL (130-400); PROTIME 16.6 SECONDS (11.6-15.0)
[2017-01-26 08:07] LABS: CKMB 0.4 U/L (0.0-3.6); CREATINE KINASE 449 UL (21-232)
[2017-01-26 08:08] LABS: TROPONIN-I < 0.017 ng/mL (0.000-0.060)
== END 2017-01-26 08:51 | disposition other institution (70) ==
LOC: D.ER 06:02
PROVIDERS: Family Medicine
DX: I48.2 Chronic atrial fibrillation (principal); Z79.01 Long term (current) use of anticoagulants; S32.401A Unspecified fracture of right acetabulum, initial encounter for closed fracture; S22.49XA Multiple fractures of ribs, unspecified side, initial encounter for closed fracture; V43.52XA Car driver injured in collision with other type car in traffic accident, initial encounter; Y93.89 Activity, other specified; Y92.410 Unspecified street and highway as the place of occurrence of the external cause; D64.9 Anemia, unspecified; S70.11XA Contusion of right thigh, initial encounter

== ENCOUNTER 2017-02-26 10:21 | Inpatient (IN) | payer MEDICARE, MEDICAID ==
[~2017-02-26] VITALS: Ht 182.9 cm; Wt 102.1 kg
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
--- NOTE | ~2017-02-26 | OP ---
PATIENT NAME: VAHE NARVAEZ MEDICAL RECORD: [id number] :54 LOCATION:D.MS Alex2234 ADMISSION DATE:02/26/17 SURGEON: VAHE MURRIETA MD DATE OF OPERATION: 03/01/2017 PREOPERATIVE DIAGNOSIS: Infected postoperative wound of the right hip, status post acetabular fracture fixation. POSTOPERATIVE DIAGNOSIS: Infected postoperative wound of the right hip, status post acetabular fracture fixation. Please note that the wound is very long and goes all the way to the hardware that was placed for the acetabular fracture. Cultures were taken. Vitagel was used as well as a wound VAC. OPERATIVE SUMMARY IN DETAIL: After obtaining the appropriate preoperative orthopedic surgery consent as well as anesthetic consultation, evaluation, and clearance, the patient was brought to the operating room and placed on the operating table in supine position. After general laryngeal mask was administered, the patient was placed in a left lateral decubitus position. All pressure points were well padded to include down leg peroneal nerve pad as well as axillary roll. The patient was held firmly to the operating table using the vacuum pack suction system. Right lower extremity and hip were then prepped and draped in a routine sterile fashion. This is a contaminated case. Multiple punctiform wounds that were draining were opened and elongated. Eventually, the entire incision line had to be elongated for the undermining. Copious amount of purulence was evacuated manually and then through a combination of a scalpel, rongeur as well as curettes, all nonviable-appearing tissue was removed. The exploration of the wound did show that the purulence tracked down to the hardware itself. This was copiously irrigated with pulsatile lavage strain technician. The hardware was not taken out at this point. Having completed many rounds of irrigation and manual and sharp debridement, Vitagel was sprayed in the depths of the wound in hopes to help promote vascularized healing and then a wound VAC was placed on 125 mm of continuous suction on medium intensity. Good seal was achieved. The patient was awakened, taken to the recovery room in stable condition. All final needle and sponge counts were correct. TRANSINT:[id number] Voice Confirmation ID: [id number] DOCUMENT ID: [id number] VAHE MURRIETA MD at 1406 CC: [id number] DICTATION DATE: 03/01/171941 OIL BURNER: 03/02/17 0053 ADM IN [facility] [address] [place] [id number]
[2017-02-26 11:17] LABS: BASOPHILS 0.1 % (0-2); EOSINOPHILS 7.1 % (0-7); HEMATOCRIT 30.2 % (42.0-54.0); HEMOGLOBIN 9.2 g/dL (13.5-17.5); IMMATURE GRANULOCYTES 0.3 % (0-5); LYMPHOCYTES 13.1 % (15-50); MCH 24.7 pg (26.0-34.0); MCHC 30.5 g/dL (31.0-37.0); MCV 81.2 fL (80.0-100.0); MEAN PLATELET VOLUME 9.7 fL (7.4-10.4); MONOCYTES 9.8 % (2-11); NEUTROPHILS 69.6 % (40-80); RBC 3.72 10x6/uL (4.20-6.10); RDW 17.1 % (11.5-14.5); WBC 7.3 10x3/uL (4.8-10.8)
[2017-02-26 11:27] LABS: ALBUMIN 2.2 g/dL (3.4-5.0); ALKALINE PHOSPHATASE 68 U/L (46-116); ALT (SGPT) 15 U/L (10-68); CALC OSMOLALITY 272 mosm/kg (275-300); CARBON DIOXIDE 31.5 mmol/L (21.0-32.0); CHLORIDE - SERUM 99 mmol/L (98-107); CREATININE - SERUM 0.7 mg/dL (0.6-1.3); GLUCOSE 75 mg/dL (74-106); POTASSIUM - SERUM 3.2 mmol/L (3.5-5.1); PROTEIN - SERUM 6.2 g/dL (6.4-8.2); SODIUM 138 mmol/L (136-145); UREA NITROGEN 8 mg/dL (7-18); eGFR NON AFRICAN AMERICAN > 90 mL/min (90-120)
[2017-02-26 11:29] LABS: DIGOXIN < 0.20 ng/mL (0.90-2.00)
[2017-02-26 11:30] LABS: INR 1.68 (0.85-1.17); PROTIME 19.3 SECONDS (11.6-15.0)
[2017-02-26 11:31] LABS: PLATELET COUNT 338 10x3/uL (130-400)
[2017-02-26 13:27] LABS: APPEARANCE CLEAR (CLEAR); BILIRUBIN NEGATIVE (NEGATIVE); COLOR DK YELLOW (YELLOW); GLUCOSE NEGATIVE (NEGATIVE); KETONE MODERATE mg/dL (NEGATIVE); NITRITE NEGATIVE (NEGATIVE); PROTEIN NEGATIVE (NEGATIVE)
[2017-02-26 13:29] LABS: BACTERIA FEW /hpf (NONE SEEN); EPITHELIAL CELLS 0-5 /hpf (0-5); MUCUS <1+ /lpf (NONE SEEN); WHITE CELLS - URINE 0-5 /hpf (0-5)
[2017-02-26] MEDS ORDERED: XANAX1 MG (18:03)
[2017-02-26] MEDS ORDERED: TEMAZEPAM30 MG PO (18:04)
[2017-02-26 18:27] VITALS: BP 123/73; BMI 30.6
[2017-02-26 20:00] VITALS: BP 106/59
[2017-02-26 23:54] VITALS: BP 121/67
[2017-02-27 04:00] VITALS: BP 105/57
[2017-02-27 07:32] LABS: BASOPHILS 0.3 % (0-2); EOSINOPHILS 15.2 % (0-7); HEMATOCRIT 31.1 % (42.0-54.0); HEMOGLOBIN 9.3 g/dL (13.5-17.5); IMMATURE GRANULOCYTES 0.3 % (0-5); LYMPHOCYTES 16.6 % (15-50); MCH 24.5 pg (26.0-34.0); MCHC 29.9 g/dL (31.0-37.0); MCV 81.8 fL (80.0-100.0); MEAN PLATELET VOLUME 9.4 fL (7.4-10.4); MONOCYTES 10.5 % (2-11); NEUTROPHILS 57.1 % (40-80); PLATELET COUNT 359 10x3/uL (130-400); RDW 17.3 % (11.5-14.5); WBC 6.4 10x3/uL (4.8-10.8)
[2017-02-27 08:41] LABS: ERYTHROCYTE SEDIMENTATION RATE 41 mm/hr (0-20)
[2017-02-27 08:56] VITALS: BP 117/67
[2017-02-27 11:54] VITALS: BP 107/68
[2017-02-27 12:11] VITALS: BMI 30.5
[2017-02-27 15:47] VITALS: BP 123/70
[2017-02-27 20:00] VITALS: BP 153/83
[2017-02-28] VITALS: BP 143/69
[2017-02-28 08:51] VITALS: BP 134/69
[2017-02-28 12:45] VITALS: BP 116/62
[2017-02-28 13:59] LABS: APTT 42.9 SECONDS (22.8-39.4); INR 1.36 (0.85-1.17); PROTIME 16.3 SECONDS (11.6-15.0)
[2017-02-28 16:16] VITALS: BP 98/58
[2017-02-28 20:00] VITALS: BP 136/71
[2017-03-01] VITALS (12 sets, daily range): BP systolic 115–156; BP diastolic 57–77
[2017-03-01 05:47] LABS: BASOPHILS 0.3 % (0-2); EOSINOPHILS 19.3 % (0-7); HEMATOCRIT 32.9 % (42.0-54.0); HEMOGLOBIN 9.7 g/dL (13.5-17.5); IMMATURE GRANULOCYTES 0.4 % (0-5); LYMPHOCYTES 17.1 % (15-50); MCH 24.4 pg (26.0-34.0); MCHC 29.5 g/dL (31.0-37.0); MCV 82.7 fL (80.0-100.0); MEAN PLATELET VOLUME 9.6 fL (7.4-10.4); MONOCYTES 7.8 % (2-11); NEUTROPHILS 55.1 % (40-80); PLATELET COUNT 355 10x3/uL (130-400); RBC 3.98 10x6/uL (4.20-6.10); RDW 16.9 % (11.5-14.5); WBC 6.8 10x3/uL (4.8-10.8)
[2017-03-01 06:13] LABS: INR 1.24 (0.85-1.17); PROTIME 15.2 SECONDS (11.6-15.0)
[2017-03-01 06:18] LABS: CALC OSMOLALITY 272 mosm/kg (275-300); CALCIUM 8.2 mg/dL (8.5-10.1); CARBON DIOXIDE 29.3 mmol/L (21.0-32.0); CHLORIDE - SERUM 100 mmol/L (98-107); CREATININE - SERUM 0.7 mg/dL (0.6-1.3); GLUCOSE 100 mg/dL (74-106); POTASSIUM - SERUM 3.9 mmol/L (3.5-5.1); SODIUM 137 mmol/L (136-145); UREA NITROGEN 11 mg/dL (7-18); eGFR NON AFRICAN AMERICAN > 90 mL/min (90-120)
[2017-03-02] VITALS (7 sets, daily range): BP systolic 111–130; BP diastolic 56–75
[2017-03-02 07:43] LABS: BASOPHILS 0.2 % (0-2); EOSINOPHILS 10.4 % (0-7); IMMATURE GRANULOCYTES 0.2 % (0-5); LYMPHOCYTES 10.7 % (15-50); MCH 24.5 pg (26.0-34.0); MCV 81.7 fL (80.0-100.0); MEAN PLATELET VOLUME 9.4 fL (7.4-10.4); MONOCYTES 8.7 % (2-11); NEUTROPHILS 69.8 % (40-80); PLATELET COUNT 344 10x3/uL (130-400); RBC 3.67 10x6/uL (4.20-6.10); RDW 16.8 % (11.5-14.5); WBC 8.2 10x3/uL (4.8-10.8)
[2017-03-02 07:51] LABS: CALC OSMOLALITY 266 mosm/kg (275-300); CALCIUM 8.5 mg/dL (8.5-10.1); CARBON DIOXIDE 29.8 mmol/L (21.0-32.0); CHLORIDE - SERUM 98 mmol/L (98-107); CREATININE - SERUM 0.6 mg/dL (0.6-1.3); GLUCOSE 75 mg/dL (74-106); POTASSIUM - SERUM 3.5 mmol/L (3.5-5.1); SODIUM 135 mmol/L (136-145); eGFR NON AFRICAN AMERICAN > 90 mL/min (90-120)
[2017-03-02 07:52] LABS: UREA NITROGEN 8 mg/dL (7-18)
[2017-03-03] VITALS: BP 100/70
[2017-03-03 04:00] VITALS: BP 103/58
[2017-03-03 09:13] VITALS: BP 108/77
[2017-03-03 12:33] VITALS: BP 122/74
[2017-03-03 16:47] VITALS: BP 111/69
[2017-03-03 20:00] VITALS: BP 108/64
[2017-03-04] VITALS: BP 112/55
[2017-03-04 06:52] VITALS: BP 145/78
[2017-03-04 09:44] LABS: HEMATOCRIT 30.7 % (42.0-54.0); MCH 24.4 pg (26.0-34.0); MCHC 29.3 g/dL (31.0-37.0); MCV 83.2 fL (80.0-100.0); RBC 3.69 10x6/uL (4.20-6.10); RDW 16.9 % (11.5-14.5); WBC 6.2 10x3/uL (4.8-10.8)
[2017-03-04 09:45] VITALS: BP 146/50
[2017-03-04 09:49] LABS: INR 1.28 (0.85-1.17); PROTIME 15.5 SECONDS (11.6-15.0)
[2017-03-04 12:08] VITALS: BP 142/72
[2017-03-04 13:54] LABS: ERYTHROCYTE SEDIMENTATION RATE 43 mm/hr (0-20)
[2017-03-04 16:41] VITALS: BP 114/71
[2017-03-04 20:00] VITALS: BP 123/52
[2017-03-05] VITALS: BP 92/59
[2017-03-05 04:00] VITALS: BP 131/66
[2017-03-05 07:47] LABS: HEMATOCRIT 29.9 % (42.0-54.0); MCH 24.5 pg (26.0-34.0); MCHC 30.1 g/dL (31.0-37.0); MCV 81.5 fL (80.0-100.0); MEAN PLATELET VOLUME 9.6 fL (7.4-10.4); RBC 3.67 10x6/uL (4.20-6.10); RDW 16.9 % (11.5-14.5); WBC 5.1 10x3/uL (4.8-10.8)
[2017-03-05 07:49] LABS: CALC OSMOLALITY 270 mosm/kg (275-300); CALCIUM 8.3 mg/dL (8.5-10.1); CARBON DIOXIDE 28.6 mmol/L (21.0-32.0); CHLORIDE - SERUM 101 mmol/L (98-107); CREATININE - SERUM 0.6 mg/dL (0.6-1.3); GLUCOSE 86 mg/dL (74-106); POTASSIUM - SERUM 3.7 mmol/L (3.5-5.1); SODIUM 137 mmol/L (136-145); UREA NITROGEN 7 mg/dL (7-18); eGFR NON AFRICAN AMERICAN > 90 mL/min (90-120)
[2017-03-05 08:38] VITALS: BP 122/74
[2017-03-05 16:20] VITALS: BP 151/67
[2017-03-05 20:00] VITALS: BP 124/48
[2017-03-05 23:52] VITALS: BP 108/58
[2017-03-06 03:49] VITALS: BP 139/70
[2017-03-06 07:33] LABS: INR 1.56 (0.85-1.17); PROTIME 18.1 SECONDS (11.6-15.0)
[2017-03-06 07:48] LABS: ALBUMIN 2.2 g/dL (3.4-5.0); ALKALINE PHOSPHATASE 75 U/L (46-116); ALT (SGPT) 22 U/L (10-68); CALC OSMOLALITY 270 mosm/kg (275-300); CALCIUM 8.1 mg/dL (8.5-10.1); CHLORIDE - SERUM 101 mmol/L (98-107); CREATININE - SERUM 0.5 mg/dL (0.6-1.3); GLUCOSE 87 mg/dL (74-106); SODIUM 137 mmol/L (136-145); UREA NITROGEN 6 mg/dL (7-18); eGFR NON AFRICAN AMERICAN > 90 mL/min (90-120)
[2017-03-06 07:56] LABS: BASOPHILS 0.7 % (0-2); HEMATOCRIT 29.7 % (42.0-54.0); HEMOGLOBIN 8.8 g/dL (13.5-17.5); IMMATURE GRANULOCYTES 0.2 % (0-5); LYMPHOCYTES 20.4 % (15-50); MCH 24.2 pg (26.0-34.0); MCHC 29.6 g/dL (31.0-37.0); MCV 81.8 fL (80.0-100.0); MEAN PLATELET VOLUME 9.1 fL (7.4-10.4); MONOCYTES 12.2 % (2-11); NEUTROPHILS 53.5 % (40-80); PLATELET COUNT 329 10x3/uL (130-400); RBC 3.63 10x6/uL (4.20-6.10); RDW 16.8 % (11.5-14.5); WBC 5.8 10x3/uL (4.8-10.8)
[2017-03-06 09:26] VITALS: BP 131/68
[2017-03-06 12:19] VITALS: BP 130/70
[2017-03-06 15:51] VITALS: BP 123/76
[2017-03-06 20:00] VITALS: BP 113/63
[2017-03-07 04:47] LABS: INR 1.6 (0.85-1.17); PROTIME 18.5 SECONDS (11.6-15.0)
[2017-03-07 06:29] VITALS: BP 125/73
[2017-03-07 08:27] VITALS: BP 177/84
[2017-03-07 15:39] VITALS: BP 120/71
[2017-03-07 20:00] VITALS: BP 122/62
[2017-03-08] VITALS: BP 110/57
[2017-03-08 04:00] VITALS: BP 123/57
[2017-03-08 05:51] LABS: BASOPHILS 0.3 % (0-2); EOSINOPHILS 9.5 % (0-7); HEMATOCRIT 30.4 % (42.0-54.0); HEMOGLOBIN 8.8 g/dL (13.5-17.5); LYMPHOCYTES 22.5 % (15-50); MCH 24.2 pg (26.0-34.0); MCHC 28.9 g/dL (31.0-37.0); MCV 83.7 fL (80.0-100.0); NEUTROPHILS 55.7 % (40-80); PLATELET COUNT 365 10x3/uL (130-400); RBC 3.63 10x6/uL (4.20-6.10); RDW 16.8 % (11.5-14.5); WBC 5.8 10x3/uL (4.8-10.8)
[2017-03-08 05:57] LABS: INR 1.71 (0.85-1.17); PROTIME 19.5 SECONDS (11.6-15.0)
[2017-03-08 06:13] LABS: CALC OSMOLALITY 275 mosm/kg (275-300); CALCIUM 8.4 mg/dL (8.5-10.1); CARBON DIOXIDE 29.9 mmol/L (21.0-32.0); CHLORIDE - SERUM 102 mmol/L (98-107); GLUCOSE 91 mg/dL (74-106); POTASSIUM - SERUM 4.1 mmol/L (3.5-5.1); SODIUM 139 mmol/L (136-145); UREA NITROGEN 7 mg/dL (7-18)
[2017-03-08 06:29] LABS: CREATININE - SERUM 0.7 mg/dL (0.6-1.3); eGFR NON AFRICAN AMERICAN > 90 mL/min (90-120)
[2017-03-08 09:26] VITALS: BP 107/77
[2017-03-08 13:11] VITALS: BP 110/76
[2017-03-08 16:54] VITALS: BP 113/74
[2017-03-08 20:00] VITALS: BP 123/72
[2017-03-09 04:00] VITALS: BP 104/57
[2017-03-09 05:02] LABS: INR 1.77 (0.85-1.17); PROTIME 20.1 SECONDS (11.6-15.0)
[2017-03-09 06:13] LABS: BASOPHILS 0.5 % (0-2); EOSINOPHILS 9.4 % (0-7); HEMATOCRIT 32.7 % (42.0-54.0); HEMOGLOBIN 9.6 g/dL (13.5-17.5); IMMATURE GRANULOCYTES 0.2 % (0-5); LYMPHOCYTES 19.2 % (15-50); MCH 24.5 pg (26.0-34.0); MCHC 29.4 g/dL (31.0-37.0); MCV 83.4 fL (80.0-100.0); MEAN PLATELET VOLUME 9.6 fL (7.4-10.4); MONOCYTES 9.3 % (2-11); NEUTROPHILS 61.4 % (40-80); PLATELET COUNT 352 10x3/uL (130-400); RBC 3.92 10x6/uL (4.20-6.10); RDW 16.9 % (11.5-14.5); WBC 6.2 10x3/uL (4.8-10.8)
[2017-03-09 06:31] LABS: CALCIUM 8.8 mg/dL (8.5-10.1); CARBON DIOXIDE 29.9 mmol/L (21.0-32.0); CREATININE - SERUM 0.7 mg/dL (0.6-1.3); GLUCOSE 84 mg/dL (74-106); eGFR NON AFRICAN AMERICAN > 90 mL/min (90-120)
[2017-03-09 06:34] LABS: UREA NITROGEN 5 mg/dL (7-18)
[2017-03-09 06:39] LABS: CALC OSMOLALITY 269 mosm/kg (275-300); CHLORIDE - SERUM 99 mmol/L (98-107); POTASSIUM - SERUM 3.7 mmol/L (3.5-5.1); SODIUM 137 mmol/L (136-145)
[2017-03-09 09:36] VITALS: BP 136/84
[2017-03-09 12:08] VITALS: Ht 182.9 cm; Wt 102.1 kg
[2017-03-09 12:49] VITALS: BP 140/80
[2017-03-09 16:35] VITALS: BP 123/75
[2017-03-10] VITALS: BP 114/70
[2017-03-10 04:00] VITALS: BP 110/65
[2017-03-10 06:08] LABS: INR 1.8 (0.85-1.17); PROTIME 20.3 SECONDS (11.6-15.0)
[2017-03-10 06:12] LABS: FOLATE (FOLIC ACID) - SERUM 11.2 ng/mL (>3.0)
[2017-03-10 06:24] LABS: BASOPHILS 0.4 % (0-2); EOSINOPHILS 10.9 % (0-7); HEMATOCRIT 31.1 % (42.0-54.0); HEMOGLOBIN 9.2 g/dL (13.5-17.5); IMMATURE GRANULOCYTES 0.2 % (0-5); LYMPHOCYTES 20.3 % (15-50); MCH 24.5 pg (26.0-34.0); MCHC 29.6 g/dL (31.0-37.0); MCV 82.7 fL (80.0-100.0); MEAN PLATELET VOLUME 9.5 fL (7.4-10.4); MONOCYTES 12.1 % (2-11); NEUTROPHILS 56.1 % (40-80); PLATELET COUNT 312 10x3/uL (130-400); RBC 3.76 10x6/uL (4.20-6.10); RDW 16.7 % (11.5-14.5); WBC 5.1 10x3/uL (4.8-10.8)
[2017-03-10 06:27] LABS: CALC OSMOLALITY 271 mosm/kg (275-300); CALCIUM 8.5 mg/dL (8.5-10.1); CARBON DIOXIDE 30.4 mmol/L (21.0-32.0); CHLORIDE - SERUM 101 mmol/L (98-107); CREATININE - SERUM 0.6 mg/dL (0.6-1.3); GLUCOSE 101 mg/dL (74-106); POTASSIUM - SERUM 3.8 mmol/L (3.5-5.1); SODIUM 137 mmol/L (136-145); UREA NITROGEN 6 mg/dL (7-18); eGFR NON AFRICAN AMERICAN > 90 mL/min (90-120)
[2017-03-10 09:16] VITALS: BP 123/70
[2017-03-10 11:47] VITALS: BP 125/67
[2017-03-10 16:15] VITALS: BP 116/61
[2017-03-11 04:00] VITALS: BP 110/55
[2017-03-11 07:58] VITALS: BP 124/66
[2017-03-11 12:02] VITALS: BP 132/70
[2017-03-11 16:14] VITALS: BP 126/68
[2017-03-12] VITALS: BP 104/65
[2017-03-12 04:00] VITALS: BP 131/75
[2017-03-12 08:21] VITALS: BP 153/67
[2017-03-12 11:50] VITALS: BP 120/73
[2017-03-12 16:09] VITALS: BP 147/61
[2017-03-12 21:23] VITALS: BP 129/74
[2017-03-13 01:06] VITALS: BP 110/62
[2017-03-13 08:45] VITALS: BP 128/72
[2017-03-13 12:45] VITALS: BP 107/64
[2017-03-13 17:29] VITALS: BP 118/72
[2017-03-14] VITALS: BP 92/53
[2017-03-14 04:00] VITALS: BP 112/77
[2017-03-14 10:47] VITALS: BP 105/61
[2017-03-14 17:00] VITALS: BP 114/51
[2017-03-14 22:16] VITALS: BP 115/76
[2017-03-15 01:22] VITALS: BP 105/63
[2017-03-15 05:19] VITALS: BP 127/70
[2017-03-15 08:34] VITALS: BP 148/63
[2017-03-15] MEDS ORDERED: Demerol PO (10:57)
[2017-03-15] MEDS ORDERED: DOXYCYCLINE HY100 M2 PO (10:57)
[2017-03-15] MEDS ORDERED: MS CONTIN30 MG PO (10:57)
[2017-03-15] MEDS ORDERED: HYDROXYZINE HCL10 MG PO (10:57)
[2017-03-15] MEDS ORDERED: ELIQUIS5 MG PO (10:57)
[2017-03-15 12:33] VITALS: BP 125/68
[2017-03-15 16:51] VITALS: BP 118/52
[2017-03-15 22:17] VITALS: BP 120/70
[2017-03-16 02:28] VITALS: BP 132/64
[2017-03-16 08:26] VITALS: BP 140/57
[2017-03-16 12:27] VITALS: BP 138/64
[2017-03-16] MEDS ORDERED: XANAX2 MG PO (16:06)
[2017-03-16 16:51] VITALS: BP 131/75
[2017-03-16 18:08] LABS: FACTOR II DNA ANALYSIS Negative (())
== END 2017-03-16 23:00 | DRG 857 ==
LOC: D.ER 10:21 → D.MS 16:55
PROVIDERS: Emergency Medicine; Family Medicine; Internal Medicine Hematology & Oncology; Orthopaedic Surgery; Student in an Organized Health Care Education/Training Program
PROC: 05HB33Z Insertion of Infusion Device into Right Basilic Vein, Percutaneous Approach (ICD-10-PCS; 2017-02-26)
PROC: B54MZZA Ultrasonography of Right Upper Extremity Veins, Guidance (ICD-10-PCS; 2017-02-26)
PROC: 0JDL0ZZ Extraction of Right Upper Leg Subcutaneous Tissue and Fascia, Open Approach (ICD-10-PCS; principal; 2017-03-01 15:45)
PROC: 05HB33Z Insertion of Infusion Device into Right Basilic Vein, Percutaneous Approach (ICD-10-PCS; 2017-03-02)
PROC: B54MZZA Ultrasonography of Right Upper Extremity Veins, Guidance (ICD-10-PCS; 2017-03-02)
DX: T81.4XXA Infection following a procedure, initial encounter (principal); I82.411 Acute embolism and thrombosis of right femoral vein; I10 Essential (primary) hypertension; Z95.0 Presence of cardiac pacemaker; I48.91 Unspecified atrial fibrillation; I25.10 Atherosclerotic heart disease of native coronary artery without angina pectoris; K21.9 Gastro-esophageal reflux disease without esophagitis; F43.10 Post-traumatic stress disorder, unspecified

== ENCOUNTER 2017-04-22 12:15 | Inpatient (IN) | payer MEDICARE ==
[~2017-04-22] VITALS: Ht 182.9 cm; Wt 95.5 kg
--- NOTE | ~2017-04-22 | OP ---
PATIENT NAME: VAHE NARVAEZ MEDICAL RECORD: [id number] :54 LOCATION:D.MS Alex2212 ADMISSION DATE:04/29/17 SURGEON: VAHE MURRIETA MD DATE OF OPERATION: 04/29/2017 PREOPERATIVE DIAGNOSES: Infected hardware, status post open reduction internal fixation of the posterior acetabulum with previously placed wound VAC. POSTOPERATIVE DIAGNOSIS: Infected hardware, status post open reduction internal fixation of the posterior acetabulum with previously placed wound VAC. PROCEDURES: 1. Removal of hardware. 2. Excisional debridement of the wound approximately 80 cm in aggregate and finally replacement of wound VAC. SURGEON: Vahe Murrieta MD ANESTHESIA: General. INTRAOPERATIVE COMPLICATIONS: None. SUMMARY OF PATHOLOGIC FINDINGS: Upon removal of the plate off the posterior wall of the acetabulum, one small piece of bone seemed to still be loose, but the major fragment was clearly healed, although there did appear to be infection under the plate. Cultures were taken from this site. OPERATIVE SUMMARY IN DETAIL: After obtaining the appropriate preoperative orthopedic surgery consent as well as anesthetic consultation, evaluation, and clearance, the patient was brought to the operating room and placed on the operating table in supine position. After general laryngeal mask was administered, the patient was placed in a left lateral decubitus position. All pressure points were well padded to include down leg peroneal pad as well as axillary roll. The patient was held firmly to the operating table using the vacuum pack suction system. The previously healed incision was elongated. Dissection was carried down past the Gemelli muscles on the posterior as well as the piriformis that appeared to have already been released and not reapproximated. Careful dissection was carried down to the plate itself. Serial and sequential removal of all screws was then followed by removal of the plate. Cultures were taken at this level and there did appear to be infectious phlegmon under the plate; however, the fracture itself did appear to be healed. The remaining 4 periarticular screws were also removed. Copious pulsatile lavage irrigation was carried out along with excisional debridement of the nonviable aspects of the wound in its entirety what represented approximately 80 cm in total. After this was copiously debrided back to all good bleeding bed, wound VAC was applied and 125 mm negative pressure on continuous medium intensity. Good seal was achieved. The patient was then awakened and taken to the recovery in stable condition. All final needle and sponge counts were correct. TRANSINT:[id number] Voice Confirmation ID: [id number] DOCUMENT ID: [id number] OPERATIVE REPORT [id number] VAHE NARVAEZ MD, VAHE CANTU at 0941 CC: [id number] DICTATION DATE: 05/09/17 153 MANAGER ENVIRONMENTAL SERVICES: 05/09/17 1813 DIS IN 05/06/17 [place] [id number] [place] [id number]
[~2017-04-22 12:15] MED LIST changes: +DOXYCYCLINE HY100 M2 PO; +Demerol PO; +ELIQUIS5 MG PO; +HYDROXYZINE HCL10 MG PO; +MS CONTIN30 MG PO; +XANAX1 MG
[2017-04-29] MEDS ORDERED: VITAMIN C WIT1000 MG PO (09:53)
[2017-04-29] MEDS ORDERED: OXYCONTIN10 MG PO (09:57)
[2017-04-29] MEDS ORDERED: OXYCODONE HCL E20 MG PO (09:57)
[2017-04-29] MEDS ORDERED: SENNA LAXATIVE8.6 MG PO (09:58)
[2017-04-29 10:01] VITALS: BP 115/62; BMI 27.2
[2017-04-29 10:59] LABS: BASOPHILS 0.3 % (0-2); EOSINOPHILS 3.8 % (0-7); HEMATOCRIT 31.2 % (42.0-54.0); HEMOGLOBIN 9.1 g/dL (13.5-17.5); IMMATURE GRANULOCYTES 0.1 % (0-5); LYMPHOCYTES 12.7 % (15-50); MCH 23.2 pg (26.0-34.0); MCHC 29.2 g/dL (31.0-37.0); MCV 79.4 fL (80.0-100.0); MONOCYTES 11.4 % (2-11); NEUTROPHILS 71.7 % (40-80); PLATELET COUNT 275 10x3/uL (130-400); RBC 3.93 10x6/uL (4.20-6.10); RDW 17.6 % (11.5-14.5); WBC 6.9 10x3/uL (4.8-10.8)
[2017-04-29 11:05] LABS: CALC OSMOLALITY 272 mosm/kg (275-300); CALCIUM 8.3 mg/dL (8.5-10.1); CARBON DIOXIDE 30.6 mmol/L (21.0-32.0); CHLORIDE - SERUM 102 mmol/L (98-107); CREATININE - SERUM 0.7 mg/dL (0.6-1.3); GLUCOSE 89 mg/dL (74-106); POTASSIUM - SERUM 4.2 mmol/L (3.5-5.1); SODIUM 137 mmol/L (136-145); UREA NITROGEN 13 mg/dL (7-18); eGFR NON AFRICAN AMERICAN > 90 mL/min (90-120)
[2017-04-29 16:16] VITALS: BMI 28.5
[2017-04-29 20:00] VITALS: BP 112/71
[2017-04-30] VITALS: BP 95/52
[2017-04-30 04:00] VITALS: BP 97/47
[2017-04-30 04:59] LABS: HEMATOCRIT 29.4 % (42.0-54.0); HEMOGLOBIN 8.7 g/dL (13.5-17.5)
[2017-04-30 09:33] VITALS: BP 108/52
[2017-04-30 13:28] VITALS: BP 106/46
[2017-04-30 17:25] VITALS: Ht 182.9 cm; Wt 95.5 kg
[2017-04-30 18:40] VITALS: BP 109/57
[2017-04-30 20:00] VITALS: BP 131/59
[2017-05-01] VITALS: BP 98/51
[2017-05-01 04:00] VITALS: BP 104/53
[2017-05-01 06:31] LABS: HEMATOCRIT 28.1 % (42.0-54.0); HEMOGLOBIN 8.3 g/dL (13.5-17.5); MCH 23.3 pg (26.0-34.0); MCHC 29.5 g/dL (31.0-37.0); MCV 78.9 fL (80.0-100.0); MEAN PLATELET VOLUME 9.7 fL (7.4-10.4); RBC 3.56 10x6/uL (4.20-6.10); RDW 17.7 % (11.5-14.5); WBC 8.1 10x3/uL (4.8-10.8)
[2017-05-01 06:47] LABS: CALCIUM 7.8 mg/dL (8.5-10.1); CARBON DIOXIDE 27.6 mmol/L (21.0-32.0); CHLORIDE - SERUM 103 mmol/L (98-107); GLUCOSE 84 mg/dL (74-106); POTASSIUM - SERUM 4.2 mmol/L (3.5-5.1); SODIUM 137 mmol/L (136-145)
[2017-05-01 06:59] LABS: CALC OSMOLALITY 274 mosm/kg (275-300); CREATININE - SERUM 0.5 mg/dL (0.6-1.3); UREA NITROGEN 17 mg/dL (7-18); eGFR NON AFRICAN AMERICAN > 90 mL/min (90-120)
[2017-05-01 08:10] VITALS: BP 115/61
[2017-05-01 11:31] VITALS: BP 141/48
[2017-05-01 15:29] VITALS: BP 120/72
[2017-05-01 20:00] VITALS: BP 107/59
[2017-05-02 04:00] VITALS: BP 104/62
[2017-05-02 07:53] VITALS: BP 112/63
[2017-05-02 08:43] LABS: HEMATOCRIT 29.7 % (42.0-54.0); HEMOGLOBIN 8.8 g/dL (13.5-17.5)
[2017-05-02 09:47] LABS: ERYTHROCYTE SEDIMENTATION RATE 27 mm/hr (0-20)
[2017-05-02 12:44] VITALS: BP 105/62
[2017-05-02 15:56] VITALS: BP 99/48
[2017-05-02 20:00] VITALS: BP 94/48
[2017-05-03] VITALS: BP 107/53
[2017-05-03 04:00] VITALS: BP 117/62
[2017-05-03 09:06] VITALS: BP 92/50
[2017-05-03 13:22] VITALS: BP 93/53
[2017-05-03 17:29] VITALS: BP 96/45
[2017-05-03 20:00] VITALS: BP 98/59
[2017-05-04] VITALS: BP 122/62
[2017-05-04 04:00] VITALS: BP 105/55
[2017-05-04 09:28] VITALS: BP 106/59
[2017-05-04 10:18] LABS: CREATININE - SERUM 0.7 mg/dL (0.6-1.3); VANCOMYCIN - TROUGH 13.7 ug/mL (10.0-20.0)
[2017-05-04 12:41] VITALS: BP 107/61
[2017-05-04 16:39] VITALS: BP 104/63
[2017-05-04 20:00] VITALS: BP 106/60
[2017-05-05] VITALS (7 sets, daily range): BP systolic 87–105; BP diastolic 47–66
[2017-05-05 06:06] LABS: HEMATOCRIT 28.1 % (42.0-54.0); HEMOGLOBIN 8.3 g/dL (13.5-17.5); MCH 23.1 pg (26.0-34.0); MCHC 29.5 g/dL (31.0-37.0); MCV 78.1 fL (80.0-100.0); MEAN PLATELET VOLUME 9.9 fL (7.4-10.4); RBC 3.6 10x6/uL (4.20-6.10); RDW 17.1 % (11.5-14.5); WBC 6.8 10x3/uL (4.8-10.8)
[2017-05-05 06:16] LABS: CALC OSMOLALITY 274 mosm/kg (275-300); CALCIUM 7.8 mg/dL (8.5-10.1); CARBON DIOXIDE 25.8 mmol/L (21.0-32.0); CHLORIDE - SERUM 104 mmol/L (98-107); CREATININE - SERUM 0.6 mg/dL (0.6-1.3); GLUCOSE 88 mg/dL (74-106); POTASSIUM - SERUM 3.5 mmol/L (3.5-5.1); SODIUM 138 mmol/L (136-145); UREA NITROGEN 12 mg/dL (7-18); eGFR NON AFRICAN AMERICAN > 90 mL/min (90-120)
[2017-05-06 04:00] VITALS: BP 96/56
[2017-05-06] MEDS ORDERED: OXYCODONE HCL5 MG PO (08:15)
[2017-05-06] MEDS ORDERED: VANCOMYCIN 1 GM/1 G1 IV (08:16)
[2017-05-06 09:30] VITALS: BP 104/53
[2017-05-06 12:40] VITALS: BP 100/41
[2017-05-06 15:25] LABS: AEROBE ID Final report (()); RESULT 1 Streptococcus mitis (())
== END 2017-05-06 15:53 | DRG 481 ==
LOC: D.SDCHOLD 12:15 → D.OPS 15:30 → EDSTATUS 15:30 → D.PAN 15:30 → D.SDCHOLD 04-29 08:30 → D.MS 04-29 08:30 → D.SDCHOLD 04-29 11:00 → D.MS 04-29 14:44 → D.SDCHOLD 04-29 15:30 → D.MS 05-06 15:53
PROVIDERS: Anesthesiology; Orthopaedic Surgery
PROC: 0SB90ZZ Excision of Right Hip Joint, Open Approach (ICD-10-PCS; 2017-04-29)
PROC: 0QP404Z Removal of Internal Fixation Device from Right Acetabulum, Open Approach (ICD-10-PCS; principal; 2017-04-29 11:00)
PROC: 02HV33Z Insertion of Infusion Device into Superior Vena Cava, Percutaneous Approach (ICD-10-PCS; 2017-05-06)
PROC: B548ZZA Ultrasonography of Superior Vena Cava, Guidance (ICD-10-PCS; 2017-05-06)
DX: T84.51XA Infection and inflammatory reaction due to internal right hip prosthesis, initial encounter (principal); D62 Acute posthemorrhagic anemia; I25.10 Atherosclerotic heart disease of native coronary artery without angina pectoris; I11.0 Hypertensive heart disease with heart failure; I50.9 Heart failure, unspecified; I48.2 Chronic atrial fibrillation; F43.10 Post-traumatic stress disorder, unspecified; K21.9 Gastro-esophageal reflux disease without esophagitis; F32.9 Major depressive disorder, single episode, unspecified; Z86.73 Personal history of transient ischemic attack (TIA), and cerebral infarction without residual deficits; Z86.718 Personal history of other venous thrombosis and embolism

== ENCOUNTER 2017-05-06 22:00 | Emergency (ER) | payer MEDICARE ==
[2017-04-30 17:25] VITALS: BMI 28.5
[~2017-05-06 22:00] MED LIST changes: +OXYCODONE HCL E20 MG PO; +OXYCONTIN10 MG PO; +SENNA LAXATIVE8.6 MG PO; +VANCOMYCIN 1 GM/1 G1 IV; +VITAMIN C WIT1000 MG PO
== END 2017-05-07 00:23 | disposition home or self-care (01) ==
LOC: D.ER 22:00
DX: T82.838A Hemorrhage due to vascular prosthetic devices, implants and grafts, initial encounter (principal); Z79.01 Long term (current) use of anticoagulants; F17.200 Nicotine dependence, unspecified, uncomplicated; I48.91 Unspecified atrial fibrillation; I10 Essential (primary) hypertension

== ENCOUNTER → 2017-05-25 14:11 | Outpatient (CLI) | payer MEDICARE, MEDICAID ==
[2017-04-30 17:25] VITALS: BMI 28.5
[~2017-05-25 14:11] MED LIST changes: +ATIVAN1 MG PO; +DURAGESIC1 PATCH .1 TRANSDERM; +FERROUS SULFAT325 MG PO; +FLORAJEN3 CAPS460 MG PO; +KEFLEX500 MG PO; +LEVAQUIN750 MG PO; +MOBIC7.5 MG PO; +MULTIPLE VITAMI1 TA1 PO; +NYAMYC60 GM TP; +NYSTATIN OINTME15 GM TOPICAL; +PROMOD LIQUID P30 M1 PO; +ROXICODONE30 MG PO; +VIBRAMYCIN 100100 MG PO; -XANAX1 MG
== END | disposition home or self-care (01) ==
LOC: D.RAD 14:11
DX: M25.551 Pain in right hip (principal); R10.2 Pelvic and perineal pain

== ENCOUNTER 2017-06-05 17:34 | Inpatient (IN) | payer MEDICARE ==
[~2017-06-05] VITALS: Ht 182.9 cm; Wt 113.9 kg
--- NOTE | ~2017-06-05 | EC ---
PATIENT:VAHE NARVAEZ DATE OF SERVICE: 06/05/17 SEX: M MEDICAL RECORD: [id number] DATE OF : 54 LOCATION:D.MS Alex222 AGE OF PATIENT: 66 ADMISSION DATE: 06/05/17 REFERRING PHYSICIAN: INTERPRETING PHYSICIAN: THEA ROSALES MD ECHOCARDIOGRAM REPORT ECHO CHARGES 4 ECHO COMPLETE Date: CLINICAL DIAGNOSIS: PREOPERATIVE RISK ECHOCARDIOGRAPHIC MEASUREMENTS (adult normal given) AC root (d.<3.7cm) 3.6 cm LV Septum d (<1.2 cm> 1.3 cm Valve Excursion 2.3 cm LV Septum (systole) 1.9 cm Left Atria (s.<4.0cm> 4.2 cm LVPW d(<1.2cm) 1.3 cm RV (d.<2.3cm) 3.4 cm LVPW (sytole) 1.9 cm LV diastole(<5.6CM) 5.7 cm MV E-F(>70mm/sec) cm LV systole 3.4 cm LVOT Diameter 2.3 cm MV exc.(>10mm) cm Est.ejection fraction (50-75%) % DOPPLER: LVIT cm/sec A 109 cm/sec E 59.0 cm/sec LA cm/sec RVSP 68.1 mmHg LVOT 97.0 cm/sec AOP1/2T m/s Asc. Ao 165 cm/sec RVOT 53.0 cm/sec RA cm/sec PA 125 cm/sec AV Gradient Peak 11.0 mmHg AV Mean 5.6 mmHg AV Area 2.2 cm MV Gradient Peak 7.4 mmHg MV Mean 2.1 mmHg MV Area cm COMMENTS: Collar Separator: Varinder [place] Information Security Consultant: 4 Dr. Rosales TAPE# PACS Pericardial Effusion N DATE OF SERVICE: 06/06/2017 PROCEDURE: Transthoracic echocardiogram. FINDINGS: 1. The left ventricle shows mild dilatation with global mild hypokinesis. Ejection fraction appears to be 40% to 45%. The patient is in atrial fibrillation, so no assessment of diastolic function can be made. There is no obvious wall motion abnormalities. 2. The left atrium is mildly dilated. ECHOCARDIOGRAM REPORT [id number] VAHE NARVAEZ 3. Aortic valve is normal. 4. The mitral valve has mild mitral regurgitation. 5. Tricuspid valve has moderate tricuspid regurgitation. RVSP is moderately elevated at 65 mmHg. 6. The right ventricle is normal size to mildly dilated. 7. The right atrium is moderately dilated. 8. There is no pericardial effusion. CONCLUSION: The patient does have evidence of mild dilated cardiomyopathy with mild reduction in systolic function. TRANSINT:[id number] Voice Confirmation ID: [id number] DOCUMENT ID: [id number] 06/10/2017 Edited to correct date of service, dmm. THEA ROSALES MD at 1426 CC: [id number] DICTATION DATE: 06/07/17 0722 SOCIAL WORK ASSISTANT: 06/07/17 1047 DIS IN 06/11/17 [facility] [address] [place] [address]
--- NOTE | ~2017-06-05 | OP ---
PATIENT NAME: VAHE NARVAEZ MEDICAL RECORD: [id number] :54 LOCATION:D.MS Alex2223 ADMISSION DATE:06/05/17 SURGEON: VAHE MURRIETA MD DATE OF OPERATION: 06/07/2017 PREOPERATIVE DIAGNOSIS: Infected right hip with now fracture dislocation of the right hip itself. POSTOPERATIVE DIAGNOSIS: Infected right hip with now fracture dislocation of the right hip itself. PROCEDURES: 1. Excisional debridement 80+ cm in total to include skin, subcutaneous tissue, portions of fat, fascia, muscle, and bone. 2. Application of an antibiotic cement spacer with excision of the patient's femoral head for infection. SURGEON: Vahe Murrieta MD ANESTHESIA: General. INTRAOPERATIVE COMPLICATIONS: None. SUMMARY OF PATHOLOGIC FINDINGS: While the depths of the wound did look good without infection, unfortunately his belkofski femoral head had now dislocated and began to show signs of deterioration. Given his history, I felt like it was best to put a cement spacer in preparation for a total hip, posterior wall was relatively intact. The infected part of the wound was primarily superficial. OPERATIVE SUMMARY IN DETAIL: After obtaining the appropriate preoperative orthopedic surgery consent as well as anesthetic consultation, evaluation and clearance, the patient was brought to the operating room and placed on the operating table in supine position. After general laryngeal mask was administered, the patient placed in a left lateral decubitus position. All pressure points were well padded to include down leg peroneal pad as well as axillary roll. The patient was held firmly to the operating table using the vacuum pack suction system. The entire lower extremity was prepped and draped in routine sterile fashion after the wound VAC was removed. Cultures were taken in the superficial depths, and incision was then carried down to the level of the hip itself, which was dislocated posteriorly with internal rotation. The femoral neck cut was made using the femoral neck cutting guide for future total hip arthroplasty. Femoral head was in bad condition and it was sent for pathology. The acetabulum exposed. Small bone fragments associated with the patient's posterior hip dislocation were removed; however, the part that was originally fixed was adherent and in good condition. Reaming was done to clean out the acetabulum of any infectious disease. At this point, a small stem from [employer] was utilized. It was affixed to a large vancomycin-laden cement spacer. This was then placed into the femoral canal and reduced with a good reduction and overall leg length maintenance. The wound was copiously irrigated again at this point. Hip capsule was closed with #2 Ethibond followed by reapproximation of the residual gluteus medius minimus back to the greater trochanter. IT band was closed with #2 Ethibond followed by #1 Vicryl and then a large Prolene in [id number]-[id number]-vrp-near suture, reapproximation of the wound did appear to be healed except for the most inferior part. Wound VAC was then reapplied. Having completed this, the patient was awakened and taken to recovery room in stable OPERATIVE REPORT [id number] VAHE NARVAEZ condition. All final needle and sponge counts were correct. EDITED FOR SURGERY DATE; AMADA 06/21/17 TRANSINT:[id number] Voice Confirmation ID: [id number] DOCUMENT ID: [id number] GLENNY COVINGTON, VAHE CANTU at 1525 CC: [id number] DICTATION DATE: 06/17/17 0848 ASSISTANT HEAD CASHIER: 06/17/17 1111 DIS IN 06/11/17 [id number] [place] [address]
[~2017-06-05 17:34] MED LIST changes: -ATIVAN1 MG PO; -DURAGESIC1 PATCH .1 TRANSDERM; -FERROUS SULFAT325 MG PO; -FLORAJEN3 CAPS460 MG PO; -KEFLEX500 MG PO; -LEVAQUIN750 MG PO; -MOBIC7.5 MG PO; -MULTIPLE VITAMI1 TA1 PO; -NYAMYC60 GM TP; -NYSTATIN OINTME15 GM TOPICAL; -PROMOD LIQUID P30 M1 PO; -ROXICODONE30 MG PO; -VIBRAMYCIN 100100 MG PO
[2017-06-05 19:42] LABS: BASOPHILS 0.1 % (0-2); EOSINOPHILS 0.6 % (0-7); HEMATOCRIT 28.5 % (42.0-54.0); HEMOGLOBIN 8.4 g/dL (13.5-17.5); IMMATURE GRANULOCYTES 0.2 % (0-5); LYMPHOCYTES 8.7 % (15-50); MCHC 29.5 g/dL (31.0-37.0); MCV 74.6 fL (80.0-100.0); MEAN PLATELET VOLUME 9.6 fL (7.4-10.4); MONOCYTES 15.7 % (2-11); NEUTROPHILS 74.7 % (40-80); PLATELET COUNT 240 10x3/uL (130-400); RBC 3.82 10x6/uL (4.20-6.10); RDW 17.2 % (11.5-14.5); WBC 8.9 10x3/uL (4.8-10.8)
[2017-06-05 20:14] LABS: INR 1.61 (0.85-1.17); PROTIME 18.7 SECONDS (11.6-15.0)
[2017-06-05 20:26] LABS: ALBUMIN 2.9 g/dL (3.4-5.0); ALKALINE PHOSPHATASE 89 U/L (46-116); ALT (SGPT) 18 U/L (10-68); C-REACTIVE PROTEIN 8.4 mg/dL (0.0-0.9); CALC OSMOLALITY 279 mosm/kg (275-300); CARBON DIOXIDE 27.6 mmol/L (21.0-32.0); CHLORIDE - SERUM 102 mmol/L (98-107); CREATINE KINASE 122 UL (21-232); CREATININE - SERUM 0.7 mg/dL (0.6-1.3); GLUCOSE 104 mg/dL (74-106); LIPASE 37 U/L (73-393); MAGNESIUM - SERUM 1.8 mg/dL (1.8-2.4); POTASSIUM - SERUM 4.4 mmol/L (3.5-5.1); PRO BNP 2183 pg/mL (0-125); PROTEIN - SERUM 6.1 g/dL (6.4-8.2); SODIUM 139 mmol/L (136-145); TROPONIN-I < 0.017 ng/mL (0.000-0.060); UREA NITROGEN 18 mg/dL (7-18); eGFR NON AFRICAN AMERICAN > 90 mL/min (90-120)
[2017-06-05 20:31] LABS: APPEARANCE CLEAR (CLEAR); BILIRUBIN NEGATIVE (NEGATIVE); COLOR YELLOW (YELLOW); GLUCOSE NEGATIVE (NEGATIVE); KETONE NEGATIVE (NEGATIVE); NITRITE NEGATIVE (NEGATIVE); PROTEIN NEGATIVE (NEGATIVE); UROBILINOGEN NORMAL (NORMAL)
[2017-06-05 23:06] VITALS: BP 108/60; BMI 34.1
[2017-06-06] MEDS ORDERED: ELIQUIS5 MG PO (02:06)
[2017-06-06] MEDS ORDERED: ATIVAN1 MG PO (02:08)
[2017-06-06] MEDS ORDERED: PROMOD LIQUID P30 M1 PO (02:09)
[2017-06-06] MEDS ORDERED: DURAGESIC1 PATCH .1 TRANSDERM (02:19)
[2017-06-06] MEDS ORDERED: OXYCODONE HCL E20 MG PO (02:22)
[2017-06-06 04:00] VITALS: BP 130/77
[2017-06-06 09:09] VITALS: BP 125/71
[2017-06-06 13:42] LABS: BASOPHILS 0.3 % (0-2); EOSINOPHILS 0.9 % (0-7); HEMATOCRIT 31.9 % (42.0-54.0); HEMOGLOBIN 9.4 g/dL (13.5-17.5); IMMATURE GRANULOCYTES 0.1 % (0-5); LYMPHOCYTES 12.8 % (15-50); MCH 22.4 pg (26.0-34.0); MCHC 29.5 g/dL (31.0-37.0); MEAN PLATELET VOLUME 9.6 fL (7.4-10.4); MONOCYTES 16.3 % (2-11); NEUTROPHILS 69.6 % (40-80); PLATELET COUNT 204 10x3/uL (130-400); RDW 16.9 % (11.5-14.5); WBC 7.5 10x3/uL (4.8-10.8)
[2017-06-07 04:00] VITALS: BP 108/56
[2017-06-07 04:31] LABS: BASOPHILS 0.1 % (0-2); EOSINOPHILS 0.9 % (0-7); HEMATOCRIT 35.4 % (42.0-54.0); HEMOGLOBIN 10.8 g/dL (13.5-17.5); IMMATURE GRANULOCYTES 0.2 % (0-5); LYMPHOCYTES 6.7 % (15-50); MCH 23.7 pg (26.0-34.0); MCHC 30.5 g/dL (31.0-37.0); MCV 77.6 fL (80.0-100.0); MEAN PLATELET VOLUME 10.1 fL (7.4-10.4); MONOCYTES 18.2 % (2-11); NEUTROPHILS 73.9 % (40-80); PLATELET COUNT 209 10x3/uL (130-400); RBC 4.56 10x6/uL (4.20-6.10); RDW 17.2 % (11.5-14.5); WBC 9.2 10x3/uL (4.8-10.8)
[2017-06-07 04:42] LABS: ALBUMIN 2.4 g/dL (3.4-5.0); ALKALINE PHOSPHATASE 77 U/L (46-116); ALT (SGPT) 14 U/L (10-68); BILIRUBIN - TOTAL 0.89 mg/dL (0.2-1.3); CALC OSMOLALITY 277 mosm/kg (275-300); CALCIUM 7.8 mg/dL (8.5-10.1); CARBON DIOXIDE 29.4 mmol/L (21.0-32.0); CHLORIDE - SERUM 103 mmol/L (98-107); CREATININE - SERUM 0.7 mg/dL (0.6-1.3); GLUCOSE 88 mg/dL (74-106); MAGNESIUM - SERUM 1.8 mg/dL (1.8-2.4); PHOSPHOROUS 2.9 mg/dL (2.5-4.9); POTASSIUM - SERUM 3.8 mmol/L (3.5-5.1); SODIUM 140 mmol/L (136-145); eGFR NON AFRICAN AMERICAN > 90 mL/min (90-120)
[2017-06-07 04:48] LABS: UREA NITROGEN 13 mg/dL (7-18)
[2017-06-07 08:39] VITALS: BP 121/63
[2017-06-07 12:05] VITALS: BP 136/77
[2017-06-07 13:21] VITALS: Ht 182.9 cm; Wt 113.9 kg
[2017-06-07 18:52] VITALS: BP 132/67
[2017-06-08 03:55] LABS: BASOPHILS 0 % (0-2); EOSINOPHILS 0 % (0-7); HEMATOCRIT 30.7 % (42.0-54.0); HEMOGLOBIN 9.3 g/dL (13.5-17.5); IMMATURE GRANULOCYTES 0.3 % (0-5); LYMPHOCYTES 4.1 % (15-50); MCH 23.3 pg (26.0-34.0); MCHC 30.3 g/dL (31.0-37.0); MCV 76.8 fL (80.0-100.0); MEAN PLATELET VOLUME 9.8 fL (7.4-10.4); MONOCYTES 3.4 % (2-11); NEUTROPHILS 92.2 % (40-80); PLATELET COUNT 221 10x3/uL (130-400); RDW 17.4 % (11.5-14.5); WBC 7.8 10x3/uL (4.8-10.8)
[2017-06-08 04:00] VITALS: BP 102/54
[2017-06-08 04:17] LABS: CALC OSMOLALITY 280 mosm/kg (275-300); CALCIUM 7.4 mg/dL (8.5-10.1); CARBON DIOXIDE 28.6 mmol/L (21.0-32.0); CHLORIDE - SERUM 102 mmol/L (98-107); CREATININE - SERUM 0.6 mg/dL (0.6-1.3); SODIUM 139 mmol/L (136-145); UREA NITROGEN 11 mg/dL (7-18); eGFR NON AFRICAN AMERICAN > 90 mL/min (90-120)
[2017-06-08 04:26] LABS: GLUCOSE 171 mg/dL (74-106)
[2017-06-08 08:06] VITALS: BP 105/58
[2017-06-08 11:42] VITALS: BP 99/55
[2017-06-08 16:27] VITALS: BP 94/48
[2017-06-08 22:06] VITALS: BP 97/48
[2017-06-09 05:03] VITALS: BP 121/70
[2017-06-09 05:07] LABS: BASOPHILS 0 % (0-2); EOSINOPHILS 0.1 % (0-7); HEMATOCRIT 30.9 % (42.0-54.0); HEMOGLOBIN 9.3 g/dL (13.5-17.5); IMMATURE GRANULOCYTES 0.3 % (0-5); LYMPHOCYTES 5.5 % (15-50); MCH 23.4 pg (26.0-34.0); MCHC 30.1 g/dL (31.0-37.0); MCV 77.8 fL (80.0-100.0); MEAN PLATELET VOLUME 9.9 fL (7.4-10.4); MONOCYTES 7.8 % (2-11); NEUTROPHILS 86.3 % (40-80); RBC 3.97 10x6/uL (4.20-6.10)
[2017-06-09 05:11] LABS: PLATELET COUNT 292 10x3/uL (130-400); WBC 13.9 10x3/uL (4.8-10.8)
[2017-06-09 05:21] LABS: CALC OSMOLALITY 279 mosm/kg (275-300); CARBON DIOXIDE 28.2 mmol/L (21.0-32.0); CHLORIDE - SERUM 103 mmol/L (98-107); CREATININE - SERUM 0.7 mg/dL (0.6-1.3); SODIUM 140 mmol/L (136-145); UREA NITROGEN 13 mg/dL (7-18); eGFR NON AFRICAN AMERICAN > 90 mL/min (90-120)
[2017-06-09 05:22] LABS: GLUCOSE 112 mg/dL (74-106)
[2017-06-09 09:22] VITALS: BP 155/65
[2017-06-09 12:44] VITALS: BP 115/72
[2017-06-09 20:00] VITALS: BP 97/45
[2017-06-10 04:00] VITALS: BP 135/81
[2017-06-10 04:47] LABS: BASOPHILS 0.1 % (0-2); EOSINOPHILS 0.8 % (0-7); HEMATOCRIT 28.8 % (42.0-54.0); HEMOGLOBIN 8.6 g/dL (13.5-17.5); IMMATURE GRANULOCYTES 0.3 % (0-5); LYMPHOCYTES 10.7 % (15-50); MCH 23.4 pg (26.0-34.0); MCHC 29.9 g/dL (31.0-37.0); MCV 78.3 fL (80.0-100.0); MEAN PLATELET VOLUME 9.5 fL (7.4-10.4); MONOCYTES 11.3 % (2-11); NEUTROPHILS 76.8 % (40-80); PLATELET COUNT 245 10x3/uL (130-400); RBC 3.68 10x6/uL (4.20-6.10); RDW 18.8 % (11.5-14.5)
[2017-06-10 05:04] LABS: WBC 9.3 10x3/uL (4.8-10.8)
[2017-06-10 05:20] LABS: ALBUMIN 2.3 g/dL (3.4-5.0); ALKALINE PHOSPHATASE 75 U/L (46-116); ALT (SGPT) 25 U/L (10-68); CALC OSMOLALITY 285 mosm/kg (275-300); CALCIUM 7.6 mg/dL (8.5-10.1); CARBON DIOXIDE 31.1 mmol/L (21.0-32.0); CHLORIDE - SERUM 107 mmol/L (98-107); CREATININE - SERUM 0.6 mg/dL (0.6-1.3); GLUCOSE 95 mg/dL (74-106); POTASSIUM - SERUM 3.7 mmol/L (3.5-5.1); PROTEIN - SERUM 5.6 g/dL (6.4-8.2); SODIUM 143 mmol/L (136-145); UREA NITROGEN 16 mg/dL (7-18); eGFR NON AFRICAN AMERICAN > 90 mL/min (90-120)
[2017-06-10 08:29] VITALS: BP 147/78
[2017-06-10 12:51] VITALS: BP 140/89
[2017-06-10 15:51] VITALS: BP 132/72
[2017-06-10 20:00] VITALS: BP 105/58
[2017-06-11] VITALS: BP 135/70
[2017-06-11 08:40] VITALS: BP 136/73
[2017-06-11] MEDS ORDERED: FERROUS SULFAT325 MG PO (09:11)
[2017-06-11] MEDS ORDERED: PLAVIX75 MG PO (09:11)
[2017-06-11] MEDS ORDERED: KEFLEX500 MG PO (09:11)
[2017-06-11] MEDS ORDERED: VIBRAMYCIN 100100 MG PO (09:11)
[2017-06-11] MEDS ORDERED: OXYCODONE HCL5 MG PO (09:12)
[2017-06-11] MEDS ORDERED: FLORAJEN3 CAPS460 MG PO (09:12)
[2017-06-11 13:01] VITALS: BP 126/70
== END 2017-06-11 14:54 | DRG 857 ==
LOC: D.ER 17:34 → D.MS 21:58 → D.M2 21:58 → D.MS 06-06 14:23
PROVIDERS: Emergency Medicine; Family Medicine; Orthopaedic Surgery; Orthopaedic Surgery Foot and Ankle Surgery
PROC: 0SH908Z Insertion of Spacer into Right Hip Joint, Open Approach (ICD-10-PCS; principal; 2017-06-07 15:20)
PROC: 0QB60ZZ Excision of Right Upper Femur, Open Approach (ICD-10-PCS; 2017-06-07 15:20)
DX: T81.4XXA Infection following a procedure, initial encounter (principal); I50.32 Chronic diastolic (congestive) heart failure; D62 Acute posthemorrhagic anemia; S73.004A Unspecified dislocation of right hip, initial encounter; I11.0 Hypertensive heart disease with heart failure; Z95.0 Presence of cardiac pacemaker; Z95.5 Presence of coronary angioplasty implant and graft; I48.91 Unspecified atrial fibrillation; F43.10 Post-traumatic stress disorder, unspecified; D50.9 Iron deficiency anemia, unspecified; F32.9 Major depressive disorder, single episode, unspecified; X58.XXXA Exposure to other specified factors, initial encounter; R41.0 Disorientation, unspecified

== ENCOUNTER 2017-08-02 05:44 | Inpatient (IN) | payer MEDICARE ==
[2017-08-02] VITALS (11 sets, daily range): BP systolic 92–132; BP diastolic 50–78; BMI 29.6; BMI 32.1
[~2017-08-02] VITALS: Ht 188 cm; Wt 113.6 kg
--- NOTE | ~2017-08-02 | OP ---
PATIENT NAME: VAHE NARVAEZ MEDICAL RECORD: [id number] :54 LOCATION:D.MS Alex2210 ADMISSION DATE:08/02/17 SURGEON: VAHE MURRIETA MD DATE OF OPERATION: 08/02/2017 PREOPERATIVE DIAGNOSIS: Prior infected right hip (prior acetabular trauma with postoperative infection done at outside facility). POSTOPERATIVE DIAGNOSIS: Prior infected right hip (prior acetabular trauma with postoperative infection done at outside facility). PROCEDURE: Revision right total hip arthroplasty. SURGEON: Vahe Murrieta MD ANESTHESIA: General. INTRAOPERATIVE COMPLICATIONS: None. SUMMARY OF PATHOLOGIC FINDINGS: Essentially none. Cultures were taken. Intraoperative stat Gram stain was negative for organisms. IMPLANTS USED: Anglican modular total hip system 195 x 14 stem with a 21 standard proximal body, a size 40 standard femoral head, size 40 mm alpha code G polyethylene insert and a Trident Tritanium hemispherical shell size 44, no screws. ESTIMATED BLOOD LOSS: 1000 cc. OPERATIVE SUMMARY IN DETAIL: After obtaining the appropriate preoperative orthopedic surgery consent as well as anesthesia consultation, evaluation, and clearance, the patient was brought to the operating room and placed on the operating table in supine position. After general endotracheal anesthesia was administered, the patient was placed in a left lateral position. All pressure points were padded to include down leg peroneal pad as well as axillary roll. The patient was held firmly to the operating table using the vacuum pack suction system. The patient's right lower extremity and hip were then prepped and draped in routine sterile fashion. The first order of business was a wide elliptical incision to cut out a large cavitary indentation that required restorative reconstructive surgery on the skin itself. The dissection was then taken down to the posterior aspect of the acetabulum using a posterior approach as this patient has had multiple posterior approaches. The residual Gemelli and piriformis were resected off the back of the greater trochanter and saved for later reapproximation. Incision was carried down to the hip capsule. At this point, while upon entering the hip capsules, cultures were taken and sent for stat Gram stain. The cement spacer was identified and was very reticent to be removed. Osteotome was then used to fracture the cement spacer and it was removed quite easily as was the stem on the cement spacer. Wound was then copiously irrigated at this point. Serial and sequential reaming was done to a size 63 for placement of 64 cup at this point. Stat Gram stain came back negative. We then proceeded with revision total hip. A 64 Trident multi-hole cup was placed into the acetabulum with excellent capture. I felt there was no need for further screw fixation. Polyethylene was snapped into place and attention was turned to the femur. Serial and sequential reaming was done for a size 14 x 195 bowed Anglican modular stem. The bowed Anglican modular OPERATIVE REPORT [id number] NARVAEZVAHE ROD stem was put into place. Trials were undertaken with the +10 proximal body and the +0 proximal body. It was felt that the +0 proximal body and the standard head was the most appropriate. The final proximal body was put into place and put at the appropriate amount of version, screwed in tightly. The standard head was tamped into place with the Wiggins taper. The hip was reduced, taken through range of motion and found to be stable in all planes. Copious irrigation at this point was then followed by reapproximation of the hip capsule as well as the cuff of residual muscle tissue back to the posterior aspect of the greater trochanter. This was followed by deep closure followed by superficial closure. The wound came together nicely without cavitary defect. Note, a size 19 drain was left in the subcutaneous space. Drain stitch was tied into place. Final skin was reapproximated with skin jyotsna. Sterile dressings were applied. The patient was awakened, taken to recovery in stable condition. All final needle and sponge counts were correct. TRANSINT:[id number] Voice Confirmation ID: [id number] DOCUMENT ID: [id number] GLENNY COVINGTON, VAHE CANTU at 1352 CC: [id number] DICTATION DATE: 08/02/17 1053 SENIOR QA TESTER: 08/02/17 1157 ADM IN [facility] [address] [place] [address]
[~2017-08-02 05:44] MED LIST changes: +ATIVAN1 MG PO; +DURAGESIC1 PATCH .1 TRANSDERM; +FERROUS SULFAT325 MG PO; +FLORAJEN3 CAPS460 MG PO; +KEFLEX500 MG PO; +PROMOD LIQUID P30 M1 PO; +VIBRAMYCIN 100100 MG PO
[2017-08-02] MEDS ORDERED: MOBIC7.5 MG PO (07:14)
[2017-08-02] MEDS ORDERED: MULTIPLE VITAMI1 TA1 PO (07:14)
[2017-08-02] MEDS ORDERED: NYSTATIN OINTME15 GM TOPICAL (07:15)
[2017-08-02] MEDS ORDERED: NYAMYC60 GM TP (07:16)
[2017-08-02 07:19] LABS: INR 1.16 (0.85-1.17); PROTIME 14.4 SECONDS (11.6-15.0)
[2017-08-02] MEDS ORDERED: RESTORIL15 MG PO (07:21)
[2017-08-02 07:44] LABS: CALC OSMOLALITY 279 mosm/kg (275-300); CALCIUM 8.6 mg/dL (8.5-10.1); CARBON DIOXIDE 32.6 mmol/L (21.0-32.0); CHLORIDE - SERUM 101 mmol/L (98-107); CREATININE - SERUM 0.8 mg/dL (0.6-1.3); GLUCOSE 95 mg/dL (74-106); POTASSIUM - SERUM 4.5 mmol/L (3.5-5.1); SODIUM 139 mmol/L (136-145); UREA NITROGEN 19 mg/dL (7-18); eGFR NON AFRICAN AMERICAN > 90 mL/min (90-120)
[2017-08-02 08:04] LABS: BASOPHILS 0.3 % (0-2); EOSINOPHILS 5.3 % (0-7); HEMATOCRIT 33.7 % (42.0-54.0); HEMOGLOBIN 10.1 g/dL (13.5-17.5); IMMATURE GRANULOCYTES 0.2 % (0-5); LYMPHOCYTES 15.5 % (15-50); MCH 23.3 pg (26.0-34.0); MCV 77.6 fL (80.0-100.0); MEAN PLATELET VOLUME 9.4 fL (7.4-10.4); MONOCYTES 12.2 % (2-11); NEUTROPHILS 66.5 % (40-80); PLATELET COUNT 286 10x3/uL (130-400); RBC 4.34 10x6/uL (4.20-6.10); RDW 18.2 % (11.5-14.5); WBC 5.8 10x3/uL (4.8-10.8)
[2017-08-02 21:02] LABS: APPEARANCE CLEAR (CLEAR); COLOR YELLOW (YELLOW); SPECIFIC GRAVITY 1.015 (1.005-1.020)
[2017-08-02 21:03] LABS: BILIRUBIN NEGATIVE (NEGATIVE); GLUCOSE NEGATIVE (NEGATIVE); KETONE NEGATIVE (NEGATIVE); NITRITE NEGATIVE (NEGATIVE); PROTEIN NEGATIVE (NEGATIVE); UROBILINOGEN NORMAL (NORMAL)
[2017-08-03] VITALS (13 sets, daily range): BP systolic 97–117; BP diastolic 47–71
[2017-08-03 06:02] LABS: MCH 23.7 pg (26.0-34.0); MCHC 30.8 g/dL (31.0-37.0); MCV 76.9 fL (80.0-100.0); MEAN PLATELET VOLUME 9.6 fL (7.4-10.4); RDW 17.6 % (11.5-14.5); WBC 6.9 10x3/uL (4.8-10.8)
[2017-08-03 06:08] LABS: HEMATOCRIT 24.7 % (42.0-54.0); HEMOGLOBIN 7.6 g/dL (13.5-17.5); RBC 3.21 10x6/uL (4.20-6.10)
[2017-08-04 04:00] VITALS: BP 112/65
[2017-08-04 06:16] LABS: HEMATOCRIT 26.8 % (42.0-54.0); HEMOGLOBIN 8.4 g/dL (13.5-17.5); MCHC 31.3 g/dL (31.0-37.0); MCV 76.6 fL (80.0-100.0); MEAN PLATELET VOLUME 8.8 fL (7.4-10.4); RBC 3.5 10x6/uL (4.20-6.10); RDW 18.2 % (11.5-14.5); WBC 7.2 10x3/uL (4.8-10.8)
[2017-08-04 09:09] VITALS: BP 106/59
[2017-08-04 12:38] VITALS: BP 134/65
[2017-08-04 17:07] VITALS: BP 114/65
[2017-08-04 20:00] VITALS: BP 114/57
[2017-08-05] VITALS: BP 103/54
[2017-08-05 04:45] VITALS: BP 113/77
[2017-08-05 08:33] VITALS: BP 116/58
[2017-08-05 13:18] VITALS: BP 122/64
[2017-08-05 16:11] VITALS: BP 103/45
[2017-08-05 20:00] VITALS: BP 137/71
[2017-08-06] VITALS: BP 129/68
[2017-08-06 04:00] VITALS: BP 118/59
[2017-08-06 05:09] LABS: HEMATOCRIT 28.7 % (42.0-54.0); HEMOGLOBIN 8.9 g/dL (13.5-17.5); MCH 24.2 pg (26.0-34.0); MEAN PLATELET VOLUME 9.4 fL (7.4-10.4); RBC 3.68 10x6/uL (4.20-6.10); RDW 18.2 % (11.5-14.5); WBC 7.1 10x3/uL (4.8-10.8)
[2017-08-06 08:10] VITALS: BP 98/67
[2017-08-06 10:17] VITALS: Ht 188 cm; Wt 113.6 kg
[2017-08-06 10:34] LABS: % SATURATION 8 % (15-55); IRON 19 ug/dl (35-150); TOTAL IRON BIND CAPACITY 215 ug/dl (260-445); UNSAT IRON BIND CAPACITY 196 ug/dl (150-375)
[2017-08-06 12:12] VITALS: BP 115/55
[2017-08-06 15:33] VITALS: BP 142/71
[2017-08-07 00:26] VITALS: BP 112/54
[2017-08-07 04:32] VITALS: BP 114/58
[2017-08-07 06:14] LABS: FOLATE (FOLIC ACID) - SERUM 9.6 ng/mL (>3.0)
[2017-08-07 07:48] VITALS: BP 102/57
[2017-08-07 12:39] VITALS: BP 139/61
[2017-08-07 16:17] VITALS: BP 119/69
[2017-08-07 23:04] VITALS: BP 121/73
[2017-08-08 04:33] VITALS: BP 125/60
[2017-08-08 08:42] VITALS: BP 116/64
[2017-08-08 12:45] VITALS: BP 120/67
[2017-08-08 16:35] VITALS: BP 121/67
[2017-08-08 21:12] VITALS: BP 114/93
[2017-08-09 01:39] VITALS: BP 124/74
[2017-08-09 04:14] VITALS: BP 116/74
[2017-08-09 08:30] LABS: BASOPHILS 0.4 % (0-2); EOSINOPHILS 11.8 % (0-7); HEMATOCRIT 27.2 % (42.0-54.0); HEMOGLOBIN 8.2 g/dL (13.5-17.5); IMMATURE GRANULOCYTES 0.1 % (0-5); LYMPHOCYTES 13.3 % (15-50); MCH 24.3 pg (26.0-34.0); MCHC 30.1 g/dL (31.0-37.0); MCV 80.5 fL (80.0-100.0); MEAN PLATELET VOLUME 9.7 fL (7.4-10.4); MONOCYTES 11.9 % (2-11); NEUTROPHILS 62.5 % (40-80); PLATELET COUNT 227 10x3/uL (130-400); RBC 3.38 10x6/uL (4.20-6.10); RDW 18.8 % (11.5-14.5); WBC 6.7 10x3/uL (4.8-10.8)
[2017-08-09 08:38] LABS: ALBUMIN 2.2 g/dL (3.4-5.0); ALKALINE PHOSPHATASE 84 U/L (46-116); ALT (SGPT) 13 U/L (10-68); BILIRUBIN - TOTAL 0.42 mg/dL (0.2-1.3); CALC OSMOLALITY 278 mosm/kg (275-300); CARBON DIOXIDE 29.6 mmol/L (21.0-32.0); CHLORIDE - SERUM 106 mmol/L (98-107); CREATININE - SERUM 0.6 mg/dL (0.6-1.3); GLUCOSE 92 mg/dL (74-106); MAGNESIUM - SERUM 1.6 mg/dL (1.8-2.4); PHOSPHOROUS 3.5 mg/dL (2.5-4.9); POTASSIUM - SERUM 3.6 mmol/L (3.5-5.1); PROTEIN - SERUM 5.8 g/dL (6.4-8.2); SODIUM 141 mmol/L (136-145); UREA NITROGEN 8 mg/dL (7-18); eGFR NON AFRICAN AMERICAN > 90 mL/min (90-120)
[2017-08-09 09:35] VITALS: BP 106/50
[2017-08-09 12:25] VITALS: BP 103/53; BP 115/89
[2017-08-09 17:05] VITALS: BP 112/63
[2017-08-09 22:58] VITALS: BP 105/66
[2017-08-10 05:20] LABS: BASOPHILS 0.3 % (0-2); EOSINOPHILS 7.8 % (0-7); HEMATOCRIT 29.7 % (42.0-54.0); HEMOGLOBIN 8.9 g/dL (13.5-17.5); IMMATURE GRANULOCYTES 0.2 % (0-5); LYMPHOCYTES 14.5 % (15-50); MCH 24.7 pg (26.0-34.0); MEAN PLATELET VOLUME 9.9 fL (7.4-10.4); MONOCYTES 11.5 % (2-11); NEUTROPHILS 65.7 % (40-80); PLATELET COUNT 208 10x3/uL (130-400); RDW 19.2 % (11.5-14.5)
[2017-08-10 05:29] LABS: MCV 82.5 fL (80.0-100.0)
[2017-08-10 05:40] VITALS: BP 102/53
[2017-08-10 05:45] LABS: ALBUMIN 2.5 g/dL (3.4-5.0); ALKALINE PHOSPHATASE 90 U/L (46-116); ALT (SGPT) 12 U/L (10-68); BILIRUBIN - TOTAL 0.49 mg/dL (0.2-1.3); CALC OSMOLALITY 276 mosm/kg (275-300); CALCIUM 8.4 mg/dL (8.5-10.1); CHLORIDE - SERUM 104 mmol/L (98-107); CREATININE - SERUM 0.7 mg/dL (0.6-1.3); GLUCOSE 90 mg/dL (74-106); MAGNESIUM - SERUM 1.6 mg/dL (1.8-2.4); PHOSPHOROUS 3.5 mg/dL (2.5-4.9); POTASSIUM - SERUM 3.9 mmol/L (3.5-5.1); PROTEIN - SERUM 6.3 g/dL (6.4-8.2); SODIUM 140 mmol/L (136-145); UREA NITROGEN 8 mg/dL (7-18); eGFR NON AFRICAN AMERICAN > 90 mL/min (90-120)
[2017-08-10 09:20] VITALS: BP 124/68
[2017-08-10 13:15] VITALS: BP 123/66
[2017-08-10 17:01] VITALS: BP 116/69; BP 126/85
[2017-08-10 22:17] VITALS: BP 117/68
[2017-08-11 03:56] VITALS: BP 124/64
[2017-08-11 06:17] LABS: BASOPHILS 0.3 % (0-2); EOSINOPHILS 7.1 % (0-7); HEMATOCRIT 30.1 % (42.0-54.0); IMMATURE GRANULOCYTES 0.3 % (0-5); LYMPHOCYTES 14.5 % (15-50); MCH 24.7 pg (26.0-34.0); MCHC 29.9 g/dL (31.0-37.0); MCV 82.5 fL (80.0-100.0); MEAN PLATELET VOLUME 9.5 fL (7.4-10.4); MONOCYTES 10.9 % (2-11); NEUTROPHILS 66.9 % (40-80); PLATELET COUNT 242 10x3/uL (130-400); RBC 3.65 10x6/uL (4.20-6.10); RDW 19.5 % (11.5-14.5); WBC 6.6 10x3/uL (4.8-10.8)
[2017-08-11 06:59] LABS: ALBUMIN 2.6 g/dL (3.4-5.0); ALKALINE PHOSPHATASE 94 U/L (46-116); ALT (SGPT) 13 U/L (10-68); BILIRUBIN - TOTAL 0.62 mg/dL (0.2-1.3); C-REACTIVE PROTEIN 7.9 mg/dL (0.0-0.9); CALC OSMOLALITY 272 mosm/kg (275-300); CALCIUM 8.5 mg/dL (8.5-10.1); CHLORIDE - SERUM 101 mmol/L (98-107); CREATININE - SERUM 0.7 mg/dL (0.6-1.3); GLUCOSE 87 mg/dL (74-106); MAGNESIUM - SERUM 1.6 mg/dL (1.8-2.4); PHOSPHOROUS 3.4 mg/dL (2.5-4.9); POTASSIUM - SERUM 3.4 mmol/L (3.5-5.1); PROTEIN - SERUM 6.5 g/dL (6.4-8.2); SODIUM 138 mmol/L (136-145); UREA NITROGEN 8 mg/dL (7-18); eGFR NON AFRICAN AMERICAN > 90 mL/min (90-120)
[2017-08-11 08:06] VITALS: BP 118/56
[2017-08-11 08:17] LABS: ERYTHROCYTE SEDIMENTATION RATE 25 mm/hr (0-20)
[2017-08-11] MEDS ORDERED: ROXICODONE30 MG PO (10:49)
[2017-08-11] MEDS ORDERED: LEVAQUIN750 MG PO (10:49)
== END 2017-08-11 13:38 | DRG 467 ==
LOC: D.SDCHOLD 05:44 → D.MS 05:44 → D.SDCHOLD 07:45 → D.MS 12:03 → D.SDCHOLD 08-03 07:08 → D.MS 08-03 07:08
PROVIDERS: Legal Medicine; Orthopaedic Surgery
PROC: 0SR90JZ Replacement of Right Hip Joint with Synthetic Substitute, Open Approach (ICD-10-PCS; principal; 2017-08-02 07:45)
PROC: 0SP908Z Removal of Spacer from Right Hip Joint, Open Approach (ICD-10-PCS; 2017-08-02 07:45)
DX: Z47.32 Aftercare following explantation of hip joint prosthesis (principal); D62 Acute posthemorrhagic anemia; I10 Essential (primary) hypertension; B96.89 Other specified bacterial agents as the cause of diseases classified elsewhere; F43.10 Post-traumatic stress disorder, unspecified; K21.9 Gastro-esophageal reflux disease without esophagitis; H54.40 Blindness, one eye, unspecified eye; I48.91 Unspecified atrial fibrillation; R00.1 Bradycardia, unspecified; I95.81 Postprocedural hypotension; Z95.0 Presence of cardiac pacemaker

== ENCOUNTER → 2017-08-24 12:51 | Outpatient (CLI) | payer MEDICARE ==
[2017-08-06 10:17] VITALS: BMI 32.1
[~2017-08-24 12:51] MED LIST changes: +LEVAQUIN750 MG PO; +MOBIC7.5 MG PO; +MULTIPLE VITAMI1 TA1 PO; +NYAMYC60 GM TP; +NYSTATIN OINTME15 GM TOPICAL; +ROXICODONE30 MG PO
[2017-08-24 13:18] LABS: BASOPHILS 0.2 % (0-2); HEMATOCRIT 32.2 % (42.0-54.0); HEMOGLOBIN 9.8 g/dL (13.5-17.5); IMMATURE GRANULOCYTES 0.3 % (0-5); LYMPHOCYTES 12.6 % (15-50); MCH 24.5 pg (26.0-34.0); MCHC 30.4 g/dL (31.0-37.0); MCV 80.5 fL (80.0-100.0); MEAN PLATELET VOLUME 8.7 fL (7.4-10.4); MONOCYTES 10.2 % (2-11); NEUTROPHILS 68.7 % (40-80); PLATELET COUNT 275 10x3/uL (130-400); RDW 18.4 % (11.5-14.5); WBC 6.4 10x3/uL (4.8-10.8)
[2017-08-24 13:52] LABS: C-REACTIVE PROTEIN 4.8 mg/dL (0.0-0.9); CREATININE - SERUM 0.8 mg/dL (0.6-1.3)
[2017-08-24 14:19] LABS: ERYTHROCYTE SEDIMENTATION RATE 32 mm/hr (0-20)
== END | disposition home or self-care (01) ==
LOC: D.LABREF 12:51
PROVIDERS: Student in an Organized Health Care Education/Training Program
DX: Z51.81 Encounter for therapeutic drug level monitoring (principal); Z79.2 Long term (current) use of antibiotics

== ENCOUNTER → 2017-09-01 10:27 | Outpatient (CLI) | payer MEDICARE ==
[2017-08-06 10:17] VITALS: BMI 32.1
== END | disposition home or self-care (01) ==
LOC: D.LABREF 10:27
DX: L03.119 Cellulitis of unspecified part of limb (principal)

== ENCOUNTER 2017-12-12 01:55 | Observation (INO) | payer MEDICARE, MEDICAID ==
[~2017-12-12] VITALS: Ht 188 cm; Wt 124.7 kg
--- NOTE | ~2017-12-12 | EC ---
PATIENT:VAHE NARVAEZ DATE OF SERVICE: 12/12/17 SEX: M MEDICAL RECORD: [id number] DATE OF : 54 LOCATION:D.M2 D.212 AGE OF PATIENT: 67 ADMISSION DATE: 12/12/17 REFERRING PHYSICIAN: INTERPRETING PHYSICIAN: THEA ROSALES MD ECHOCARDIOGRAM REPORT ECHO CHARGES 4 ECHO COMPLETE Date: 12/12/17 CLINICAL DIAGNOSIS: CP ECHOCARDIOGRAPHIC MEASUREMENTS (adult normal given) AC root (d.<3.7cm) 3.1 cm LV Septum d (<1.2 cm> 1.1 cm Valve Excursion 2.0 cm LV Septum (systole) 1.2 cm Left Atria (s.<4.0cm> 5.5 cm LVPW d(<1.2cm) 1.0 cm RV (d.<2.3cm) 3.2 cm LVPW (sytole) 1.1 cm LV diastole(<5.6CM) 5.8 cm MV E-F(>70mm/sec) cm LV systole 4.6 cm LVOT Diameter 2.1 cm MV exc.(>10mm) cm Est.ejection fraction (50-75%) % DOPPLER: LVIT cm/sec A 56 cm/sec E 38 cm/sec LA cm/sec RVSP 30.4 mmHg LVOT 86 cm/sec AOP1/2T m/s Asc. Ao 94 cm/sec RVOT 63 cm/sec RA cm/sec PA 100 cm/sec AV Gradient Peak 4.9 mmHg AV Mean 3.7 mmHg AV Area 2.8 cm MV Gradient Peak 2.8 mmHg MV Mean 1.5 mmHg MV Area cm COMMENTS: Hospital Chief Executive Officer: Trixie [facility] Music Video Director: 4 Dr. Rosales TAPE# PACS Pericardial Effusion N DATE OF SERVICE: PROCEDURE: Transthoracic echocardiogram. FINDINGS: 1. Left ventricle is mildly dilated. The patient has mild concentric left ventricular hypertrophy. The overall function of the heart is 45% to 50% ejection fraction. 2. The left atrium is severely dilated. 3. The mitral valve has mild mitral regurgitation, although in one area, there ECHOCARDIOGRAM REPORT [id number] VAHE NARVAEZ is an eccentric component that puts it more in the moderate range. 4. Tricuspid valve has mild tricuspid regurgitation. RVSP is normal. 5. The right ventricle is normal. 6. The right atrium is mildly dilated. CONCLUSIONS: The patient has biatrial enlargement and a mild dilated cardiomyopathy, ejection fraction as stated above. TRANSINT:[id number] Voice Confirmation ID: [id number] DOCUMENT ID: [id number] THEA ROSALES MD at 1348 CC: [id number] DICTATION DATE: 12/13/17 0756 PHLEBOTOMIST MEDICAL LAB ASSISTANT: 12/13/17 1139 DIS IN 12/14/17 [place] [id number] [place] [id number]
[2017-12-12 02:20] LABS: BASOPHILS 0.4 % (0-2); EOSINOPHILS 4.2 % (0-7); HEMATOCRIT 37.1 % (42.0-54.0); IMMATURE GRANULOCYTES 0.4 % (0-5); LYMPHOCYTES 22.8 % (15-50); MCH 28.6 pg (26.0-34.0); MCHC 32.3 g/dL (31.0-37.0); MCV 88.5 fL (80.0-100.0); MEAN PLATELET VOLUME 9.3 fL (7.4-10.4); MONOCYTES 16.8 % (2-11); NEUTROPHILS 55.4 % (40-80); RBC 4.19 10x6/uL (4.20-6.10); RDW 15.3 % (11.5-14.5)
[2017-12-12 02:24] LABS: PLATELET COUNT 154 10x3/uL (130-400)
[2017-12-12 02:31] LABS: APTT 43.4 SECONDS (22.8-39.4); INR 1.13 (0.85-1.17); PROTIME 14.1 SECONDS (11.6-15.0)
[2017-12-12 02:32] LABS: D-DIMER-QUANTITATIVE 1.6 ug/mLFEU (0.20-0.54)
[2017-12-12 02:35] LABS: ALKALINE PHOSPHATASE 125 U/L (46-116); ALT (SGPT) 25 U/L (10-68); BILIRUBIN - TOTAL 0.27 mg/dL (0.2-1.3); CALC OSMOLALITY 278 mosm/kg (275-300); CALCIUM 8.2 mg/dL (8.5-10.1); CARBON DIOXIDE 31.6 mmol/L (21.0-32.0); CHLORIDE - SERUM 103 mmol/L (98-107); CREATININE - SERUM 0.8 mg/dL (0.6-1.3); GLUCOSE 99 mg/dL (74-106); POTASSIUM - SERUM 3.7 mmol/L (3.5-5.1); PROTEIN - SERUM 6.9 g/dL (6.4-8.2); SODIUM 138 mmol/L (136-145); UREA NITROGEN 21 mg/dL (7-18); eGFR NON AFRICAN AMERICAN > 90 mL/min (90-120)
[2017-12-12 02:43] LABS: CREATINE KINASE 47 UL (21-232); MAGNESIUM - SERUM 1.8 mg/dL (1.8-2.4); PRO BNP 785 pg/mL (0-125); TROPONIN-I < 0.017 ng/mL (0.000-0.060)
[2017-12-12 04:13] VITALS: BP 109/56; BMI 35.6
[2017-12-12] MEDS ORDERED: MOBIC7.5 MG PO (04:48)
[2017-12-12] MEDS ORDERED: COREG25 MG PO (04:49)
[2017-12-12] MEDS ORDERED: LASIX80 MG PO (04:50)
[2017-12-12] MEDS ORDERED: DEMEROL100 MG PO (04:52)
[2017-12-12] MEDS ORDERED: VOLTAREN100 GM TOPICAL (04:53)
[2017-12-12] MEDS ORDERED: DOXYCYCLINE HY100 M2 PO (04:59)
[2017-12-12] MEDS ORDERED: OXY IR30 MG PO (05:06)
[2017-12-12 08:33] LABS: CKMB 0.3 U/L (0.0-3.6); CREATINE KINASE 41 UL (21-232)
[2017-12-12 08:34] LABS: TROPONIN-I < 0.017 ng/mL (0.000-0.060)
[2017-12-12 13:20] VITALS: Ht 188 cm; Wt 124.7 kg
[2017-12-12 13:42] LABS: % SATURATION 26 % (15-55); IRON 58 ug/dl (35-150); TOTAL IRON BIND CAPACITY 218 ug/dl (260-445); UNSAT IRON BIND CAPACITY 160 ug/dl (150-375)
[2017-12-12 15:07] LABS: CKMB 0.6 U/L (0.0-3.6); CREATINE KINASE 47 UL (21-232); TROPONIN-I < 0.017 ng/mL (0.000-0.060)
[2017-12-12 15:35] VITALS: BP 125/72
[2017-12-12 19:58] LABS: CKMB 0.5 U/L (0.0-3.6); CREATINE KINASE 40 UL (21-232); TROPONIN-I < 0.017 ng/mL (0.000-0.060)
[2017-12-12 20:00] VITALS: BP 131/78
[2017-12-12 23:54] VITALS: BP 105/56
[2017-12-13 04:00] VITALS: BP 117/78
[2017-12-13 05:33] LABS: BASOPHILS 0.6 % (0-2); EOSINOPHILS 3.9 % (0-7); HEMATOCRIT 40.1 % (42.0-54.0); HEMOGLOBIN 12.9 g/dL (13.5-17.5); IMMATURE GRANULOCYTES 0.2 % (0-5); MCH 28.7 pg (26.0-34.0); MCHC 32.2 g/dL (31.0-37.0); MCV 89.1 fL (80.0-100.0); MEAN PLATELET VOLUME 10.2 fL (7.4-10.4); MONOCYTES 11.8 % (2-11); NEUTROPHILS 64.5 % (40-80); PLATELET COUNT 157 10x3/uL (130-400); RDW 14.8 % (11.5-14.5); WBC 5.4 10x3/uL (4.8-10.8)
[2017-12-13 06:06] LABS: ALKALINE PHOSPHATASE 99 U/L (46-116); ALT (SGPT) 24 U/L (10-68); BILIRUBIN - TOTAL 0.46 mg/dL (0.2-1.3); CALC OSMOLALITY 279 mosm/kg (275-300); CALCIUM 8.5 mg/dL (8.5-10.1); CARBON DIOXIDE 30.2 mmol/L (21.0-32.0); CHLORIDE - SERUM 103 mmol/L (98-107); CREATININE - SERUM 0.8 mg/dL (0.6-1.3); GLUCOSE 81 mg/dL (74-106); POTASSIUM - SERUM 3.7 mmol/L (3.5-5.1); PROTEIN - SERUM 6.9 g/dL (6.4-8.2); SODIUM 140 mmol/L (136-145); UREA NITROGEN 17 mg/dL (7-18); eGFR NON AFRICAN AMERICAN > 90 mL/min (90-120)
[2017-12-13 08:32] VITALS: BP 124/70
[2017-12-13 10:55] VITALS: BP 116/65
[2017-12-13 15:20] VITALS: BP 114/67
[2017-12-13 21:24] VITALS: BP 105/62
[2017-12-14] VITALS: BP 125/70
[2017-12-14 04:44] VITALS: BP 99/54
[2017-12-14 06:10] LABS: ALBUMIN 2.9 g/dL (3.4-5.0); ALKALINE PHOSPHATASE 91 U/L (46-116); ALT (SGPT) 22 U/L (10-68); BILIRUBIN - TOTAL 0.26 mg/dL (0.2-1.3); CALC OSMOLALITY 278 mosm/kg (275-300); CALCIUM 8.3 mg/dL (8.5-10.1); CARBON DIOXIDE 29.5 mmol/L (21.0-32.0); CHLORIDE - SERUM 103 mmol/L (98-107); CREATININE - SERUM 0.8 mg/dL (0.6-1.3); GLUCOSE 95 mg/dL (74-106); POTASSIUM - SERUM 3.6 mmol/L (3.5-5.1); PROTEIN - SERUM 6.4 g/dL (6.4-8.2); SODIUM 139 mmol/L (136-145); UREA NITROGEN 14 mg/dL (7-18); eGFR NON AFRICAN AMERICAN > 90 mL/min (90-120)
[2017-12-14 06:25] LABS: BASOPHILS 0.4 % (0-2); EOSINOPHILS 4.1 % (0-7); HEMATOCRIT 35.9 % (42.0-54.0); HEMOGLOBIN 11.7 g/dL (13.5-17.5); IMMATURE GRANULOCYTES 0.6 % (0-5); LYMPHOCYTES 20.9 % (15-50); MCH 28.7 pg (26.0-34.0); MCHC 32.6 g/dL (31.0-37.0); MCV 88.2 fL (80.0-100.0); MEAN PLATELET VOLUME 10.1 fL (7.4-10.4); MONOCYTES 10.8 % (2-11); NEUTROPHILS 63.2 % (40-80); PLATELET COUNT 142 10x3/uL (130-400); RBC 4.07 10x6/uL (4.20-6.10); RDW 14.7 % (11.5-14.5); WBC 5.1 10x3/uL (4.8-10.8)
[2017-12-14 08:18] LABS: FOLATE (FOLIC ACID) - SERUM 18.5 ng/mL (>3.0)
[2017-12-14 08:23] VITALS: BP 144/85
[2017-12-14 12:00] VITALS: BP 140/81
[2017-12-14] MEDS ORDERED: BUMETANIDE0.5 MG PO (12:59)
== END 2017-12-14 16:42 | disposition home or self-care (01) ==
LOC: D.ER 01:55 → D.M2 03:16 → D.ER 03:16 → OBSVTIME 03:16 → D.SDCHOLD 12:53 → D.M2 12:53 → D.SDCHOLD 12:54 → D.M2 12-14 16:42
PROVIDERS: Family Medicine; Internal Medicine Nephrology
DX: I11.0 Hypertensive heart disease with heart failure (principal); N17.9 Acute kidney failure, unspecified; I50.43 Acute on chronic combined systolic (congestive) and diastolic (congestive) heart failure; I42.0 Dilated cardiomyopathy; I48.2 Chronic atrial fibrillation; Z79.01 Long term (current) use of anticoagulants; I25.10 Atherosclerotic heart disease of native coronary artery without angina pectoris; F41.9 Anxiety disorder, unspecified; F32.9 Major depressive disorder, single episode, unspecified; D64.9 Anemia, unspecified; E78.5 Hyperlipidemia, unspecified; Z86.73 Personal history of transient ischemic attack (TIA), and cerebral infarction without residual deficits; Z95.0 Presence of cardiac pacemaker; Z86.718 Personal history of other venous thrombosis and embolism; Z95.1 Presence of aortocoronary bypass graft

== ENCOUNTER → 2017-12-22 12:55 | Outpatient (CLI) | payer MEDICARE, MEDICAID ==
[2017-12-12 13:20] VITALS: BMI 35.6
[~2017-12-22 12:55] MED LIST changes: +BUMETANIDE0.5 MG PO; +DEMEROL100 MG PO; +Duragesic TRANSDERM; +ELIQUIS2.5 MG PO; +LASIX80 MG PO; +OXY IR30 MG PO; +VOLTAREN100 GM TOPICAL
== END | disposition home or self-care (01) ==
LOC: D.LABREF 12:55
DX: S71.001A Unspecified open wound, right hip, initial encounter (principal)

== ENCOUNTER 2017-12-28 16:41 | Inpatient (IN) | payer MEDICARE, MEDICAID ==
[~2017-12-28] VITALS: Ht 182.9 cm; Wt 129.5 kg
--- NOTE | ~2017-12-28 | MORECARE ---
CASE MANAGEMENT DISCHARGE SUMMARY PATIENT: VAHE NARVAEZ UNIT: [id number] ADM DATE: 12/28/17 AGE: 67 : 54 SEX: M ROOM/BED: D.2206 AUTHOR: NYDIA,DOC PHYSICIAN: REFERRING PHYSICIAN: VAHE MURRIETA MD DATE OF SERVICE: 01/04/18 Discharge Plan Patient Name: VAHE NARVAEZ Facility: [facility]:[place] : 1950 Planned Disposition: Jail Facility Anticipated Discharge Date: Discharge Date: Expected LOS: Initial Reviewer: [email or web address] Initial Review Date: 12/28/2017 Generated: 01/04/18 12:08 pm Comments DCP- Discharge Planning Updated by [email or web address]: Renata Valdez on 01/04/18 9:[address] Patient Name: VAHE NARVAEZ Admission Status: Elective Accout number: [id number] Admission Date: 12-28-2017 : 1950 Admission Diagnosis:INFECTION FOLLOWING A PROCEDURE, OTHER SURGICAL SITE, I Attending: VAHE MURRIETA Current LOS: 7 Anticipated DC Date: Planned Disposition: Jail Facility Primary Insurance: [employer] CHOICE PPO MCR ADVANT Discharge Planning Comments: CM met with patient to assess discharge planning needs. 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 He uses the DME from the [facility]. He denies any current needs at this time. Cm will continue to follow and assess with DC planning Pulp Tester: Renata Valdez DCPIA - Discharge Planning Initial Assessment Updated by [email or web address]: Renata Valdez on 01/04/18 10:49 am * Is the patient Alert and Oriented? Yes * How many steps to enter\exit or inside your home? * PCP [facility] * Pharmacy [facility] * Preadmission Environment Jail Facility * Facility Name [facility] * ADLs Partial Dependent * Partial ADLs (Assistance needed) Ambulation Bathing Medication Management * Equipment Other * Other Equipment equipment from the [facility] * List name and contact numbers for known caregivers / representatives who currently or will assist patient after discharge: Sang Narvaez (brother) [phone] * Verbal permission to speak to the caregivers and representatives has been obtained from the patient. Yes * Community resources currently utilized None * Additional services required to return to the preadmission environment? Yes * Can the patient safely return to the preadmission environment? Yes * Has this patient been hospitalized within the prior 30 days at any hospital? Yes External Providers External Provider: Bobby Hui [facility] Next Contact Date: Service Request Date: Service Type: Resolution: Reviewer: Comments: Last DP export: 01/04/18 10:00 Patient Name: VAHE NARVAEZ Page [id number] at 1109 All edits/amendments must be made on the electronic document DICTATION DATE: 01/04/181107 ELECTRONIC DEVELOPMENT TECHNICIAN: LEILANI 01/04/181107 RPT#: [id number] DC DATE: STATUS: ADM IN [facility] [address] [place] [address] END OF REPORT
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
--- NOTE | ~2017-12-28 | MORECARE ---
CASE MANAGEMENT DISCHARGE SUMMARY PATIENT: VAHE NARVAEZ UNIT: [id number] ADM DATE: 12/28/17 AGE: 67 : 54 SEX: M ROOM/BED: D.2206 AUTHOR: NYDIA,DOC PHYSICIAN: REFERRING PHYSICIAN: VAHE MURRIETA MD DATE OF SERVICE: 01/13/18 Discharge Plan Patient Name: VAHE NARVAEZ Facility: [facility]:[place] : 1950 Planned Disposition: Fdc Facility Anticipated Discharge Date: Discharge Date: 01/13/2018 Expected LOS: Initial Reviewer: [email or web address] Initial Review Date: 12/28/2017 Generated: 01/13/18 5:35 pm Comments DCP- Discharge Planning Updated by [email or web address]: Renata Valdez on 01/13/18 3:[address] PATIENT DISCHARGED TO THE [facility] TO A [facility] BED AT THE [facility] VIA EMS DCP- Discharge Planning Updated by [email or web address]: Renata Valdez on 01/13/18 12:[address] imm served and explained DCP- Discharge Planning Updated by [email or web address]: Renata Valdez on 01/04/18 9:[address] Patient Name: VAHE NARVAEZ Admission Status: Elective Accout number: [id number] Admission Date: 12-28-2017 : 1950 Admission Diagnosis:INFECTION FOLLOWING A PROCEDURE, OTHER SURGICAL SITE, I Attending: VAHE MURRIETA Current LOS: 7 Anticipated DC Date: Planned Disposition: Fdc Facility Primary Insurance: HU[employer] CHOICE PPO MCR ADVANT Discharge Planning Comments: CM met with patient to assess discharge planning needs. 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 He uses the DME from the [facility]. He denies any current needs at this time. Cm will continue to follow and assess with DC planning Poultry Pathologist: Renata Valdez DCPIA - Discharge Planning Initial Assessment Updated by [email or web address]: Renata Valdez on 01/04/18 10:49 am * Is the patient Alert and Oriented? Yes * How many steps to enter\exit or inside your home? * PCP [facility] * Pharmacy [facility] * Preadmission Environment Fdc Facility * Facility Name [facility] * ADLs Partial Dependent * Partial ADLs (Assistance needed) Ambulation Bathing Medication Management * Equipment Other * Other Equipment equipment from the [facility] * List name and contact numbers for known caregivers / representatives who currently or will assist patient after discharge: Sang Narvaez (brother) [phone] * Verbal permission to speak to the caregivers and representatives has been obtained from the patient. Yes * Community resources currently utilized None * Additional services required to return to the preadmission environment? Yes * Can the patient safely return to the preadmission environment? Yes * Has this patient been hospitalized within the prior 30 days at any hospital? Yes Coverage Notice Reviewer: [email or web address] Dayo Valdez Notice Issued Date-Time: 01/13/2018 13:50 Notice Type: IM Discharge Notice Notice Delivered To: Patient Relationship to Patient: In House Counsel Name: Delivery Method: HAND - Hand Delivered Sonia Days: Prior Verbal Notification: Recipient Understood Notice: Yes Recipient Signature: Yes Med Rec Note Co-signed by Attending: Coverage Notice Comment: Last DP export: 01/13/18 1:05 p Patient Name: VAHE NARVAEZ Page 53893 at 1635 All edits/amendments must be made on the electronic document DICTATION DATE: 01/13/181633 OPTOMETRIC ASSISTANT: LEILANI 01/13/181633 RPT#: [id number] DC DATE:01/13/18 STATUS: DIS IN [facility] [address] [place] [address] END OF REPORT
--- NOTE | ~2017-12-28 | MORECARE ---
CASE MANAGEMENT DISCHARGE SUMMARY PATIENT: VAHE NARVAEZ UNIT: [id number] ADM DATE: 12/28/17 AGE: 67 : 52 SEX: M ROOM/BED: D.2206 AUTHOR: NYDIA,DOC PHYSICIAN: REFERRING PHYSICIAN: VAHE MURRIETA MD DATE OF SERVICE: 01/13/18 Discharge Plan Patient Name: VAHE NARVAEZ Facility: [facility]:[place] : 1950 Planned Disposition: Fpc Facility Anticipated Discharge Date: Discharge Date: Expected LOS: Initial Reviewer: [email or web address] Initial Review Date: 12/28/2017 Generated: 01/13/18 3:05 pm Comments DCP- Discharge Planning Updated by [email or web address]: Renata Valdez on 01/13/18 12:[address] imm served and explained DCP- Discharge Planning Updated by [email or web address]: Renata Valdez on 01/04/18 9:[address] Patient Name: VAHE NARVAEZ Admission Status: Elective Accout number: [id number] Admission Date: 12-28-2017 : 1950 Admission Diagnosis:INFECTION FOLLOWING A PROCEDURE, OTHER SURGICAL SITE, I Attending: VAHE MURRIETA Current LOS: 7 Anticipated DC Date: Planned Disposition: Fpc Facility Primary Insurance: HU[employer]NA CHOICE PPO MCR ADVANT Discharge Planning Comments: CM met with patient to assess discharge planning needs. 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 He uses the DME from the [facility]. He denies any current needs at this time. Cm will continue to follow and assess with DC planning Concrete Finishing Machine Operator: Renata Valdez DCPIA - Discharge Planning Initial Assessment Updated by [email or web address]: Renata Valdez on 01/04/18 10:49 am * Is the patient Alert and Oriented? Yes * How many steps to enter\exit or inside your home? * PCP [facility] * Pharmacy [facility] * Preadmission Environment Fpc Facility * Facility Name [facility] * ADLs Partial Dependent * Partial ADLs (Assistance needed) Ambulation Bathing Medication Management * Equipment Other * Other Equipment equipment from the [facility] * List name and contact numbers for known caregivers / representatives who currently or will assist patient after discharge: Sang Narvaez (brother) [phone] * Verbal permission to speak to the caregivers and representatives has been obtained from the patient. Yes * Community resources currently utilized None * Additional services required to return to the preadmission environment? Yes * Can the patient safely return to the preadmission environment? Yes * Has this patient been hospitalized within the prior 30 days at any hospital? Yes Coverage Notice Reviewer: [email or web address] Dayo Valdez Notice Issued Date-Time: 01/13/2018 13:50 Notice Type: IM Discharge Notice Notice Delivered To: Patient Relationship to Patient: Pollution Control Technician Name: Delivery Method: HAND - Hand Delivered Sonia Days: Prior Verbal Notification: Recipient Understood Notice: Yes Recipient Signature: Yes Med Rec Note Co-signed by Attending: Coverage Notice Comment: Last DP export: 01/12/18 3:35 Patient Name: VAHE NARVAEZ Page 39740 at 1405 All edits/amendments must be made on the electronic document DICTATION DATE: 01/13/18 1405 LASER/ELECTRO OPTICS TECHNICIAN: LEILANI 01/13/18 1405 RPT#: [id number] DC DATE: STATUS: ADM IN [facility] [address] [place] [address] END OF REPORT
--- NOTE | ~2017-12-28 | MORECARE ---
CASE MANAGEMENT DISCHARGE SUMMARY PATIENT: VAHE NARVAEZ UNIT: [id number] ADM DATE: 12/28/17 AGE: 67 : 54 SEX: M ROOM/BED: D.2206 AUTHOR: NYDIA,DOC PHYSICIAN: REFERRING PHYSICIAN: VAHE MURRIETA MD DATE OF SERVICE: 01/04/18 Discharge Plan Patient Name: VAHE NARVAEZ Facility: [facility]:[place] : 1950 Planned Disposition: Correction Facility Anticipated Discharge Date: Discharge Date: Expected LOS: Initial Reviewer: [email or web address] Initial Review Date: 12/28/2017 Generated: 01/04/18 12:00 pm Comments DCP- Discharge Planning Updated by [email or web address]: Renata Valdez on 01/04/18 9:[address] Patient Name: VAHE NARVAEZ Admission Status: Elective Accout number: [id number] Admission Date: 12-28-2017 : 1950 Admission Diagnosis:INFECTION FOLLOWING A PROCEDURE, OTHER SURGICAL SITE, I Attending: VAHE MURRIETA Current LOS: 7 Anticipated DC Date: Planned Disposition: Correction Facility Primary Insurance: HU[employer]NA CHOICE PPO MCR ADVANT Discharge Planning Comments: CM met with patient to assess discharge planning needs. 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 He uses the DME from the [facility]. He denies any current needs at this time. Cm will continue to follow and assess with DC planning Ski Production Supervisor: Renata Valdez DCPIA - Discharge Planning Initial Assessment Updated by [email or web address]: Renata Valdez on 01/04/18 10:49 am * Is the patient Alert and Oriented? Yes * How many steps to enter\exit or inside your home? * PCP [facility] * Pharmacy [facility] * Preadmission Environment Correction Facility * Facility Name [facility] * ADLs Partial Dependent * Partial ADLs (Assistance needed) Ambulation Bathing Medication Management * Equipment Other * Other Equipment equipment from the [facility] * List name and contact numbers for known caregivers / representatives who currently or will assist patient after discharge: Sang Narvaez (brother) [phone] * Verbal permission to speak to the caregivers and representatives has been obtained from the patient. Yes * Community resources currently utilized None * Additional services required to return to the preadmission environment? Yes * Can the patient safely return to the preadmission environment? Yes * Has this patient been hospitalized within the prior 30 days at any hospital? Yes Last DP export: 01/04/18 9:51 Patient Name: VAHE NARVAEZ Page 24472 at 1100 All edits/amendments must be made on the electronic document DICTATION DATE: 01/04/181058 PODIATRIST ORTHOPEDIC: LEILANI 01/04/181058 RPT#: [id number] DC DATE: STATUS: ADM IN [facility] [address] [place] [address] END OF REPORT
--- NOTE | ~2017-12-28 | MORECARE ---
CASE MANAGEMENT DISCHARGE SUMMARY PATIENT: VAHE NARVAEZ UNIT: [id number] ADM DATE: 12/28/17 AGE: 67 : 54 SEX: M ROOM/BED: D.2206 AUTHOR: NYDIA,DOC PHYSICIAN: REFERRING PHYSICIAN: VAHE MURRIETA MD DATE OF SERVICE: 01/12/18 Discharge Plan Patient Name: VAHE NARVAEZ Facility: [facility]:[place] : 1950 Planned Disposition: Group Home Facility Anticipated Discharge Date: Discharge Date: Expected LOS: Initial Reviewer: [email or web address] Initial Review Date: 12/28/2017 Generated: 01/12/18 5:35 pm Comments DCP- Discharge Planning Updated by [email or web address]: Renata Valdez on 01/04/18 9:[address] Patient Name: VAHE NARVAEZ Admission Status: Elective Accout number: [id number] Admission Date: 12-28-2017 : 1950 Admission Diagnosis:INFECTION FOLLOWING A PROCEDURE, OTHER SURGICAL SITE, I Attending: VAHE MURRIETA Current LOS: 7 Anticipated DC Date: Planned Disposition: Group Home Facility Primary Insurance: HUMANA CHOICE PPO MCR ADVANT Discharge Planning Comments: CM met with patient to assess discharge planning needs. 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 He uses the DME from the [facility]. He denies any current needs at this time. Cm will continue to follow and assess with DC planning Tangled Yarn Spool Straightener: Renata Valdez DCPIA - Discharge Planning Initial Assessment Updated by [id number]: Renata Valdez on 01/04/18 10:49 am * Is the patient Alert and Oriented? Yes * How many steps to enter\exit or inside your home? * PCP [facility] * Pharmacy [facility] * Preadmission Environment Group Home Facility * Facility Name [facility] * ADLs Partial Dependent * Partial ADLs (Assistance needed) Ambulation Bathing Medication Management * Equipment Other * Other Equipment equipment from the [facility] * List name and contact numbers for known caregivers / representatives who currently or will assist patient after discharge: Sang Narvaez (brother) [phone] * Verbal permission to speak to the caregivers and representatives has been obtained from the patient. Yes * Community resources currently utilized None * Additional services required to return to the preadmission environment? Yes * Can the patient safely return to the preadmission environment? Yes * Has this patient been hospitalized within the prior 30 days at any hospital? Yes External Providers External Provider: [facility] Next Contact Date: Service Request Date: Service Type: Resolution: Reviewer: Comments: Last DP export: 01/04/18 10:09 Patient Name: VAHE NARVAEZ Page 15671 at 1635 All edits/amendments must be made on the electronic document DICTATION DATE: 01/12/181633 INSULATION WORKER INTERIOR SURFACE: LEILANI 01/12/181633 RPT#: [id number] DC DATE: STATUS: ADM IN [facility] [address] [place] [address] END OF REPORT
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
--- NOTE | ~2017-12-28 | OP ---
PATIENT NAME: VAHE NARVAEZ MEDICAL RECORD: [id number] :54 LOCATION:D.MS Alex2206 ADMISSION DATE:12/28/17 SURGEON: VAHE MURRIETA MD DATE OF OPERATION: 01/03/2018 PREOPERATIVE DIAGNOSIS: Recurrent infection of right total hip. POSTOPERATIVE DIAGNOSIS: Superficial abscess. PROCEDURE: 1. Excisional debridement to include skin, subcutaneous tissue, portions of fat and fascia. 2. Cultures taken deep. SURGEON: Vahe Murrieta MD ANESTHESIA: General. INTRAOPERATIVE COMPLICATIONS: None. SUMMARY OF PATHOLOGIC FINDINGS: Upon immediate evaluation, the infection did seem to be isolated about a stitch. Elliptical incision was followed by removal of the stitch followed by substantial cleaning; however, dissection was carried out down to the level of the joint, so deep cultures could be taken given this patient's history of multiple MRSA infections. OPERATIVE SUMMARY IN DETAIL: After obtaining the appropriate preoperative orthopedic surgery consent as well as anesthetic consultation, evaluation, and clearance, the patient was brought to the operating room and placed on the operating table in supine position. After general laryngeal mask airway was administered, the patient was placed in left lateral decubitus position. All pressure points well padded to include down leg peroneal pad as well as axillary roll. The patient was held firmly to the operating table using the vacuum pack suction system. Right lower extremity and hip were then prepped and draped in routine sterile fashion. Elliptical incision was made about the punctiform area of what appeared to be an abscess and indeed it was an abscess that was surrounding an Ethibond. The Ethibond was removed and probe was carried out to see if there was any tracking. No tracking was noted. At this point, copious scrub and irrigation was carried out and then the incision was elongated and careful dissection was carried down through the previous wound. Deep cultures were taken from the deep joint itself. Having completed this, wound was again irrigated and a wound VAC was placed down the tract. Having completed this, suction was placed at 125 mmHg at medium intensity continuous. The patient was then awakened and taken to the recovery room in stable condition. All final needle and sponge counts were correct. TRANSINT:[id number] Voice Confirmation ID: [id number] DOCUMENT ID: [id number] OPERATIVE REPORT [id number] VAHE NARVAEZ MD, JAMES KEVIN at 0844 CC: [id number] DICTATION DATE: 01/07/18 1325 INTERTYPE OPERATOR: 01/07/18 1335 ADM IN [facility] [address] [place] [address]
--- NOTE | ~2017-12-28 | MORECARE ---
CASE MANAGEMENT DISCHARGE SUMMARY PATIENT: VAHE NARVAEZ UNIT: [id number] ADM DATE: 12/28/17 AGE: 67 : 52 SEX: M ROOM/BED: D.2206 AUTHOR: NYDIA,DOC PHYSICIAN: REFERRING PHYSICIAN: VAHE MURRIETA MD DATE OF SERVICE: 01/14/18 Discharge Plan Patient Name: VAHE NARVAEZ Facility: [facility]:[place] : 1950 Planned Disposition: Assisted Facility Anticipated Discharge Date: Discharge Date: 01/13/2018 Expected LOS: 0 Initial Reviewer: [email or web address] Initial Review Date: 12/28/2017 Generated: 01/14/18 12:26 pm Comments DCP- Discharge Planning Updated by [id number]: Renata Valdez on 01/13/18 3:[address] PATIENT DISCHARGED TO THE [facility] TO A RESIDENTIAL BED AT THE [facility] VIA EMS DCP- Discharge Planning Updated by [email or web address]: Renata Valdez on 01/13/18 12:[address] imm served and explained DCP- Discharge Planning Updated by [email or web address]: Renata Valdez on 01/04/18 9:[address] Patient Name: VAHE NARVAEZ Admission Status: Elective Accout number: [id number] Admission Date: 12-28-2017 : 1950 Admission Diagnosis:INFECTION FOLLOWING A PROCEDURE, OTHER SURGICAL SITE, I Attending: VAHE MURRIETA Current LOS: 7 Anticipated DC Date: Planned Disposition: Assisted Facility Primary Insurance: [employer] CHOICE PPO MCR ADVANT Discharge Planning Comments: CM met with patient to assess discharge planning needs. Patient is a halfway Resident at the [facility], he was currently in the Skilled part and plans to return there at discharge. He uses the DME from the [facility]. He denies any current needs at this time. Cm will continue to follow and assess with DC planning Nodulizer: Renata Valdez DCPIA - Discharge Planning Initial Assessment Updated by [id number]: Renata Valdez on 01/04/18 10:49 am * Is the patient Alert and Oriented? Yes * How many steps to enter\exit or inside your home? * [facility]CP [facility] * Pharmacy [facility] * Preadmission Environment Assisted Facility * Facility Name [facility] * ADLs Partial Dependent * Partial ADLs (Assistance needed) Ambulation Bathing Medication Management * Equipment Other * Other Equipment equipment from the [facility] * List name and contact numbers for known caregivers / representatives who currently or will assist patient after discharge: Sang Narvaez (brother) [phone] * Verbal permission to speak to the caregivers and representatives has been obtained from the patient. Yes * Community resources currently utilized None * Additional services required to return to the preadmission environment? Yes * Can the patient safely return to the preadmission environment? Yes * Has this patient been hospitalized within the prior 30 days at any hospital? Yes Coverage Notice Reviewer: [id number] Dayo Valdez Notice Issued Date-Time: 01/13/2018 13:50 Notice Type: IM Discharge Notice Notice Delivered To: Patient Relationship to Patient: Nurse Midwife Name: Delivery Method: HAND - Hand Delivered Sonia Days: Prior Verbal Notification: Recipient Understood Notice: Yes Recipient Signature: Yes Med Rec Note Co-signed by Attending: Coverage Notice Comment: Last DP export: 01/13/18 3:35 p Patient Name: VAHE NARVAEZ Page 20683 at 1126 All edits/amendments must be made on the electronic document DICTATION DATE: 01/14/181124 OPTICIANRY TEACHER: LEILANI 01/14/181124 RPT#: [id number] DC DATE:01/13/18 STATUS: DIS IN [facility] [address] [place] [address] END OF REPORT
--- NOTE | ~2017-12-28 | MORECARE ---
CASE MANAGEMENT DISCHARGE SUMMARY PATIENT: VAHE NARVAEZ UNIT: [id number] ADM DATE: 12/28/17 AGE: 67 : 52 SEX: M ROOM/BED: D.2206 AUTHOR: BRIANNE STAFFORD PHYSICIAN: REFERRING PHYSICIAN: VAHE MURRIETA MD DATE OF SERVICE: 01/04/18 Discharge Plan Patient Name: VAHE NARVAEZ [facility] [facility] 1950 Planned Disposition: Group Home Facility Anticipated Discharge Date: Discharge Date: Expected LOS: Initial Reviewer: [email or web address] Initial Review Date: 12/28/2017 Generated: 01/04/18 11:51 am DCPIA - Discharge Planning Initial Assessment Updated by [id number]: Renata Valdez on 01/04/18 10:49 am * Is the patient Alert and Oriented? Yes * How many steps to enter\exit or inside your home? * [facility]CP [facility] * Preadmission Environment Group Home Facility * Facility Name [facility] * ADLs Partial Dependent * Partial ADLs (Assistance needed) Ambulation Bathing Medication Management * Equipment Other * Other Equipment equipment from the [facility] * List name and contact numbers for known caregivers / representatives who currently or will assist patient after discharge: Sang Narvaez (brother) [phone] * Verbal permission to speak to the caregivers and representatives has been obtained from the patient. Yes * Community resources currently utilized None * Additional services required to return to the preadmission environment? Yes * Can the patient safely return to the preadmission environment? Yes * Has this patient been hospitalized within the prior 30 days at any hospital? Yes Patient Name: VAHE NARVAEZ Page 01237 at 1051 All edits/amendments must be made on the electronic document DICTATION DATE: 01/04/18 1051 TAX ADJUSTER: LEILANI 01/04/18 105 RPT#: [id number] DC DATE: STATUS: ADM IN [facility] [address] [place] [address] END OF REPORT
[~2017-12-28 16:41] MED LIST changes: -Duragesic TRANSDERM; -ELIQUIS2.5 MG PO
[2017-12-28 18:21] VITALS: BP 105/58; BMI 38.8; BMI 39.1
[2017-12-28 18:36] LABS: BASOPHILS 0.5 % (0-2); EOSINOPHILS 5.1 % (0-7); HEMOGLOBIN 11.5 g/dL (13.5-17.5); IMMATURE GRANULOCYTES 0.5 % (0-5); LYMPHOCYTES 13.3 % (15-50); MCHC 31.9 g/dL (31.0-37.0); MCV 90.7 fL (80.0-100.0); MEAN PLATELET VOLUME 9.7 fL (7.4-10.4); MONOCYTES 14.5 % (2-11); NEUTROPHILS 66.1 % (40-80); PLATELET COUNT 160 10x3/uL (130-400); RBC 3.97 10x6/uL (4.20-6.10); RDW 14.3 % (11.5-14.5); WBC 5.9 10x3/uL (4.8-10.8)
[2017-12-28 18:54] LABS: ALBUMIN 3.2 g/dL (3.4-5.0); ALKALINE PHOSPHATASE 115 U/L (46-116); ALT (SGPT) 21 U/L (10-68); CALC OSMOLALITY 280 mosm/kg (275-300); CALCIUM 8.7 mg/dL (8.5-10.1); CHLORIDE - SERUM 101 mmol/L (98-107); GLUCOSE 99 mg/dL (74-106); POTASSIUM - SERUM 4.1 mmol/L (3.5-5.1); PROTEIN - SERUM 6.7 g/dL (6.4-8.2); SODIUM 139 mmol/L (136-145); UREA NITROGEN 22 mg/dL (7-18); eGFR NON AFRICAN AMERICAN 80 mL/min (90-120)
[2017-12-28 19:54] LABS: ERYTHROCYTE SEDIMENTATION RATE 25 mm/hr (0-20)
[2017-12-28 20:16] VITALS: BP 108/64
[2017-12-29 03:31] VITALS: BP 117/60
[2017-12-29 04:25] LABS: BASOPHILS 0.4 % (0-2); EOSINOPHILS 5.9 % (0-7); HEMATOCRIT 35.5 % (42.0-54.0); HEMOGLOBIN 11.3 g/dL (13.5-17.5); IMMATURE GRANULOCYTES 0.4 % (0-5); LYMPHOCYTES 15.5 % (15-50); MCHC 31.8 g/dL (31.0-37.0); MEAN PLATELET VOLUME 10.1 fL (7.4-10.4); MONOCYTES 14.4 % (2-11); NEUTROPHILS 63.4 % (40-80); PLATELET COUNT 135 10x3/uL (130-400); RDW 14.3 % (11.5-14.5); WBC 5.3 10x3/uL (4.8-10.8)
[2017-12-29 04:42] LABS: ALKALINE PHOSPHATASE 95 U/L (46-116); ALT (SGPT) 16 U/L (10-68); BILIRUBIN - TOTAL 0.55 mg/dL (0.2-1.3); CALC OSMOLALITY 279 mosm/kg (275-300); CALCIUM 8.6 mg/dL (8.5-10.1); CARBON DIOXIDE 31.4 mmol/L (21.0-32.0); CHLORIDE - SERUM 102 mmol/L (98-107); CREATININE - SERUM 0.8 mg/dL (0.6-1.3); GLUCOSE 88 mg/dL (74-106); POTASSIUM - SERUM 3.5 mmol/L (3.5-5.1); PROTEIN - SERUM 6.5 g/dL (6.4-8.2); SODIUM 140 mmol/L (136-145); UREA NITROGEN 18 mg/dL (7-18); eGFR NON AFRICAN AMERICAN > 90 mL/min (90-120)
[2017-12-29 08:42] VITALS: BP 124/70
[2017-12-29 09:06] LABS: ERYTHROCYTE SEDIMENTATION RATE 15 mm/hr (0-20)
[2017-12-29 09:25] VITALS: Ht 182.9 cm; Wt 129.5 kg
[2017-12-29 13:03] VITALS: BP 122/69
[2017-12-29 15:45] VITALS: BP 138/76
[2017-12-29 21:47] VITALS: BP 138/67
[2017-12-30 00:58] VITALS: BP 128/63
[2017-12-30 05:11] VITALS: BP 137/60
[2017-12-30 08:06] LABS: BASOPHILS 0.1 % (0-2); HEMATOCRIT 35.5 % (42.0-54.0); HEMOGLOBIN 11.6 g/dL (13.5-17.5); IMMATURE GRANULOCYTES 0.1 % (0-5); LYMPHOCYTES 13.7 % (15-50); MCH 29.3 pg (26.0-34.0); MCHC 32.7 g/dL (31.0-37.0); MCV 89.6 fL (80.0-100.0); MEAN PLATELET VOLUME 9.7 fL (7.4-10.4); MONOCYTES 8.9 % (2-11); NEUTROPHILS 74.2 % (40-80); PLATELET COUNT 149 10x3/uL (130-400); RBC 3.96 10x6/uL (4.20-6.10); RDW 13.7 % (11.5-14.5); WBC 6.7 10x3/uL (4.8-10.8)
[2017-12-30 08:19] LABS: ALKALINE PHOSPHATASE 95 U/L (46-116); ALT (SGPT) 16 U/L (10-68); BILIRUBIN - TOTAL 0.74 mg/dL (0.2-1.3); CALC OSMOLALITY 278 mosm/kg (275-300); CALCIUM 8.3 mg/dL (8.5-10.1); CARBON DIOXIDE 31.4 mmol/L (21.0-32.0); CHLORIDE - SERUM 103 mmol/L (98-107); CREATININE - SERUM 0.7 mg/dL (0.6-1.3); GLUCOSE 89 mg/dL (74-106); POTASSIUM - SERUM 3.3 mmol/L (3.5-5.1); PROTEIN - SERUM 6.7 g/dL (6.4-8.2); SODIUM 140 mmol/L (136-145); UREA NITROGEN 15 mg/dL (7-18); eGFR NON AFRICAN AMERICAN > 90 mL/min (90-120)
[2017-12-30 09:10] VITALS: BP 129/62
[2017-12-30 12:45] VITALS: BP 135/77
[2017-12-30 16:45] VITALS: BP 118/67
[2017-12-30 21:17] VITALS: BP 135/78
[2017-12-31 04:54] LABS: BASOPHILS 0.4 % (0-2); EOSINOPHILS 5.1 % (0-7); HEMATOCRIT 37.8 % (42.0-54.0); IMMATURE GRANULOCYTES 0.4 % (0-5); LYMPHOCYTES 19.4 % (15-50); MCH 29.3 pg (26.0-34.0); MCHC 31.7 g/dL (31.0-37.0); MONOCYTES 12.1 % (2-11); NEUTROPHILS 62.6 % (40-80); RDW 14.1 % (11.5-14.5); WBC 5.5 10x3/uL (4.8-10.8)
[2017-12-31 04:55] LABS: MCV 92.2 fL (80.0-100.0); PLATELET COUNT 118 10x3/uL (130-400)
[2017-12-31 05:01] VITALS: BP 127/68
[2017-12-31 05:06] LABS: ALKALINE PHOSPHATASE 89 U/L (46-116); ALT (SGPT) 20 U/L (10-68); BILIRUBIN - TOTAL 0.46 mg/dL (0.2-1.3); CALC OSMOLALITY 285 mosm/kg (275-300); CALCIUM 8.4 mg/dL (8.5-10.1); CARBON DIOXIDE 29.3 mmol/L (21.0-32.0); CHLORIDE - SERUM 103 mmol/L (98-107); GLUCOSE 93 mg/dL (74-106); POTASSIUM - SERUM 3.5 mmol/L (3.5-5.1); PROTEIN - SERUM 6.2 g/dL (6.4-8.2); SODIUM 143 mmol/L (136-145); UREA NITROGEN 16 mg/dL (7-18); eGFR NON AFRICAN AMERICAN 90 mL/min (90-120)
[2017-12-31 05:12] LABS: CREATININE - SERUM 0.9 mg/dL (0.6-1.3)
[2017-12-31 08:43] VITALS: BP 130/70
[2017-12-31 12:30] VITALS: BP 114/65
[2017-12-31 16:52] VITALS: BP 119/70
[2017-12-31 20:00] VITALS: BP 122/73
[2018-01-01 04:00] VITALS: BP 103/53
[2018-01-01 06:30] LABS: BASOPHILS 0.2 % (0-2); EOSINOPHILS 5.8 % (0-7); HEMATOCRIT 37.8 % (42.0-54.0); HEMOGLOBIN 12.1 g/dL (13.5-17.5); IMMATURE GRANULOCYTES 0.4 % (0-5); LYMPHOCYTES 19.2 % (15-50); MCH 29.4 pg (26.0-34.0); MCV 91.7 fL (80.0-100.0); MEAN PLATELET VOLUME 9.7 fL (7.4-10.4); MONOCYTES 13.1 % (2-11); NEUTROPHILS 61.3 % (40-80); PLATELET COUNT 167 10x3/uL (130-400); RBC 4.12 10x6/uL (4.20-6.10); RDW 14.2 % (11.5-14.5); WBC 5.5 10x3/uL (4.8-10.8)
[2018-01-01 06:48] LABS: ALBUMIN 3.2 g/dL (3.4-5.0); ALKALINE PHOSPHATASE 96 U/L (46-116); ALT (SGPT) 17 U/L (10-68); CALC OSMOLALITY 282 mosm/kg (275-300); CALCIUM 8.6 mg/dL (8.5-10.1); CARBON DIOXIDE 28.4 mmol/L (21.0-32.0); CHLORIDE - SERUM 103 mmol/L (98-107); CREATININE - SERUM 0.8 mg/dL (0.6-1.3); GLUCOSE 89 mg/dL (74-106); POTASSIUM - SERUM 3.6 mmol/L (3.5-5.1); PROTEIN - SERUM 7.1 g/dL (6.4-8.2); SODIUM 142 mmol/L (136-145); UREA NITROGEN 14 mg/dL (7-18); eGFR NON AFRICAN AMERICAN > 90 mL/min (90-120)
[2018-01-01 09:37] VITALS: BP 132/77
[2018-01-01 16:42] VITALS: BP 138/82
[2018-01-01 19:51] VITALS: BP 98/55
[2018-01-02 04:00] VITALS: BP 106/62
[2018-01-02 06:18] LABS: BASOPHILS 0.4 % (0-2); EOSINOPHILS 5.9 % (0-7); HEMATOCRIT 36.1 % (42.0-54.0); HEMOGLOBIN 11.5 g/dL (13.5-17.5); IMMATURE GRANULOCYTES 0.2 % (0-5); LYMPHOCYTES 18.5 % (15-50); MCH 29.5 pg (26.0-34.0); MCHC 31.9 g/dL (31.0-37.0); MCV 92.6 fL (80.0-100.0); MEAN PLATELET VOLUME 9.2 fL (7.4-10.4); MONOCYTES 10.8 % (2-11); NEUTROPHILS 64.2 % (40-80); PLATELET COUNT 141 10x3/uL (130-400); RDW 13.8 % (11.5-14.5); WBC 5.1 10x3/uL (4.8-10.8)
[2018-01-02 06:41] LABS: ALKALINE PHOSPHATASE 90 U/L (46-116); ALT (SGPT) 21 U/L (10-68); BILIRUBIN - TOTAL 0.54 mg/dL (0.2-1.3); CALC OSMOLALITY 285 mosm/kg (275-300); CALCIUM 8.3 mg/dL (8.5-10.1); CARBON DIOXIDE 34.1 mmol/L (21.0-32.0); CHLORIDE - SERUM 102 mmol/L (98-107); CREATININE - SERUM 0.9 mg/dL (0.6-1.3); GLUCOSE 108 mg/dL (74-106); POTASSIUM - SERUM 3.8 mmol/L (3.5-5.1); PROTEIN - SERUM 6.3 g/dL (6.4-8.2); SODIUM 143 mmol/L (136-145); UREA NITROGEN 12 mg/dL (7-18); eGFR NON AFRICAN AMERICAN 90 mL/min (90-120)
[2018-01-02 09:22] VITALS: BP 116/67
[2018-01-02 15:23] VITALS: BP 126/65
[2018-01-02 19:56] VITALS: BP 108/69
[2018-01-03 04:00] VITALS: BP 120/71
[2018-01-03 05:37] LABS: BASOPHILS 0.4 % (0-2); EOSINOPHILS 6.4 % (0-7); HEMATOCRIT 36.3 % (42.0-54.0); HEMOGLOBIN 11.4 g/dL (13.5-17.5); IMMATURE GRANULOCYTES 0.4 % (0-5); LYMPHOCYTES 20.4 % (15-50); MCH 29.3 pg (26.0-34.0); MCHC 31.4 g/dL (31.0-37.0); MCV 93.3 fL (80.0-100.0); MEAN PLATELET VOLUME 9.7 fL (7.4-10.4); NEUTROPHILS 58.4 % (40-80); PLATELET COUNT 151 10x3/uL (130-400); RBC 3.89 10x6/uL (4.20-6.10); RDW 13.8 % (11.5-14.5)
[2018-01-03 06:04] LABS: ALKALINE PHOSPHATASE 98 U/L (46-116); BILIRUBIN - TOTAL 0.42 mg/dL (0.2-1.3); CALC OSMOLALITY 278 mosm/kg (275-300); CALCIUM 8.3 mg/dL (8.5-10.1); CARBON DIOXIDE 38.7 mmol/L (21.0-32.0); CHLORIDE - SERUM 100 mmol/L (98-107); GLUCOSE 91 mg/dL (74-106); POTASSIUM - SERUM 3.6 mmol/L (3.5-5.1); PROTEIN - SERUM 6.8 g/dL (6.4-8.2); SODIUM 140 mmol/L (136-145); UREA NITROGEN 13 mg/dL (7-18); eGFR NON AFRICAN AMERICAN 80 mL/min (90-120)
[2018-01-03 06:05] LABS: ALT (SGPT) 15 U/L (10-68)
[2018-01-03 08:52] VITALS: BP 116/69
[2018-01-03 12:32] VITALS: BP 131/75
[2018-01-03 16:39] VITALS: BP 122/73
[2018-01-03 21:25] VITALS: BP 120/76
[2018-01-04 04:36] VITALS: BP 131/81
[2018-01-04 04:45] LABS: BASOPHILS 0.5 % (0-2); EOSINOPHILS 9.5 % (0-7); HEMATOCRIT 36.9 % (42.0-54.0); HEMOGLOBIN 11.8 g/dL (13.5-17.5); IMMATURE GRANULOCYTES 0.2 % (0-5); MCH 29.2 pg (26.0-34.0); MEAN PLATELET VOLUME 9.6 fL (7.4-10.4); NEUTROPHILS 57.8 % (40-80); PLATELET COUNT 160 10x3/uL (130-400); RBC 4.04 10x6/uL (4.20-6.10); RDW 13.6 % (11.5-14.5); WBC 4.1 10x3/uL (4.8-10.8)
[2018-01-04 04:56] LABS: MCV 91.3 fL (80.0-100.0)
[2018-01-04 05:10] LABS: CALC OSMOLALITY 279 mosm/kg (275-300); CALCIUM 8.5 mg/dL (8.5-10.1); CARBON DIOXIDE 34.1 mmol/L (21.0-32.0); CHLORIDE - SERUM 101 mmol/L (98-107); CREATININE - SERUM 0.9 mg/dL (0.6-1.3); GLUCOSE 91 mg/dL (74-106); POTASSIUM - SERUM 3.3 mmol/L (3.5-5.1); SODIUM 140 mmol/L (136-145); UREA NITROGEN 16 mg/dL (7-18); eGFR NON AFRICAN AMERICAN 90 mL/min (90-120)
[2018-01-04 08:26] VITALS: BP 131/82
[2018-01-04 12:00] VITALS: BP 126/80
[2018-01-04 16:09] VITALS: BP 128/74
[2018-01-05 05:10] VITALS: BP 117/68
[2018-01-05 07:21] LABS: BASOPHILS 0.4 % (0-2); EOSINOPHILS 6.3 % (0-7); HEMATOCRIT 36.4 % (42.0-54.0); HEMOGLOBIN 11.7 g/dL (13.5-17.5); LYMPHOCYTES 21.2 % (15-50); MCH 29.2 pg (26.0-34.0); MCHC 32.1 g/dL (31.0-37.0); MCV 90.8 fL (80.0-100.0); MEAN PLATELET VOLUME 9.4 fL (7.4-10.4); MONOCYTES 10.3 % (2-11); NEUTROPHILS 61.8 % (40-80); PLATELET COUNT 161 10x3/uL (130-400); RBC 4.01 10x6/uL (4.20-6.10); RDW 13.7 % (11.5-14.5); WBC 4.6 10x3/uL (4.8-10.8)
[2018-01-05 07:42] LABS: CALC OSMOLALITY 279 mosm/kg (275-300); CALCIUM 8.2 mg/dL (8.5-10.1); CARBON DIOXIDE 29.9 mmol/L (21.0-32.0); CHLORIDE - SERUM 102 mmol/L (98-107); CREATININE - SERUM 0.8 mg/dL (0.6-1.3); GLUCOSE 79 mg/dL (74-106); POTASSIUM - SERUM 3.5 mmol/L (3.5-5.1); SODIUM 141 mmol/L (136-145); UREA NITROGEN 12 mg/dL (7-18); eGFR NON AFRICAN AMERICAN > 90 mL/min (90-120)
[2018-01-05 08:30] VITALS: BP 129/80
[2018-01-05 12:45] VITALS: BP 124/80
[2018-01-05 20:49] VITALS: BP 112/70
[2018-01-06 04:35] VITALS: BP 124/74
[2018-01-06 05:58] LABS: BASOPHILS 0.4 % (0-2); EOSINOPHILS 7.5 % (0-7); HEMATOCRIT 36.5 % (42.0-54.0); HEMOGLOBIN 11.7 g/dL (13.5-17.5); IMMATURE GRANULOCYTES 0.4 % (0-5); LYMPHOCYTES 19.5 % (15-50); MCH 29.3 pg (26.0-34.0); MCHC 32.1 g/dL (31.0-37.0); MCV 91.5 fL (80.0-100.0); MEAN PLATELET VOLUME 9.7 fL (7.4-10.4); MONOCYTES 16.1 % (2-11); NEUTROPHILS 56.1 % (40-80); PLATELET COUNT 149 10x3/uL (130-400); RBC 3.99 10x6/uL (4.20-6.10); RDW 13.8 % (11.5-14.5); WBC 5.1 10x3/uL (4.8-10.8)
[2018-01-06 06:22] LABS: CALC OSMOLALITY 279 mosm/kg (275-300); CALCIUM 8.4 mg/dL (8.5-10.1); CARBON DIOXIDE 30.4 mmol/L (21.0-32.0); CHLORIDE - SERUM 101 mmol/L (98-107); CREATININE - SERUM 0.8 mg/dL (0.6-1.3); GLUCOSE 97 mg/dL (74-106); POTASSIUM - SERUM 3.9 mmol/L (3.5-5.1); SODIUM 139 mmol/L (136-145); eGFR NON AFRICAN AMERICAN > 90 mL/min (90-120)
[2018-01-06 06:23] LABS: UREA NITROGEN 17 mg/dL (7-18)
[2018-01-06 08:49] VITALS: BP 113/64
[2018-01-06 16:45] VITALS: BP 117/77
[2018-01-06 21:05] VITALS: BP 115/70
[2018-01-07 04:35] VITALS: BP 126/69
[2018-01-07 07:50] LABS: HEMATOCRIT 35.2 % (42.0-54.0); HEMOGLOBIN 11.6 g/dL (13.5-17.5); MCH 29.8 pg (26.0-34.0); MCV 90.5 fL (80.0-100.0); MEAN PLATELET VOLUME 8.9 fL (7.4-10.4); NEUTROPHILS 57.2 % (40-80); PLATELET COUNT 144 10x3/uL (130-400); RBC 3.89 10x6/uL (4.20-6.10); RDW 13.2 % (11.5-14.5); WBC 4.1 10x3/uL (4.8-10.8)
[2018-01-07 07:57] LABS: CALC OSMOLALITY 278 mosm/kg (275-300); CALCIUM 8.3 mg/dL (8.5-10.1); CARBON DIOXIDE 35.9 mmol/L (21.0-32.0); CHLORIDE - SERUM 102 mmol/L (98-107); GLUCOSE 89 mg/dL (74-106); POTASSIUM - SERUM 3.7 mmol/L (3.5-5.1); SODIUM 140 mmol/L (136-145); UREA NITROGEN 16 mg/dL (7-18); eGFR NON AFRICAN AMERICAN 80 mL/min (90-120)
[2018-01-07 08:21] VITALS: BP 122/79
[2018-01-07 12:36] VITALS: BP 108/65
[2018-01-07 16:30] VITALS: BP 121/73
[2018-01-07 20:24] VITALS: BP 132/76
[2018-01-08 04:55] LABS: BASOPHILS 0.8 % (0-2); EOSINOPHILS 6.8 % (0-7); HEMATOCRIT 36.9 % (42.0-54.0); IMMATURE GRANULOCYTES 0.4 % (0-5); LYMPHOCYTES 21.9 % (15-50); MCH 29.5 pg (26.0-34.0); MCHC 32.5 g/dL (31.0-37.0); MCV 90.7 fL (80.0-100.0); MEAN PLATELET VOLUME 9.4 fL (7.4-10.4); MONOCYTES 12.2 % (2-11); NEUTROPHILS 57.9 % (40-80); PLATELET COUNT 164 10x3/uL (130-400); RBC 4.07 10x6/uL (4.20-6.10); RDW 13.4 % (11.5-14.5); WBC 4.8 10x3/uL (4.8-10.8)
[2018-01-08 05:02] VITALS: BP 139/82
[2018-01-08 05:19] LABS: CALC OSMOLALITY 278 mosm/kg (275-300); CALCIUM 8.9 mg/dL (8.5-10.1); CARBON DIOXIDE 33.5 mmol/L (21.0-32.0); CHLORIDE - SERUM 100 mmol/L (98-107); CREATININE - SERUM 0.8 mg/dL (0.6-1.3); GLUCOSE 93 mg/dL (74-106); POTASSIUM - SERUM 3.7 mmol/L (3.5-5.1); SODIUM 139 mmol/L (136-145); UREA NITROGEN 15 mg/dL (7-18); VANCOMYCIN - TROUGH 23.5 ug/mL (10.0-20.0); eGFR NON AFRICAN AMERICAN > 90 mL/min (90-120)
[2018-01-08 08:33] VITALS: BP 120/75
[2018-01-08 12:45] VITALS: BP 120/63
[2018-01-08 17:17] VITALS: BP 127/71
[2018-01-08 21:08] VITALS: BP 103/55
[2018-01-09 05:16] VITALS: BP 106/62
[2018-01-09 06:10] LABS: CALC OSMOLALITY 276 mosm/kg (275-300); CALCIUM 8.6 mg/dL (8.5-10.1); CHLORIDE - SERUM 102 mmol/L (98-107); CREATININE - SERUM 0.9 mg/dL (0.6-1.3); GLUCOSE 90 mg/dL (74-106); POTASSIUM - SERUM 3.8 mmol/L (3.5-5.1); SODIUM 138 mmol/L (136-145); UREA NITROGEN 15 mg/dL (7-18); eGFR NON AFRICAN AMERICAN 90 mL/min (90-120)
[2018-01-09 07:00] LABS: BASOPHILS 0.6 % (0-2); EOSINOPHILS 7.7 % (0-7); HEMATOCRIT 36.7 % (42.0-54.0); HEMOGLOBIN 11.9 g/dL (13.5-17.5); IMMATURE GRANULOCYTES 0.2 % (0-5); LYMPHOCYTES 25.7 % (15-50); MCH 29.9 pg (26.0-34.0); MCHC 32.4 g/dL (31.0-37.0); MCV 92.2 fL (80.0-100.0); MEAN PLATELET VOLUME 9.5 fL (7.4-10.4); MONOCYTES 13.5 % (2-11); NEUTROPHILS 52.3 % (40-80); PLATELET COUNT 152 10x3/uL (130-400); RBC 3.98 10x6/uL (4.20-6.10); RDW 13.6 % (11.5-14.5)
[2018-01-09 09:38] VITALS: BP 126/77
[2018-01-09 13:20] VITALS: BP 109/63
[2018-01-09 17:39] VITALS: BP 119/69
[2018-01-09 20:00] VITALS: BP 129/67
[2018-01-10] VITALS: BP 123/72
[2018-01-10 04:00] VITALS: BP 126/76
[2018-01-10 04:38] LABS: BASOPHILS 0.7 % (0-2); EOSINOPHILS 6.1 % (0-7); HEMATOCRIT 38.2 % (42.0-54.0); HEMOGLOBIN 12.1 g/dL (13.5-17.5); IMMATURE GRANULOCYTES 0.5 % (0-5); LYMPHOCYTES 17.7 % (15-50); MCH 29.3 pg (26.0-34.0); MCHC 31.7 g/dL (31.0-37.0); MCV 92.5 fL (80.0-100.0); MEAN PLATELET VOLUME 9.9 fL (7.4-10.4); MONOCYTES 13.6 % (2-11); NEUTROPHILS 61.4 % (40-80); PLATELET COUNT 169 10x3/uL (130-400); RBC 4.13 10x6/uL (4.20-6.10); RDW 13.5 % (11.5-14.5); WBC 6.1 10x3/uL (4.8-10.8)
[2018-01-10 04:55] LABS: ANION GAP 7.6 mmol/L (8-16); CALCIUM 8.6 mg/dL (8.5-10.1); CARBON DIOXIDE 31.2 mmol/L (21.0-32.0); CREATININE - SERUM 1.1 mg/dL (0.6-1.3); POTASSIUM - SERUM 3.8 mmol/L (3.5-5.1); VANCOMYCIN - TROUGH 25.7 ug/mL (10.0-20.0)
[2018-01-10 07:55] VITALS: BP 128/72
[2018-01-10 12:30] VITALS: BP 120/70
[2018-01-11 05:43] VITALS: BP 105/57
[2018-01-11 08:30] VITALS: BP 122/61
[2018-01-11 10:35] LABS: BASOPHILS 0.5 % (0-2); EOSINOPHILS 0.7 % (0-7); IMMATURE GRANULOCYTES 0.4 % (0-5); LYMPHOCYTES 11.8 % (15-50); MCH 29.6 pg (26.0-34.0); MCHC 33.1 g/dL (31.0-37.0); MEAN PLATELET VOLUME 9.7 fL (7.4-10.4); NEUTROPHILS 73.6 % (40-80); PLATELET COUNT 144 10x3/uL (130-400); RDW 13.8 % (11.5-14.5)
[2018-01-11 10:54] LABS: HEMATOCRIT 28.7 % (42.0-54.0); HEMOGLOBIN 9.5 g/dL (13.5-17.5); MCV 89.4 fL (80.0-100.0); RBC 3.21 10x6/uL (4.20-6.10); WBC 10.8 10x3/uL (4.8-10.8)
[2018-01-11 10:57] LABS: ANION GAP 8.5 mmol/L (8-16); CALCIUM 7.8 mg/dL (8.5-10.1); CARBON DIOXIDE 30.6 mmol/L (21.0-32.0); CREATININE - SERUM 1.1 mg/dL (0.6-1.3); POTASSIUM - SERUM 4.1 mmol/L (3.5-5.1)
[2018-01-11 12:34] VITALS: BP 106/58
[2018-01-11 15:45] VITALS: BP 108/67
[2018-01-11 20:49] VITALS: BP 96/47
[2018-01-12 00:35] VITALS: BP 108/54
[2018-01-12 04:42] VITALS: BP 100/50
[2018-01-12 05:53] LABS: BASOPHILS 0.3 % (0-2); EOSINOPHILS 6.6 % (0-7); HEMATOCRIT 24.4 % (42.0-54.0); HEMOGLOBIN 8.3 g/dL (13.5-17.5); IMMATURE GRANULOCYTES 0.3 % (0-5); LYMPHOCYTES 11.2 % (15-50); MCH 30.5 pg (26.0-34.0); MCV 89.7 fL (80.0-100.0); MEAN PLATELET VOLUME 9.7 fL (7.4-10.4); MONOCYTES 12.1 % (2-11); NEUTROPHILS 69.5 % (40-80); PLATELET COUNT 116 10x3/uL (130-400); RBC 2.72 10x6/uL (4.20-6.10); RDW 14.1 % (11.5-14.5); WBC 8.9 10x3/uL (4.8-10.8)
[2018-01-12 06:16] LABS: ANION GAP 12.2 mmol/L (8-16); CALCIUM 7.9 mg/dL (8.5-10.1); CARBON DIOXIDE 27.7 mmol/L (21.0-32.0); CREATININE - SERUM 1.3 mg/dL (0.6-1.3); POTASSIUM - SERUM 3.9 mmol/L (3.5-5.1)
[2018-01-12 08:33] VITALS: BP 99/46
[2018-01-12 12:45] VITALS: BP 98/56
[2018-01-12 22:16] VITALS: BP 114/62
[2018-01-13 04:58] VITALS: BP 123/78
[2018-01-13 06:00] LABS: BASOPHILS 0.3 % (0-2); EOSINOPHILS 8.8 % (0-7); HEMATOCRIT 25.1 % (42.0-54.0); HEMOGLOBIN 8.3 g/dL (13.5-17.5); IMMATURE GRANULOCYTES 0.3 % (0-5); LYMPHOCYTES 13.6 % (15-50); MCH 29.7 pg (26.0-34.0); MCHC 33.1 g/dL (31.0-37.0); MEAN PLATELET VOLUME 10.6 fL (7.4-10.4); MONOCYTES 16.5 % (2-11); NEUTROPHILS 60.5 % (40-80); PLATELET COUNT 104 10x3/uL (130-400); RBC 2.79 10x6/uL (4.20-6.10); RDW 15.1 % (11.5-14.5); WBC 7.1 10x3/uL (4.8-10.8)
[2018-01-13 06:36] LABS: ANION GAP 11.9 mmol/L (8-16); CALCIUM 7.8 mg/dL (8.5-10.1); CREATININE - SERUM 1.2 mg/dL (0.6-1.3); POTASSIUM - SERUM 3.9 mmol/L (3.5-5.1)
[2018-01-13] MEDS ORDERED: ELIQUIS2.5 MG PO (07:51)
[2018-01-13] MEDS ORDERED: PLAVIX75 MG PO (07:51)
[2018-01-13] MEDS ORDERED: Duragesic TRANSDERM (07:52)
[2018-01-13 11:00] VITALS: BP 112/54
[2018-01-13] MEDS ORDERED: VANCOMYCIN 1 GM/1 G1 IV (12:05)
== END 2018-01-13 16:03 | DRG 463 ==
LOC: D.MS 16:41 → D.SDCHOLD 01-03 15:07 → D.MS 01-03 15:10
PROVIDERS: Emergency Medicine; Internal Medicine Nephrology; Orthopaedic Surgery; Student in an Organized Health Care Education/Training Program
PROC: 0JBL0ZZ Excision of Right Upper Leg Subcutaneous Tissue and Fascia, Open Approach (ICD-10-PCS; 2018-01-03)
PROC: 0SH908Z Insertion of Spacer into Right Hip Joint, Open Approach (ICD-10-PCS; principal; 2018-01-10 14:00)
PROC: 0SP90JZ Removal of Synthetic Substitute from Right Hip Joint, Open Approach (ICD-10-PCS; 2018-01-10 14:00)
DX: T84.51XA Infection and inflammatory reaction due to internal right hip prosthesis, initial encounter (principal); A41.9 Sepsis, unspecified organism; I50.42 Chronic combined systolic (congestive) and diastolic (congestive) heart failure; B95.62 Methicillin resistant Staphylococcus aureus infection as the cause of diseases classified elsewhere; I11.0 Hypertensive heart disease with heart failure; I48.91 Unspecified atrial fibrillation; F43.10 Post-traumatic stress disorder, unspecified; F41.8 Other specified anxiety disorders; R53.1 Weakness; K21.9 Gastro-esophageal reflux disease without esophagitis; D64.9 Anemia, unspecified; E87.6 Hypokalemia; E66.9 Obesity, unspecified; Z68.38 Body mass index [BMI] 38.0-38.9, adult; Z95.0 Presence of cardiac pacemaker; I25.10 Atherosclerotic heart disease of native coronary artery without angina pectoris; R19.7 Diarrhea, unspecified

== ENCOUNTER 2018-01-27 08:22 | Inpatient (IN) | payer MEDICARE, MEDICAID ==
[~2018-01-27] VITALS: Ht 182.9 cm; Wt 124.7 kg
[2018-01-27] VITALS (10 sets, daily range): BP systolic 97–129; BP diastolic 59–83; BMI 37.4
--- NOTE | ~2018-01-27 | MORECARE ---
CASE MANAGEMENT DISCHARGE SUMMARY PATIENT: VAHE NARVAEZ UNIT: [id number] ADM DATE: 01/27/18 AGE: 67 : 52 SEX: M ROOM/BED: D.2234 AUTHOR: BRIANNE STAFFORD PHYSICIAN: REFERRING PHYSICIAN: JOHNSON IBARRA MD DATE OF SERVICE: 02/09/18 Discharge Plan Patient Name: VAHE NRAVAEZ Facility: [facility]:[place] : 1950 Planned Disposition: Anticipated Discharge Date: Discharge Date: Expected LOS: Initial Reviewer: [id number] Initial Review Date: 01/27/2018 Generated: 02/09/18 11:28 am Comments DCP- Discharge Planning Updated by [id number]: Nadya Whalen on 02/09/18 9:[address] Transfer back agreement faxed to [facility] #[phone] per their request. Patient consents to transfer. Awaiting a bed for transfer at this time. CM will continue to follow and assist with discharge planning/needs. DCP- Discharge Planning Updated by [id number]: Nadya Whalen on 02/08/18 1:[address] [facility] HAS ACCEPTED PATIENT, DR VASQUEZ IS ADMITTING PHYSICIAN. THEY DO NOT HAVE AN AVAILABLE BED YET. ICE CRUSHER AND PRIMARY NURSE AWARE. DCP- Discharge Planning Updated by [id number]: Nadya Whalen on 02/08/18 1:[address] Vasquez will be the accepting physician when bed is available at [facility], material flow analyst informed. CM will continue to follow and assist with discharge planning/needs. DCP- Discharge Planning Updated by [id number]: Nadya Whalen on 02/08/18 12:[address] CM met with patient after he spoke to Dr. Aj. He consents to transfer to [facility]. I asked if I could call his family to notify them and he says "No". IMM explained, signed, copy given, original placed on chart. yoga coordinator and primary nurse, Radha, notified. CM will continue to follow and assist with discharge planning/needs. DCP- Discharge Planning Updated by [email or web address]: Nadya Whalen on 02/08/18 11:[address] Ibarra called me after he spoke with Dr. Aj and he would like patient to be transferred to [facility]. He states Dr. Aj will be the one to speak with the educational specialist at [facility] via his cell phone. I spoke with the patient and he would like to speak to Dr. Aj. I called Clarita and she states he will be her shortly to speak with the patient. I called Calvin with [facility] and informed of situation and to be admitted with orthopedic and infectious disease doctor to see. Face sheet faxed to [facility]. CM will continue to follow and assist with discharge planning/needs. DCP- Discharge Planning Updated by [id number]: Nadya Whalen on 02/07/18 12:[address] Clarita Tanner APN for Dr. Aj called me and informed that they are ok with transfer to [facility] if Dr. Ibarra wants to proceed with transfer. I called Dr. Siu's office and left a message for KEARA Deras to call regarding discharge plan. CM will continue to follow and assist with discharge planning/needs. DCP- Discharge Planning Updated by [id number]: Donna Davis on 01/27/18 12:[address] Patient Name: VAHE NARVAEZ Admission Status: ER Accout number: [id number] Admission Date: 01-27-2018 : 1950 Admission Diagnosis: Attending: JOHNSON IBARRA Current LOS: 1 Anticipated DC Date: Planned Disposition: Primary Insurance: [employer] CHOICE PPO MCR ADVANT Discharge Planning Comments: CM MET WITH PATIENT ABOUT DC PLANNING NEEDS. STATES HE IS FROM THE [facility] AND IS THERE FOR REHAB. [facility] IS NOT AMBULATORY AT THIS TIME AND IS ON BED REST AT THE [facility]. [facility] PLAN IS TO RETURN TO THE [facility] AFTER DISCHARGE. CM WILL FOLLOW AND ASSIST NEEDED WITH DC PLANNING/NEEDS. Leasing Director: Donna Davis DCPIA - Discharge Planning Initial Assessment Updated by [id number]: Donna Davis on 01/27/18 12:59 pm * Is the patient Alert and Oriented? Yes * PCP [facility] * Preadmission Environment Snf Facility * Facility Name [facility] * ADLs Partial Dependent * Partial ADLs (Assistance needed) Ambulation Bathing Dressing Medication Management Toileting Transfers * Other Equipment PT STATES IS ON BED REST BECAUSE OF HIP. STATES NOT AMBULATORY AT THIS TIME. * List name and contact numbers for known caregivers / representatives who currently or will assist patient after discharge: BROTHER CASEY, * Additional services required to return to the preadmission environment? Yes * Can the patient safely return to the preadmission environment? Yes * Has this patient been hospitalized within the prior 30 days at any hospital? Yes Coverage Notice Reviewer: [id number] Dayo Whalen Notice Issued Date-Time: 02/08/2018 13:52 Notice Type: IM Discharge Notice Notice Delivered To: Patient Relationship to Patient: Self Yoker Machine Operator Name: Delivery Method: HAND - Hand Delivered Sonia Days: Prior Verbal Notification: Recipient Understood Notice: Yes Recipient Signature: Yes Med Rec Note Co-signed by Attending: Coverage Notice Comment: IMM explained, signed, copy given, original placed in MR Last DP export: 02/08/18 2:09 Patient Name: VAHE NARVAEZ Page 44844 at 1029 All edits/amendments must be made on the electronic document DICTATION DATE: 02/09/18 1028 ADULT AND PEDIATRIC NEUROLOGIST: LEILANI 02/09/18 1028 RPT#: [id number] DC DATE: STATUS: ADM IN [facility] [address] [place] [address] END OF REPORT
--- NOTE | ~2018-01-27 | MORECARE ---
CASE MANAGEMENT DISCHARGE SUMMARY PATIENT: VAHE NARVAEZ UNIT: [id number] ADM DATE: 01/27/18 AGE: 67 : 52 SEX: M ROOM/BED: D.E14 AUTHOR: BRIANNE STAFFORD PHYSICIAN: REFERRING PHYSICIAN: JOHNSON IBARRA MD DATE OF SERVICE: 01/27/18 Discharge Plan Patient Name: VAHE NARVAEZ Facility: [facility]:[place] : 1950 Planned Disposition: Anticipated Discharge Date: Discharge Date: Expected LOS: Initial Reviewer: [id number] Initial Review Date: 01/27/2018 Generated: 01/27/18 2:01 pm DCPIA - Discharge Planning Initial Assessment Updated by [email or web address]: Donna Davis on 01/27/18 12:59 pm * Is the patient Alert and Oriented? Yes * PCP [facility] * Preadmission Environment [facility] Facility * Facility Name [facility] * ADLs Partial Dependent * Partial ADLs (Assistance needed) Ambulation Bathing Dressing Medication Management Toileting Transfers * Other Equipment PT STATES IS ON BED REST BECAUSE OF HIP. STATES NOT AMBULATORY AT THIS TIME. * List name and contact numbers for known caregivers / representatives who currently or will assist patient after discharge: BROTHER CASEY, * Additional services required to return to the preadmission environment? Yes * Can the patient safely return to the preadmission environment? Yes * Has this patient been hospitalized within the prior 30 days at any hospital? Yes Patient Name: VAHE NARVAEZ Page 58780 at 1301 All edits/amendments must be made on the electronic document DICTATION DATE: 01/27/18 1301 CARD LACER: LEILANI 01/27/18 1301 RPT#: [id number] DC DATE: STATUS: ADM IN [facility] [address] [place] [address] END OF REPORT
--- NOTE | ~2018-01-27 | MORECARE ---
CASE MANAGEMENT DISCHARGE SUMMARY PATIENT: VAHE NARVAEZ UNIT: [id number] ADM DATE: 01/27/18 AGE: 67 : 52 SEX: M ROOM/BED: D.2234 AUTHOR: BRIANNE STAFFORD PHYSICIAN: REFERRING PHYSICIAN: JOHNSON IBARRA MD DATE OF SERVICE: 02/08/18 Discharge Plan Patient Name: VAHE NARVAEZ Facility: [facility]:[place] : 1950 Planned Disposition: Anticipated Discharge Date: Discharge Date: Expected LOS: Initial Reviewer: [id number] Initial Review Date: 01/27/2018 Generated: 02/08/18 3:02 pm Comments DCP- Discharge Planning Updated by [id number]: Nadya Whalen on 02/08/18 12:[address] CM met with patient after he spoke to Dr. Aj. He consents to transfer to [facility]. I asked if I could call his family to notify them and he says "No". IMM explained, signed, copy given, original placed on chart. packaging coordinator and primary nurse, Radha, notified. CM will continue to follow and assist with discharge planning/needs. DCP- Discharge Planning Updated by [email or web address]: Nadya Whalen on 02/08/18 11:[address] Ibarra called me after he spoke with Dr. Aj and he would like patient to be transferred to [facility]. He states Dr. Aj will be the one to speak with the pharmacy informatics specialist at [facility] via his cell phone. I spoke with the patient and he would like to speak to Dr. Aj. I called Clarita and she states he will be her shortly to speak with the patient. I called Calvin with [facility] and informed of situation and to be admitted with orthopedic and infectious disease doctor to see. Face sheet faxed to [facility]. CM will continue to follow and assist with discharge planning/needs. DCP- Discharge Planning Updated by [email or web address]: Nadya Whalen on 02/07/18 12:[address] Clarita Tanner APN for Dr. Aj called me and informed that they are ok with transfer to [facility] if Dr. Ibarra wants to proceed with transfer. I called Dr. Siu's office and left a message for KEARA Deras to call regarding discharge plan. CM will continue to follow and assist with discharge planning/needs. DCP- Discharge Planning Updated by [id number]: Donnaalfred Davis on 01/27/18 12:[address] Patient Name: VAHE NARVAEZ Admission Status: ER Accout number: [id number] Admission Date: 01-27-2018 : 1950 Admission Diagnosis: Attending: JOHNSON IBARRA Current LOS: 1 Anticipated DC Date: Planned Disposition: Primary Insurance: [employer] CHOICE PPO MCR ADVANT Discharge Planning Comments: CM MET WITH PATIENT ABOUT DC PLANNING NEEDS. STATES HE IS FROM THE [facility] AND IS THERE FOR REHAB. STATES IS NOT AMBULATORY AT THIS TIME AND IS ON BED REST AT THE [facility]. STATES PLAN IS TO RETURN TO THE [facility] AFTER DISCHARGE. CM WILL FOLLOW AND ASSIST NEEDED WITH DC PLANNING/NEEDS. Steam Train Driver: Donna Susan DCPIA - Discharge Planning Initial Assessment Updated by [id number]: Donna Susan on 01/27/18 12:59 pm * Is the patient Alert and Oriented? Yes * PCP [facility] * Preadmission Environment Senior Care Facility * Facility Name [facility] * ADLs Partial Dependent * Partial ADLs (Assistance needed) Ambulation Bathing Dressing Medication Management Toileting Transfers * Other Equipment PT STATES IS ON BED REST BECAUSE OF HIP. STATES NOT AMBULATORY AT THIS TIME. * List name and contact numbers for known caregivers / representatives who currently or will assist patient after discharge: BROTHER CASEY, * Additional services required to return to the preadmission environment? Yes * Can the patient safely return to the preadmission environment? Yes * Has this patient been hospitalized within the prior 30 days at any hospital? Yes Coverage Notice Reviewer: [id number] Dayo Whalen Notice Issued Date-Time: 02/08/2018 13:52 Notice Type: IM Discharge Notice Notice Delivered To: Patient Relationship to Patient: Self Director Of Group Counseling Program Name: Delivery Method: HAND - Hand Delivered Sonia Days: Prior Verbal Notification: Recipient Understood Notice: Yes Recipient Signature: Yes Med Rec Note Co-signed by Attending: Coverage Notice Comment: IMM explained, signed, copy given, original placed in MR Last DP export: 02/08/18 11:27 Patient Name: VAHE NARVAEZ Page 15376 at 1402 All edits/amendments must be made on the electronic document DICTATION DATE: 02/08/181401 HOUSE REGISTRY RN: LEILANI 02/08/181401 RPT#: [id number] DC DATE: STATUS: ADM IN [facility] [address] [place] [address] END OF REPORT
--- NOTE | ~2018-01-27 | MORECARE ---
CASE MANAGEMENT DISCHARGE SUMMARY PATIENT: VAHE NARVAEZ UNIT: [id number] ADM DATE: 01/27/18 AGE: 67 : 54 SEX: M ROOM/BED: D.2234 AUTHOR: NYDIADOC PHYSICIAN: REFERRING PHYSICIAN: JOHNSON IBARRA MD DATE OF SERVICE: 02/08/18 Discharge Plan Patient Name: VAHE NARVAEZ Facility: [facility]:[place] : 1950 Planned Disposition: Anticipated Discharge Date: Discharge Date: Expected LOS: Initial Reviewer: [email or web address] Initial Review Date: 01/27/2018 Generated: 02/08/18 4:09 pm Comments DCP- Discharge Planning Updated by [id number]: Nadya Whalen on 02/08/18 1:[address] [facility] HAS ACCEPTED PATIENT, DR VASQUEZ IS ADMITTING PHYSICIAN. THEY DO NOT HAVE AN AVAILABLE BED YET. RADIO OFFICER AND PRIMARY NURSE AWARE. DCP- Discharge Planning Updated by [id number]: Nadya Whalen on 02/08/18 1:[address] Vasquez will be the accepting physician when bed is available at [facility], flower grader informed. CM will continue to follow and assist with discharge planning/needs. DCP- Discharge Planning Updated by [id number]: Nadya Whalen on 02/08/18 12:[address] CM met with patient after he spoke to Dr. Aj. He consents to transfer to [facility]. I asked if I could call his family to notify them and he says "No". IMM explained, signed, copy given, original placed on chart. health and safety coordinator and primary nurse, Radha, notified. CM will continue to follow and assist with discharge planning/needs. DCP- Discharge Planning Updated by [email or web address]: Nadya Whalen on 02/08/18 11:[address] Ibarra called me after he spoke with Dr. Aj and he would like patient to be transferred to [facility]. He states Dr. Aj will be the one to speak with the swine extension field specialist at [facility] via his cell phone. I spoke with the patient and he would like to speak to Dr. Aj. I called Clarita and she states he will be her shortly to speak with the patient. I called Calvin with [facility] and informed of situation and to be admitted with orthopedic and infectious disease doctor to see. Face sheet faxed to [facility]. CM will continue to follow and assist with discharge planning/needs. DCP- Discharge Planning Updated by [email or web address]: Nadyavicente Whalen on 02/07/18 12:[address] Clarita Tanner APN for Dr. Aj called me and informed that they are ok with transfer to [facility] if Dr. Ibarra wants to proceed with transfer. I called Dr. Siu's office and left a message for KEARA Deras to call regarding discharge plan. CM will continue to follow and assist with discharge planning/needs. DCP- Discharge Planning Updated by [id number]: Donna Davis on 01/27/18 12:[address] Patient Name: VAHE NARVAEZ Admission Status: ER Accout number: [id number] Admission Date: 01-27-2018 : 1950 Admission Diagnosis: Attending: JOHNSON IBARRA Current LOS: 1 Anticipated DC Date: Planned Disposition: Primary Insurance: [employer] CHOICE PPO MCR ADVANT Discharge Planning Comments: CM MET WITH PATIENT ABOUT DC PLANNING NEEDS. STATES HE IS FROM THE [facility] AND IS THERE FOR REHAB. [facility] IS NOT AMBULATORY AT THIS TIME AND IS ON BED REST AT THE [facility]. [facility] PLAN IS TO RETURN TO THE [facility] AFTER DISCHARGE. CM WILL FOLLOW AND ASSIST NEEDED WITH DC PLANNING/NEEDS. Ramp Supervisor: Donna Davis DCPIA - Discharge Planning Initial Assessment Updated by [email or web address]: Donna Davis on 01/27/18 12:59 pm * Is the patient Alert and Oriented? Yes * PCP [facility] * Preadmission Environment Long Term Facility * Facility Name [facility] * ADLs Partial Dependent * Partial ADLs (Assistance needed) Ambulation Bathing Dressing Medication Management Toileting Transfers * Other Equipment PT STATES IS ON BED REST BECAUSE OF HIP. [facility] NOT AMBULATORY AT THIS TIME. * List name and contact numbers for known caregivers / representatives who currently or will assist patient after discharge: BROTHER CASEY, * Additional services required to return to the preadmission environment? Yes * Can the patient safely return to the preadmission environment? Yes * Has this patient been hospitalized within the prior 30 days at any hospital? Yes Coverage Notice Reviewer: [id number] Dayo Nadya Mosquedaenrique Notice Issued Date-Time: 02/08/2018 13:52 Notice Type: IM Discharge Notice Notice Delivered To: Patient Relationship to Patient: Self Process Safety Specialist Name: Delivery Method: HAND - Hand Delivered Sonia Days: Prior Verbal Notification: Recipient Understood Notice: Yes Recipient Signature: Yes Med Rec Note Co-signed by Attending: Coverage Notice Comment: IMM explained, signed, copy given, original placed in MR Last DP export: 02/08/18 1:22 Patient Name: VAHE NARVAEZ Page 37920 at 1509 All edits/amendments must be made on the electronic document DICTATION DATE: 02/08/181508 URBAN AND REGIONAL PLANNER: LEILANI 02/08/18 150 RPT#: [id number] DC DATE: STATUS: ADM IN [facility] [address] [place] [address] END OF REPORT
--- NOTE | ~2018-01-27 | MORECARE ---
CASE MANAGEMENT DISCHARGE SUMMARY PATIENT: VAHE NARVAEZ UNIT: [id number] ADM DATE: 01/27/18 AGE: 67 : 52 SEX: M ROOM/BED: D.2234 AUTHOR: BRIANNE STAFFORD PHYSICIAN: REFERRING PHYSICIAN: JOHNSON IBARRA MD DATE OF SERVICE: 02/07/18 Discharge Plan Patient Name: VAHE NARVAEZ Facility: [facility]:[place] : 1950 Planned Disposition: Anticipated Discharge Date: Discharge Date: Expected LOS: Initial Reviewer: [id number] Initial Review Date: 01/27/2018 Generated: 02/07/18 2:31 pm Comments DCP- Discharge Planning Updated by [id number]: Nadya Whalen on 02/07/18 12:[address] Clarita Tanner APN for Dr. Aj called me and informed that they are ok with transfer to [facility] if Dr. Ibarra wants to proceed with transfer. I called Dr. Siu's office and left a message for KEARA Deras to call regarding discharge plan. CM will continue to follow and assist with discharge planning/needs. DCP- Discharge Planning Updated by [email or web address]: Donna Davis on 01/27/18 12:[address] Patient Name: VAHE NARVAEZ Admission Status: ER Accout number: [id number] Admission Date: 01-27-2018 : 1950 Admission Diagnosis: Attending: JOHNSON IBARRA Current LOS: 1 Anticipated DC Date: Planned Disposition: Primary Insurance: [employer] CHOICE PPO M[employer] Discharge Planning Comments: CM MET WITH PATIENT ABOUT DC PLANNING NEEDS. STATES HE IS FROM THE [facility] AND IS THERE FOR REHAB. STATES IS NOT AMBULATORY AT THIS TIME AND IS ON BED REST AT THE [facility]. STATES PLAN IS TO RETURN TO THE [facility] AFTER DISCHARGE. CM WILL FOLLOW AND ASSIST NEEDED WITH DC PLANNING/NEEDS. Field Reporter: Donna Davis DCPIA - Discharge Planning Initial Assessment Updated by [id number]: Donna Davis on 01/27/18 12:59 pm * Is the patient Alert and Oriented? Yes * PCP APOLLO * Preadmission Environment [facility] * Facility Name [facility] * ADLs Partial Dependent * Partial ADLs (Assistance needed) Ambulation Bathing Dressing Medication Management Toileting Transfers * Other Equipment PT STATES IS ON BED REST BECAUSE OF HIP. STATES NOT AMBULATORY AT THIS TIME. * List name and contact numbers for known caregivers / representatives who currently or will assist patient after discharge: BROTHER CASEY, * Additional services required to return to the preadmission environment? Yes * Can the patient safely return to the preadmission environment? Yes * Has this patient been hospitalized within the prior 30 days at any hospital? Yes Last DP export: 01/27/18 12:10 Patient Name: VAHE NARVAEZ Page 50741 at 1331 All edits/amendments must be made on the electronic document DICTATION DATE: 02/07/181329 PHOTOGRAPHER FINISH: LEILANI 02/07/181329 RPT#: [id number] DC DATE: STATUS: ADM IN [facility] [address] [place] [address] END OF REPORT
--- NOTE | ~2018-01-27 | MORECARE ---
CASE MANAGEMENT DISCHARGE SUMMARY PATIENT: VAHE NARVAEZ UNIT: [id number] ADM DATE: 01/27/18 AGE: 67 : 52 SEX: M ROOM/BED: D.2234 AUTHOR: BRIANNE STAFFORD PHYSICIAN: REFERRING PHYSICIAN: JOHNSON IBARRA MD DATE OF SERVICE: 02/08/18 Discharge Plan Patient Name: VAHE NARVAEZ Facility: [facility]:[place] : 1950 Planned Disposition: Anticipated Discharge Date: Discharge Date: Expected LOS: Initial Reviewer: [email or web address] Initial Review Date: 01/27/2018 Generated: 02/08/18 1:27 pm Comments DCP- Discharge Planning Updated by [email or web address]: Nadya Whalen on 02/08/18 11:[address] Ibarra called me after he spoke with Dr. Aj and he would like patient to be transferred to [facility]. He states Dr. Aj will be the one to speak with the criminal intelligence specialist at [facility] via his cell phone. I spoke with the patient and he would like to speak to Dr. Aj. I called Clarita and she states he will be her shortly to speak with the patient. I called Calvin with [facility] and informed of situation and to be admitted with orthopedic and infectious disease doctor to see. Face sheet faxed to [facility]. CM will continue to follow and assist with discharge planning/needs. DCP- Discharge Planning Updated by [id number]: Nadya Whalen on 02/07/18 12:[address] Clarita Tanner APN for Dr. Aj called me and informed that they are ok with transfer to [facility] if Dr. Ibarra wants to proceed with transfer. I called Dr. Siu's office and left a message for KEARA Deras to call regarding discharge plan. CM will continue to follow and assist with discharge planning/needs. DCP- Discharge Planning Updated by [email or web address]: Donna Davis on 01/27/18 12:[address] Patient Name: VAHE NARVAEZ Admission Status: ER Accout number: [id number] Admission Date: 01-27-2018 : 1950 Admission Diagnosis: Attending: JOHNSON IBARRA Current LOS: 1 Anticipated DC Date: Planned Disposition: Primary Insurance: [employer] CHOICE PPO M[employer] Discharge Planning Comments: CM MET WITH PATIENT ABOUT DC PLANNING NEEDS. STATES HE IS FROM THE [facility] AND IS THERE FOR REHAB. STATES IS NOT AMBULATORY AT THIS TIME AND IS ON BED REST AT THE [facility]. STATES PLAN IS TO RETURN TO THE [facility] AFTER DISCHARGE. CM WILL FOLLOW AND ASSIST NEEDED WITH DC PLANNING/NEEDS. Generation Engineer: Donna Davis DCPIA - Discharge Planning Initial Assessment Updated by [email or web address]: Donna Davis on 01/27/18 12:59 pm * Is the patient Alert and Oriented? Yes * PCP APOLLO * Preadmission Environment [facility] * Facility Name [facility] * ADLs Partial Dependent * Partial ADLs (Assistance needed) Ambulation Bathing Dressing Medication Management Toileting Transfers * Other Equipment PT STATES IS ON BED REST BECAUSE OF HIP. STATES NOT AMBULATORY AT THIS TIME. * List name and contact numbers for known caregivers / representatives who currently or will assist patient after discharge: BROTHER CASEY, * Additional services required to return to the preadmission environment? Yes * Can the patient safely return to the preadmission environment? Yes * Has this patient been hospitalized within the prior 30 days at any hospital? Yes Last DP export: 02/08/18 11:19 Patient Name: VAHE NARVAEZ Page 14590 at 1227 All edits/amendments must be made on the electronic document DICTATION DATE: 02/08/181225 ACID BATH MIXER: LEILANI 02/08/181225 RPT#: [id number] DC DATE: STATUS: ADM IN [facility] [address] [place] [address] END OF REPORT
--- NOTE | ~2018-01-27 | MORECARE ---
CASE MANAGEMENT DISCHARGE SUMMARY PATIENT: VAHE NARVAEZ UNIT: [id number] ADM DATE: 01/27/18 AGE: 67 : 52 SEX: M ROOM/BED: D.2234 AUTHOR: BRIANNE STAFFORD PHYSICIAN: REFERRING PHYSICIAN: JOHNSON IBARRA MD DATE OF SERVICE: 02/08/18 Discharge Plan Patient Name: VAHE NARVAEZ Facility: [facility]:[place] : 1950 Planned Disposition: Anticipated Discharge Date: Discharge Date: Expected LOS: Initial Reviewer: [id number] Initial Review Date: 01/27/2018 Generated: 02/08/18 1:19 pm Comments DCP- Discharge Planning Updated by [id number]: Nadya Whalen on 02/07/18 12:[address] Clarita Tanner APN for Dr. Aj called me and informed that they are ok with transfer to [facility] if Dr. Ibarra wants to proceed with transfer. I called Dr. Siu's office and left a message for KEARA Deras to call regarding discharge plan. CM will continue to follow and assist with discharge planning/needs. DCP- Discharge Planning Updated by [id number]: Donna Davis on 01/27/18 12:[address] Patient Name: VAHE NARVAEZ Admission Status: ER Accout number: [id number] Admission Date: 01-27-2018 : 1950 Admission Diagnosis: Attending: JOHNSON IBARRA Current LOS: 1 Anticipated DC Date: Planned Disposition: Primary Insurance: [employer] CHOICE PPO M[employer] Discharge Planning Comments: CM MET WITH PATIENT ABOUT DC PLANNING NEEDS. STATES HE IS FROM THE [facility] AND IS THERE FOR REHAB. STATES IS NOT AMBULATORY AT THIS TIME AND IS ON BED REST AT THE [facility]. STATES PLAN IS TO RETURN TO THE [facility] AFTER DISCHARGE. CM WILL FOLLOW AND ASSIST NEEDED WITH DC PLANNING/NEEDS. Director Of Rooms: Donna Davis DCPIA - Discharge Planning Initial Assessment Updated by [email or web address]: Donna Davis on 01/27/18 12:59 pm * Is the patient Alert and Oriented? Yes * PCP APOLLO * Preadmission Environment [facility] Facility * Facility Name [facility] * ADLs Partial Dependent * Partial ADLs (Assistance needed) Ambulation Bathing Dressing Medication Management Toileting Transfers * Other Equipment PT STATES IS ON BED REST BECAUSE OF HIP. STATES NOT AMBULATORY AT THIS TIME. * List name and contact numbers for known caregivers / representatives who currently or will assist patient after discharge: BROTHER CASEY, * Additional services required to return to the preadmission environment? Yes * Can the patient safely return to the preadmission environment? Yes * Has this patient been hospitalized within the prior 30 days at any hospital? Yes External Providers External Provider: [facility] Next Contact Date: Service Request Date: Service Type: Resolution: Reviewer: Comments: Last DP export: 02/07/18 12:31 Patient Name: VAHE NARVAEZ Page 61747 at 1219 All edits/amendments must be made on the electronic document DICTATION DATE: 02/08/181217 COMMUNITY ADMINISTRATOR: LEILANI 02/08/181217 RPT#: [id number] DC DATE: STATUS: ADM IN [facility] [address] [place] [address] END OF REPORT
--- NOTE | ~2018-01-27 | MORECARE ---
CASE MANAGEMENT DISCHARGE SUMMARY PATIENT: VAHE NARVAEZ UNIT: [id number] ADM DATE: 01/27/18 AGE: 67 : 52 SEX: M ROOM/BED: D.2234 AUTHOR: NYDIADOC PHYSICIAN: REFERRING PHYSICIAN: JOHNSON IBARRA MD DATE OF SERVICE: 02/11/18 Discharge Plan Patient Name: VAHE NARVAEZ [facility] : 1950 Planned Disposition: Anticipated Discharge Date: Discharge Date: 02/11/2018 Expected LOS: 0 Initial Reviewer: [id number] Initial Review Date: 01/27/2018 Generated: 02/11/18 3:58 pm Comments DCP- Discharge Planning Updated by [email or web address]: Nadya Whalen on 02/09/18 1:[address] I called easy admit to check on the status of bed availability at [facility]. Ricardo states they are still full and he is still on the wait list. Ricardo states they check every 4 hours for bed availability and will call the floor when a bed becomes available. CM will continue to follow and assist with discharge planning/needs. DCP- Discharge Planning Updated by [id number]: Nadya Whalen on 02/09/18 9:[address] Transfer back agreement faxed to [facility] #[phone] per their request. Patient consents to transfer. Awaiting a bed for transfer at this time. CM will continue to follow and assist with discharge planning/needs. DCP- Discharge Planning Updated by [email or web address]: Nadya Whalen on 02/08/18 1:[address] [facility] HAS ACCEPTED PATIENT, DR VASQUEZ IS ADMITTING PHYSICIAN. THEY DO NOT HAVE AN AVAILABLE BED YET. CAN CRIMPER AND PRIMARY NURSE AWARE. DCP- Discharge Planning Updated by [email or web address]: Nadya Whalen on 02/08/18 1:[address] Vasquez will be the accepting physician when bed is available at [facility], advertising operations coordinator informed. CM will continue to follow and assist with discharge planning/needs. DCP- Discharge Planning Updated by [email or web address]: Nadya Whalen on 02/08/18 12:[address] CM met with patient after he spoke to Dr. Aj. He consents to transfer to [facility]. I asked if I could call his family to notify them and he says "No". IMM explained, signed, copy given, original placed on chart. bariatric coordinator and primary nurse, Radha, notified. CM will continue to follow and assist with discharge planning/needs. DCP- Discharge Planning Updated by [id number]: Nadya Whalen on 02/08/18 11:[address] Ibarra called me after he spoke with Dr. Aj and he would like patient to be transferred to [facility]. He states Dr. Aj will be the one to speak with the technology specialist at [facility] via his cell phone. I spoke with the patient and he would like to speak to Dr. Aj. I called Clarita and she states he will be her shortly to speak with the patient. I called Calvin with [facility] and informed of situation and to be admitted with orthopedic and infectious disease doctor to see. Face sheet faxed to [facility]. CM will continue to follow and assist with discharge planning/needs. DCP- Discharge Planning Updated by [email or web address]: Nadya Whalen on 02/07/18 12:[address] Clarita Tanner APN for Dr. Aj called me and informed that they are ok with transfer to [facility] if Dr. Ibarra wants to proceed with transfer. I called Dr. Siu's office and left a message for KEARA Deras to call regarding discharge plan. CM will continue to follow and assist with discharge planning/needs. DCP- Discharge Planning Updated by [email or web address]: Donna Davis on 01/27/18 12:[address] Patient Name: VAHE NARVAEZ Admission Status: ER Accout number: [id number] Admission Date: 01-27-2018 : 1950 Admission Diagnosis: Attending: JOHNSON IBARRA Current LOS: 1 Anticipated DC Date: Planned Disposition: Primary Insurance: [employer] CHOICE PPO MCR [facility] Discharge Planning Comments: CM MET WITH PATIENT ABOUT DC PLANNING NEEDS. STATES HE IS FROM THE [facility] AND IS THERE FOR REHAB. STATES IS NOT AMBULATORY AT THIS TIME AND IS ON BED REST AT THE [facility]. STATES PLAN IS TO RETURN TO THE [facility] AFTER DISCHARGE. CM WILL FOLLOW AND ASSIST NEEDED WITH DC PLANNING/NEEDS. X Ray Service Technician: Donna Davis DCPIA - Discharge Planning Initial Assessment Updated by [email or web address]: Donna Davis on 01/27/18 12:59 pm * Is the patient Alert and Oriented? Yes * PCP APOLLO * Preadmission Environment [facility] * Facility Name [facility] * ADLs Partial Dependent * Partial ADLs (Assistance needed) Ambulation Bathing Dressing Medication Management Toileting Transfers * Other Equipment PT STATES IS ON BED REST BECAUSE OF HIP. STATES NOT AMBULATORY AT THIS TIME. * List name and contact numbers for known caregivers / representatives who currently or will assist patient after discharge: BROTHER CASEY, * Additional services required to return to the preadmission environment? Yes * Can the patient safely return to the preadmission environment? Yes * Has this patient been hospitalized within the prior 30 days at any hospital? Yes Coverage Notice Reviewer: [id number] Dayo Whalen Notice Issued Date-Time: 02/08/2018 13:52 Notice Type: IM Discharge Notice Notice Delivered To: Patient Relationship to Patient: Self Solution Lead Name: Delivery Method: HAND - Hand Delivered Sonia Days: Prior Verbal Notification: Recipient Understood Notice: Yes Recipient Signature: Yes Med Rec Note Co-signed by Attending: Coverage Notice Comment: IMM explained, signed, copy given, original placed in MR Last DP export: 02/09/18 1:34 Patient Name: VAHE NARVAEZ Page 85805 at 1458 All edits/amendments must be made on the electronic document DICTATION DATE: 02/11/181457 FINAL INSPECTOR MOVEMENT ASSEMBLY: LEILANI 02/11/181457 RPT#: [id number] DC DATE:02/11/18 STATUS: DIS IN [facility] [address] [place] [address] END OF REPORT
--- NOTE | ~2018-01-27 | MORECARE ---
CASE MANAGEMENT DISCHARGE SUMMARY PATIENT: VAHE NARVAEZ UNIT: [id number] ADM DATE: 01/27/18 AGE: 67 : 52 SEX: M ROOM/BED: D.2234 AUTHOR: BRIANNE STAFFORD PHYSICIAN: REFERRING PHYSICIAN: JOHNSON IBARRA MD DATE OF SERVICE: 02/08/18 Discharge Plan Patient Name: VAHE NARVAEZ Facility: [facility]:[place] : 1950 Planned Disposition: Anticipated Discharge Date: Discharge Date: Expected LOS: Initial Reviewer: [email or web address] Initial Review Date: 01/27/2018 Generated: 02/08/18 3:22 pm Comments DCP- Discharge Planning Updated by [email or web address]: Nadya Whalen on 02/08/18 1:[address] Cox will be the accepting physician when bed is available at [facility], rehabilitation coordinator informed. CM will continue to follow and assist with discharge planning/needs. DCP- Discharge Planning Updated by [id number]: Nadya Whalen on 02/08/18 12:[address] CM met with patient after he spoke to Dr. Aj. He consents to transfer to [facility]. I asked if I could call his family to notify them and he says "No". IMM explained, signed, copy given, original placed on chart. community health program coordinator and primary nurse, Radha, notified. CM will continue to follow and assist with discharge planning/needs. DCP- Discharge Planning Updated by [id number]: Nadya Whalen on 02/08/18 11:[address] Ibarra called me after he spoke with Dr. Aj and he would like patient to be transferred to [facility]. He states Dr. Aj will be the one to speak with the vector control specialist at [facility] via his cell phone. I spoke with the patient and he would like to speak to Dr. Aj. I called Clarita and she states he will be her shortly to speak with the patient. I called Calvin with [facility] and informed of situation and to be admitted with orthopedic and infectious disease doctor to see. Face sheet faxed to [facility]. CM will continue to follow and assist with discharge planning/needs. DCP- Discharge Planning Updated by [email or web address]: Nadya Whalen on 02/07/18 12:[address] Clarita Tanner APN for Dr. Aj called me and informed that they are ok with transfer to [facility] if Dr. Ibarra wants to proceed with transfer. I called Dr. Siu's office and left a message for KEARA Deras to call regarding discharge plan. CM will continue to follow and assist with discharge planning/needs. DCP- Discharge Planning Updated by [email or web address]: Donna Davis on 01/27/18 12:[address] Patient Name: VAHE NARVAEZ Admission Status: ER Accout number: [id number] Admission Date: 01-27-2018 : 1950 Admission Diagnosis: Attending: JOHNSON IBARRA Current LOS: 1 Anticipated DC Date: Planned Disposition: Primary Insurance: [employer] CHOICE PPO M[employer] Discharge Planning Comments: CM MET WITH PATIENT ABOUT DC PLANNING NEEDS. STATES HE IS FROM THE [facility] AND IS THERE FOR REHAB. [facility] IS NOT AMBULATORY AT THIS TIME AND IS ON BED REST AT THE [facility]. [facility] PLAN IS TO RETURN TO THE [facility] AFTER DISCHARGE. CM WILL FOLLOW AND ASSIST NEEDED WITH DC PLANNING/NEEDS. Audio Visual Tech: Donna Davis DCPIA - Discharge Planning Initial Assessment Updated by [id number]: Donna Susan on 01/27/18 12:59 pm * Is the patient Alert and Oriented? Yes * PCP APOLLO * Preadmission Environment [facility] * Facility Name [facility] * ADLs Partial Dependent * Partial ADLs (Assistance needed) Ambulation Bathing Dressing Medication Management Toileting Transfers * Other Equipment PT STATES IS ON BED REST BECAUSE OF HIP. [facility] NOT AMBULATORY AT THIS TIME. * List name and contact numbers for known caregivers / representatives who currently or will assist patient after discharge: BROTHER CASEY, * Additional services required to return to the preadmission environment? Yes * Can the patient safely return to the preadmission environment? Yes * Has this patient been hospitalized within the prior 30 days at any hospital? Yes Coverage Notice Reviewer: [id number] - Nadya Whalen Notice Issued Date-Time: 02/08/2018 13:52 Notice Type: IM Discharge Notice Notice Delivered To: Patient Relationship to Patient: Self Water/Wastewater Project Manager Name: Delivery Method: HAND - Hand Delivered Sonia Days: Prior Verbal Notification: Recipient Understood Notice: Yes Recipient Signature: Yes Med Rec Note Co-signed by Attending: Coverage Notice Comment: IMM explained, signed, copy given, original placed in MR Last DP export: 02/08/18 1:02 Patient Name: VAHE NARVAEZ Page [id number] at 1422 All edits/amendments must be made on the electronic document DICTATION DATE: 02/08/181421 TOILET ATTENDANT: LEILANI 02/08/181421 RPT#: [id number] DC DATE: STATUS: ADM IN [facility] [address] [place] [address] END OF REPORT
--- NOTE | ~2018-01-27 | MORECARE ---
CASE MANAGEMENT DISCHARGE SUMMARY PATIENT: VAHE NARVAEZ UNIT: [id number] ADM DATE: 01/27/18 AGE: 67 : 52 SEX: M ROOM/BED: D.2234 AUTHOR: NYDIA,DOC PHYSICIAN: REFERRING PHYSICIAN: JOHNSON IBARRA MD DATE OF SERVICE: 02/09/18 Discharge Plan Patient Name: VAHE NARVAEZ [facility] [facility] 1950 Planned Disposition: Anticipated Discharge Date: Discharge Date: Expected LOS: Initial Reviewer: [email or web address] Initial Review Date: 01/27/2018 Generated: 02/09/18 3:34 pm Comments DCP- Discharge Planning Updated by [email or web address]: Nadya Whalen on 02/09/18 1:[address] I called easy admit to check on the status of bed availability at [facility]. Ricardo states they are still full and he is still on the wait list. Ricardo states they check every 4 hours for bed availability and will call the floor when a bed becomes available. CM will continue to follow and assist with discharge planning/needs. DCP- Discharge Planning Updated by [id number]: Nadya Whalen on 02/09/18 9:[address] Transfer back agreement faxed to [facility] #[phone] per their request. Patient consents to transfer. Awaiting a bed for transfer at this time. CM will continue to follow and assist with discharge planning/needs. DCP- Discharge Planning Updated by [id number]: Nadya Whalen on 02/08/18 1:[address] [facility] HAS ACCEPTED PATIENT, DR VASQUEZ IS ADMITTING PHYSICIAN. THEY DO NOT HAVE AN AVAILABLE BED YET. HEAD WAITRESS AND PRIMARY NURSE AWARE. DCP- Discharge Planning Updated by [id number]: Nadya Whalen on 02/08/18 1:[address] Vasquez will be the accepting physician when bed is available at [facility], bereavement program coordinator informed. CM will continue to follow and assist with discharge planning/needs. DCP- Discharge Planning Updated by [email or web address]: Nadya Whalen on 02/08/18 12:[address] CM met with patient after he spoke to Dr. Aj. He consents to transfer to [facility]. I asked if I could call his family to notify them and he says "No". IMM explained, signed, copy given, original placed on chart. wedding day coordinator and primary nurse, Radha, notified. CM will continue to follow and assist with discharge planning/needs. DCP- Discharge Planning Updated by [email or web address]: Nadya Whalen on 02/08/18 11:[address] Ibarra called me after he spoke with Dr. Aj and he would like patient to be transferred to [facility]. He states Dr. Aj will be the one to speak with the client resource specialist at [facility] via his cell phone. I spoke with the patient and he would like to speak to Dr. Aj. I called Clarita and she states he will be her shortly to speak with the patient. I called Calvin with [facility] and informed of situation and to be admitted with orthopedic and infectious disease doctor to see. Face sheet faxed to [facility]. CM will continue to follow and assist with discharge planning/needs. DCP- Discharge Planning Updated by [id number]: Nadya Whalen on 02/07/18 12:[address] Clarita Tanner APN for Dr. Aj called me and informed that they are ok with transfer to [facility] if Dr. Ibarra wants to proceed with transfer. I called Dr. Siu's office and left a message for KEARA Deras to call regarding discharge plan. CM will continue to follow and assist with discharge planning/needs. DCP- Discharge Planning Updated by [email or web address]: Donna Davis on 01/27/18 12:[address] Patient Name: VAHE NARVAEZ Admission Status: ER Accout number: [id number] Admission Date: 01-27-2018 : 1950 Admission Diagnosis: Attending: JOHNSON IBARRA Current LOS: 1 Anticipated DC Date: Planned Disposition: Primary Insurance: [employer] CHOICE PPO MCR ADVANT Discharge Planning Comments: CM MET WITH PATIENT ABOUT DC PLANNING NEEDS. STATES HE IS FROM [facility] AND IS THERE FOR REHAB. STATES IS NOT AMBULATORY AT THIS TIME AND IS ON BED REST AT THE [facility]. STATES PLAN IS TO RETURN TO [facility] AFTER DISCHARGE. CM WILL FOLLOW AND ASSIST NEEDED WITH DC PLANNING/NEEDS. Mixer Wet Pour: Donna Davis DCPIA - Discharge Planning Initial Assessment Updated by [id number]: Donna Davis on 01/27/18 12:59 pm * Is the patient Alert and Oriented? Yes * PCP AP[facility]LLO * Preadmission Environment Snf Facility * Facility Name [facility] * ADLs Partial Dependent * Partial ADLs (Assistance needed) Ambulation Bathing Dressing Medication Management Toileting Transfers * Other Equipment PT STATES IS ON BED REST BECAUSE OF HIP. STATES NOT AMBULATORY AT THIS TIME. * List name and contact numbers for known caregivers / representatives who currently or will assist patient after discharge: BROTHER CASEY, * Additional services required to return to the preadmission environment? Yes * Can the patient safely return to the preadmission environment? Yes * Has this patient been hospitalized within the prior 30 days at any hospital? Yes Coverage Notice Reviewer: [email or web address] Dayo Whalen Notice Issued Date-Time: 02/08/2018 13:52 Notice Type: IM Discharge Notice Notice Delivered To: Patient Relationship to Patient: Self Business Process Consultant Name: Delivery Method: HAND - Hand Delivered Sonia Days: Prior Verbal Notification: Recipient Understood Notice: Yes Recipient Signature: Yes Med Rec Note Co-signed by Attending: Coverage Notice Comment: IMM explained, signed, copy given, original placed in MR Last DP export: 02/09/18 9:29 Patient Name: VAHE NARVAEZ Page [id number] at 1435 All edits/amendments must be made on the electronic document DICTATION DATE: 02/09/181433 RN OFFICE: LEILANI 02/09/18 143 RPT#: [id number] [place] DATE: STATUS: ADM IN [facility] [address] [place] [address] END OF REPORT
--- NOTE | ~2018-01-27 | MORECARE ---
CASE MANAGEMENT DISCHARGE SUMMARY PATIENT: VAHE NARVAEZ UNIT: [id number] ADM DATE: 01/27/18 AGE: 67 : 52 SEX: M ROOM/BED: D.E14 AUTHOR: NYDIADOC PHYSICIAN: REFERRING PHYSICIAN: JOHNSON IBARRA MD DATE OF SERVICE: 01/27/18 Discharge Plan Patient Name: VAHE NARVAEZ Facility: [facility]:[place] : 1950 Planned Disposition: Anticipated Discharge Date: Discharge Date: Expected LOS: Initial Reviewer: [email or web address] Initial Review Date: 01/27/2018 Generated: 01/27/18 2:10 pm DCP- Discharge Planning Updated by [email or web address]: Donna Davis on 01/27/18 12:[address] Patient Name: VAHE NARVAEZ Admission Status: ER Accout number: [id number] Admission Date: 01-27-2018 : 1950 Admission Diagnosis: Attending: JOHNSON IBARRA Current LOS: 1 Anticipated DC Date: Planned Disposition: Primary Insurance: [employer] CHOICE PPO MCR ADVANT Discharge Planning Comments: CM MET WITH PATIENT ABOUT DC PLANNING NEEDS. STATES HE IS FROM [facility] AND IS THERE FOR REHAB. [facility] IS NOT AMBULATORY AT THIS TIME AND IS ON BED REST AT THE [facility]. [facility] PLAN IS TO RETURN TO THE [facility] AFTER DISCHARGE. CM WILL FOLLOW AND ASSIST NEEDED WITH DC PLANNING/NEEDS. Film Flat Inspector: Donna Davis DCPIA - Discharge Planning Initial Assessment Updated by [id number]: Donna Davis on 01/27/18 12:59 pm * Is the patient Alert and Oriented? Yes * PCP [facility] * Preadmission Environment Chcf Facility * Facility Name [facility] * ADLs Partial Dependent * Partial ADLs (Assistance needed) Ambulation Bathing Dressing Medication Management Toileting Transfers * Other Equipment PT STATES IS ON BED REST BECAUSE OF HIP. STATES NOT AMBULATORY AT THIS TIME. * List name and contact numbers for known caregivers / representatives who currently or will assist patient after discharge: RAMIRO CASEYER, * Additional services required to return to the preadmission environment? Yes * Can the patient safely return to the preadmission environment? Yes * Has this patient been hospitalized within the prior 30 days at any hospital? Yes Last DP export: 01/27/18 12:01 Patient Name: VAHE NARVAEZ Page [id number] at 1310 All edits/amendments must be made on the electronic document DICTATION DATE: 01/27/181308 VIOLIN TEACHER: LEILANI 01/27/181308 RPT#: [id number] DC DATE: STATUS: ADM IN [facility] [address] [place] [address] END OF REPORT
[~2018-01-27 08:22] MED LIST changes: +Duragesic TRANSDERM; +ELIQUIS2.5 MG PO
[2018-01-27] MEDS ORDERED: MOBIC7.5 MG PO (08:32)
[2018-01-27] MEDS ORDERED: DEMEROL100 MG PO (08:33)
[2018-01-27] MEDS ORDERED: MILK OF MAGNESI30 ML PO (08:34)
[2018-01-27 09:04] LABS: BASOPHILS 0.1 % (0-2); EOSINOPHILS 0.6 % (0-7); HEMATOCRIT 23.6 % (42.0-54.0); IMMATURE GRANULOCYTES 0.3 % (0-5); LYMPHOCYTES 6.7 % (15-50); MCH 28.8 pg (26.0-34.0); MCHC 31.4 g/dL (31.0-37.0); MCV 91.8 fL (80.0-100.0); MONOCYTES 7.9 % (2-11); NEUTROPHILS 84.4 % (40-80); RBC 2.57 10x6/uL (4.20-6.10); RDW 14.4 % (11.5-14.5); WBC 6.8 10x3/uL (4.8-10.8)
[2018-01-27 09:10] LABS: HEMOGLOBIN 7.4 g/dL (13.5-17.5); PLATELET COUNT 284 10x3/uL (130-400)
[2018-01-27 10:51] LABS: % SATURATION 21 % (15-55); IRON 37 ug/dl (35-150); TOTAL IRON BIND CAPACITY 171 ug/dl (260-445); UNSAT IRON BIND CAPACITY 134 ug/dl (150-375)
[2018-01-27 10:55] LABS: ALBUMIN 2.4 g/dL (3.4-5.0); ANION GAP 7.5 mmol/L (8-16); BILIRUBIN - TOTAL 0.36 mg/dL (0.2-1.3); CALCIUM 8.2 mg/dL (8.5-10.1); CARBON DIOXIDE 34.4 mmol/L (21.0-32.0); CREATININE - SERUM 1.1 mg/dL (0.6-1.3); POTASSIUM - SERUM 3.9 mmol/L (3.5-5.1); PROTEIN - SERUM 6.3 g/dL (6.4-8.2)
[2018-01-27 15:12] LABS: BASOPHILS 0.1 % (0-2); EOSINOPHILS 0.8 % (0-7); HEMATOCRIT 23.7 % (42.0-54.0); IMMATURE GRANULOCYTES 0.3 % (0-5); LYMPHOCYTES 7.6 % (15-50); MCH 28.8 pg (26.0-34.0); MCHC 31.2 g/dL (31.0-37.0); MCV 92.2 fL (80.0-100.0); MEAN PLATELET VOLUME 9.2 fL (7.4-10.4); MONOCYTES 8.7 % (2-11); NEUTROPHILS 82.5 % (40-80); PLATELET COUNT 308 10x3/uL (130-400); RBC 2.57 10x6/uL (4.20-6.10); RDW 14.5 % (11.5-14.5); WBC 7.1 10x3/uL (4.8-10.8)
[2018-01-27 15:17] LABS: HEMOGLOBIN 7.4 g/dL (13.5-17.5)
[2018-01-27 21:02] LABS: BASOPHILS 0.1 % (0-2); EOSINOPHILS 1.1 % (0-7); HEMATOCRIT 23.8 % (42.0-54.0); IMMATURE GRANULOCYTES 0.1 % (0-5); MCH 28.3 pg (26.0-34.0); MCHC 30.7 g/dL (31.0-37.0); MCV 92.2 fL (80.0-100.0); MONOCYTES 9.9 % (2-11); NEUTROPHILS 79.8 % (40-80); PLATELET COUNT 315 10x3/uL (130-400); RBC 2.58 10x6/uL (4.20-6.10); RDW 14.5 % (11.5-14.5); WBC 7.2 10x3/uL (4.8-10.8)
[2018-01-27 21:14] LABS: HEMOGLOBIN 7.3 g/dL (13.5-17.5)
[2018-01-28 06:27] LABS: BASOPHILS 0.3 % (0-2); EOSINOPHILS 1.6 % (0-7); HEMATOCRIT 24.7 % (42.0-54.0); HEMOGLOBIN 7.6 g/dL (13.5-17.5); IMMATURE GRANULOCYTES 0.4 % (0-5); LYMPHOCYTES 9.5 % (15-50); MCH 28.5 pg (26.0-34.0); MCHC 30.8 g/dL (31.0-37.0); MCV 92.5 fL (80.0-100.0); MEAN PLATELET VOLUME 8.9 fL (7.4-10.4); NEUTROPHILS 77.2 % (40-80); PLATELET COUNT 322 10x3/uL (130-400); RBC 2.67 10x6/uL (4.20-6.10); RDW 14.6 % (11.5-14.5)
[2018-01-28 06:38] VITALS: BP 96/45
[2018-01-28 06:39] LABS: INR 1.28 (0.85-1.17); PROTIME 15.7 SECONDS (11.6-15.0)
[2018-01-28 06:45] LABS: ALBUMIN 2.5 g/dL (3.4-5.0); ANION GAP 8.8 mmol/L (8-16); BILIRUBIN - TOTAL 0.4 mg/dL (0.2-1.3); CALCIUM 8.4 mg/dL (8.5-10.1); CARBON DIOXIDE 31.9 mmol/L (21.0-32.0); CREATININE - SERUM 1.1 mg/dL (0.6-1.3); POTASSIUM - SERUM 3.7 mmol/L (3.5-5.1); PROTEIN - SERUM 6.4 g/dL (6.4-8.2)
[2018-01-28 08:23] VITALS: BP 105/57
[2018-01-28 11:51] LABS: ERYTHROCYTE SEDIMENTATION RATE 43 mm/hr (0-20)
[2018-01-28 12:14] VITALS: BP 91/67
[2018-01-28 14:51] VITALS: Ht 182.9 cm; Wt 124.7 kg
[2018-01-28 22:09] VITALS: BP 122/71
[2018-01-29 06:16] VITALS: BP 130/76
[2018-01-29 06:38] LABS: BASOPHILS 0.2 % (0-2); EOSINOPHILS 1.9 % (0-7); IMMATURE GRANULOCYTES 0.4 % (0-5); LYMPHOCYTES 10.1 % (15-50); MCH 28.6 pg (26.0-34.0); MCHC 31.5 g/dL (31.0-37.0); MCV 90.6 fL (80.0-100.0); MEAN PLATELET VOLUME 9.1 fL (7.4-10.4); MONOCYTES 13.1 % (2-11); NEUTROPHILS 74.3 % (40-80); PLATELET COUNT 316 10x3/uL (130-400); WBC 8.3 10x3/uL (4.8-10.8)
[2018-01-29 06:40] LABS: HEMATOCRIT 29.8 % (42.0-54.0); HEMOGLOBIN 9.4 g/dL (13.5-17.5); RBC 3.29 10x6/uL (4.20-6.10)
[2018-01-29 10:45] VITALS: BP 137/71
[2018-01-29 16:00] VITALS: BP 116/60
[2018-01-30 05:25] VITALS: BP 107/52
[2018-01-30 08:27] VITALS: BP 152/70
[2018-01-30 11:14] VITALS: BP 140/91
[2018-01-30 12:14] LABS: BASOPHILS 0.2 % (0-2); EOSINOPHILS 2.9 % (0-7); HEMATOCRIT 30.9 % (42.0-54.0); HEMOGLOBIN 9.4 g/dL (13.5-17.5); IMMATURE GRANULOCYTES 0.5 % (0-5); LYMPHOCYTES 7.9 % (15-50); MCH 28.3 pg (26.0-34.0); MCHC 30.4 g/dL (31.0-37.0); MONOCYTES 11.6 % (2-11); NEUTROPHILS 76.9 % (40-80); PLATELET COUNT 285 10x3/uL (130-400); RBC 3.32 10x6/uL (4.20-6.10); RDW 15.1 % (11.5-14.5); WBC 9.3 10x3/uL (4.8-10.8)
[2018-01-30 12:15] LABS: MCV 93.1 fL (80.0-100.0)
[2018-01-30 20:00] VITALS: BP 103/60
[2018-01-31] VITALS: BP 100/54
[2018-01-31 04:00] VITALS: BP 99/50
[2018-01-31 08:12] VITALS: BP 115/61
[2018-01-31 16:10] VITALS: BP 113/63
[2018-01-31 20:00] VITALS: BP 111/63
[2018-02-01] VITALS: BP 113/60
[2018-02-01 05:30] LABS: BASOPHILS 0.1 % (0-2); EOSINOPHILS 4.4 % (0-7); HEMATOCRIT 28.1 % (42.0-54.0); HEMOGLOBIN 8.6 g/dL (13.5-17.5); IMMATURE GRANULOCYTES 0.6 % (0-5); LYMPHOCYTES 8.2 % (15-50); MCH 28.2 pg (26.0-34.0); MCHC 30.6 g/dL (31.0-37.0); MCV 92.1 fL (80.0-100.0); MEAN PLATELET VOLUME 9.3 fL (7.4-10.4); NEUTROPHILS 75.7 % (40-80); PLATELET COUNT 285 10x3/uL (130-400); RBC 3.05 10x6/uL (4.20-6.10); RDW 14.6 % (11.5-14.5); WBC 8.4 10x3/uL (4.8-10.8)
[2018-02-01 05:53] LABS: CALC OSMOLALITY 279 mosm/kg (275-300); CARBON DIOXIDE 34.3 mmol/L (21.0-32.0); CHLORIDE - SERUM 100 mmol/L (98-107); GLUCOSE 93 mg/dL (74-106); POTASSIUM - SERUM 3.1 mmol/L (3.5-5.1); SODIUM 139 mmol/L (136-145); UREA NITROGEN 17 mg/dL (7-18); eGFR NON AFRICAN AMERICAN 80 mL/min (90-120)
[2018-02-01 07:21] VITALS: BP 115/66
[2018-02-01 08:32] VITALS: BP 111/66
[2018-02-01 12:10] VITALS: BP 113/63
[2018-02-01 17:13] VITALS: BP 105/58
[2018-02-01 22:17] VITALS: BP 112/59
[2018-02-02 01:08] VITALS: BP 117/61
[2018-02-02 05:08] VITALS: BP 102/54
[2018-02-02 06:34] LABS: BASOPHILS 0.1 % (0-2); EOSINOPHILS 5.5 % (0-7); HEMATOCRIT 27.8 % (42.0-54.0); HEMOGLOBIN 8.8 g/dL (13.5-17.5); IMMATURE GRANULOCYTES 0.5 % (0-5); LYMPHOCYTES 9.4 % (15-50); MCH 28.9 pg (26.0-34.0); MCHC 31.7 g/dL (31.0-37.0); MCV 91.4 fL (80.0-100.0); MEAN PLATELET VOLUME 9.6 fL (7.4-10.4); MONOCYTES 10.8 % (2-11); NEUTROPHILS 73.7 % (40-80); PLATELET COUNT 275 10x3/uL (130-400); RBC 3.04 10x6/uL (4.20-6.10); RDW 14.6 % (11.5-14.5); WBC 7.8 10x3/uL (4.8-10.8)
[2018-02-02 08:36] VITALS: BP 117/61
[2018-02-02 12:32] VITALS: BP 111/60
[2018-02-02 16:32] VITALS: BP 121/67
[2018-02-02 20:00] VITALS: BP 141/78
[2018-02-03] VITALS: BP 90/51
[2018-02-03 04:00] VITALS: BP 109/51
[2018-02-03 08:41] VITALS: BP 110/59
[2018-02-03 20:00] VITALS: BP 100/56
[2018-02-04] VITALS: BP 99/58
[2018-02-04 04:00] VITALS: BP 94/45
[2018-02-04 08:57] VITALS: BP 115/64
[2018-02-04 12:20] VITALS: BP 112/62
[2018-02-04 14:13] LABS: BASOPHILS 0.1 % (0-2); EOSINOPHILS 5.9 % (0-7); HEMATOCRIT 29.8 % (42.0-54.0); HEMOGLOBIN 9.3 g/dL (13.5-17.5); IMMATURE GRANULOCYTES 0.3 % (0-5); LYMPHOCYTES 7.1 % (15-50); MCH 28.4 pg (26.0-34.0); MCHC 31.2 g/dL (31.0-37.0); MCV 91.1 fL (80.0-100.0); MEAN PLATELET VOLUME 9.4 fL (7.4-10.4); MONOCYTES 12.1 % (2-11); NEUTROPHILS 74.5 % (40-80); PLATELET COUNT 245 10x3/uL (130-400); RBC 3.27 10x6/uL (4.20-6.10); RDW 14.4 % (11.5-14.5); WBC 8.6 10x3/uL (4.8-10.8)
[2018-02-04 14:24] LABS: ALBUMIN 2.2 g/dL (3.4-5.0); ALKALINE PHOSPHATASE 100 U/L (46-116); ALT (SGPT) 11 U/L (10-68); BILIRUBIN - TOTAL 0.53 mg/dL (0.2-1.3); CALC OSMOLALITY 271 mosm/kg (275-300); CARBON DIOXIDE 32.5 mmol/L (21.0-32.0); CHLORIDE - SERUM 99 mmol/L (98-107); CREATININE - SERUM 0.8 mg/dL (0.6-1.3); GLUCOSE 110 mg/dL (74-106); POTASSIUM - SERUM 3.6 mmol/L (3.5-5.1); PROTEIN - SERUM 5.5 g/dL (6.4-8.2); SODIUM 135 mmol/L (136-145); UREA NITROGEN 14 mg/dL (7-18); eGFR NON AFRICAN AMERICAN > 90 mL/min (90-120)
[2018-02-04 16:19] VITALS: BP 100/67
[2018-02-04 20:02] VITALS: BP 119/64
[2018-02-05 04:56] VITALS: BP 116/59
[2018-02-05 09:10] VITALS: BP 112/66
[2018-02-05 12:13] VITALS: BP 104/62
[2018-02-05 14:44] VITALS: BP 117/68
[2018-02-05 20:47] VITALS: BP 96/52
[2018-02-06 01:03] VITALS: BP 98/53
[2018-02-06 05:58] VITALS: BP 96/54
[2018-02-06 11:28] VITALS: BP 115/71
[2018-02-06 16:38] VITALS: BP 123/81
[2018-02-06 22:09] VITALS: BP 116/70
[2018-02-07 05:12] LABS: BASOPHILS 0.1 % (0-2); EOSINOPHILS 3.9 % (0-7); HEMATOCRIT 26.7 % (42.0-54.0); HEMOGLOBIN 8.3 g/dL (13.5-17.5); IMMATURE GRANULOCYTES 0.3 % (0-5); LYMPHOCYTES 7.8 % (15-50); MCH 27.8 pg (26.0-34.0); MCHC 31.1 g/dL (31.0-37.0); MCV 89.3 fL (80.0-100.0); MEAN PLATELET VOLUME 9.3 fL (7.4-10.4); MONOCYTES 8.1 % (2-11); NEUTROPHILS 79.8 % (40-80); PLATELET COUNT 277 10x3/uL (130-400); RBC 2.99 10x6/uL (4.20-6.10); RDW 14.4 % (11.5-14.5); WBC 8.7 10x3/uL (4.8-10.8)
[2018-02-07 05:31] VITALS: BP 120/66
[2018-02-07 05:31] LABS: ALKALINE PHOSPHATASE 94 U/L (46-116); ALT (SGPT) 8 U/L (10-68); BILIRUBIN - TOTAL 0.57 mg/dL (0.2-1.3); CALC OSMOLALITY 278 mosm/kg (275-300); CALCIUM 7.9 mg/dL (8.5-10.1); CARBON DIOXIDE 32.5 mmol/L (21.0-32.0); CHLORIDE - SERUM 102 mmol/L (98-107); CREATININE - SERUM 0.8 mg/dL (0.6-1.3); GLUCOSE 109 mg/dL (74-106); PROTEIN - SERUM 5.7 g/dL (6.4-8.2); SODIUM 139 mmol/L (136-145); UREA NITROGEN 13 mg/dL (7-18); eGFR NON AFRICAN AMERICAN > 90 mL/min (90-120)
[2018-02-07 05:32] LABS: POTASSIUM - SERUM 2.7 mmol/L (3.5-5.1)
[2018-02-07 08:14] VITALS: BP 109/52
[2018-02-07 13:14] VITALS: BP 121/63
[2018-02-07 17:50] VITALS: BP 113/63
[2018-02-07 21:04] VITALS: BP 128/62
[2018-02-08 04:29] VITALS: BP 134/74
[2018-02-08 05:50] LABS: BASOPHILS 0.1 % (0-2); EOSINOPHILS 5.6 % (0-7); HEMATOCRIT 29.2 % (42.0-54.0); HEMOGLOBIN 8.9 g/dL (13.5-17.5); IMMATURE GRANULOCYTES 0.3 % (0-5); LYMPHOCYTES 10.8 % (15-50); MCH 27.6 pg (26.0-34.0); MCHC 30.5 g/dL (31.0-37.0); MCV 90.7 fL (80.0-100.0); MEAN PLATELET VOLUME 9.3 fL (7.4-10.4); MONOCYTES 8.7 % (2-11); NEUTROPHILS 74.5 % (40-80); PLATELET COUNT 289 10x3/uL (130-400); RBC 3.22 10x6/uL (4.20-6.10); RDW 14.5 % (11.5-14.5); WBC 6.8 10x3/uL (4.8-10.8)
[2018-02-08 06:19] LABS: CALC OSMOLALITY 280 mosm/kg (275-300); CALCIUM 8.4 mg/dL (8.5-10.1); CARBON DIOXIDE 36.1 mmol/L (21.0-32.0); CHLORIDE - SERUM 103 mmol/L (98-107); CREATININE - SERUM 0.9 mg/dL (0.6-1.3); GLUCOSE 92 mg/dL (74-106); SODIUM 141 mmol/L (136-145); UREA NITROGEN 12 mg/dL (7-18); eGFR NON AFRICAN AMERICAN 90 mL/min (90-120)
[2018-02-08 08:10] VITALS: BP 122/65
[2018-02-08 12:45] VITALS: BP 118/70
[2018-02-08 17:57] VITALS: BP 130/70
[2018-02-08 21:23] VITALS: BP 143/81
[2018-02-09 05:52] VITALS: BP 131/60
[2018-02-09 06:19] LABS: BASOPHILS 0.1 % (0-2); EOSINOPHILS 2.5 % (0-7); HEMATOCRIT 29.2 % (42.0-54.0); HEMOGLOBIN 9.1 g/dL (13.5-17.5); IMMATURE GRANULOCYTES 0.2 % (0-5); LYMPHOCYTES 7.4 % (15-50); MCH 27.7 pg (26.0-34.0); MCHC 31.2 g/dL (31.0-37.0); MCV 88.8 fL (80.0-100.0); MEAN PLATELET VOLUME 9.3 fL (7.4-10.4); MONOCYTES 7.7 % (2-11); NEUTROPHILS 82.1 % (40-80); PLATELET COUNT 317 10x3/uL (130-400); RBC 3.29 10x6/uL (4.20-6.10); RDW 14.4 % (11.5-14.5); WBC 9.1 10x3/uL (4.8-10.8)
[2018-02-09 06:37] LABS: CALC OSMOLALITY 277 mosm/kg (275-300); CALCIUM 8.4 mg/dL (8.5-10.1); CARBON DIOXIDE 31.2 mmol/L (21.0-32.0); CHLORIDE - SERUM 100 mmol/L (98-107); CREATININE - SERUM 0.9 mg/dL (0.6-1.3); GLUCOSE 106 mg/dL (74-106); POTASSIUM - SERUM 3.2 mmol/L (3.5-5.1); SODIUM 140 mmol/L (136-145); UREA NITROGEN 11 mg/dL (7-18); eGFR NON AFRICAN AMERICAN 90 mL/min (90-120)
[2018-02-09 08:35] VITALS: BP 146/67
[2018-02-09 13:22] VITALS: BP 113/60
[2018-02-09 15:56] VITALS: BP 118/65
[2018-02-09 22:38] VITALS: BP 103/59; BP 166/101
[2018-02-10 01:05] VITALS: BP 110/61
[2018-02-10 06:35] VITALS: BP 109/54
[2018-02-10 08:15] VITALS: BP 109/53
[2018-02-10 11:17] VITALS: BP 115/64
[2018-02-10 16:02] VITALS: BP 121/66
[2018-02-10 21:55] VITALS: BP 99/61
== END 2018-02-11 02:00 | disposition short-term general hospital (02) | DRG 811 ==
LOC: D.ER 08:22 → D.MS 12:28 → D.EDHOLD 12:28 → D.MS 13:18
PROVIDERS: Family Medicine; Internal Medicine Gastroenterology; Legal Medicine; Orthopaedic Surgery
PROC: 0DB58ZX Excision of Esophagus, Via Natural or Artificial Opening Endoscopic, Diagnostic (ICD-10-PCS; principal; 2018-01-28 16:00)
DX: D62 Acute posthemorrhagic anemia (principal); K29.01 Acute gastritis with bleeding; K44.9 Diaphragmatic hernia without obstruction or gangrene; T50.995A Adverse effect of other drugs, medicaments and biological substances, initial encounter; I50.9 Heart failure, unspecified; T84.51XD Infection and inflammatory reaction due to internal right hip prosthesis, subsequent encounter

== ENCOUNTER 2018-02-20 15:57 | Emergency (ER) | payer MEDICARE, MEDICAID | END 2018-02-20 19:25 | LOC: D.ER 15:57 | DX: R22.41 Localized swelling, mass and lump, right lower limb (principal); I11.0 Hypertensive heart disease with heart failure; I50.9 Heart failure, unspecified; Z95.0 Presence of cardiac pacemaker ==

== ENCOUNTER 2018-03-02 20:24 | Emergency (ER) | payer MEDICARE, MEDICAID ==
[~2018-03-02] VITALS: Ht 182.9 cm; Wt 119.1 kg
[~2018-03-02 20:24] MED LIST changes: +MILK OF MAGNESI30 ML PO
[2018-03-02 20:34] VITALS: Ht 182.9 cm; Wt 119.1 kg
[2018-03-02 22:28] VITALS: BP 137/88
== END 2018-03-02 22:28 ==
LOC: D.ER 20:24
DX: T82.898A Other specified complication of vascular prosthetic devices, implants and grafts, initial encounter (principal); Z86.73 Personal history of transient ischemic attack (TIA), and cerebral infarction without residual deficits; I11.0 Hypertensive heart disease with heart failure; I50.9 Heart failure, unspecified; I25.10 Atherosclerotic heart disease of native coronary artery without angina pectoris; Z95.0 Presence of cardiac pacemaker

== ENCOUNTER 2018-03-18 09:30 | Emergency (ER) | payer MEDICARE, MEDICAID ==
[~2018-03-18] VITALS: Ht 182.9 cm; Wt 112.7 kg
[2018-03-18 09:33] VITALS: BP 116/60; Ht 182.9 cm; Wt 112.7 kg
== END 2018-03-18 11:15 | disposition home or self-care (01) ==
LOC: D.ER 09:30
DX: T81.49XA Infection following a procedure, other surgical site, initial encounter (principal); T84.51XA Infection and inflammatory reaction due to internal right hip prosthesis, initial encounter; T82.898A Other specified complication of vascular prosthetic devices, implants and grafts, initial encounter; Z86.73 Personal history of transient ischemic attack (TIA), and cerebral infarction without residual deficits; I50.9 Heart failure, unspecified; I25.10 Atherosclerotic heart disease of native coronary artery without angina pectoris; Z95.0 Presence of cardiac pacemaker

== ENCOUNTER 2018-05-11 15:44 | Outpatient (CLI) | payer MEDICARE, MEDICAID ==
[~2018-05-11] VITALS: Ht 182.9 cm; Wt 100.0 kg
[2018-05-11] VITALS (8 sets, daily range): BP systolic 91–124; BP diastolic 45–63; Ht 182.9 cm; Wt 100.0 kg
--- NOTE | 2018-05-11 19:00 | NUR ---
1900 VOIDS VIA URINAL 400CC
--- NOTE | 2018-05-11 19:00 | NUR ---
1900 REPORT PHONED TO JUAN MORALES TO 2235 BY THOMASER.
--- NOTE | 2018-05-11 19:39 | NUR ---
RECEVIED PT TO FLOOR.
--- NOTE | 2018-05-11 20:04 | NUR ---
WENT TO GET PATIENT BLOOD. LAB PRINTER WAS NOT WORKING. LAB STATED THEY WOULD CALL THIS NURSE WHEN PRINTER WORKING IN ORDER TO GET BLOOD WITH BLOOD SHEET TO VERIFY PATIENT, BLOOD, AND ALL CORRECT DATA.
--- NOTE | 2018-05-11 20:20 | NUR ---
ASSESSMENT OF PATENT PATIENT HERE FROMOUTPATIENT DEPT FOR 2 UNITS OF BLOOD. IV PATENT RT UPPER ARM PICC LINE WITH FIRST UNITS OF PRBC'S HUNG PER HOSPITAL PROTOCAL WILL BE MONITORING VITAL SIGNS DURING TRANFUSION.
--- NOTE | 2018-05-11 20:21 | NUR ---
FIRST UNIT OF PRBC'S STARTED PER HOSPITAL PROTOCAL BLOOD STARTED AT 100CC'S PER HOUR MONITORING VITAL SIGNS. Q15 MIN. IV PATETN PER RT UPPER ARM PICC LINE.
--- NOTE | 2018-05-11 23:45 | NUR ---
PATIENT IN BED WITH NO S/S OF DISTRESS. UNIT #2 OF PRBS STARTED. WILL CONTIUE TO MONITOR.
[2018-05-12 00:30] VITALS: BP 91/55
[2018-05-12 01:46] VITALS: BP 98/45
[2018-05-12 02:16] VITALS: BP 112/49
--- NOTE | 2018-05-12 02:31 | NUR ---
BLOOD TRANSFUSION FINISHED AT 0214. [facility] CALLED THE [facility] TO UPDATE ON PATIENT. WILL CONTINUE TO MONITOR PATIENT FOR AT LEAST ONE HOUR AFTER TRANSFUSION. CALL LIGHT IN REACH. NO FURTHER CARE AT THIS TIME.
--- NOTE | 2018-05-12 04:07 | NUR ---
PT LEFT FLOOR WITH EMS CREW VIA [employer] TO [facility]. POST TRANSFUSION INSTRUCTIONS SENT WITH PATIENT. EDUCATED PT ON SIGNS AND SYMPTOMS TO REPORT. PT DENIES NEEDS FOR FUTHER CARE. D/C'D FLUIDS FROM PICC LINE. FLUSHED TWICE AND LOCKED.
== END 2018-05-12 04:00 ==
LOC: D.OPS 15:44 → D.MS 19:02 → D.OPS 05-12 04:00
PROVIDERS: ATTEND Legal Medicine
DX: D64.9 Anemia, unspecified (principal)

== ENCOUNTER 2019-11-19 22:56 | Inpatient (IN) | payer MEDICARE, MEDICAID ==
[~2019-11-19] VITALS: Ht 182.9 cm; Wt 82.7 kg
[2019-11-19 23:36] LABS: HEMATOCRIT 47.3 % (42.0-54.0); HEMOGLOBIN 14.6 g/dL (13.5-17.5); LYMPHOCYTES 2.9 % (15-50); MCH 27.9 pg (26.0-34.0); MCHC 30.9 g/dL (31.0-37.0); MCV 90.4 fL (80.0-100.0); MEAN PLATELET VOLUME 10.8 fL (7.4-10.4); NEUTROPHILS 90.9 % (40-80); RBC 5.23 10x6/uL (4.20-6.10); RDW 13.2 % (11.5-14.5); WBC 18.3 10x3/uL (4.8-10.8)
[2019-11-19 23:40] LABS: PLATELET COUNT 168 10x3/uL (130-400)
[2019-11-19 23:43] LABS: INR 1.39 (0.85-1.17); PROTIME 16.9 SECONDS (11.6-15.0)
[2019-11-19 23:44] LABS: APTT 66.5 SECONDS (22.8-39.4)
[2019-11-19 23:45] LABS: D-DIMER-QUANTITATIVE 0.33 ug/mLFEU (0.20-0.54)
[2019-11-19 23:49] LABS: BILIRUBIN NEGATIVE (NEGATIVE); KETONE NEGATIVE (NEGATIVE); NITRITE NEGATIVE (NEGATIVE); UROBILINOGEN NORMAL (NORMAL)
[2019-11-19 23:52] LABS: CALC OSMOLALITY 295 mosm/kg (275-300); CALCIUM 9.7 mg/dL (8.5-10.1); CARBON DIOXIDE 37.4 mmol/L (21.0-32.0); CHLORIDE - SERUM 106 mmol/L (98-107); CREATININE - SERUM 1.7 mg/dL (0.6-1.3); GLUCOSE 94 mg/dL (74-106); POTASSIUM - SERUM 4.6 mmol/L (3.5-5.1); SODIUM 148 mmol/L (136-145); UREA NITROGEN 19 mg/dL (7-18); eGFR NON AFRICAN AMERICAN 43 mL/min (90-120)
[2019-11-19 23:59] LABS: ALBUMIN 3.2 g/dL (3.4-5.0); ALKALINE PHOSPHATASE 150 U/L (30-120); ALT (SGPT) 24 U/L (10-68); BILIRUBIN - TOTAL 0.51 mg/dL (0.2-1.3); C-REACTIVE PROTEIN 3.5 mg/dL (0.0-0.9); CREATINE KINASE 38 UL (21-232); LIPASE 68 U/L (73-393); MAGNESIUM - SERUM 1.6 mg/dL (1.8-2.4); PRO BNP 160 pg/mL (0-125); THYROID STIMULATING HORMONE 1.34 uIU/mL (0.36-3.74)
[2019-11-20] LABS: TROPONIN-I < 0.017 ng/mL (0.000-0.060)
[2019-11-20 01:04] VITALS: BP 95/46
--- NOTE | 2019-11-20 01:44 | NUR ---
PT TO CT THEN ROOM 2130.
[2019-11-20 03:12] VITALS: BP 92/50; BP 95/46; Ht 182.9 cm; Wt 82.7 kg
[2019-11-20 08:12] VITALS: BP 98/60
[2019-11-20 15:56] VITALS: BP 80/52
[2019-11-20 21:29] VITALS: BP 89/59
[2019-11-21 04:00] VITALS: BP 89/59
--- NOTE | 2019-11-21 04:45 | NUR ---
I have reviewed this patient and I concur with the Shift Assessment completed by the Licensed Practical Nurse today this shift.
--- NOTE | 2019-11-21 07:45 | NUR ---
REPORT RECIEVED. PT SITTING SEMI FOWLERS IN BED. RR EVEN AND UNLABORED ON 4L NC. PT HAS A R AC PIV INFUSING NS @ KVO. BED LOCKED AND IN LOWEST POSITION, CALL LIGHT WITHIN REACH. WILL CTM.
[2019-11-21 08:17] VITALS: BP 92/53
[2019-11-21] MEDS ORDERED: LASIX80 MG PO (11:43)
[2019-11-21] MEDS ORDERED: PRAVASTATIN SOD10 MG PO (11:45)
[2019-11-21 11:46] VITALS: BP 111/68
[2019-11-21] MEDS ORDERED: PROTONIX20 MG PO (11:46)
[2019-11-21] MEDS ORDERED: TRAZODONE HCL150 MG PO (11:48)
[2019-11-21] MEDS ORDERED: FLORANEX / LACT1 TAB PO (11:49)
[2019-11-21] MEDS ORDERED: VIBRAMYCIN 100100 MG PO (11:57)
[2019-11-21] MEDS ORDERED: ELIQUIS5 MG PO (11:59)
[2019-11-21] MEDS ORDERED: GABAPENTIN300 MG PO (12:00)
[2019-11-21] MEDS ORDERED: VOLTAREN100 GM TOPICAL (12:06)
--- NOTE | 2019-11-21 15:51 | NUR ---
I have reviewed this patient and I concur with the Shift Assessment completed by the Licensed Practical Nurse today this shift.
[2019-11-21 16:11] VITALS: BP 94/56
--- NOTE | 2019-11-21 18:00 | NUR ---
I have reviewed this patient and I concur with the Shift Assessment completed by the Licensed Practical Nurse today this shift.
--- NOTE | 2019-11-21 19:00 | NUR ---
REPORT RECEIVED, WILL CONTINUE POC. PATIENT IS AAOX4, LYING IN SEMI-FOWLERS POSITION. PATIENT REQUESTING A SANDWICH TRAY, PROVIDED. NO S/S OF DISTRESS OBSERVED, RR EVEN AND UNLABORED ON 4L O2 VIA NC. PATIENT DENIES FURTHER NEEDS AT THIS TIME. CL IN REACH, BED LOCKED AND LOWERED. WILL CTM.
[2019-11-21 19:13] VITALS: BP 87/57
[2019-11-21 23:55] VITALS: BP 80/50
--- NOTE | 2019-11-22 05:10 | NUR ---
I have reviewed this patient and I concur with the Shift Assessment completed by the Licensed Practical Nurse today this shift.
[2019-11-22 06:03] VITALS: BP 92/56
[2019-11-22 06:21] LABS: BASOPHILS 0.2 % (0-2); EOSINOPHILS 2.3 % (0-7); HEMATOCRIT 35.5 % (42.0-54.0); HEMOGLOBIN 10.9 g/dL (13.5-17.5); IMMATURE GRANULOCYTES 0.2 % (0-5); LYMPHOCYTES 19.6 % (15-50); MCH 27.8 pg (26.0-34.0); MCHC 30.7 g/dL (31.0-37.0); MCV 90.6 fL (80.0-100.0); MEAN PLATELET VOLUME 10.9 fL (7.4-10.4); MONOCYTES 9.6 % (2-11); NEUTROPHILS 68.1 % (40-80); PLATELET COUNT 141 10x3/uL (130-400); RBC 3.92 10x6/uL (4.20-6.10); WBC 6.5 10x3/uL (4.8-10.8)
[2019-11-22 06:31] LABS: ANION GAP 5.8 mmol/L (8-16); CALCIUM 8.1 mg/dL (8.5-10.1); CARBON DIOXIDE 37.2 mmol/L (21.0-32.0); CREATININE - SERUM 1.6 mg/dL (0.6-1.3)
[2019-11-22 08:15] VITALS: BP 101/59
--- NOTE | 2019-11-22 09:27 | MORECARE ---
CASE MANAGEMENT DISCHARGE SUMMARY PATIENT: VAHE NARVAEZ UNIT: [id number] ADM DATE: 11/20/19 AGE: 69 : 52 SEX: M ROOM/BED: D.2138 AUTHOR: BRIANNE STAFFORD PHYSICIAN: REFERRING PHYSICIAN: JOHNSON IBARRA MD DATE OF SERVICE: 11/22/19 Discharge Plan Patient Name: VAHE NARVAEZ [facility] [facility] 1950 Planned Disposition: Detention Facility Anticipated Discharge Date: Discharge Date: Expected LOS: Initial Reviewer: [email or web address] Initial Review Date: 11/22/2019 Generated: 11/22/19 10:26 am Patient Name: VAHE NARVAEZ Page [id number] at 0927 All edits/amendments must be made on the electronic document DICTATION DATE: 11/22/19925 RETAIL BRANCH MANAGER: LEILANI 11/22/19925 RPT#: [id number] DC DATE: STATUS: ADM IN [facility] [address] [place] [address] END OF REPORT
--- NOTE | 2019-11-22 09:33 | MORECARE ---
CASE MANAGEMENT DISCHARGE SUMMARY PATIENT: VAHE NARVAEZ UNIT: [id number] ADM DATE: 11/20/19 AGE: 69 : 52 SEX: M ROOM/BED: D.2138 AUTHOR: BRIANNE STAFFORD PHYSICIAN: REFERRING PHYSICIAN: JOHNSON IBARRA MD DATE OF SERVICE: 11/22/19 Discharge Plan Patient Name: VAHE NARVAEZ Facility: [facility]:[place] : 1950 Planned Disposition: Custodial Facility Anticipated Discharge Date: Discharge Date: Expected LOS: Initial Reviewer: [id number] Initial Review Date: 11/22/2019 Generated: 11/22/19 10:33 am DCPIA - Discharge Planning Initial Assessment Updated by [email or web address]: Tristan Mackay on 11/22/19 9:30 am * Is the patient Alert and Oriented? Yes * How many steps to enter\exit or inside your home? 0/0 * PCP Dr. Daniels/ [facility] Physician Staff * Pharmacy Pharmacy at the [facility] * Preadmission Environment Custodial Facility * Facility Name [facility] [place] * ADLs Partial Dependent * Partial ADLs (Assistance needed) Ambulation Bathing Dressing Medication Management Toileting Transfers * Equipment Other * Other Equipment DME as needed provided at the [facility] * List name and contact numbers for known caregivers / representatives who currently or will assist patient after discharge: Simon Narvaez (Brother) [phone] * Verbal permission to speak to the caregivers and representatives has been obtained from the patient. Yes * Community resources currently utilized Other * Please name any agencies selected above. [facility] * Additional services required to return to the preadmission environment? No * Can the patient safely return to the preadmission environment? Yes * Has this patient been hospitalized within the prior 30 days at any hospital? No Last DP export: 11/22/19 8:27 am Patient Name: VAHE NARVAEZ Page [id number] at 0933 All edits/amendments must be made on the electronic document DICTATION DATE: 11/22/19932 FILAMENT WELDER: LEILANI 11/22/19932 RPT#: [id number] DC DATE: STATUS: ADM IN [facility] [address] [place] [address] END OF REPORT
--- NOTE | 2019-11-22 10:21 | MORECARE ---
CASE MANAGEMENT DISCHARGE SUMMARY PATIENT: VAHE NARVAEZ UNIT: [id number] ADM DATE: 11/20/19 AGE: 69 : 52 SEX: M ROOM/BED: D.7558 AUTHOR: NYDIADOC PHYSICIAN: REFERRING PHYSICIAN: JOHNSON IBARRA MD DATE OF SERVICE: 11/22/19 Discharge Plan Patient Name: VAHE NARVAEZ Facility: [facility]:[place] : 1950 Planned Disposition: Halfway Facility Anticipated Discharge Date: Discharge Date: Expected LOS: Initial Reviewer: [email or web address] Initial Review Date: 11/22/2019 Generated: 11/22/19 11:20 am DCPIA - Discharge Planning Initial Assessment Updated by FLORY: Tristan Mackay on 11/22/19 9:30 am * Is the patient Alert and Oriented? Yes * How many steps to enter\exit or inside your home? 0/0 * PCP Dr. Daniels/ [facility] Physician Staff * Pharmacy Pharmacy at the [facility] * Preadmission Environment Halfway Facility * Facility Name [facility] * ADLs Partial Dependent * Partial ADLs (Assistance needed) Ambulation Bathing Dressing Medication Management Toileting Transfers * Equipment Other * Other Equipment DME as needed provided at the [facility] * List name and contact numbers for known caregivers / representatives who currently or will assist patient after discharge: Simon Narvaez (Brother) [phone] * Verbal permission to speak to the caregivers and representatives has been obtained from the patient. Yes * Community resources currently utilized Other * Please name any agencies selected above. [facility] * Additional services required to return to the preadmission environment? No * Can the patient safely return to the preadmission environment? Yes * Has this patient been hospitalized within the prior 30 days at any hospital? No External Providers External Provider: [facility] Next Contact Date: Service Request Date: Service Type: Resolution: Reviewer: Comments: Coverage Notice Reviewer: [email or web address] Dayo Mackay Notice Issued Date-Time: 11/22/2019 10:10 Notice Type: Patient Choice Letter Notice Delivered To: Patient Relationship to Patient: Water Resource Engineer Name: Delivery Method: HAND - Hand Delivered Sonia Days: Prior Verbal Notification: Recipient Understood Notice: Yes Recipient Signature: Yes Med Rec Note Co-signed by Attending: Coverage Notice Comment: Patient Choice Form- [facility] Last DP export: 11/22/19 8:33 am Patient Name: VAHE NARVAEZ Page 18307 at 1021 All edits/amendments must be made on the electronic document DICTATION DATE: 11/22/19 1020 TRUCK BENCH MECHANIC: LEILANI 11/22/19 1020 RPT#: [id number] DC DATE: STATUS: ADM IN [facility] [address] [place] [address] END OF REPORT
--- NOTE | 2019-11-22 10:29 | MORECARE ---
CASE MANAGEMENT DISCHARGE SUMMARY PATIENT: VAHE NARVAEZ UNIT: [id number] ADM DATE: 11/20/19 AGE: 69 : 52 SEX: M ROOM/BED: D.2138 AUTHOR: NYDIA,DOC PHYSICIAN: REFERRING PHYSICIAN: JOHNSON IBARRA MD DATE OF SERVICE: 11/22/19 Discharge Plan Patient Name: VAHE NARVAEZ Facility: [facility]:[place] : 1950 Planned Disposition: Alf Facility Anticipated Discharge Date: Discharge Date: Expected LOS: Initial Reviewer: [id number] Initial Review Date: 11/22/2019 Generated: 11/22/19 11:29 am DCPIA - Discharge Planning Initial Assessment Updated by FLORY: Tristan Mackay on 11/22/19 9:30 am * Is the patient Alert and Oriented? Yes * How many steps to enter\exit or inside your home? 0/0 * PCP Dr. Daniels/ [facility] Physician Staff * Pharmacy Pharmacy at the [facility] * Preadmission Environment Alf Facility * Facility Name [facility] [place] * ADLs Partial Dependent * Partial ADLs (Assistance needed) Ambulation Bathing Dressing Medication Management Toileting Transfers * Equipment Other * Other Equipment DME as needed provided at the [facility] * List name and contact numbers for known caregivers / representatives who currently or will assist patient after discharge: Simon Narvaez (Brother) [phone] * Verbal permission to speak to the caregivers and representatives has been obtained from the patient. Yes * Community resources currently utilized Other * Please name any agencies selected above. [facility] * Additional services required to return to the preadmission environment? No * Can the patient safely return to the preadmission environment? Yes * Has this patient been hospitalized within the prior 30 days at any hospital? No Coverage Notice Reviewer: [id number] - Tristan Mackay Notice Issued Date-Time: 11/22/2019 10:10 Notice Type: Patient Choice Letter Notice Delivered To: Patient Relationship to Patient: Fabric Finisher Name: Delivery Method: HAND - Hand Delivered Sonia Days: Prior Verbal Notification: Recipient Understood Notice: Yes Recipient Signature: Yes Med Rec Note Co-signed by Attending: Coverage Notice Comment: Patient Choice Form- [facility] export: 11/22/19 9:21 am Patient Name: VAHE NARVAEZ Page 03140 at 1029 All edits/amendments must be made on the electronic document DICTATION DATE: 11/22/19 1029 EQUITIES TRADER: LEILANI 11/22/19 1029 RPT#: [id number] DC DATE: STATUS: ADM IN [facility] [address] [place] [address] END OF REPORT
[2019-11-22 11:29] VITALS: BP 92/55
--- NOTE | 2019-11-22 11:39 | MORECARE ---
CASE MANAGEMENT DISCHARGE SUMMARY PATIENT: VAHE NARVAEZ UNIT: [id number] ADM DATE: 11/20/19 AGE: 69 : 52 SEX: M ROOM/BED: D.6008 AUTHOR: BRIANNE STAFFORD PHYSICIAN: REFERRING PHYSICIAN: JOHNSON IBARRA MD DATE OF SERVICE: 11/22/19 Discharge Plan Patient Name: VAHE NARVAEZ Facility: [facility]:[place] : 1950 Planned Disposition: Residential Facility Anticipated Discharge Date: Discharge Date: Expected LOS: Initial Reviewer: [id number] Initial Review Date: 11/22/2019 Generated: 11/22/19 12:38 pm Comments DCP- Discharge Planning Updated by [email or web address]: Tristan Mackay on 11/22/19 10:[address] Patient Name: VAHE NARVAEZ Admission Status: ER Accout number: [id number] Admission Date: 11-20-2019 : 1950 Admission Diagnosis:ALTERED MENTAL STATUS, UNSPECIFIED Attending: JOHNSON IBARRA Current LOS: 2 Anticipated DC Date: Planned Disposition: Residential Facility Primary Insurance: [employer] CHOICE PPO MCR ADVANT Discharge Planning Comments: CM met with patient to complete initial dc planning assessment. CM educated patient on the CM role and verbal consent given by patient to complete assessment. CM verified patient's address, phone number, and emergency contact phone numbers. Patient lives at [facility]. At discharge patient plans to return to [facility] and feels this is a safe discharge. CM discussed availability of home health, rehab services, and medical equipment. Patient declined HH, IPR, and DME at this time. No other needs identified. Patient states that his prescriptions are filled at the "the [facility]" pharmacy and physician staff are provide his primary care. Transportation provider at discharge will be through [facility]. CM will continue to follow and will assist as needed with dc plans/needs. Make Up Man: Tristan Mackay DCPIA - Discharge Planning Initial Assessment Updated by [id number]: Tristan Mackay on 11/22/19 9:30 am * Is the patient Alert and Oriented? Yes * How many steps to enter\\exit or inside your home? 0/0 * PCP Dr. Daniels/ [facility] Physician Staff * Pharmacy Pharmacy at the [facility] * Preadmission Environment Residential Facility * Facility Name [facility] [place] * ADLs Partial Dependent * Partial ADLs (Assistance needed) Ambulation Bathing Dressing Medication Management Toileting Transfers * Equipment Other * Other Equipment DME as needed provided at the [facility] * List name and contact numbers for known caregivers / representatives who currently or will assist patient after discharge: Simon Narvaez (Brother) [phone] * Verbal permission to speak to the caregivers and representatives has been obtained from the patient. Yes * Community resources currently utilized Other * Please name any agencies selected above. [facility] * Additional services required to return to the preadmission environment? No * Can the patient safely return to the preadmission environment? Yes * Has this patient been hospitalized within the prior 30 days at any hospital? No Coverage Notice Reviewer: [email or web address] Dayo Mackay Notice Issued Date-Time: 11/22/2019 10:10 Notice Type: Patient Choice Letter Notice Delivered To: Patient Relationship to Patient: Stippler Name: Delivery Method: HAND - Hand Delivered Sonia Days: Prior Verbal Notification: Recipient Understood Notice: Yes Recipient Signature: Yes Med Rec Note Co-signed by Attending: Coverage Notice Comment: Patient Choice Form- [facility] DP export: 11/22/19 9:29 am Patient Name: VAHE NARVAEZ Page 70753 at 1139 All edits/amendments must be made on the electronic document DICTATION DATE: 11/22/19 1139 ARTIFICIAL BREEDING DISTRIBUTOR: LIELANI 11/22/19 1139 RPT#: [id number] DC DATE: STATUS: ADM IN [facility] [address] [place] [address] END OF REPORT
[2019-11-22 15:41] VITALS: BP 87/42
[2019-11-23] VITALS: BP 94/56
[2019-11-23 04:00] VITALS: BP 98/59
[2019-11-23 08:13] VITALS: BP 92/60
--- NOTE | 2019-11-23 09:46 | NUR ---
THERE IS DOCUMENTATION OF BONG FROM THE DOCTORS BUT NO IV FLUIDS ORDERED. I CALLED KEARA CANTU TO CLARIFY THIS. HE STATES THAT HE WILL PLACE AN ORDER FOR FLUIDS TO CORRECT THIS PROBLEM.
[2019-11-23 11:06] VITALS: BP 86/56
[2019-11-23 16:04] VITALS: BP 94/62
[2019-11-23 21:26] VITALS: BP 90/53
--- NOTE | 2019-11-24 00:43 | NUR ---
I have reviewed this patient and I concur with the Shift Assessment completed by the Licensed Practical Nurse today this shift.
[2019-11-24 04:02] VITALS: BP 88/58
[2019-11-24 06:52] LABS: BASOPHILS 0.2 % (0-2); HEMATOCRIT 34.8 % (42.0-54.0); HEMOGLOBIN 10.5 g/dL (13.5-17.5); IMMATURE GRANULOCYTES 0.2 % (0-5); LYMPHOCYTES 18.3 % (15-50); MCH 27.3 pg (26.0-34.0); MCHC 30.2 g/dL (31.0-37.0); MCV 90.4 fL (80.0-100.0); MEAN PLATELET VOLUME 10.9 fL (7.4-10.4); MONOCYTES 10.6 % (2-11); NEUTROPHILS 66.7 % (40-80); PLATELET COUNT 126 10x3/uL (130-400); RBC 3.85 10x6/uL (4.20-6.10); RDW 13.6 % (11.5-14.5); WBC 5.5 10x3/uL (4.8-10.8)
[2019-11-24 06:56] LABS: ANION GAP 5.9 mmol/L (8-16); CALCIUM 7.6 mg/dL (8.5-10.1); CREATININE - SERUM 1.4 mg/dL (0.6-1.3)
[2019-11-24 06:58] LABS: POTASSIUM - SERUM 2.9 mmol/L (3.5-5.1)
[2019-11-24 09:06] VITALS: BP 92/56
--- NOTE | 2019-11-24 11:32 | MORECARE ---
CASE MANAGEMENT DISCHARGE SUMMARY PATIENT: VAHE NARVAEZ UNIT: [id number] ADM DATE: 11/20/19 AGE: 69 : 52 SEX: M ROOM/BED: D.8917 AUTHOR: NYDIA,DOC PHYSICIAN: REFERRING PHYSICIAN: JOHNSON IBARRA MD DATE OF SERVICE: 11/24/19 Discharge Plan Patient Name: VAHE NARVAEZ Facility: [facility]:[place] : 1950 Planned Disposition: Prison Facility Anticipated Discharge Date: Discharge Date: Expected LOS: Initial Reviewer: [id number] Initial Review Date: 11/22/2019 Generated: 11/24/19 12:31 pm Comments DCP- Discharge Planning Updated by [id number]: Vanessa Daniel on 11/24/19 10:[address] CM faxed to [facility], information for return to [facility], pending MD order. DCP- Discharge Planning Updated by [id number]: Tristan Mackay on 11/22/19 10:[address] Patient Name: VAHE NARVAEZ Admission Status: ER Accout number: [id number] Admission Date: 11-20-2019 : 1950 Admission Diagnosis:ALTERED MENTAL STATUS, UNSPECIFIED Attending: JOHNSON IBARRA Current LOS: 2 Anticipated DC Date: Planned Disposition: Prison Facility Primary Insurance: HU[employer]NA CHOICE PPO MCR ADVANT Discharge Planning Comments: CM met with patient to complete initial dc planning assessment. CM educated patient on the CM role and verbal consent given by patient to complete assessment. CM verified patient's address, phone number, and emergency contact phone numbers. Patient lives at [facility]. At discharge patient plans to return to [facility] and feels this is a safe discharge. CM discussed availability of home health, rehab services, and medical equipment. Patient declined HH, IPR, and DME at this time. No other needs identified. Patient states that his prescriptions are filled at the "the [facility]" pharmacy and physician staff are provide his primary care. Transportation provider at discharge will be through [facility]. CM will continue to follow and will assist as needed with dc plans/needs. Cook Enchilada: Tristan Mackay DCPIA - Discharge Planning Initial Assessment Updated by [id number]: Tristan Mackay on 11/22/19 9:30 am * Is the patient Alert and Oriented? Yes * How many steps to enter\\exit or inside your home? 0/0 * PCP Dr. Daniels/ [facility] Physician Staff * Pharmacy Pharmacy at the [facility] * Preadmission Environment Prison Facility * Facility Name [facility] * ADLs Partial Dependent * Partial ADLs (Assistance needed) Ambulation Bathing Dressing Medication Management Toileting Transfers * Equipment Other * Other Equipment DME as needed provided at the [facility] * List name and contact numbers for known caregivers / representatives who currently or will assist patient after discharge: Simon Narvaez (Brother) [phone] * Verbal permission to speak to the caregivers and representatives has been obtained from the patient. Yes * Community resources currently utilized Other * Please name any agencies selected above. [facility] * Additional services required to return to the preadmission environment? No * Can the patient safely return to the preadmission environment? Yes * Has this patient been hospitalized within the prior 30 days at any hospital? No Coverage Notice Reviewer: [id number] - Tristan Mackay Notice Issued Date-Time: 11/22/2019 10:10 Notice Type: Patient Choice Letter Notice Delivered To: Patient Relationship to Patient: Staff Auditor Name: Delivery Method: HAND - Hand Delivered Sonia Days: Prior Verbal Notification: Recipient Understood Notice: Yes Recipient Signature: Yes Med Rec Note Co-signed by Attending: Coverage Notice Comment: Patient Choice Form- [facility] DP export: 11/22/19 10:39 am Patient Name: VAHE NARVAEZ Page [id number] at 1132 All edits/amendments must be made on the electronic document DICTATION DATE: 11/24/19 1132 PATCHER HELPER: LEILANI 11/24/19 1132 RPT#: [id number] OR DATE: STATUS: ADM IN [facility] [address] [place] [address] END OF REPORT
[2019-11-24] MEDS ORDERED: OMNICEF300 MG PO (11:39)
--- NOTE | 2019-11-24 12:01 | MORECARE ---
CASE MANAGEMENT DISCHARGE SUMMARY PATIENT: VAHE NARVAEZ UNIT: [id number] ADM DATE: 11/20/19 AGE: 69 : 52 SEX: M ROOM/BED: D.9369 AUTHOR: NYDIADOC PHYSICIAN: REFERRING PHYSICIAN: JOHNSON IBARRA MD DATE OF SERVICE: 11/24/19 Discharge Plan Patient Name: VAHE NARVAEZ Facility: [facility]:[place] : 1950 Planned Disposition: Long Term Facility Anticipated Discharge Date: Discharge Date: Expected LOS: Initial Reviewer: [email or web address] Initial Review Date: 11/22/2019 Generated: 11/24/19 1:00 pm Comments DCP- Discharge Planning Updated by [id number]: Vanessa Daniel on 11/24/19 10:[address] 1154: Notified [facility] of DC order. CM faxed to [facility], information for return to [facility], pending MD order. DCP- Discharge Planning Updated by [id number]: Tristan Mackay on 11/22/19 10:[address] Patient Name: VAHE NARVAEZ Admission Status: ER Accout number: [id number] Admission Date: 11-20-2019 : 1950 Admission Diagnosis:ALTERED MENTAL STATUS, UNSPECIFIED Attending: JOHNSON IBARRA Current LOS: 2 Anticipated DC Date: Planned Disposition: Long Term Facility Primary Insurance: HU[employer]NA CHOICE PPO MCR ADVANT Discharge Planning Comments: CM met with patient to complete initial dc planning assessment. CM educated patient on the CM role and verbal consent given by patient to complete assessment. CM verified patient's address, phone number, and emergency contact phone numbers. Patient lives at [facility]. At discharge patient plans to return to [facility] and feels this is a safe discharge. CM discussed availability of home health, rehab services, and medical equipment. Patient declined HH, IPR, and DME at this time. No other needs identified. Patient states that his prescriptions are filled at the "the [facility]" pharmacy and physician staff are provide his primary care. Transportation provider at discharge will be through [facility]. CM will continue to follow and will assist as needed with dc plans/needs. Stock Replenisher: Tristan Mackay DCPIA - Discharge Planning Initial Assessment Updated by [id number]: Tristan Mackay on 11/22/19 9:30 am * Is the patient Alert and Oriented? Yes * How many steps to enter\\exit or inside your home? 0/0 * PCP Dr. Daniels/ [facility] Physician Staff * Pharmacy Pharmacy at the [facility] * Preadmission Environment Long Term Facility * Facility Name [facility] * ADLs Partial Dependent * Partial ADLs (Assistance needed) Ambulation Bathing Dressing Medication Management Toileting Transfers * Equipment Other * Other Equipment DME as needed provided at the [facility] * List name and contact numbers for known caregivers / representatives who currently or will assist patient after discharge: Simon Narvaez (Brother) [phone] * Verbal permission to speak to the caregivers and representatives has been obtained from the patient. Yes * Community resources currently utilized Other * Please name any agencies selected above. [facility] - [facility] * Additional services required to return to the preadmission environment? No * Can the patient safely return to the preadmission environment? Yes * Has this patient been hospitalized within the prior 30 days at any hospital? No Coverage Notice Reviewer: [id number] - Tristan Mackay Notice Issued Date-Time: 11/22/2019 10:10 Notice Type: Patient Choice Letter Notice Delivered To: Patient Relationship to Patient: Pipefitter Name: Delivery Method: HAND - Hand Delivered Sonia Days: Prior Verbal Notification: Recipient Understood Notice: Yes Recipient Signature: Yes Med Rec Note Co-signed by Attending: Coverage Notice Comment: Patient Choice Form- [facility] Last DP export: 11/24/19 10:32 a Patient Name: VAHE NARVAEZ Page 42144 at 1201 All edits/amendments must be made on the electronic document DICTATION DATE: 11/24/19 1200 DOUBLE NEEDLE STITCHER: LEILANI 11/24/19 1200 RPT#: [id number] DC DATE: STATUS: ADM IN [facility] [address] [facility] [place] [address] END OF REPORT
--- NOTE | 2019-11-24 12:09 | MORECARE ---
CASE MANAGEMENT DISCHARGE SUMMARY PATIENT: VAHE NARVAEZ UNIT: [id number] ADM DATE: 11/20/19 AGE: 69 : 52 SEX: M ROOM/BED: D.3749 AUTHOR: NYDIADOC PHYSICIAN: REFERRING PHYSICIAN: JOHNSON IBARRA MD DATE OF SERVICE: 11/24/19 Discharge Plan Patient Name: VAHE NARVAEZ Facility: [facility]:[place] : 1950 Planned Disposition: Detention Facility Anticipated Discharge Date: Discharge Date: Expected LOS: Initial Reviewer: [id number] Initial Review Date: 11/22/2019 Generated: 11/24/19 1:08 pm Comments DCP- Discharge Planning Updated by [id number]: Vanessa Daniel on 11/24/19 10:[address] 1154: Notified [facility] of DC order. CM faxed to [facility], information for return to [facility], pending MD order. DCP- Discharge Planning Updated by [id number]: Tristan Mcakay on 11/22/19 10:[address] Patient Name: VAHE NARVAEZ Admission Status: ER Accout number: [id number] Admission Date: 11-20-2019 : 1950 Admission Diagnosis:ALTERED MENTAL STATUS, UNSPECIFIED Attending: JOHNSON IBARRA Current LOS: 2 Anticipated DC Date: Planned Disposition: Detention Facility Primary Insurance: HUMANA CHOICE PPO MCR ADVANT Discharge Planning Comments: CM met with patient to complete initial dc planning assessment. CM educated patient on the CM role and verbal consent given by patient to complete assessment. CM verified patient's address, phone number, and emergency contact phone numbers. Patient lives at [facility]. At discharge patient plans to return to [facility] and feels this is a safe discharge. CM discussed availability of home health, rehab services, and medical equipment. Patient declined HH, IPR, and DME at this time. No other needs identified. Patient states that his prescriptions are filled at the "the [facility]" pharmacy and physician staff are provide his primary care. Transportation provider at discharge will be through [facility]. CM will continue to follow and will assist as needed with dc plans/needs. Automated Logistics Specialist: Tristan Mackay DCPIA - Discharge Planning Initial Assessment Updated by [id number]: Tristan Mackay on 11/22/19 9:30 am * Is the patient Alert and Oriented? Yes * How many steps to enter\\exit or inside your home? 0/0 * PCP Dr. Daniels/ [facility] Physician Staff * Pharmacy Pharmacy at the [facility] * Preadmission Environment Detention Facility * Facility Name [facility] * ADLs Partial Dependent * Partial ADLs (Assistance needed) Ambulation Bathing Dressing Medication Management Toileting Transfers * Equipment Other * Other Equipment DME as needed provided at the [facility] * List name and contact numbers for known caregivers / representatives who currently or will assist patient after discharge: Simon Narvaez (Brother) [phone] * Verbal permission to speak to the caregivers and representatives has been obtained from the patient. Yes * Community resources currently utilized Other * Please name any agencies selected above. [facility] * Additional services required to return to the preadmission environment? No * Can the patient safely return to the preadmission environment? Yes * Has this patient been hospitalized within the prior 30 days at any hospital? No External Providers External Provider: [facility] Next Contact Date: Service Request Date: Service Type: Resolution: Reviewer: Comments: Coverage Notice Reviewer: [id number] - Tristan Mackay Notice Issued Date-Time: 11/22/2019 10:10 Notice Type: Patient Choice Letter Notice Delivered To: Patient Relationship to Patient: Science Writer Name: Delivery Method: HAND - Hand Delivered Sonia Days: Prior Verbal Notification: Recipient Understood Notice: Yes Recipient Signature: Yes Med Rec Note Co-signed by Attending: Coverage Notice Comment: Patient Choice Form- [facility] Last DP export: 11/24/19 11:01 a Patient Name: VAHE NARVAEZ Page 38680 at 1209 All edits/amendments must be made on the electronic document DICTATION DATE: 11/24/191207 CIVIL DIVISION DEPUTY SHERIFF: LEILANI 11/24/191207 RPT#: [id number] DC DATE: STATUS: ADM IN [facility] [address] [place] [address] END OF REPORT
--- NOTE | 2019-11-24 12:43 | MORECARE ---
CASE MANAGEMENT DISCHARGE SUMMARY PATIENT: VAHE NARVAEZ UNIT: [id number] ADM DATE: 11/20/19 AGE: 69 : 52 SEX: M ROOM/BED: D.3986 AUTHOR: NYDIADOC PHYSICIAN: REFERRING PHYSICIAN: JOHNSON IBARRA MD DATE OF SERVICE: 11/24/19 Discharge Plan Patient Name: VAHE NARVAEZ Facility: [facility]:[place] : 1950 Planned Disposition: Fci Facility Anticipated Discharge Date: Discharge Date: Expected LOS: Initial Reviewer: [id number] Initial Review Date: 11/22/2019 Generated: 11/24/19 1:43 pm Comments DCP- Discharge Planning Updated by [email or web address]: Vanessa Daniel on 11/24/19 11:[address] 1238: Faxed information again. 1154: Notified [facility] of DC order. Faxed clinical UD. CM faxed to [facility], information for return to [facility], pending MD order. DCP- Discharge Planning Updated by [email or web address]: Tristan Mackay on 11/22/19 10:[address] Patient Name: VAHE NARVAEZ Admission Status: ER Accout number: [id number] Admission Date: 11-20-2019 : 1950 Admission Diagnosis:ALTERED MENTAL STATUS, UNSPECIFIED Attending: JOHNSON IBARRA Current LOS: 2 Anticipated DC Date: Planned Disposition: [facility]ci Facility Primary Insurance: HUMANA CHOICE PPO [facility] Discharge Planning Comments: CM met with patient to complete initial dc planning assessment. CM educated patient on the CM role and verbal consent given by patient to complete assessment. CM verified patient's address, phone number, and emergency contact phone numbers. Patient lives at [facility]. At discharge patient plans to return to [facility] and feels this is a safe discharge. CM discussed availability of home health, rehab services, and medical equipment. Patient declined HH, IPR, and DME at this time. No other needs identified. Patient states that his prescriptions are filled at the "the [facility]" pharmacy and physician staff are provide his primary care. Transportation provider at discharge will be through [facility]. CM will continue to follow and will assist as needed with dc plans/needs. Criminal Legal Assistant: Tristan Mackay DCPIA - Discharge Planning Initial Assessment Updated by [id number]: Tristan Mackay on 11/22/19 9:30 am * Is the patient Alert and Oriented? Yes * How many steps to enter\\exit or inside your home? 0/0 * PCP Dr. Daniels/ [facility] Physician Staff * Pharmacy Pharmacy at the [facility] * Preadmission Environment Fci Facility * Facility Name [facility] * ADLs Partial Dependent * Partial ADLs (Assistance needed) Ambulation Bathing Dressing Medication Management Toileting Transfers * Equipment Other * Other Equipment DME as needed provided at the [facility] * List name and contact numbers for known caregivers / representatives who currently or will assist patient after discharge: Simon Narvaez (Brother) [phone] * Verbal permission to speak to the caregivers and representatives has been obtained from the patient. Yes * Community resources currently utilized Other * Please name any agencies selected above. [facility] * Additional services required to return to the preadmission environment? No * Can the patient safely return to the preadmission environment? Yes * Has this patient been hospitalized within the prior 30 days at any hospital? No Coverage Notice Reviewer: [id number] - Tristan Mackay Notice Issued Date-Time: 11/22/2019 10:10 Notice Type: Patient Choice Letter Notice Delivered To: Patient Relationship to Patient: Button Tacker Name: Delivery Method: HAND - Hand Delivered Sonia Days: Prior Verbal Notification: Recipient Understood Notice: Yes Recipient Signature: Yes Med Rec Note Co-signed by Attending: Coverage Notice Comment: Patient Choice Form- [facility] DP export: 11/24/19 11:09 a Patient Name: VAHE NARVAEZ Page [phone] at 1243 All edits/amendments must be made on the electronic document DICTATION DATE: 11/24/19 1243 ASSOCIATE PROFESSOR OF EDUCATION: LEILANI 11/24/19 1243 RPT#: [id number] DC DATE: STATUS: ADM IN [facility] [address] [place] [address] END OF REPORT
--- NOTE | 2019-11-24 16:47 | NUR ---
PT DISCHARGED TO [facility] VIA [facility]. PIV REMOVED WITH CATHETER TIP FULLY INTACT. TELEMETRY REMOVED AND RETURNED. PT SIGNED PROPER DISCHARGE INSTRUCTIONS AND REMOVED ALL VALUABLES FROM THE ROOM. REPORT CALLED TO [facility].
--- NOTE | 2019-11-24 17:27 | MORECARE ---
CASE MANAGEMENT DISCHARGE SUMMARY PATIENT: VAHE NARVAEZ UNIT: [id number] ADM DATE: 11/20/19 AGE: 69 : 52 SEX: M ROOM/BED: D.8738 AUTHOR: NYDIA,DOC PHYSICIAN: REFERRING PHYSICIAN: JOHNSON IBARRA MD DATE OF SERVICE: 11/24/19 Discharge Plan Patient Name: VAHE NARVAEZ Facility: [facility]:[place] : 1950 Planned Disposition: Chcf Facility Anticipated Discharge Date: 11/24/19 Discharge Date: 11/24/2019 Expected LOS: 4 Initial Reviewer: [id number] Initial Review Date: 11/22/2019 Generated: 11/24/19 6:26 pm Comments DCP- Discharge Planning Updated by [id number]: Vanessa Daniel on 11/24/19 11:[address] 1238: Faxed information again. 1154: Notified [facility] of DC order. Faxed clinical UD. CM faxed to [facility], information for return to [facility], pending MD order. DCP- Discharge Planning Updated by [email or web address]: Tristan Mackay on 11/22/19 10:[address] Patient Name: VAHE NARVAEZ Admission Status: ER Accout number: [id number] Admission Date: 11-20-2019 : 1950 Admission Diagnosis:ALTERED MENTAL STATUS, UNSPECIFIED Attending: JOHNSON IBARRA Current LOS: 2 Anticipated DC Date: Planned Disposition: Chcf Facility Primary Insurance: HUMANA CHOICE PPO MCR ADVANT Discharge Planning Comments: CM met with patient to complete initial dc planning assessment. CM educated patient on the CM role and verbal consent given by patient to complete assessment. CM verified patient's address, phone number, and emergency contact phone numbers. Patient lives at [facility]. At discharge patient plans to return to [facility] and feels this is a safe discharge. CM discussed availability of home health, rehab services, and medical equipment. Patient declined HH, IPR, and DME at this time. No other needs identified. Patient states that his prescriptions are filled at the "[facility]" pharmacy and physician staff are provide his primary care. Transportation provider at discharge will be through [facility]. CM will continue to follow and will assist as needed with dc plans/needs. Clinical Case Manager: Tristan Mackay DCPIA - Discharge Planning Initial Assessment Updated by [id number]: Tristan Mackay on 11/22/19 9:30 am * Is the patient Alert and Oriented? Yes * How many steps to enter\\exit or inside your home? 0/0 * PCP Dr. Daniels/ [facility] Physician Staff * Pharmacy Pharmacy at the [facility] * Preadmission Environment Chcf Facility * Facility Name [facility] * ADLs Partial Dependent * Partial ADLs (Assistance needed) Ambulation Bathing Dressing Medication Management Toileting Transfers * Equipment Other * Other Equipment DME as needed provided at the [facility] * List name and contact numbers for known caregivers / representatives who currently or will assist patient after discharge: Simon Narvaez (Brother) [phone] * Verbal permission to speak to the caregivers and representatives has been obtained from the patient. Yes * Community resources currently utilized Other * Please name any agencies selected above. [facility] * Additional services required to return to the preadmission environment? No * Can the patient safely return to the preadmission environment? Yes * Has this patient been hospitalized within the prior 30 days at any hospital? No Coverage Notice Reviewer: [id number] - Tristan Mackay Notice Issued Date-Time: 11/22/2019 10:10 Notice Type: Patient Choice Letter Notice Delivered To: Patient Relationship to Patient: Stave Machine Tender Name: Delivery Method: HAND - Hand Delivered Sonia Days: Prior Verbal Notification: Recipient Understood Notice: Yes Recipient Signature: Yes Med Rec Note Co-signed by Attending: Coverage Notice Comment: Patient Choice Form- [facility] Reviewer: [id number] - Vanessa Daniel Notice Issued Date-Time: 11/24/2019 16:07 Notice Type: IM Discharge Notice Notice Delivered To: Patient Relationship to Patient: Self Stave Machine Tender Name: Vahe Narvaez Delivery Method: HAND - Hand Delivered Sonia Days: Prior Verbal Notification: Recipient Understood Notice: Yes Recipient Signature: Yes Med Rec Note Co-signed by Attending: Coverage Notice Comment: DC IMM signed by/provided to patient. Original to chart. Last DP export: 11/24/19 11:44 a Patient Name: VAHE NARVAEZ Page 05814 at 1727 All edits/amendments must be made on the electronic document DICTATION DATE: 11/24/191726 ACCOUNTING OFFICER: LEILANI 11/24/191726 RPT#: [id number] LA DATE:11/24/19 STATUS: DIS IN [facility] [address] [place] [address] END OF REPORT
== END 2019-11-24 16:48 | DRG 871 ==
LOC: D.ER 22:56 → D.M2 11-20 00:34
PROVIDERS: Emergency Medicine; Family Medicine; ADMIT Legal Medicine; ATTEND Legal Medicine
DX: A41.9 Sepsis, unspecified organism (principal); J18.9 Pneumonia, unspecified organism; G93.41 Metabolic encephalopathy; E87.0 Hyperosmolality and hypernatremia; N17.9 Acute kidney failure, unspecified; I48.91 Unspecified atrial fibrillation; I25.10 Atherosclerotic heart disease of native coronary artery without angina pectoris; I11.0 Hypertensive heart disease with heart failure; I50.9 Heart failure, unspecified; F43.10 Post-traumatic stress disorder, unspecified; Z95.0 Presence of cardiac pacemaker; Z86.73 Personal history of transient ischemic attack (TIA), and cerebral infarction without residual deficits

== ENCOUNTER → 2020-06-21 14:25 | Outpatient (CLI) | payer MEDICARE, MEDICAID ==
[2020-01-22 14:56] VITALS: BMI 33.0
[~2020-06-21 14:25] MED LIST changes: +DURAGESIC1 EAC4 TOPICAL; +FLORANEX / LACT1 TAB PO; +GABAPENTIN300 MG PO; +NEURONTIN 300300 MG PO; +OMNICEF300 MG PO; +PRAVASTATIN SOD10 MG PO; +PROTONIX20 MG PO; +TRAZODONE HCL100 MG PO; +TRAZODONE HCL150 MG PO
== END | disposition home or self-care (01) ==
LOC: D.CT 14:25
PROVIDERS: ATTEND Legal Medicine
DX: T84.51XD Infection and inflammatory reaction due to internal right hip prosthesis, subsequent encounter (principal)

== ENCOUNTER 2020-07-02 15:31 | Emergency (ER) | payer MEDICARE, MEDICAID ==
[~2020-07-02] VITALS: Ht 182.9 cm; Wt 112.7 kg
[2020-07-02 15:38] VITALS: Ht 182.9 cm; Wt 112.7 kg
[2020-07-02 16:41] LABS: BASOPHILS 0.1 % (0-2); EOSINOPHILS 1.3 % (0-7); HEMATOCRIT 42.4 % (42.0-54.0); IMMATURE GRANULOCYTES 0.2 % (0-5); LYMPHOCYTE ABS# 0.62 10x3/uL (1.32-3.57); LYMPHOCYTES 7.4 % (15-50); MCH 28.8 pg (26.0-34.0); MCHC 30.7 g/dL (31.0-37.0); MCV 93.8 fL (80.0-100.0); MEAN PLATELET VOLUME 9.8 fL (7.4-10.4); MONOCYTES 6.8 % (2-11); NEUTROPHIL ABS# 7.09 10x3/uL (1.78-5.38); NEUTROPHILS 84.2 % (40-80); RBC 4.52 10x6/uL (4.20-6.10); RDW 14.1 % (11.5-14.5); WBC 8.4 10x3/uL (4.8-10.8)
[2020-07-02 16:49] LABS: PLATELET COUNT 192 10x3/uL (130-400)
[2020-07-02 16:56] LABS: APTT 50.7 SECONDS (22.8-39.4); INR 1.07 (0.85-1.17); PROTIME 12.8 SECONDS (11.6-15.0)
[2020-07-02 17:00] LABS: ALBUMIN 3.1 g/dL (3.4-5.0); ANION GAP 7.6 mmol/L (8-16); BILIRUBIN - TOTAL 0.34 mg/dL (0.2-1.3); CARBON DIOXIDE 39.8 mmol/L (21.0-32.0); CREATININE - SERUM 1.3 mg/dL (0.6-1.3); POTASSIUM - SERUM 3.4 mmol/L (3.5-5.1); PROTEIN - SERUM 8.8 g/dL (6.4-8.2)
[2020-07-02 20:16] LABS: ERYTHROCYTE SEDIMENTATION RATE 66 mm/hr (0-20)
[2020-07-02 23:41] VITALS: BP 128/73
== END 2020-07-02 23:44 | disposition home or self-care (01) ==
LOC: D.ER 15:31
PROVIDERS: Family Medicine
DX: M25.551 Pain in right hip (principal); R79.82 Elevated C-reactive protein (CRP); E87.6 Hypokalemia; L02.91 Cutaneous abscess, unspecified; R70.0 Elevated erythrocyte sedimentation rate; Z86.73 Personal history of transient ischemic attack (TIA), and cerebral infarction without residual deficits; I11.0 Hypertensive heart disease with heart failure; I50.9 Heart failure, unspecified; K21.9 Gastro-esophageal reflux disease without esophagitis

== ENCOUNTER 2020-08-27 12:08 | Inpatient (IN) | payer MEDICARE ==
[~2020-08-27] VITALS: Ht 182.9 cm; Wt 113.4 kg
[2020-08-27 13:11] LABS: BACTERIA FEW HPF (<MOD); BILIRUBIN NEGATIVE (NEGATIVE); KETONE NEGATIVE mg/dL (< 1+); NITRITE NEGATIVE (NEGATIVE); SQUAMOUS EPITHELIAL <1 HPF (0-4); UROBILINOGEN NORMAL mg/dL (< 2); WHITE CELLS - URINE 1 HPF (0-1)
[2020-08-27 13:37] LABS: BASOPHILS 0.6 % (0-2); EOSINOPHILS 1.7 % (0-7); HEMATOCRIT 30.2 % (42.0-54.0); HEMOGLOBIN 9.8 g/dL (13.5-17.5); LYMPHOCYTES 4.9 % (15-50); MCH 28.8 pg (26.0-34.0); MCHC 32.5 g/dL (31.0-37.0); MCV 88.9 fL (80.0-100.0); MEAN PLATELET VOLUME 8.6 fL (7.4-10.4); MONOCYTES 6.6 % (2-11); NEUTROPHILS 86.2 % (40-80); WBC 8.4 10x3/uL (4.8-10.8)
[2020-08-27 13:49] LABS: ANION GAP 5.8 mmol/L (8-16); CALCIUM 8.2 mg/dL (8.5-10.1); CARBON DIOXIDE 35.9 mmol/L (21.0-32.0); CREATININE - SERUM 1.1 mg/dL (0.6-1.3); POTASSIUM - SERUM 3.7 mmol/L (3.5-5.1)
[2020-08-27 13:55] LABS: ALBUMIN 2.5 g/dL (3.4-5.0); BILIRUBIN - TOTAL 0.42 mg/dL (0.2-1.3); PROTEIN - SERUM 6.6 g/dL (6.4-8.2)
[2020-08-27 14:05] LABS: APTT 53.6 SECONDS (22.8-39.4); INR 1.16 (0.85-1.17); PROTIME 13.8 SECONDS (11.6-15.0)
[2020-08-27 14:10] LABS: PLATELET COUNT 114 10x3/uL (130-400)
[2020-08-27 18:12] VITALS: BP 92/54
--- NOTE | 2020-08-27 18:51 | NUR ---
ZOSYN INFUSION STOPPED AT 1900
--- NOTE | 2020-08-27 21:00 | NUR ---
RECEIVED TO ROOM VIA STRETCHER. ER STAFF AT BEDSIDE. A&O X 4, DRESSING TO RIGHT THIGH CHANGED BY ER NURSE, CPOC.
[2020-08-28] VITALS (8 sets, daily range): BP systolic 82–105; BP diastolic 52–63; Ht 182.9 cm; Wt 113.4 kg
[2020-08-28] MEDS ORDERED: FENTANYL1 EAC5 TRANSDERM (02:02)
[2020-08-28] MEDS ORDERED: XANAX0.5 MG PO (02:03)
[2020-08-28] MEDS ORDERED: ASCORBIC ACID500 MG PO (02:04)
[2020-08-28] MEDS ORDERED: ACETAMINOPHEN325 MG PO (02:05)
[2020-08-28] MEDS ORDERED: VOLTAREN100 GM TOPICAL (02:06)
[2020-08-28] MEDS ORDERED: BENADRYL50 MG PO (02:07)
[2020-08-28] MEDS ORDERED: COLACE100 MG PO (02:08)
[2020-08-28] MEDS ORDERED: NEURONTIN600 MG PO (02:28)
[2020-08-28] MEDS ORDERED: MIRALAX17 GM PO (02:29)
[2020-08-28] MEDS ORDERED: MEROPENEM1 GM IV (02:30)
[2020-08-28] MEDS ORDERED: MILK OF MAGNESI30 ML PO (02:30)
[2020-08-28] MEDS ORDERED: METOPROLOL TART25 MG PO (02:32)
[2020-08-28] MEDS ORDERED: MULTI-DAY VITAM1 TAB PO (02:33)
[2020-08-28] MEDS ORDERED: ZOFRAN ODT4 MG/UDTAB PO (02:35)
[2020-08-28] MEDS ORDERED: ROXICODONE15 MG PO (02:36)
[2020-08-28] MEDS ORDERED: PROTONIX40 MG PO (02:37)
[2020-08-28] MEDS ORDERED: K-DUR20 MEQ PO (02:37)
[2020-08-28] MEDS ORDERED: TRAZODONE HCL150 MG PO (02:38)
[2020-08-28] MEDS ORDERED: FLOMAX0.4 MG PO (02:38)
[2020-08-28] MEDS ORDERED: DAKIN'S 0.125%480 M1 TOPICAL (02:38)
[2020-08-28] MEDS ORDERED: VANCOMYCIN 1 GM/1 G1 IV (02:42)
--- NOTE | 2020-08-28 06:06 | NUR ---
I have reviewed this patient and I concur with the Shift Assessment completed by the Licensed Practical Nurse today this shift..
[2020-08-28 09:17] LABS: CALC OSMOLALITY 280 mosm/kg (275-300); CALCIUM 8.4 mg/dL (8.5-10.1); CARBON DIOXIDE 32.7 mmol/L (21.0-32.0); CHLORIDE - SERUM 104 mmol/L (98-107); GLUCOSE 75 mg/dL (74-106); SODIUM 141 mmol/L (136-145); UREA NITROGEN 15 mg/dL (7-18); eGFR NON AFRICAN AMERICAN 79 mL/min (90-120)
[2020-08-28 09:19] LABS: POTASSIUM - SERUM 4.4 mmol/L (3.5-5.1)
--- NOTE | 2020-08-28 10:17 | NUR ---
0934-SPOKE WITH DR ZIEGLER CONCERNING PT CODING DURING SURGERY AT [facility] AFTER GOING UNDER ANESTHESIA. 0937-SPOKE WITH ANESTHIESIA ABOUT SAME CONCERNS. PT NOTES FROM [facility] ON FRONT OF CHART.
[2020-08-28 10:19] LABS: BASOPHILS 0.6 % (0-2); EOSINOPHILS 1.1 % (0-7); HEMATOCRIT 28.1 % (42.0-54.0); HEMOGLOBIN 8.9 g/dL (13.5-17.5); LYMPHOCYTES 7.9 % (15-50); MCH 28.8 pg (26.0-34.0); MCHC 31.8 g/dL (31.0-37.0); MCV 90.4 fL (80.0-100.0); MEAN PLATELET VOLUME 8.2 fL (7.4-10.4); MONOCYTES 8.3 % (2-11); NEUTROPHILS 82.1 % (40-80); PLATELET COUNT 103 10x3/uL (130-400); RDW 16.9 % (11.5-14.5)
[2020-08-28 10:25] LABS: WBC 5.3 10x3/uL (4.8-10.8)
--- NOTE | 2020-08-28 14:36 | NUR ---
CVL DRESSING CHANGED. STERILE TECHNIQUE USED. PT TOLERATED WELL. WCTM.
[2020-08-29 04:00] VITALS: BP 83/50
[2020-08-29 06:16] LABS: BASOPHILS 0.2 % (0-2); EOSINOPHILS 0.1 % (0-7); HEMATOCRIT 26.6 % (42.0-54.0); HEMOGLOBIN 8.7 g/dL (13.5-17.5); LYMPHOCYTES 4.4 % (15-50); MCH 29.2 pg (26.0-34.0); MCHC 32.6 g/dL (31.0-37.0); MCV 89.6 fL (80.0-100.0); MEAN PLATELET VOLUME 8.6 fL (7.4-10.4); MONOCYTES 2.1 % (2-11); NEUTROPHILS 93.2 % (40-80); PLATELET COUNT 121 10x3/uL (130-400); RBC 2.97 10x6/uL (4.20-6.10); RDW 16.7 % (11.5-14.5); WBC 4.9 10x3/uL (4.8-10.8)
[2020-08-29 06:33] LABS: ANION GAP 9.9 mmol/L (8-16); CALCIUM 8.2 mg/dL (8.5-10.1); CARBON DIOXIDE 31.9 mmol/L (21.0-32.0); POTASSIUM - SERUM 3.8 mmol/L (3.5-5.1)
[2020-08-29 06:39] LABS: CREATININE - SERUM 1.4 mg/dL (0.6-1.3)
--- NOTE | 2020-08-29 08:30 | NUR ---
PT. RESTING IN BED, NO DISTRESS NOTED. IV INFUSING THROUGH R. UPPER ARM PICC LINE. DRESSING TO R. HIP CLEAN AND DRY AND INTACT, WOUND VAC TO R. UPPER THIGH INTACT AND SUCTIONING. NO OTHER NEEDS VOICED. ALERT AND ORIENTED. CL WITHIN REACH. SRUP X2.
[2020-08-29 08:44] VITALS: BP 92/59
--- NOTE | 2020-08-29 12:37 | OP ---
PATIENT NAME: VAHE NARVAEZ MEDICAL RECORD: [id number] :54 LOCATION:D.[id number] ADMISSION DATE:08/27/20 SURGEON: ENRRIQUE ZIEGLER MD DATE OF OPERATION: 08/28/2020 PREOPERATIVE DIAGNOSIS: Large decubitus ulcer on the anterior aspect of the right thigh and hip. POSTOPERATIVE DIAGNOSES: Same POSTOPERATIVE DIAGNOSIS: 1. Excisional debreidment of large decubitus ulcer on the anterior aspect of the right thigh and hip,extending up on to the right upper quadrant abdominal wall and down into thethigh further. Dimensions of the debridement, including margins, measured 14 cm in the medial-lateral direction and 6 cm in the cephalad-caudad direction. There was significant undermining. There was undermining from the 10 o'clock to 2 o'clock position of 6 cm. From 2 o'clock to 4 o'clock, there was undermining of 2 cm. From the 4 o'clock to 7 o'clock position, there was undermining of 4 cm. From the 7 o'clock to 10 o'clock position, there was undermining of 2 cm. The debridement included skin and subcutaneous tissue, hematoma as well as granulation tissue. 2. Placement of wound VAC. SURGEON: Enrrique Ziegler MD BALL POINTS INSPECTOR: None. BLOOD LOSS: Minimal. ANESTHESIA: General. COMPLICATIONS: None. The risks, possible complications, and alternatives of the procedure were explained to the patient. He elects to proceed. The discussion specifically included, but was not limited to eventual limb loss, probable need for additional revisionary procedures. OPERATIVE COURSE: The patient was conveyed to the operating room electively on 09/02/2020. General anesthesia was induced by the anesthesia staff. The right lower quadrant, right anterior hip and right thigh were sterilely prepped and draped. Utilizing a curette, I performed a curettage of the wound as well as the tissue underneath the undermined flaps. At no time was there any apparent nerve or vascular injury. I then did some blunt debridement with my hand. I then performed pulse evacuation, irrigation underneath the flaps. Measurements were taken. I cut some white wound VAC sponges and placed them underneath the flaps. I then cut a black wound VAC sponge to the size of the major defect. The cellophane type dressings were applied. I then cut the cellophane type dressing on top and bridged the black sponge inferiorly. I then placed a wound VAC disc, which was attached to suction and held a good "raisin" indicating good suction without any leak. The patient was then extubated and conveyed to post-anesthesia care unit where he was in stable condition. TRANSINT:[id number] Voice Confirmation ID: [id number] DOCUMENT ID: [id number] OPERATIVE REPORT [id number] VAHE NARVAEZ, ENRRIQUE COVINGTON at 1237 CC: [id number] DICTATION DATE: 08/28/202203 SIGNALS OFFICER: 08/29/20217 ADM IN [facility] [address] [id number]
[2020-08-29 13:01] VITALS: BP 87/57
[2020-08-29 16:37] VITALS: BP 99/64
[2020-08-29 20:00] VITALS: BP 110/63
[2020-08-30] VITALS: BP 105/66
[2020-08-30 04:00] VITALS: BP 109/68
[2020-08-30 07:18] LABS: BASOPHILS 0.5 % (0-2); EOSINOPHILS 0.3 % (0-7); HEMATOCRIT 25.3 % (42.0-54.0); HEMOGLOBIN 8.6 g/dL (13.5-17.5); LYMPHOCYTES 10.9 % (15-50); MCH 29.6 pg (26.0-34.0); MEAN PLATELET VOLUME 8.1 fL (7.4-10.4); MONOCYTES 7.6 % (2-11); NEUTROPHILS 80.7 % (40-80); RBC 2.91 10x6/uL (4.20-6.10); RDW 16.3 % (11.5-14.5)
[2020-08-30 07:36] LABS: MCV 87.1 fL (80.0-100.0); PLATELET COUNT 168 10x3/uL (130-400); WBC 7.6 10x3/uL (4.8-10.8)
[2020-08-30 07:50] LABS: ANION GAP 6.8 mmol/L (8-16); CALCIUM 8.2 mg/dL (8.5-10.1); CARBON DIOXIDE 35.7 mmol/L (21.0-32.0); CREATININE - SERUM 1.2 mg/dL (0.6-1.3); POTASSIUM - SERUM 3.5 mmol/L (3.5-5.1); VANCOMYCIN - RANDOM 21.8 ug/mL (10.0-20.0)
[2020-08-30 09:39] VITALS: BP 118/69
[2020-08-30 13:39] VITALS: BP 101/61
--- NOTE | 2020-08-30 16:00 | NUR ---
NO ORDERS ON WHEN TO CHANGE WOUND VAC. PATIENT HAS NO COMPLAINTS OR SIGNS OF DISTRESS AT THIS TIME. CALL LIGHT WITHIN REACH.
--- NOTE | 2020-08-30 17:00 | NUR ---
SPOKE WITH RENEE CAMPBELL TO MAKE SURE THAT NO PROTOCAL ON WOUND VAC CHANGE. STATED NOT TO CHANGE UNTIL THERE IS ORDERS. PATIENT IN BED WITH NO COMPLAINTS. CHANGED SHEETS AND REPOSTIONED. BUT BOUDREUXS ON BUTTOCKS. SMALL AMOUNT OF REDNESS AND PEELING SKIN. DRESSINGS INTACT TO WOUNDS. CALL LIGHT WITHIN REACCH.
[2020-08-30 18:13] VITALS: BP 112/71
--- NOTE | 2020-08-30 19:23 | NUR ---
PATIENT IN BED WITH IV INTACT. NO COMPLAINTS OR SIGNS OF DISTRESS. IV INTACT. WOUND VAC ON. CALL LIGHT WITHIN REACH.
[2020-08-30 21:05] VITALS: BP 92/50
[2020-08-31 00:44] VITALS: BP 104/58
[2020-08-31 05:56] VITALS: BP 97/58
[2020-08-31 06:32] LABS: BASOPHILS 0.8 % (0-2); EOSINOPHILS 1.7 % (0-7); HEMATOCRIT 26.8 % (42.0-54.0); HEMOGLOBIN 8.8 g/dL (13.5-17.5); LYMPHOCYTES 12.6 % (15-50); MCH 29.1 pg (26.0-34.0); MCV 88.2 fL (80.0-100.0); MEAN PLATELET VOLUME 7.8 fL (7.4-10.4); MONOCYTES 9.7 % (2-11); NEUTROPHILS 75.2 % (40-80); PLATELET COUNT 176 10x3/uL (130-400); RBC 3.03 10x6/uL (4.20-6.10); RDW 16.5 % (11.5-14.5); WBC 6.9 10x3/uL (4.8-10.8)
[2020-08-31 06:48] LABS: CREATININE - SERUM 1.1 mg/dL (0.6-1.3); VANCOMYCIN - RANDOM 13.7 ug/mL (10.0-20.0)
[2020-08-31 09:34] VITALS: BP 105/61
--- NOTE | 2020-08-31 09:41 | NUR ---
AAOX4 UPON ENTERING. ADMINISTERED MEDICATION, NO DIFFICULTIES. REQUESTED MORPHINE, BENADRYL, XANAX AND ZOFRAN. PROVIDED ALL PROMPTLY. RESTING UP RIGHT IN BED , DENIES FURTHER NEEDS AT THIS TIME. BED IN LOWEST POSITION, BED RAILS X2, ARDEN LIGHT WITHIN REACH. WILL CONITNUE POC. ASSESSMENT PERFORMED
[2020-08-31 14:53] VITALS: BP 91/49
[2020-08-31 17:30] VITALS: BP 98/62
--- NOTE | 2020-08-31 18:31 | NUR ---
HUNG IV ABX, TOLERATING WELL. REQUESTING PAIN MEDICATION. MANUAL BP IS 92/60. EXPLAINED WHY THIS IS TOO LOW. IS UPSET BUT UNDERSTANDS. DENIES FURTHER NEEDS AT THIS TIME. BED IN LOWEST POSITION, BED RAILS X2, CALL LIGHT WITHIN REACH. WILL CONTINUE POC.
--- NOTE | 2020-08-31 19:39 | NUR ---
I have reviewed this patient and I concur with the Shift Assessment completed by the Licensed Practical Nurse today this shift.
[2020-08-31 20:00] VITALS: BP 101/57
[2020-09-01] VITALS (7 sets, daily range): BP systolic 92–105; BP diastolic 54–66
--- NOTE | 2020-09-01 07:27 | NUR ---
IN BED SLEEPING. BED LOW POSITION, CALL LIGHT IN REACH. WILL CONTINUE TO MONITOR.
--- NOTE | 2020-09-01 15:06 | NUR ---
IN BED SLEEPING. DENIES NEEDS AT THIS TIME. BED LOW POSITION, CALL LIGHT IN REACH. WILL CONTINUE TO MONITOR.
[2020-09-02 04:00] VITALS: BP 110/58
--- NOTE | 2020-09-02 07:10 | NUR ---
REC'D IN BED AWAKE AND ALERT. RESP EVEN AND UNLABORED WITH NO DISTRESS NOTED CAN EXPRESS NEEDS AND WANTS. NO C/O NOTED OR VOICED AT THIS TIME. ASSESSMENT COMPLETED. WOUND VAC IN USE AND WORKING PROPERLY. C/L IN REACH AT BEDSIDE.
[2020-09-02 09:23] VITALS: BP 102/50
[2020-09-02 12:55] VITALS: BP 105/60
--- NOTE | 2020-09-02 13:37 | NUR ---
I have reviewed this patient and I concur with the Shift Assessment completed by the Licensed Practical Nurse today this shift.
--- NOTE | 2020-09-02 14:04 | NUR ---
Nutrition follow-up: Diet order: REgular PO intake 75-100% of meals Labs reviewed Wt: 249# PO intake good at this time Will continue to provide food choices and honor food preferences. RDN will follow-up on progress in 3-5 days.
[2020-09-02 16:46] VITALS: BP 97/57
[2020-09-02 20:00] VITALS: BP 86/51
[2020-09-03] VITALS (7 sets, daily range): BP systolic 92–114; BP diastolic 38–68
--- NOTE | 2020-09-03 07:15 | NUR ---
REC'D IN BED AWAKE. RESP EVEN AND UNLABORED WITH NO DISTRESS NOTED. CAN EXPRESS NEEDS AND WANTS. NO C/O NOTED OR VOICED. ASSESSMENT COMPLETED. C/L IN REACH.
[2020-09-03 08:54] LABS: MEAN PLATELET VOLUME 8.3 fL (7.4-10.4)
[2020-09-03 08:56] LABS: BASOPHILS 0.4 % (0-2); EOSINOPHILS 6.5 % (0-7); HEMATOCRIT 24.5 % (42.0-54.0); HEMOGLOBIN 8.1 g/dL (13.5-17.5); LYMPHOCYTES 12.4 % (15-50); MCH 29.7 pg (26.0-34.0); MCHC 33.1 g/dL (31.0-37.0); MCV 89.8 fL (80.0-100.0); MONOCYTES 8.4 % (2-11); NEUTROPHILS 72.3 % (40-80); PLATELET COUNT 202 10x3/uL (130-400); RBC 2.73 10x6/uL (4.20-6.10); RDW 16.7 % (11.5-14.5); WBC 8.6 10x3/uL (4.8-10.8)
[2020-09-03 09:02] LABS: ALBUMIN 2.3 g/dL (3.4-5.0); BILIRUBIN - TOTAL 0.49 mg/dL (0.2-1.3); CALCIUM 7.9 mg/dL (8.5-10.1); CARBON DIOXIDE 30.2 mmol/L (21.0-32.0); CREATININE - SERUM 1.3 mg/dL (0.6-1.3); POTASSIUM - SERUM 3.2 mmol/L (3.5-5.1); PROTEIN - SERUM 6.4 g/dL (6.4-8.2)
--- NOTE | 2020-09-03 17:34 | NUR ---
I have reviewed this patient and I concur with the Shift Assessment completed by the Licensed Practical Nurse today this shift.
[2020-09-04 03:53] VITALS: BP 100/53
--- NOTE | 2020-09-04 07:30 | NUR ---
REC'D IN BED EYES OPEN WATCHING TV. RESP EVEN AND UNALBORED WITH NO DISTRESS NOTED. CAN EXPRESS NEEDS AND WANTS. NO C/O NOTED OR VOICED. ASSESSMENT COMPLETED. C/L IN REACH AT BEDSIDE.
[2020-09-04 07:38] LABS: CREATININE - SERUM 1.3 mg/dL (0.6-1.3); VANCOMYCIN - TROUGH 19.9 ug/mL (10.0-20.0)
[2020-09-04 07:41] VITALS: BP 120/56
[2020-09-04 08:17] LABS: BASOPHILS 0.8 % (0-2); EOSINOPHILS 6.7 % (0-7); HEMATOCRIT 28.3 % (42.0-54.0); HEMOGLOBIN 9.3 g/dL (13.5-17.5); MCH 29.8 pg (26.0-34.0); MCV 90.3 fL (80.0-100.0); MEAN PLATELET VOLUME 8.1 fL (7.4-10.4); MONOCYTES 9.7 % (2-11); NEUTROPHILS 72.8 % (40-80); PLATELET COUNT 190 10x3/uL (130-400); RBC 3.13 10x6/uL (4.20-6.10); RDW 16.9 % (11.5-14.5)
[2020-09-04 08:19] LABS: ANION GAP 11.2 mmol/L (8-16); CALCIUM 8.2 mg/dL (8.5-10.1); CREATININE - SERUM 1.3 mg/dL (0.6-1.3); POTASSIUM - SERUM 3.2 mmol/L (3.5-5.1)
[2020-09-04 08:33] LABS: WBC 6.3 10x3/uL (4.8-10.8)
[2020-09-04 11:03] VITALS: BP 89/54
--- NOTE | 2020-09-04 14:12 | NUR ---
I have reviewed this patient and I concur with the Shift Assessment completed by the Licensed Practical Nurse today this shift.
--- NOTE | 2020-09-04 14:34 | MORECARE ---
CASE MANAGEMENT DISCHARGE SUMMARY PATIENT: VAHE NARVAEZ UNIT: [id number] ADM DATE: 08/27/20 AGE: 69 : 52 SEX: M ROOM/BED: D.2217 AUTHOR: NYDIA,DOC PHYSICIAN: REFERRING PHYSICIAN: ZAYDA COREAS MD DATE OF SERVICE: 09/04/20 Case Management Discharge Planning Summary COMMENTS ENTERED DATE: 09/04/20 14:23 CT COMMENT TYPE: Discharge Planning REVIEWER: Donna Davis PATIENT IS A RESIDENT OF THE [facility]. ANTICIPATE DC BACK TO [facility] SOON. I AM FAXING UPDATES TO THE [facility] NOW. CM TO FOLLOW AND ASSIST NEEDED. DCP REVIEW SUMMARY ANTICIPATED D/C DATE: EXPECTED LOS : CASE STATUS: DCP Initiated INITIAL REVIEW: 08/27/2020 INITIAL REVIEWER: Donna Davis FINAL DISCHARGE DISPOSITION: : FINAL REVIEWER: FINAL REVIEW DATE: DCP Focus Questions & Answers QUESTION: ANSWER : PATIENT: VAHE NARVAEZ ENCOUNTER: [id number] MEDICAL RECORD#: [id number] ADMISSION DATE: 08/27/2020 DISCHARGE DATE: ATTENDING MD: : AGE: 69 MARITAL STATUS: D DC PLAN ID: [id number] FACILITY: [facility] PRINTED ON: 09/04/20 14:34 CT All edits/amendments must be made on the electronic document DICTATION DATE: 09/04/201433 CELL COVERER: ELILANI 09/04/201433 RPT#: [id number] DC DATE: STATUS: ADM IN [facility] [address] [place] [address] END OF REPORT
[2020-09-04 20:00] VITALS: BP 82/49
[2020-09-05] VITALS: BP 84/51
[2020-09-05 04:00] VITALS: BP 89/45
[2020-09-05 06:16] LABS: ANION GAP 9.3 mmol/L (8-16); CREATININE - SERUM 1.3 mg/dL (0.6-1.3); POTASSIUM - SERUM 3.3 mmol/L (3.5-5.1)
[2020-09-05 06:28] LABS: BASOPHILS 0.8 % (0-2); EOSINOPHILS 6.6 % (0-7); HEMATOCRIT 28.1 % (42.0-54.0); HEMOGLOBIN 9.4 g/dL (13.5-17.5); LYMPHOCYTES 9.5 % (15-50); MCHC 33.4 g/dL (31.0-37.0); MCV 89.9 fL (80.0-100.0); MEAN PLATELET VOLUME 8.4 fL (7.4-10.4); MONOCYTES 8.9 % (2-11); NEUTROPHILS 74.2 % (40-80); PLATELET COUNT 159 10x3/uL (130-400); RBC 3.13 10x6/uL (4.20-6.10); RDW 16.7 % (11.5-14.5); WBC 6.6 10x3/uL (4.8-10.8)
--- NOTE | 2020-09-05 06:50 | NUR ---
CHANGED WOUND VAC DRSG TO RIGHT THIGH, VERY SWOLLEN, YELLOW DISCHARGE, REPORTED TO DAY SHIFT RN TO REPORT TO
--- NOTE | 2020-09-05 08:13 | NUR ---
PT RESTING QUIETLY IN BED. RESP EVEN AND UNLABORED. IV TO RIGHT UPPER ARM WITH NS @ 30ML/HR INFUSING VIA PUMP. SITE WITHOUT REDNESS OR EDEMA. WOUND VAC DRESSING INTACT TO RIGHT THIGH. AREA AROUND WOUND REDDENNED AND WARM TO TOUCH. PT DENIES FURTHER NEEDS AT THIS TIME. CL WITHIN REACH. ENCOURAGED TO CALL WITH NEEDS. CONTINUE POC
[2020-09-05 09:01] VITALS: BP 95/46
[2020-09-05 17:15] VITALS: BP 97/58
--- NOTE | 2020-09-05 19:30 | NUR ---
RECEIVED BEDSIDE REPORT. PT LAYING IN BED A&O X4. MIDLINE TO RIGHT UPPER ARM, PATENT AND INFUSING AT KVO. WOUND VAC/INCISION TO RIGHT THIGH, DRAINING TO SUCTION. CHRONIC WOUND TO RIGHT BUTTOCKS, DRSG C/D/I. TELEMETRY IN PLACE, 60 PACED. CONTACT ISOLATION IN PLACE. PT BEDFAST, TOTAL CARE. EDUCATED PT ON CL AND NEEDS, VERBALIZED UNDERSTANDING. BED LOW, ALARM ON, CL IN REACH.
[2020-09-05 20:00] VITALS: BP 90/58
[2020-09-06] VITALS: BP 89/52
[2020-09-06 04:00] VITALS: BP 94/58
[2020-09-06 07:34] VITALS: BP 92/57
--- NOTE | 2020-09-06 07:34 | NUR ---
PT RESTING QUIETLY IN BED WATCHING TV. RESP EVEN AND UNLABORED. PT REPORTS PAIN 4/10 AT THIS TIME. [address]LE[address]RY IN PLACE, HR 60 AND PACED. MIDLINE INTACT TO RIGHT ARM WITH NS @ 15ML/HR INFUSING VIA PUMP. SITE WITHOUT REDNESS OR EDEMA. WOUND VAC INTACT TO RIGHT THIGH. PT DENIES FURTHER NEEDS AT THIS TIME. CL WITHIN REACH. ENCOURAGED TO CALL WITH NEEDS. CONTINUE POC
[2020-09-06] MEDS ORDERED: PLAVIX75 MG PO (08:44)
[2020-09-06] MEDS ORDERED: FLORANEX / LACT1 TAB PO (08:45)
[2020-09-06] MEDS ORDERED: PROPAFENONE HC150 MG PO (08:47)
[2020-09-06] MEDS ORDERED: COREG12.5 MG PO (08:47)
[2020-09-06] MEDS ORDERED: PRAVASTATIN SOD10 MG PO (08:47)
[2020-09-06] MEDS ORDERED: CARDIZEM SR60 MG PO (08:48)
[2020-09-06] MEDS ORDERED: AMBIEN5 MG PO (08:52)
[2020-09-06 09:04] VITALS: BP 90/49
--- NOTE | 2020-09-06 14:00 | NUR ---
KARINA BARTLETT RN PRESENT IN PT ROOM TO ASSESS PT LINE TO LEFT UPPER ARM. IV LINE IDENTIFIED A PICC LINE AND DISCONTINUED PER ORDER FROM ANDREA MCKINNEY APN. CATH INTACT.
--- NOTE | 2020-09-06 15:10 | NUR ---
AMBULANCE HERE FOR TRANSPORT TO THE [facility]. ALL PERSONAL BELONGINGS PRESENT TAKEN WITH PT.
--- NOTE | 2020-09-08 18:18 | MORECARE ---
CASE MANAGEMENT DISCHARGE SUMMARY PATIENT: VAHE NARVAEZ UNIT: [id number] ADM DATE: 08/27/20 AGE: 70 : 52 SEX: M ROOM/BED: D.2217 AUTHOR: NYDIA,DOC PHYSICIAN: REFERRING PHYSICIAN: ZAYDA COREAS MD DATE OF SERVICE: 09/08/20 Case Management Discharge Planning Summary COMMENTS ENTERED DATE: 09/04/20 14:23 CT COMMENT TYPE: Discharge Planning REVIEWER: Donna Davis PATIENT IS A RESIDENT OF THE [facility]. ANTICIPATE DC BACK TO [facility] SOON. I AM FAXING UPDATES TO THE [facility] NOW. CM TO FOLLOW AND ASSIST NEEDED. DCP REVIEW SUMMARY ANTICIPATED D/C DATE: EXPECTED LOS : CASE STATUS: DCP Complete INITIAL REVIEW: 08/27/2020 INITIAL REVIEWER: Donna Davis FINAL DISCHARGE DISPOSITION: : FINAL REVIEWER: FINAL REVIEW DATE: DCP Focus Questions & Answers QUESTION: ANSWER : PATIENT: VAHE NARVAEZ ENCOUNTER: [id number] MEDICAL RECORD#: [id number] ADMISSION DATE: 08/27/2020 DISCHARGE DATE: 09/06/2020 ATTENDING MD: : AGE: 70 MARITAL STATUS: D DC PLAN ID: [id number] FACILITY: [facility] PRINTED ON: 09/08/20 18:17 CT All edits/amendments must be made on the electronic document DICTATION DATE: 09/08/201816 E COMMERCE DIRECTOR: LEILANI 09/08/201816 RPT#: [id number] DC DATE:09/06/20 STATUS: DIS IN [address] [address] [place] [address] END OF REPORT
--- NOTE | 2020-09-09 12:04 | MORECARE ---
CASE MANAGEMENT DISCHARGE SUMMARY PATIENT: VAHE NARVAEZ UNIT: [id number] ADM DATE: 08/27/20 AGE: 70 : 52 SEX: M ROOM/BED: D.2217 AUTHOR: NYDIA,DOC PHYSICIAN: REFERRING PHYSICIAN: ZAYDA COREAS MD DATE OF SERVICE: 09/09/20 Case Management Discharge Planning Summary COMMENTS ENTERED DATE: 09/04/20 14:23 CT COMMENT TYPE: Discharge Planning REVIEWER: Donna Davis PATIENT IS A RESIDENT OF THE [facility]. ANTICIPATE DC BACK TO LONG-TERM SOON. I AM FAXING UPDATES TO THE [facility] NOW. CM TO FOLLOW AND ASSIST NEEDED. DCP REVIEW SUMMARY ANTICIPATED D/C DATE: EXPECTED LOS : CASE STATUS: DCP Complete INITIAL REVIEW: 08/27/2020 INITIAL REVIEWER: Donna Davis FINAL DISCHARGE DISPOSITION: : FINAL REVIEWER: FINAL REVIEW DATE: DCP Focus Questions & Answers QUESTION: ANSWER : PATIENT: VAHE NARVAEZ ENCOUNTER: [id number] MEDICAL RECORD#: [id number] ADMISSION DATE: 08/27/2020 DISCHARGE DATE: 09/06/2020 ATTENDING MD: : AGE: 70 MARITAL STATUS: D DC PLAN ID: [id number] FACILITY: [facility] PRINTED ON: 09/09/20 12:04 CT All edits/amendments must be made on the electronic document DICTATION DATE: 09/09/20 120 STRIP WINDER: LEILANI 09/09/20 1204 RPT#: [id number] DC DATE:09/06/20 STATUS: DIS IN [address] [address] [place] [address] END OF REPORT
== END 2020-09-06 15:19 | DRG 571 ==
LOC: D.ER 12:08 → D.EDHOLD 16:27 → D.MS 16:27
PROVIDERS: Emergency Medicine; Legal Medicine; Surgery; ADMIT Emergency Medicine; ATTEND Emergency Medicine
PROC: 0JBL0ZZ Excision of Right Upper Leg Subcutaneous Tissue and Fascia, Open Approach (ICD-10-PCS; principal; 2020-08-28 16:00)
DX: L89.894 Pressure ulcer of other site, stage 4 (principal); T84.51XA Infection and inflammatory reaction due to internal right hip prosthesis, initial encounter; I48.20 Chronic atrial fibrillation, unspecified; Z86.73 Personal history of transient ischemic attack (TIA), and cerebral infarction without residual deficits; I11.0 Hypertensive heart disease with heart failure; I50.9 Heart failure, unspecified; I25.10 Atherosclerotic heart disease of native coronary artery without angina pectoris; Z95.0 Presence of cardiac pacemaker; K21.9 Gastro-esophageal reflux disease without esophagitis; Y83.9 Surgical procedure, unspecified as the cause of abnormal reaction of the patient, or of later complication, without mention of misadventure at the time of the procedure; E87.6 Hypokalemia; G47.00 Insomnia, unspecified